=== PATIENT | male | born 1950 ===

== ENCOUNTER 2017-09-25 13:38 | Inpatient (IN) | payer BC, MEDICARE ==
[2017-09-25 14:12] VITALS: BMI 23.6
[2017-09-25] MEDS ORDERED: Lactated Ringer's 1,000 ML IV ONE (14:39)
--- NOTE | 2017-09-25 14:39 | C.PDOC ---
History Of Present Illness <Danay Lyon - Last Filed: 09/25/17 18:57> <JavanEric Sanders - Last Filed: 09/25/17 22:28> 66 year old male with PMH of HTN and Colon cancer presents to ED with complaints of rectal pain for one year. He reports for the past week he has been having pain with bowel movements, and is having watery diarrhea. Today he had 12 episodes of loose non-bloody diarrhea. Denies any fever, abdominal pain, SOB, or other associated complaints. Last chemotherapy was Friday09/17/17 and also was given Lomotil for diarrhea. PCP: Dr Ralph Servin Onc: Dr Brian Mckeno (CamronEvertDanay L) History Per: Patient History/Exam Limitations: no limitations Onset/Duration Of Symptoms: Other (1 year) Current Symptoms Are (Timing): Still Present Radiation Of Pain To:: None Quality Of Discomfort: "Pain" Associated Symptoms: Diarrhea. denies: Fever Last Bowel Movement: Today Additional History Per: Patient <Danay Lyon - Last Filed: 09/25/17 18:57> <Eric Edouard Tommy - Last Filed: 09/25/17 22:28> Time Seen by Provider: 09/25/17 14:23 Chief Complaint (Nursing): Abdominal Pain Past Medical History Reviewed: Historical Data, Nursing Documentation, Vital Signs - Medical History PMH: HTN Surgical History: No Surg Hx Family History: States: Unknown Family Hx - Social History Hx Alcohol Use: No Hx Substance Use: No - Immunization History Hx Tetanus Toxoid Vaccination: No Hx Influenza Vaccination: Yes (2015) <Danay Lyon - Last Filed: 09/25/17 18:57> Vital Signs: Last Vital Signs Temp 98.1 F 09/25/17 17:43 Pulse 80 09/25/17 17:43 Resp 18 09/25/17 17:43 BP 132/75 09/25/17 17:43 Pulse Ox 98 09/25/17 18:57 Review Of Systems Constitutional: Negative for: Fever Respiratory: Negative for: Shortness of Breath Gastrointestinal: Positive for: Diarrhea, Rectal Pain. Negative for: Abdominal Pain <LyonDanay David - Last Filed: 09/25/17 18:57> Physical Exam - Physical Exam Appears: Non-toxic, No Acute Distress Skin: Normal Color, Warm, Dry Oral Mucosa: Moist Chest: Symmetrical, No Deformity, No Tenderness Cardiovascular: Rhythm Regular, No Murmur Respiratory: Normal Breath Sounds, No Rales, No Rhonchi, No Wheezing Gastrointestinal/Abdominal: Soft, No Tenderness, No Guarding, No Rebound Rectal: No Blood Streaked Stool, Other (rectal area is erythematous with maceration, tender, firm and loose yellow-brown stool) Extremity: Capillary Refill (less than 2 seconds ) Neurological/Psych: Oriented x3, Normal Speech, Normal Cognition <Danay Lyon - Last Filed: 09/25/17 18:57> ED Course And Treatment - Laboratory Results Result Diagrams: 09/25/17 14:54 09/25/17 14:54 O2 Sat by Pulse Oximetry: 98 (on RA) Pulse Ox Interpretation: Normal <Danay Lyon Last Filed: 09/25/17 18:57> - Laboratory Results Result Diagrams: 09/25/17 14:54 09/25/17 14:54 <Eric Edouard - Last Filed: 09/25/17 22:28> Medical Decision Making <Danay Lyon - Last Filed: 09/25/17 18:57> <Eric Edouard - Last Filed: 09/25/17 22:28> Medical Decision Making: Impression: 66 year old male with rectal pain, pain with bowel movements, loose non-bloody diarrhea Plan: * Bloodwork * Urinalysis * Stool culture * Toradol IVP * Lactated Ringers Progress: Labs reviewed H/H is 11.2/33 , hypocalcemia 8.1, slight hyponatremia 129. Patient receiving LR 1800 patient resting in bed in no distress. Still awaiting CT scan [address] scan, will await results [address] Case signed out to Dr Edouard pending CT results, re-eval and dispo (Danay Lyon) Disposition - Disposition Disposition Time: 18:57 - POA Present On Arrival: None <Danay Lyon - Last Filed: 09/25/17 18:57> Discussed With : Dada Sol Doctor Will See Patient In The: Hospital Counseled Patient/Family Regarding: Diagnosis - Disposition Disposition Time: 22:27 <Eric Edouard - Last Filed: 09/25/17 22:28> - Disposition Disposition: HOSPITALIZED Condition: STABLE Forms: [facility] (Honduran) - Clinical Impression Clinical Impression: History of colon cancer, Rectal or anal pain - PA / APPLICATION INTERNSHIP / Resident Statement MD/DO has reviewed & agrees with the documentation as recorded. - Scribe Statement The provider has reviewed the documentation as recorded by the Scribe (Margot Medina) <Danay Lyon - Last Filed: 09/25/17 18:57> <Eric Edouard - Last Filed: 09/25/17 22:28> - Scribe Statement All medical record entries made by the Scribe were at my direction and personally dictated by me. I have reviewed the chart and agree that the record accurately reflects my personal performance of the history, physical exam, medical decision making, and the department course for this patient. I have also personally directed, reviewed, and agree with the discharge instructions and disposition. (Danay Lyon) Physician Patient Turnover Patient Signed Over To: Eric Edouard Handoff Comments: Pending Ct report, re-evaluation and disposition <Danay Lyon - Last Filed: 09/25/17 18:57>
[2017-09-25] MEDS ORDERED: Iohexol 240 (50 ml) PO STA (14:44)
[2017-09-25] MEDS ORDERED: Lactated Ringer's 1,000 ML ONE (14:45)
[2017-09-25 15:00] LABS: BASO % 0.6 % (0.0-2.0); EOS # 0.1 K/uL (0.0-0.7); EOS % 1.4 % (0.0-4.0); HEMATOCRIT 33.5 % (35.0-51.0); LYMPH # 1.4 K/uL (1.0-4.3); LYMPH % 26.8 % (20.0-40.0); MEAN CELL VOLUME 85.1 fL (80.0-94.0); MEAN CORPUSCULAR HEMOGLOBIN 28.4 pg (27.0-31.0); MEAN CORPUSCULAR HGB CONC 33.4 g/dL (33.0-37.0); MEAN PLATELET VOLUME 6.6 fL (7.2-11.7); MONO # 0.6 K/uL (0.0-0.8); MONO % 12.2 % (0.0-10.0); NRBC % 0.1 % (0.0-2.0); RED CELL DISTRIBUTION WIDTH 17.2 % (11.5-14.5); WHITE BLOOD COUNT 5.1 K/uL (4.8-10.8)
[2017-09-25] MEDS ORDERED: Iohexol 240 (50 ml) ONE (15:02)
[2017-09-25 15:07] LABS: INR 1.2
[2017-09-25 15:42] LABS: ALKALINE PHOSPHATASE 82 U/L (38-126); ALT/SGPT 32 U/L (21-72); AST/SGOT 18 U/L (17-59); BILIRUBIN,TOTAL 0.9 mg/dL (0.2-1.3); BLOOD UREA NITROGEN 16 mg/dL (9-20); CALCIUM 8.1 mg/dl (8.6-10.4); CARBON DIOXIDE 25 mmol/L (22-30); CHLORIDE 99 mmol/L (98-107); GFR AFRICAN-AMERICAN > 60; GLUCOSE,RANDOM 115 mg/dL (75-110); POTASSIUM 3.8 mmol/L (3.6-5.2); TOTAL PROTEIN 7.5 g/dL (6.3-8.3)
[2017-09-25 15:42] LABS: RBC URINE < 1 /hpf (0-3); URINE BILIRUBIN NEGATIVE (NEGATIVE); URINE BLOOD NEGATIVE (NEGATIVE); URINE COLOR Yellow (YELLOW); URINE GLUCOSE (UA) NORMAL (Normal); URINE KETONE NEGATIVE (NEGATIVE); URINE LEUKOCYTE ESTERASE NEG Leu/uL (Negative); URINE PROTEIN NEGATIVE (NEGATIVE); WBC URINE 1 /hpf (0-5)
[2017-09-25] MEDS ORDERED: Iodixanol 320 MG/ML 100 ML BOTTLE IV ONE (18:06)
--- NOTE | 2017-09-25 20:07 | CT ---
EXAM: CT Abdomen and Pelvis With Intravenous Contrast EXAM DATE/TIME: 09/25/2017 2:56 PM CLINICAL HISTORY: 66 years old, male; Signs and symptoms and condition or disease; Cancer; Other: Colon; Abdominal tenderness; Additional info: Rectal pain, h/o colon ca TECHNIQUE: Axial computed tomography images of the abdomen and pelvis with intravenous contrast. All CT scans at this facility use one or more dose reduction techniques, viz.: automated exposure control; ma/kV adjustment per patient size (including targeted exams where dose is matched to indication; i.e. head); or iterative reconstruction technique. Coronal and sagittal reformatted images were created and reviewed. CONTRAST: 100 mL of VISI administered intravenously. COMPARISON: There are no prior studies for comparison. FINDINGS: Lower thorax: Heart size is normal. There is a small hiatal hernia. There are fibrotic changes at the lung bases right greater than left. There is bronchiectasis at the right base. There is a calcified granuloma in the left base. There is a poorly defined 13 x 11 mm nodular opacity, right lower lobe. There is an 8mm right lower lobe nodule. There is nodular pleural thickening and scarring. ABDOMEN: Liver: There are multiple low attenuation hepatic lesions not cysts by CT criteria. There are small hepatic cysts. There are additional low attenuation lesions are too small to characterize. Gallbladder and bile ducts: Gallbladder is incompletely distended. There is mild pericholecystic fluid/edema. There may be a small gallstone. There is prominence of the common duct. Pancreas: Pancreas is mildly atrophic. Spleen: unremarkable Adrenals: There is mild adrenal thickening bilaterally. Kidneys and ureters: There is a left renal cyst. There are no focal renal masses. There is mild left pelvocaliectasis. There is no ureterectasis. Stomach and bowel: Stomach is incompletely distended which accentuates the gastric wall. Bowel rotation is normal. The small bowel is incompletely opacified with oral contrast. There is contrast in distal small bowel. There is no small bowel obstruction. There is mild distal ileal wall and fold thickening. Terminal ileum and appendix are unremarkable. There is a moderately large amount of stool in the colon. There is diffuse distal sigmoid wall thickening. There is marked asymmetric rectal wall thickening. There is infiltration of adjacent perirectal soft tissue planes. There is obliteration of soft tissue planes between the rectum, seminal vesicles and prostate. There is infiltration of the presacral space. Appendix: See stomach and bowel PELVIS: Bladder: Bladder is partially distended. Reproductive: Prostate is mildly enlarged. Seminal vesicles cannot be delineated. ABDOMEN and PELVIS: Intraperitoneal space: There is no free air. Bones/joints: There are degenerative changes in the osseus structures. Soft tissues: unremarkable Vasculature: There are vascular calcifications. Lymph nodes: There is a 3.3 x 3.5 x 4.3 cm pre-sacral mass in the upper pelvis encasing the inferior mesenteric artery. There is enlarged left iliac node. There is a 3.6 x 2 x 3.9 cm right inguinal node. There are mildly enlarged left inguinal nodes. IMPRESSION: Circumferential rectal mass with infiltration of adjacent soft tissues including seminal vesicles and prostate, findings are consistent with malignancy, rectal mass may be causing partial obstruction with constipation; adenopathy; hepatic and pulmonary nodules/masses suspicious for metastatic disease; gallstones Additional findings as described above.
[2017-09-25 23:19] VITALS: RESP 20
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
[2017-09-26] MEDS: metroNIDAZOLE IV 500 mg/100 ml 500 MG/100 ML BAG IVPB SCH ×4 (00:07→22:09)
[2017-09-26 07:41] LABS: BASO % 0.3 % (0.0-2.0); EOS # 0.1 K/uL (0.0-0.7); EOS % 1.5 % (0.0-4.0); HEMATOCRIT 29.5 % (35.0-51.0); LYMPH # 0.9 K/uL (1.0-4.3); LYMPH % 23.2 % (20.0-40.0); MEAN CELL VOLUME 84.3 fL (80.0-94.0); MEAN CORPUSCULAR HEMOGLOBIN 28.7 pg (27.0-31.0); MEAN PLATELET VOLUME 7.1 fL (7.2-11.7); MONO # 0.4 K/uL (0.0-0.8); MONO % 11.3 % (0.0-10.0); NRBC % 0.1 % (0.0-2.0); RED CELL DISTRIBUTION WIDTH 16.9 % (11.5-14.5); WHITE BLOOD COUNT 3.9 K/uL (4.8-10.8)
[2017-09-26 07:50] LABS: ALB/GLOB RATIO 1.1 (1.0-2.1); ALKALINE PHOSPHATASE 73 U/L (38-126); ALT/SGPT 32 U/L (21-72); AST/SGOT 17 U/L (17-59); BILIRUBIN,TOTAL 1.1 mg/dL (0.2-1.3); BLOOD UREA NITROGEN 11 mg/dL (9-20); CALCIUM 7.9 mg/dl (8.6-10.4); CARBON DIOXIDE 26 mmol/L (22-30); CHLORIDE 103 mmol/L (98-107); GFR AFRICAN-AMERICAN > 60; GLUCOSE,RANDOM 86 mg/dL (75-110); MAGNESIUM 1.9 mg/dL (1.6-2.3); PHOSPHOROUS 3.4 mg/dL (2.5-4.5); POTASSIUM 3.9 mmol/L (3.6-5.2); SODIUM 137 mmol/L (132-148); TOTAL PROTEIN 6.1 g/dL (6.3-8.3)
--- NOTE | 2017-09-26 09:11 | CP.PCM.PN ---
<Luis ERea SAudra - Last Filed: 09/26/17 14:44> Subjective - Date & Time of Evaluation Date of Evaluation: 09/26/17 Time of Evaluation: 07:00 - Subjective Subjective: Patient was seen and examined at bedside in the AM. Patient states he is having a small loose bowel movement every 10 minutes. He states sometimes there is a little bit of blood in his stool but not much. He also states he does have some rectal pain. Patient states he has been receiving IV chemotherapy 2x per month and the last time was 13 days ago. He denies nausea, vomiting, fever, or abdominal pain. Objective - Vital Signs/Intake and Output Vital Signs (last 24 hours): Temp Pulse Resp BP Pulse Ox 98.0 F 74 20 124/71 100 09/26/17 07:37 09/26/17 07:37 09/26/17 07:37 09/26/17 07:37 09/26/17 07:37 Intake and Output: 09/26/17 09/26/17 06:59 18:59 Intake Total 100 Balance 100 - Medications Medications: Current Medications Docusate Sodium (Colace) 100 mg PO TID [facility] Heparin Sodium (Porcine) (Heparin) 5,000 units SC Q8 [facility] Last Admin: 09/26/17 05:35 Dose: 5,000 units Ceftriaxone Sodium 1 gm/ (Sodium Chloride) 100 mls @ 100 mls/hr IVPB DAILY [facility] Metronidazole (Flagyl) 500 mg in 100 mls @ 100 mls/hr IVPB Q8 [facility] Last Admin: 09/26/17 05:34 Dose: 100 mls/hr Mineral Oil (Mineral Oil 30ml) 10 ml PO TID [facility] Morphine Sulfate (Morphine) 1 mg IVP Q4 PRN PRN Reason: Pain, severe (8-10) - Labs Labs: 09/26/17 06:57 09/26/17 06:57 PT 13.7 SECONDS (9.7-12.2) H 09/25/17 14:54 INR 1.2 09/25/17 14:54 APTT 35 SECONDS (21-34) H 09/25/17 14:54 - Constitutional Appears: Chronically Ill - Head Exam Head Exam: ATRAUMATIC, NORMAL INSPECTION - Eye Exam Eye Exam: EOMI, Normal appearance - ENT Exam ENT Exam: Mucous Membranes Moist - Respiratory Exam Respiratory Exam: Clear to Ausculation Bilateral, NORMAL BREATHING PATTERN. absent: Rales, Rhonchi, Wheezes, Stridor - Cardiovascular Exam Cardiovascular Exam: REGULAR RHYTHM, RRR, +S1, +S2 - GI/Abdominal Exam GI & Abdominal Exam: Soft, Normal Bowel Sounds. absent: Tenderness - Rectal Exam Additional comments: Dr. Bowie at bedside performed rectal exam. Dr. Bowie only stool was seen on exam and unable to completely access rectum due to rectal stenosis. - Extremities Exam Extremities Exam: Normal Inspection - Neurological Exam Neurological Exam: Alert, Awake, Oriented x3 - Psychiatric Exam Psychiatric exam: Normal Affect, Normal Mood - Skin Skin Exam: Normal Color, Warm Assessment and Plan - Assessment and Plan (Free Text) Assessment: 1.) Diarrhea: Secondary to colon cancer vs. Rectal mass on CT GI Consult: Dr. Escamilla --> help appreciated Heme/Onc Consult: Dr. Mckeon --> help appreciated - Spoke with Dr. Dennis who is covering for Dr. Mckeon stated to continue with GI consult and hold off on consulting surgery until speaking with Dr. Mckeon at this time. CT of Abdomen/Pelvis: Circumferential rectal mass with infiltration of adjacent soft tissues including seminal vesicles and prostate, findings are consistent with malignancy, rectal mass may be causing partial obstruction with constipation; adenopathy; hepatic and pulmonary nodules/masses suspicious for metastatic disease; gallstones - Medications: * Colace 100mg po TID * Lactulose 20mg PO TID - Soft Diet - f/u stool culture - f/u stool occult 2.) Rectal pain Secondary to colon cancer vs. inflammation/infection GI Consult: Dr. Escamilla --> help appreciated Heme/Onc Consult: Dr. Mckeon --> help appreciated Medications * Ceftriaxone 1gm daily * Metronidazole 500mg q8h * Morphine 1mg ivp q4h prn - f/u stool culture - f/u stool occult 3.) Anemia Secondary to diarrhea vs. Colon Cancer - H/H: 11.2/33.5 on admission - H/H (09/26): 10/29.5 - Monitor 4.) Colon Cancer CT of Abdomen/Pelvic: circumferential rectal mass with infiltration of adjacent soft tissues including seminal vesicles and prostate, findings are consistent with malignancy, rectal mass may be causing partial obstruction with constipation; adenopathy; hepatic and pulmonary nodules/masses suspicious for metastatic disease; gallstones * Heme/Onc consulted--> Dr. Mckeon, help appreciated 5.) HTN Monitor May restart home medication Amlodipine if pressure is high 6.) Prophylaxis - Heparin 5000 SC q8h - Protonix 4mg IV q12h Case discussed with Dr. Azeb Kimbrough PGY-1 <Rob Bowie - Last Filed: 09/26/17 16:39> Objective - Vital Signs/Intake and Output Vital Signs (last 24 hours): Temp Pulse Resp BP Pulse Ox 98.0 F 74 20 124/71 100 09/26/17 07:37 09/26/17 07:37 09/26/17 07:37 09/26/17 07:37 09/26/17 07:37 Intake and Output: 09/26/17 09/26/17 06:59 18:59 Intake Total 100 700 Balance 100 700 - Medications Medications: Current Medications Docusate Sodium (Colace) 100 mg PO TID [facility] Last Admin: 09/26/17 14:18 Dose: 100 mg Ferrous Sulfate (Feosol) 325 mg PO DAILY [facility] Last Admin: 09/26/17 15:28 Dose: 325 mg Heparin Sodium (Porcine) (Heparin) 5,000 units SC Q8 [facility] Last Admin: 09/26/17 14:18 Dose: 5,000 units Ceftriaxone Sodium 1 gm/ (Sodium Chloride) 100 mls @ 100 mls/hr IVPB DAILY [facility] Last Admin: 09/26/17 09:44 Dose: 100 mls/hr Metronidazole (Flagyl) 500 mg in 100 mls @ 100 mls/hr IVPB Q8 [facility] Last Admin: 09/26/17 14:18 Dose: 100 mls/hr Lactulose (Enulose) 20 gm PO TID [facility] Last Admin: 09/26/17 14:18 Dose: 20 gm Morphine Sulfate (Morphine) 1 mg IVP Q4 PRN PRN Reason: Pain, severe (8-10) Last Admin: 09/26/17 15:32 Dose: 1 mg Pantoprazole Sodium (Protonix Inj) 40 mg IVP Q12 [facility] Last Admin: 09/26/17 15:28 Dose: 40 mg - Labs Labs: 09/26/17 06:57 09/26/17 06:57 PT 13.7 SECONDS (9.7-12.2) H 09/25/17 14:54 INR 1.2 09/25/17 14:54 APTT 35 SECONDS (21-34) H 09/25/17 14:54 Attending/Attestation - Attestation I have personally seen and examined this patient.: Yes I have fully participated in the care of the patient.: Yes I have reviewed all pertinent clinical information, including history, physical exam and plan: Yes Notes (Text): Medical attending: Patient was seen and examined by me, reviewed note by medical assistant secretary. We saw the patient. He was not in any acute distress at rest however that he very commonly has to go to the restroom due to short bouts minimal diarrhea. He describes his stools as watery and brown. He reports he is unable to have a normal bowel movement. Furthermore he also explains that he often gets leakage of stool he's not able to control this. As mentioned previously this is a patient who has colon cancer, and has been receiving chemotherapy the last chemotherapy was about 2 weeks ago he tells us. He had a CT scan done on admission that shows a rectal mass with the soft tissue swelling almost completely around the rectum. It appears he has stool retained in his GI tract On exam he has a lot of tenderness on the rectal exam. I was unable to advance my finger very far at all. This is due to a lot of firm areas around the rectum there is no blood the stool was light brown in color. The earlier night medical team that admitted the patient placed the patient on ceftriaxone and Rocephin in hopes that perhaps this would help give some sort of decrease of inflammation in case this was an infection however this may not be an infection. His WBC is ok and he is non fever. Thank you very much, Rob Bowie
--- NOTE | 2017-09-26 16:45 | CP.PCM.CON ---
History of Present Illness - History of Present Illness History of Present Illness: This is a 66 year old man with rectal cancer, admitted for rectal pain and diarrhea. Patient was originally evaluated in October,, when colonoscopy showed a fungating partially obstructing mass in the distal rectum and diverticulosis. Pathology showed invasive adenocarcinoma, positive for a Kras mutation in codon 13 and negative for mutations involving mismatch repair genes. Metastatic work up showed metastases in lung, liver and lymph nodes. He has been treated by Dr. Mckeno who, starting in November, administered the following chemotherapy: avastin/xeloda/oxaliplatin for two months; avastin/xeloda/irinotecan for three months; and xeloda/irinotecan for four months. He has been referred for palliative surgery. Patient was admitted 09/15/2017 for frequent small bowel movements and pain in the rectum. The bowel movements are now occurring every hour, with small amounts of blood. He has tried taking imodium without much relief. The pain in the rectum is constant and prevents him from sitting. He has nausea, poor appetite, and weight loss (40 pounds in the past year). He denies having vomiting, heartburn, difficulty swallowing. CT scan showed circumferential rectal mass with infiltration of adjacent soft tissues, including seminal vesicles and prostate; presacral mass in the upper pelvis encasing the inferior mesenteric artery; constipation; adenopathy (left iliac, right inguinal); masses in liver and lungs Review of Systems - Review of Systems All systems: reviewed and no additional remarkable complaints except - Constitutional Constitutional: Fatigue, Weight Loss, Weakness - Cardiovascular Cardiovascular: absent: Chest Pain, Dyspnea, Palpitations - Respiratory Respiratory: absent: Cough, Dyspnea, Wheezing - Gastrointestinal Gastrointestinal: Diarrhea, Hematochezia, Nausea. absent: Abdominal Pain, Dysphagia, Heartburn, Vomiting - Genitourinary Genitourinary: absent: Difficulty Urinating Past Patient History - Past Medical History & Family History Past Medical History?: Yes - Past Social History Smoking Status: Never Smoked - CARDIAC Hx Cardiac Disorders: Yes Hx Hypertension: Yes - PULMONARY Hx Respiratory Disorders: No - NEUROLOGICAL Hx Neurological Disorder: No - HEENT Hx HEENT Problems: No - RENAL Hx Chronic Kidney Disease: No - ENDOCRINE/METABOLIC Hx Endocrine Disorders: No - HEMATOLOGICAL/ONCOLOGICAL Hx Blood Disorders: No - INTEGUMENTARY Hx Dermatological Problems: No - MUSCULOSKELETAL/RHEUMATOLOGICAL Hx Musculoskeletal Disorders: No Hx Falls: No - GASTROINTESTINAL Hx Gastrointestinal Disorders: Yes (SEE COMMENT) Other/Comment: COLON CANCER WITH CHEMOTHERAPY STARTED 2016 - GENITOURINARY/GYNECOLOGICAL Hx Genitourinary Disorders: No - PSYCHIATRIC Hx Psychophysiologic Disorder: No Hx Substance Use: No - SURGICAL HISTORY Hx Surgeries: Yes Hx Orthopedic Surgery: Yes (BACK SURGERY) - ANESTHESIA Hx Anesthesia: Yes Hx Anesthesia Reactions: No Hx Malignant Hyperthermia: No Has any member of the family had a problem w/ anesthesia?: No Meds Allergies/Adverse Reactions: Allergies Allergy/AdvReac Type Severity Reaction Status Date / Time No Known Allergies Allergy Verified 09/25/17 14:11 - Medications Medications: Current Medications Docusate Sodium (Colace) 100 mg PO TID [facility] Last Admin: 09/26/17 14:18 Dose: 100 mg Ferrous Sulfate (Feosol) 325 mg PO DAILY [facility] Last Admin: 09/26/17 15:28 Dose: 325 mg Heparin Sodium (Porcine) (Heparin) 5,000 units SC Q8 [facility] Last Admin: 09/26/17 14:18 Dose: 5,000 units Ceftriaxone Sodium 1 gm/ (Sodium Chloride) 100 mls @ 100 mls/hr IVPB DAILY [facility] Last Admin: 09/26/17 09:44 Dose: 100 mls/hr Metronidazole (Flagyl) 500 mg in 100 mls @ 100 mls/hr IVPB Q8 [facility] Last Admin: 09/26/17 14:18 Dose: 100 mls/hr Lactulose (Enulose) 20 gm PO TID [facility] Last Admin: 09/26/17 14:18 Dose: 20 gm Morphine Sulfate (Morphine) 1 mg IVP Q4 PRN PRN Reason: Pain, severe (8-10) Last Admin: 09/26/17 15:32 Dose: 1 mg Pantoprazole Sodium (Protonix Inj) 40 mg IVP Q12 [facility] Last Admin: 09/26/17 15:28 Dose: 40 mg Physical Exam - Constitutional Appears: No Acute Distress - Head Exam Head Exam: ATRAUMATIC, NORMOCEPHALIC - Neck Exam Neck exam: Negative for: Lymphadenopathy, Thyromegaly - Respiratory Exam Respiratory Exam: NORMAL BREATHING PATTERN. absent: Rales, Rhonchi, Wheezes - Cardiovascular Exam Cardiovascular Exam: REGULAR RHYTHM, +S1, +S2. absent: Gallop, Rubs, Systolic Murmur - GI/Abdominal Exam GI & Abdominal Exam: Normal Bowel Sounds, Soft. absent: Mass, Organomegaly, Tenderness - Rectal Exam Rectal Exam: Deferred - Extremities Exam Extremities exam: Negative for: calf tenderness, pedal edema Results - Vital Signs Recent Vital Signs: Last Vital Signs Temp 98.0 F 09/26/17 07:37 Pulse 74 09/26/17 07:37 Resp 20 09/26/17 07:37 BP 124/71 09/26/17 07:37 Pulse Ox 100 09/26/17 07:37 - Labs Result Diagrams: 09/26/17 06:57 09/26/17 06:57 Labs: Laboratory Results - last 24 hr 09/26/17 09/26/17 06:57 06:57 WBC 3.9 L RBC 3.49 L Hgb 10.0 L Hct 29.5 L MCV 84.3 MCH 28.7 MCHC 34.0 RDW 16.9 H Plt Count 297 MPV 7.1 L Neut % (Auto) 63.7 Lymph % (Auto) 23.2 [place] % (Auto) 11.3 H Eos % (Auto) 1.5 Baso % (Auto) 0.3 Neut # 2.5 Lymph # 0.9 L [place] # 0.4 Eos # 0.1 Baso # 0.0 Sodium 137 Potassium 3.9 Chloride 103 Carbon Dioxide 26 Anion Gap 12 BUN 11 Creatinine 0.6 L Est GFR ( Amer) > 60 Est GFR (Non-Af Amer) > 60 Random Glucose 86 Calcium 7.9 L Phosphorus 3.4 Magnesium 1.9 Total Bilirubin 1.1 AST 17 ALT 32 Alkaline Phosphatase 73 Total Protein 6.1 L Albumin 3.1 L Globulin 2.9 Albumin/Globulin Ratio 1.1 Assessment & Plan (1) Carcinoma of rectum Assessment and Plan: Patient has carcinoma of rectum with is locally aggressive and widely metastatic. Consider pain control with narcotics and palliative surgery as suggested by Dr. Mckeon. I do not see a role for colonoscopy at this point. Status: Acute
[2017-09-27] MEDS: metroNIDAZOLE IV 500 mg/100 ml 500 MG/100 ML BAG IVPB SCH ×2 (05:18→14:21)
[2017-09-27 06:46] LABS: BASO % 0.4 % (0.0-2.0); EOS % 0.4 % (0.0-4.0); HEMATOCRIT 30.1 % (35.0-51.0); LYMPH # 0.8 K/uL (1.0-4.3); LYMPH % 21.3 % (20.0-40.0); MEAN CELL VOLUME 84.4 fL (80.0-94.0); MEAN CORPUSCULAR HEMOGLOBIN 28.8 pg (27.0-31.0); MEAN CORPUSCULAR HGB CONC 34.1 g/dL (33.0-37.0); MEAN PLATELET VOLUME 6.7 fL (7.2-11.7); MONO # 0.4 K/uL (0.0-0.8); MONO % 11.2 % (0.0-10.0); RED CELL DISTRIBUTION WIDTH 17.3 % (11.5-14.5); WHITE BLOOD COUNT 3.7 K/uL (4.8-10.8)
[2017-09-27 06:49] LABS: ALKALINE PHOSPHATASE 78 U/L (38-126); ALT/SGPT 35 U/L (21-72); AST/SGOT 16 U/L (17-59); BILIRUBIN,TOTAL 0.8 mg/dL (0.2-1.3); BLOOD UREA NITROGEN 12 mg/dL (9-20); CARBON DIOXIDE 26 mmol/L (22-30); CHLORIDE 105 mmol/L (98-107); GFR AFRICAN-AMERICAN > 60; GLUCOSE,RANDOM 104 mg/dL (75-110); PHOSPHOROUS 3.7 mg/dL (2.5-4.5); POTASSIUM 3.4 mmol/L (3.6-5.2); SODIUM 140 mmol/L (132-148); TOTAL PROTEIN 6.5 g/dL (6.3-8.3)
[2017-09-27 06:53] LABS: ALB/GLOB RATIO 1.1 (1.0-2.1)
[2017-09-27] MEDS ORDERED: Potassium Chloride 20 mEq ER Tab PO ONE (09:33)
[2017-09-27 10:10] VITALS: BP 106/69; PULSE 89; TEMP 97.6; O2SAT 96
--- NOTE | 2017-09-27 11:20 | CP.PCM.PN ---
Subjective - Date & Time of Evaluation Date of Evaluation: 09/27/17 Time of Evaluation: 11:17 - Subjective Subjective: Sue Escamilla F/U rectal CA Seen with Dr Sadler Reports no: diarrhea, constipation, CP, SOB, fever, [place] , cough, RB, melena. + Wt loss 35 lbs Objective - Vital Signs/Intake and Output Vital Signs (last 24 hours): Temp Pulse Resp BP Pulse Ox 97.6 F 89 20 106/69 96 09/27/17 10:09 09/27/17 10:09 09/27/17 10:09 09/27/17 10:09 09/27/17 10:09 Intake and Output: 09/27/17 09/27/17 06:59 18:59 Intake Total 960 Balance 960 - Medications Medications: Current Medications Docusate Sodium (Colace) 100 mg PO TID [facility] Last Admin: 09/26/17 17:22 Dose: 100 mg Ferrous Sulfate (Feosol) 325 mg PO DAILY [facility] Last Admin: 09/26/17 15:28 Dose: 325 mg Heparin Sodium (Porcine) (Heparin) 5,000 units SC Q8 [facility] Last Admin: 09/27/17 05:19 Dose: 5,000 units Ceftriaxone Sodium 1 gm/ (Sodium Chloride) 100 mls @ 100 mls/hr IVPB DAILY [facility] Last Admin: 09/26/17 09:44 Dose: 100 mls/hr Metronidazole (Flagyl) 500 mg in 100 mls @ 100 mls/hr IVPB Q8 [facility] Last Admin: 09/27/17 05:18 Dose: 100 mls/hr Lactulose (Enulose) 20 gm PO TID [facility] Last Admin: 09/26/17 17:22 Dose: 20 gm Morphine Sulfate (Morphine) 1 mg IVP Q4 PRN PRN Reason: Pain, severe (8-10) Last Admin: 09/26/17 15:32 Dose: 1 mg Pantoprazole Sodium (Protonix Inj) 40 mg IVP Q12 [facility] Last Admin: 09/26/17 22:09 Dose: 40 mg - Labs Labs: 09/27/17 06:30 09/27/17 06:30 PT 13.7 SECONDS (9.7-12.2) H 09/25/17 14:54 INR 1.2 09/25/17 14:54 APTT 35 SECONDS (21-34) H 09/25/17 14:54 - Constitutional Appears: Well - Respiratory Exam Respiratory Exam: Clear to Ausculation Bilateral - Cardiovascular Exam Cardiovascular Exam: RRR - GI/Abdominal Exam GI & Abdominal Exam: Soft, Normal Bowel Sounds. absent: Guarding, Tenderness - Extremities Exam Extremities Exam: absent: Calf Tenderness - Neurological Exam Neurological Exam: Alert, Oriented x3 Assessment and Plan (1) Diarrhea Assessment & Plan: Rectal CA Status: Acute (2) Anemia Assessment & Plan: Rectal CA Status: Acute (3) Carcinoma of rectum Status: Acute (4) Rectal or anal pain Assessment & Plan: Rectal CA- s/p Rx.. Mets noted. F/U as per Oncology. Status: Acute
--- NOTE | 2017-09-27 11:43 | CP.PCM.PN ---
Subjective - Date & Time of Evaluation Date of Evaluation: 09/27/17 Time of Evaluation: 11:30 - Subjective Subjective: Patient was seen and examined by me. I brought in a computer translation service as well. As mentioned before this is a 66 yo male with colon CA that has spread to several areas including his rectum and it is causing patient to not be able to control his BMs and he has to go to the bathroom numerous times. He reports that since last night he has had to go to the bathroom 25 times - each time having small bowel moments that are described as watery and diarrhea like. Non bloody He has been having this for 3 months now. When he came here he was taking a lot of immodium to see if this would help, but instead it seems like it retained a lot of stool and so he is now on stool softeners to see if he can have larger BMs With the translation service I told the patient we would speak with his ekg/ecg technician/oncologist because he may need surgery to resect the colon as well as the rectum and then creation of a colostomy. I will ask if it is possible if radation could shrink the area enough for patient to have npormal BMs Objective - Vital Signs/Intake and Output Vital Signs (last 24 hours): Temp Pulse Resp BP Pulse Ox 97.6 F 89 20 106/69 96 09/27/17 10:09 09/27/17 10:09 09/27/17 10:09 09/27/17 10:09 09/27/17 10:09 Intake and Output: 09/27/17 09/27/17 06:59 18:59 Intake Total 960 Balance 960 - Medications Medications: Current Medications Docusate Sodium (Colace) 100 mg PO TID [facility] Last Admin: 09/27/17 11:33 Dose: 100 mg Ferrous Sulfate (Feosol) 325 mg PO DAILY [facility] Last Admin: 09/27/17 11:32 Dose: 325 mg Heparin Sodium (Porcine) (Heparin) 5,000 units SC Q8 [facility] Last Admin: 09/27/17 05:19 Dose: 5,000 units Ceftriaxone Sodium 1 gm/ (Sodium Chloride) 100 mls @ 100 mls/hr IVPB DAILY [facility] Last Admin: 09/27/17 11:33 Dose: 100 mls/hr Metronidazole (Flagyl) 500 mg in 100 mls @ 100 mls/hr IVPB Q8 [facility] Last Admin: 12/02/17 05:18 Dose: 100 mls/hr Lactulose (Enulose) 20 gm PO TID [facility] Last Admin: 09/27/17 11:33 Dose: 20 gm Morphine Sulfate (Morphine) 1 mg IVP Q4 PRN PRN Reason: Pain, severe (8-10) Last Admin: 09/26/17 15:32 Dose: 1 mg Pantoprazole Sodium (Protonix Inj) 40 mg IVP Q12 [facility] Last Admin: 09/27/17 11:32 Dose: 40 mg - Labs Labs: 09/27/17 06:30 09/27/17 06:30 PT 13.7 SECONDS (9.7-12.2) H 09/25/17 14:54 INR 1.2 09/25/17 14:54 APTT 35 SECONDS (21-34) H 09/25/17 14:54 - Constitutional Appears: Well, No Acute Distress, Chronically Ill - Head Exam Head Exam: NORMAL INSPECTION, NORMOCEPHALIC - Eye Exam Eye Exam: EOMI, Normal appearance - ENT Exam ENT Exam: Mucous Membranes Moist - Respiratory Exam Respiratory Exam: Clear to Ausculation Bilateral, NORMAL BREATHING PATTERN - Rectal Exam Rectal Exam: absent: Deferred, Black Stool, Bloody Stool, Hemorrhoids, Fecal Impaction, NORMAL INSPECTION Additional comments: On rectal exam I am unable to advance my finger more than 2 cm - tender and also firm. Light stool color. Non bloody No fissures. - Neurological Exam Neurological Exam: Alert, Awake, Normal Gait, Oriented x3 Neuro motor strength exam: Left Upper Extremity: 5, Right Upper Extremity: 5, Left Lower Extremity: 5, Right Lower Extremity: 5 - Psychiatric Exam Psychiatric exam: Normal Affect, Normal Mood - Skin Skin Exam: Normal Color, Warm Assessment and Plan - Assessment and Plan (Free Text) Assessment: 1.) Diarrhea: Secondary to colon cancer vs. Rectal mass on CT 09/27: I came with translation service and patient is still going to the bathroom numerous times > 25 times a day each time with small watery diarrhea bowel mpovments. I will try to speak with Heme/Onc maybe the patient needs surgery to remove the colon and rectum and receieve a colostomy/ostomy - or possible if radiation could help decreasing the swelling so that patient can have a normal BM or less diarrhea. Encouraged liquid intake GI Consult: Dr. Escamilla --> help appreciated Heme/Onc Consult: Dr. Mckeon --> help appreciated - Spoke with Dr. Dennis who is covering for Dr. Mckeon stated to continue with GI consult and hold off on consulting surgery until speaking with Dr. Mckeon at this time. CT of Abdomen/Pelvis: Circumferential rectal mass with infiltration of adjacent soft tissues including seminal vesicles and prostate, findings are consistent with malignancy, rectal mass may be causing partial obstruction with constipation; adenopathy; hepatic and pulmonary nodules/masses suspicious for metastatic disease; gallstones - Medications: * Colace 100mg po TID * Lactulose 20mg PO TID - Soft Diet 2.) Rectal pain Secondary to colon cancer vs. inflammation/infection 09/27: Minimal pain at this time. On stool soffeners at this time GI Consult: Dr. Escamilla --> help appreciated Heme/Onc Consult: Dr. Mckeon --> help appreciated Medications * Ceftriaxone 1gm daily * Metronidazole 500mg q8h * Morphine 1mg ivp q4h prn - f/u stool culture - f/u stool occult 3.) Anemia Secondary to diarrhea vs. Colon Cancer - H/H: 11.2/33.5 on admission - H/H (09/26): /29.5 - Monitor 4.) Colon Cancer CT of Abdomen/Pelvic: circumferential rectal mass with infiltration of adjacent soft tissues including seminal vesicles and prostate, findings are consistent with malignancy, rectal mass may be causing partial obstruction with constipation; adenopathy; hepatic and pulmonary nodules/masses suspicious for metastatic disease; gallstones * Heme/Onc consulted--> Dr. Mckeon, help appreciated 5.) HTN Monitor May restart home medication Amlodipine if pressure is high 6.) Prophylaxis - Heparin 5000 SC q8h - Protonix 4mg IV q12h
--- NOTE | 2017-09-27 12:11 | CP.PCM.DIS ---
Provider - Provider Date of Admission: 09/25/17 22:28 Attending physician: Rob Bowie DO Primary care physician: Dr Mckeon ~ Mammalogy Teacher/Oncologist Consults: Dr Mckeon ~ Mammalogy Teacher/Oncologist Dr Escamilla ~ GI Time Spent in preparation of Discharge (in minutes): 29 Diagnosis - Discharge Diagnosis (1) Carcinoma of rectum Status: Acute (2) History of colon cancer Status: Acute Hospital Course - Lab Results Lab Results: Micro Results 09/25/17 15:30 Stool Stool Culture - Final NO SALMONELLA, SHIGELLA OR CAMPYLOBACTER ISOLATED. Most Recent Lab Values WBC 3.7 K/uL (4.8-10.8) L 09/27/17 06:30 RBC 3.57 Mil/uL (4.40-5.90) L 09/27/17 06:30 Hgb 10.3 g/dL (12.0-18.0) L 09/27/17 06:30 Hct 30.1 % (35.0-51.0) L 09/27/17 06:30 MCV 84.4 fL (80.0-94.0) 09/27/17 06:30 MCH 28.8 pg (27.0-31.0) 09/27/17 06:30 MCHC 34.1 g/dL (33.0-37.0) 09/27/17 06:30 RDW 17.3 % (11.5-14.5) H 09/27/17 06:30 Plt Count 346 K/uL (130-400) 09/27/17 06:30 MPV 6.7 fL (7.2-11.7) L 09/27/17 06:30 Neut % (Auto) 66.7 % (50.0-75.0) 09/27/17 06:30 Lymph % (Auto) 21.3 % (20.0-40.0) 09/27/17 06:30 Hinds % (Auto) 11.2 % (0.0-10.0) H 09/27/17 06:30 Eos % (Auto) 0.4 % (0.0-4.0) 09/27/17 06:30 Baso % (Auto) 0.4 % (0.0-2.0) 09/27/17 06:30 Neut # 2.5 K/uL (1.8-7.0) 09/27/17 06:30 Lymph # 0.8 K/uL (1.0-4.3) L 09/27/17 06:30 Hinds # 0.4 K/uL (0.0-0.8) 09/27/17 06:30 Eos # 0.0 K/uL (0.0-0.7) 09/27/17 06:30 Baso # 0.0 K/uL (0.0-0.2) 09/27/17 06:30 PT 13.7 SECONDS (9.7-12.2) H 09/25/17 14:54 INR 1.2 09/25/17 14:54 APTT 35 SECONDS (21-34) H 09/25/17 14:54 Sodium 140 mmol/L (132-148) 09/27/17 06:30 Potassium 3.4 mmol/L (3.6-5.2) L 09/27/17 06:30 Chloride 105 mmol/L (98-107) 09/27/17 06:30 Carbon Dioxide 26 mmol/L (22-30) 09/27/17 06:30 Anion Gap 12 (10-20) 09/27/17 06:30 BUN 12 mg/dL (9-20) 09/27/17 06:30 Creatinine 0.6 mg/dL (0.8-1.5) L 09/27/17 06:30 Est GFR ( Amer) > 60 09/27/17 06:30 Est GFR (Non-Af Amer) > 60 09/27/17 06:30 Random Glucose 104 mg/dL (75-110) 09/27/17 06:30 Calcium 8.0 mg/dl (8.6-10.4) L 09/27/17 06:30 Phosphorus 3.7 mg/dL (2.5-4.5) 09/27/17 06:30 Magnesium 2.0 mg/dL (1.6-2.3) 09/27/17 06:30 Total Bilirubin 0.8 mg/dL (0.2-1.3) 09/27/17 06:30 AST 16 U/L (17-59) L 09/27/17 06:30 ALT 35 U/L (21-72) 09/27/17 06:30 Alkaline Phosphatase 78 U/L (38-126) 09/27/17 06:30 Total Protein 6.5 g/dL (6.3-8.3) 09/27/17 06:30 Albumin 3.4 g/dL (3.5-5.0) L 09/27/17 06:30 Globulin 3.1 gm/dL (2.2-3.9) 09/27/17 06:30 Albumin/Globulin Ratio 1.1 (1.0-2.1) 09/27/17 06:30 Lipase 28 U/L (23-300) 09/25/17 14:54 Urine Color Yellow (YELLOW) 09/25/17 15:20 Urine Clarity Clear (Clear) 09/25/17 15:20 Urine pH 5.0 (5.0-8.0) 09/25/17 15:20 Ur Specific [place] 1.020 (1.003-1.030) 09/25/17 15:20 Urine Protein Negative mg/dL (NEGATIVE) 09/25/17 15:20 Urine Glucose (UA) Normal mg/dL (Normal) 09/25/17 15:20 Urine Ketones Negative mg/dL (NEGATIVE) 09/25/17 15:20 Urine Blood Negative (NEGATIVE) 09/25/17 15:20 Urine Nitrate Negative (NEGATIVE) 09/25/17 15:20 Urine Bilirubin Negative (NEGATIVE) 09/25/17 15:20 Urine Urobilinogen 4.0 mg/dL (0.2-1.0) 09/25/17 15:20 Ur Leukocyte Esterase Neg Preethi/uL (Negative) 09/25/17 15:20 Urine WBC (Auto) 1 /hpf (0-5) 09/25/17 15:20 Urine RBC (Auto) < 1 /hpf (0-3) 09/25/17 15:20 - Hospital Course Hospital Course: This is a very nice man who is 66 yo and has colon cancer with metastatic spread several areas of his body including the rectum. He has been having chemotherapy both PO and IV. For the past three months now he has been having numerous episodes of non bloody watery diarrhea. The volume of each episode is very minimal. He has been trying to take immodium to stop the diarrhea however it has not helped at all. He says he cannot help himself and has been having to go to the bathroom numerous times since he cannot prevent himself Our exams reveal a lot tenderness on exam and also inability to advance finger far. The rectal wall/muscles seem firm. There are no adjacent fissures and no hermmoriods externally. A CT scan was done here and shows there is spread of the colon CA to the rectal area as well as the adjacent areas as well. His single needle operator oncologist has been aware of the patient's inability to control his BM and has in the past suggested to the patient to be evaluated at [facility] for resection of the colon as well as the rectum with creation of a colostomy - the patient refused. We also suggested this to the patient as well - we used a radiographer - he told us that he knows about this but he again says he does not want this. Per my discussion with the patient's single needle operator oncologist - he asked that the patient be discharged and follow up with him - he will be arranging for radiation treatment to see of the rectal mass can be shrunk and help relieve the patient. When he came here he was taking a lot of immodium to see if this would help, but instead it seems like it retained a lot of stool and so he is now on stool softeners to see if he can have larger BMs - however this has not made a difference He was also placed on IV abx in case the rectal area had infection - however he never had a WBC and never had fever I brought translation and explained to the patient he needs to follow up with his Mammalogy Teacher/Oncologist on Friday for arrangements for radiation thank you Rob Bowie Discharge Exam - Head Exam Head Exam: NORMAL INSPECTION, NORMOCEPHALIC - Eye Exam Eye Exam: EOMI, Normal appearance - ENT Exam ENT Exam: Mucous Membranes Moist - Respiratory Exam Respiratory Exam: Clear to PA & Lateral, NORMAL BREATHING PATTERN, UNREMARKABLE - Cardiovascular Exam Cardiovascular Exam: REGULAR RHYTHM - GI/Abdominal Exam GI & Abdominal Exam: Normal Bowel Sounds. absent: Diminished Bowel Sounds, Distended, Firm, Guarding, Hernia - Rectal Exam Rectal Exam: absent: Black Stool, Bloody Stool, Hemorrhoids, Fecal Impaction Additional comments: Unable to advance finger more than 1 cm on exam due to tenderness/pain and swelling Soft brown stool, watery and non bloody - Neurological Exam Neurological exam: Alert, Normal Gait, Oriented x3 - Psychiatric Exam Psychiatric exam: Normal Affect, Normal Mood - Skin Skin Exam: Normal Color, Warm Discharge Plan - Follow Up Plan Condition: STABLE Disposition: HOME/ ROUTINE
--- NOTE | 2017-09-28 15:53 | CON ---
ONCOLOGY CONSULTATION HISTORY OF PRESENT ILLNESS: This is a 66-year-old man who has colon cancer on presentation metastatic to his liver and to his lung and to his lymph nodes. He has been treated with chemotherapy for the last year including Xeloda, oxaliplatin, irinotecan and Avastin. Most recently, he has been getting the Xeloda plus irinotecan and Avastin. He is now admitted for increasing pain in his rectum. PHYSICAL EXAMINATION: SKIN: No petechiae. No bruises. HEENT: Temporal wasting noted. NODES: Nonpalpable in the axillary, cervical, supraclavicular or inguinal regions. LUNGS: Clear at present. No vertebral tenderness. HEART: S1 and S2. ABDOMEN: Shows no rebound. Some mild tenderness in his abdomen. Increased bowel sounds. No liver, no spleen, no masses. EXTREMITIES: No edema. CENTRAL NERVOUS SYSTEM: No focal finding. LABORATORY DATA: The CAT scan shows on one hand markedly increased stools in his abdomen and when we given him the cathartic, he seems to feel better with that. The second issue of course is his rectal mass. 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 The right inguinal lymph node is a 3.9 cm lymph node. This is smaller on his chemotherapy than his presentation, so he had a mild benefit. ASSESSMENT: We had asked him to see surgeon about a month or two ago, to see if we could do a resection and he said no. He would be willing to give him a colostomy, but the patient refused a colostomy. I think at this time, I am going to as an outpatient arrange him to see the radiation oncologist to see if we can radiate him for his symptom control. For now, the patient does feel somewhat better that he has moved his bowels. He will stop taking the Imodium. antibiotics, he is on the antibiotics intravenously now, but I think if cultures come back negative, we can send him home either on Cipro 500 b.i.d. or just observe. Either way, I will see him in the office on this coming Friday and arrange for him to get radiation therapy. Brian MD Linda
[2017-09-29 10:21] LABS: SODIUM 139 mmol/L (132-148)
== END 2017-09-27 16:37 | disposition home or self-care (01) | DRG 375 ==
LOC: C.ER 13:38 → C.9E 22:28 → C.3T 09-26 00:22
PROVIDERS: ADMIT Hospitalist; ATTEND Hospitalist
DX: C20 Malignant neoplasm of rectum (principal); C18.9 Malignant neoplasm of colon, unspecified; C77.2 Secondary and unspecified malignant neoplasm of intra-abdominal lymph nodes; C78.00 Secondary malignant neoplasm of unspecified lung; C78.7 Secondary malignant neoplasm of liver and intrahepatic bile duct; E86.0 Dehydration; R19.7 Diarrhea, unspecified; I10 Essential (primary) hypertension; K59.00 Constipation, unspecified; Z92.21 Personal history of antineoplastic chemotherapy

== ENCOUNTER 2018-02-11 08:32 | Inpatient (IN) | payer BC, MEDICARE ==
[2018-02-09 10:21] VITALS: BMI 24.0
[2018-02-11] MEDS ORDERED: metroNIDAZOLE IV 500 mg/100 ml 500 MG/100 ML BAG ONE (12:13)
[2018-02-11] MEDS ORDERED: ceFAZolin 1 gm in NS 1 GM/100 ML BAG IVPB ONE (12:13)
[2018-02-11] MEDS ORDERED: Lidocaine 2% Jelly (Uro-Jet) ONE (12:14)
[2018-02-11] MEDS ORDERED: Lactated Ringer's 1,000 ML IV ONE ×2 (12:45→13:50)
[2018-02-11] MEDS ORDERED: Propofol 10 mg/ml Inj (20 ML) ONE (12:56)
[2018-02-11] MEDS ORDERED: Etomidate 20 mg/10ml Inj IV ONE (12:59)
[2018-02-11] MEDS ORDERED: Phenylephrine 10 mg/ml Inj ONE (13:02)
[2018-02-11] MEDS ORDERED: Rocuronium 10 mg/ml (10 ml) ONE (13:02)
[2018-02-11] MEDS ORDERED: ePHEDrine 50 mg/ml Inj ONE (13:05)
[2018-02-11] MEDS ORDERED: Neostigmine Methylsulfate 3mg/3ml Syringe IV ONE (13:52)
[2018-02-11] MEDS ORDERED: Morphine 4 MG/ML VIAL IVP PRN (14:19)
--- NOTE | 2018-02-11 14:31 | PCM.SURG1 ---
Surgeon's Initial Post Op Note - Surgeon's Notes Surgeon: Dr. Anguiano Lead Shop Operator: Dr. Franklin PGY3; Brian Nash OMS III Pre-Operative Diagnosis: Stage IV Colon Ca Operative Findings: same Post-Operative Diagnosis: same Operation Performed: Transverse Loop Colostomy Specimen/Specimens Removed: none Estimated Blood Loss: EBL {In ML}: 10 Blood Products Given: N/A Drains Used: Ostomy Device Post-Op Condition: Good Date of Surgery/Procedure: 02/11/18 Time of Surgery/Procedure: 14:34
[2018-02-11] MEDS: Oxycodone/Acetaminophen 5/325 mg Tab PO PRN (22:34)
[2018-02-11 23:54] VITALS: RESP 20
--- NOTE | 2018-02-12 00:55 | OP ---
PROCEDURE DATE: 02/11/2018 PREOPERATIVE DIAGNOSIS: Metastatic rectal cancer with continuing diarrhea. POSTOPERATIVE DIAGNOSIS: Metastatic rectal cancer with continuing diarrhea. PROCEDURE: Transverse colostomy. SURGEON: Jez Anguiano Jr., MD BOLT HEADER: Dr. Franklin. ANESTHESIOLOGIST: Mr. Dean. DESCRIPTION OF PROCEDURE: The patient is a 67-year-old man with rectal cancer, reconstituent to therapy, who presents with increasing diarrhea, inability to sit down because of continued leakage from his rectum. OPERATIVE FINDINGS: The transverse colostomy was carried out. The distal end was stapled shut and matured with a small opening for gas, the more proximal side coming towards the cecum was matured and brought down on the abdominal wall, thus there was a layer of vern between the afferent and the efferent opening. After this had been done, the colostomy was secured. Bag was applied to the abdominal wall and the procedure was terminated. Blood loss of the procedure was less than 50 mL. Operation carried out was transverse colostomy. Jez Anguiano Jr., MD cc: MD Brian Ayala MD
[2018-02-12 07:08] LABS: BASO % 0.2 % (0.0-2.0); EOS % 0.1 % (0.0-4.0); HEMOGLOBIN 7.9 g/dL (12.0-18.0); LYMPH # 0.4 K/uL (1.0-4.3); LYMPH % 4.4 % (20.0-40.0); MEAN CELL VOLUME 84.3 fL (80.0-94.0); MEAN CORPUSCULAR HEMOGLOBIN 28.5 pg (27.0-31.0); MEAN CORPUSCULAR HGB CONC 33.8 g/dL (33.0-37.0); MEAN PLATELET VOLUME 6.1 fL (7.2-11.7); MONO # 0.5 K/uL (0.0-0.8); MONO % 5.7 % (0.0-10.0); NEUT # 8.5 K/uL (1.8-7.0); NEUT % 89.6 % (50.0-75.0); PLATELET COUNT 333 K/uL (130-400); RBC 2.79 Mil/uL (4.40-5.90); RED CELL DISTRIBUTION WIDTH 20.6 % (11.5-14.5); WHITE BLOOD COUNT 9.5 K/uL (4.8-10.8)
[2018-02-12 07:51] LABS: ALB/GLOB RATIO 0.7 (1.0-2.1); ALBUMIN 2.4 g/dL (3.5-5.0); ALT/SGPT 21 U/L (21-72); AST/SGOT 15 U/L (17-59); BLOOD UREA NITROGEN 16 mg/dL (9-20); CALCIUM 7.9 mg/dl (8.6-10.4); GFR AFRICAN-AMERICAN > 60; GFR NON-AFRICAN AMERICAN > 60
[2018-02-12 08:38] LABS: ANISOCYTOSIS SLIGHT; LYMPHOCYTE 4 % (20-40); MONOCYTE 7 % (0-10); NEUTROPHIL 89 % (50-75); PLATELET ESTIMATE NORMAL (NORMAL); POIKILOCYTOSIS SLIGHT; TOTAL CELLS COUNTED 100
[2018-02-12 08:39] LABS: HYPOCHROMIC SLIGHT; OVALOCYTES SLIGHT
[2018-02-12 08:40] LABS: POLYCHROMIC SLIGHT
--- NOTE | 2018-02-12 08:47 | CP.PCM.PN ---
Subjective - Date & Time of Evaluation Date of Evaluation: 02/12/18 Time of Evaluation: 08:45 - Subjective Subjective: General Surgery - Dr. Anguiano Pt S&E. SENAIT. Pt has mild abdominal pain post op but well controleld with meds. he is eating regular diet and OOB. Objective - Vital Signs/Intake and Output Vital Signs (last 24 hours): Temp Pulse Resp BP Pulse Ox 98.7 F 57 L 20 128/80 99 02/12/18 07:31 02/12/18 07:31 02/12/18 07:31 02/12/18 07:31 02/12/18 07:31 Intake and Output: 02/12/18 02/12/18 06:59 18:59 Intake Total 650 Output Total 600 Balance 50 - Medications Medications: Current Medications Enoxaparin Sodium (Lovenox) 40 mg SC DAILY [facility] Ondansetron HCl (Zofran Inj) 4 mg IVP Q6 PRN PRN Reason: Nausea/Vomiting Oxycodone/Acetaminophen (Percocet 5/325 Mg Tab) 1 tab PO Q4 PRN PRN Reason: Pain, moderate (4-7) Stop: 02/14/18 14:35 Last Admin: 02/11/18 22:34 Dose: 1 tab Pneumococcal Polyvalent Vaccine (Pneumovax 23 Vaccine) 0.5 ml IM .ONCE ONE Stop: 02/13/18 10:01 - Labs Labs: 02/12/18 06:56 02/12/18 06:56 - Constitutional Appears: No Acute Distress - Head Exam Head Exam: ATRAUMATIC, NORMAL INSPECTION, NORMOCEPHALIC - Eye Exam Eye Exam: Normal appearance - Respiratory Exam Respiratory Exam: NORMAL BREATHING PATTERN. absent: Respiratory Distress - Cardiovascular Exam Cardiovascular Exam: REGULAR RHYTHM - GI/Abdominal Exam GI & Abdominal Exam: Soft. absent: Distended, Firm, Guarding, Tenderness, Rebound - Neurological Exam Neurological Exam: Alert, Oriented x3 - Psychiatric Exam Psychiatric exam: Normal Affect, Normal Mood - Skin Skin Exam: Dry, Intact Assessment and Plan - Assessment and Plan (Free Text) Assessment: 67 yo M w/ stage IV colon CA, s/p Colostomy, POD #1 -Doing well post-op -Needs Colostomy teaching today with family present -Possible VNS for first few days of ostomy care at home if needed -DC planning later today if pt/family comfortable with ostomy care DW Dr Anguiano
[2018-02-12] MEDS: Enoxaparin 40 mg Syringe SC SCH (10:04)
[2018-02-12] MEDS: Oxycodone/Acetaminophen 5/325 mg Tab PO PRN ×2 (13:05→22:29)
[2018-02-13] MEDS: Oxycodone/Acetaminophen 5/325 mg Tab PO PRN ×2 (07:10→20:53)
--- NOTE | 2018-02-13 08:07 | CP.PCM.PN ---
Subjective - Date & Time of Evaluation Date of Evaluation: 02/13/18 Time of Evaluation: 06:50 - Subjective Subjective: Patient seen and examined at bedside this AM. No adverse events overnight. Patient denies any nausea, vomiting, is tolerating his diet, has gas and small amount of sero-sanguinous liquid from the ostomy. Objective - Vital Signs/Intake and Output Vital Signs (last 24 hours): Temp Pulse Resp BP Pulse Ox 98.5 F 56 L 20 138/76 97 02/13/18 05:30 02/13/18 00:00 02/13/18 00:00 02/13/18 00:00 02/13/18 00:00 Intake and Output: 02/13/18 02/13/18 06:59 18:59 Intake Total 600 Output Total 0 Balance 600 - Medications Medications: Current Medications Enoxaparin Sodium (Lovenox) 40 mg SC DAILY [facility] Last Admin: 02/12/18 10:04 Dose: 40 mg Ondansetron HCl (Zofran Inj) 4 mg IVP Q6 PRN PRN Reason: Nausea/Vomiting Oxycodone/Acetaminophen (Percocet 5/325 Mg Tab) 1 tab PO Q4 PRN PRN Reason: Pain, moderate (4-7) Stop: 02/14/18 14:35 Last Admin: 02/13/18 07:10 Dose: 1 tab Pneumococcal Polyvalent Vaccine (Pneumovax 23 Vaccine) 0.5 ml IM .ONCE ONE Stop: 02/13/18 10:01 - Labs Labs: 02/12/18 06:56 02/12/18 06:56 - Constitutional Appears: Well, Non-toxic, No Acute Distress - Head Exam Head Exam: ATRAUMATIC, NORMOCEPHALIC - Eye Exam Eye Exam: Normal appearance. absent: Conjunctival injection, Scleral icterus - ENT Exam ENT Exam: Mucous Membranes Moist, Normal Oropharynx - Respiratory Exam Respiratory Exam: NORMAL BREATHING PATTERN. absent: Accessory Muscle Use, Respiratory Distress - Cardiovascular Exam Cardiovascular Exam: RRR - GI/Abdominal Exam GI & Abdominal Exam: Soft. absent: Distended, Tenderness Additional comments: ostomy is pink, patent, and productive of gas and sero-sanguinous liquid - Extremities Exam Extremities Exam: absent: Calf Tenderness, Pedal Edema, Tenderness - Neurological Exam Neurological Exam: Alert, Awake, Oriented x3 - Psychiatric Exam Psychiatric exam: Normal Affect, Normal Mood - Skin Skin Exam: Dry, Intact, Normal Color, Warm Assessment and Plan - Assessment and Plan (Free Text) Assessment: 67M POD# 2 s/p transverse loop colostomy Plan: -Continue regular diet -Continue to monitor for bowel function -Hgb 7.9 yesterday but asymptomatic--will repeat CBC this AM -PRN pain medication -Encourage ambulation and incentive spirometer -Continue hospitalization for recouperation and ostomy training Discussed with Dr. Silvio Lott, PGY2
[2018-02-13 08:53] LABS: BASO % 0.2 % (0.0-2.0); EOS # 0.1 K/uL (0.0-0.7); EOS % 0.7 % (0.0-4.0); HEMOGLOBIN 8.8 g/dL (12.0-18.0); LYMPH # 0.4 K/uL (1.0-4.3); LYMPH % 3.3 % (20.0-40.0); MEAN CELL VOLUME 84.8 fL (80.0-94.0); MEAN CORPUSCULAR HEMOGLOBIN 28.1 pg (27.0-31.0); MEAN CORPUSCULAR HGB CONC 33.2 g/dL (33.0-37.0); MEAN PLATELET VOLUME 6.1 fL (7.2-11.7); MONO # 0.6 K/uL (0.0-0.8); MONO % 5.5 % (0.0-10.0); NEUT # 10.1 K/uL (1.8-7.0); NEUT % 90.3 % (50.0-75.0); PLATELET COUNT 357 K/uL (130-400); RBC 3.13 Mil/uL (4.40-5.90); RED CELL DISTRIBUTION WIDTH 20.6 % (11.5-14.5); WHITE BLOOD COUNT 11.2 K/uL (4.8-10.8)
[2018-02-13 09:07] LABS: BLOOD UREA NITROGEN 14 mg/dL (9-20); CALCIUM 7.9 mg/dl (8.6-10.4); GFR AFRICAN-AMERICAN > 60; GFR NON-AFRICAN AMERICAN > 60
[2018-02-13] MEDS: Enoxaparin 40 mg Syringe SC SCH (09:38)
[2018-02-13 09:43] LABS: LYMPHOCYTE 4 % (20-40); MONOCYTE 2 % (0-10); NEUTROPHIL 94 % (50-75); TOTAL CELLS COUNTED 100
[2018-02-13 09:44] LABS: ANISOCYTOSIS SLIGHT; HYPOCHROMIC SLIGHT; MICROCYTOSIS SLIGHT; PLATELET ESTIMATE NORMAL (NORMAL); POIKILOCYTOSIS SLIGHT
[2018-02-13 09:45] LABS: LARGE PLATELETS PRESENT; TARGET CELLS SLIGHT
[2018-02-13] MEDS ORDERED: Pneumococcal 23-Valent Vaccine IM ONE (10:00)
[2018-02-13] MEDS ORDERED: Potassium Chloride 20 mEq ER Tab PO ONE ×2 (10:08→13:15)
[2018-02-14] MEDS: Oxycodone/Acetaminophen 5/325 mg Tab PO PRN ×3 (06:45→21:43)
[2018-02-14 09:15] LABS: BASO % 0.3 % (0.0-2.0); EOS # 0.2 K/uL (0.0-0.7); EOS % 1.7 % (0.0-4.0); HEMOGLOBIN 8.9 g/dL (12.0-18.0); LYMPH # 0.5 K/uL (1.0-4.3); MEAN CELL VOLUME 84.3 fL (80.0-94.0); MEAN CORPUSCULAR HEMOGLOBIN 28.3 pg (27.0-31.0); MEAN CORPUSCULAR HGB CONC 33.6 g/dL (33.0-37.0); MEAN PLATELET VOLUME 6.2 fL (7.2-11.7); MONO # 0.5 K/uL (0.0-0.8); MONO % 5.4 % (0.0-10.0); NEUT # 8.5 K/uL (1.8-7.0); NEUT % 87.6 % (50.0-75.0); PLATELET COUNT 364 K/uL (130-400); RBC 3.13 Mil/uL (4.40-5.90); RED CELL DISTRIBUTION WIDTH 20.2 % (11.5-14.5); WHITE BLOOD COUNT 9.7 K/uL (4.8-10.8)
[2018-02-14] MEDS: Enoxaparin 40 mg Syringe SC SCH (09:30)
[2018-02-14 09:31] LABS: BLOOD UREA NITROGEN 16 mg/dL (9-20); CALCIUM 8.2 mg/dl (8.6-10.4); GFR AFRICAN-AMERICAN > 60; GFR NON-AFRICAN AMERICAN > 60
--- NOTE | 2018-02-14 11:07 | CP.PCM.PN ---
Subjective - Date & Time of Evaluation Date of Evaluation: 02/14/18 Time of Evaluation: 07:10 - Subjective Subjective: Patient seen and examined at bedside this AM. Patient had urinary retention and scrotal swelling overnight. A straight cath was inserted with 700cc's of urine output. Patient states abdominal pain is improving, he has gas and small amount of serous liquid output through the colostomy. Patient complains of dizziness when he attempt to walk and doesn't feel comfortable going home. Wound care had an extensive session with the patient yesterday regarding ostomy maintenance Objective - Vital Signs/Intake and Output Vital Signs (last 24 hours): Temp Pulse Resp BP Pulse Ox 98.0 F 66 20 154/82 H 99 02/14/18 08:45 02/14/18 08:45 02/14/18 08:45 02/14/18 08:45 02/14/18 08:45 Intake and Output: 02/14/18 02/14/18 06:59 18:59 Intake Total 300 Output Total 1100 Balance -800 - Medications Medications: Current Medications Enoxaparin Sodium (Lovenox) 40 mg SC DAILY [facility] Last Admin: 02/14/18 09:30 Dose: 40 mg Ondansetron HCl (Zofran Inj) 4 mg IVP Q6 PRN PRN Reason: Nausea/Vomiting Oxycodone/Acetaminophen (Percocet 5/325 Mg Tab) 1 tab PO Q4 PRN PRN Reason: Pain, moderate (4-7) Stop: 02/14/18 14:35 Last Admin: 02/14/18 06:45 Dose: 1 tab Tamsulosin HCl (Flomax) 0.4 mg PO DAILY [facility] Last Admin: 02/14/18 09:30 Dose: 0.4 mg - Labs Labs: 02/14/18 08:57 02/14/18 08:57 - Constitutional Appears: Well, Non-toxic, No Acute Distress - Head Exam Head Exam: ATRAUMATIC, NORMOCEPHALIC - Eye Exam Eye Exam: Normal appearance. absent: Conjunctival injection, Scleral icterus - ENT Exam ENT Exam: Mucous Membranes Moist, Normal Oropharynx - Respiratory Exam Respiratory Exam: NORMAL BREATHING PATTERN. absent: Accessory Muscle Use, Respiratory Distress - Cardiovascular Exam Cardiovascular Exam: RRR - GI/Abdominal Exam GI & Abdominal Exam: Soft, Tenderness (anuj-incisional). absent: Distended Additional comments: colostomy in the RLQ pink, patent, and productive of serous fluid and gas - Exam Exam: Scrotal Swelling (mild erythema, no transillumination, no tenderess to palpation) - Extremities Exam Extremities Exam: absent: Calf Tenderness, Pedal Edema, Tenderness - Neurological Exam Neurological Exam: Alert, Awake, Oriented x3 - Psychiatric Exam Psychiatric exam: Normal Affect, Normal Mood - Skin Skin Exam: Dry, Normal Color, Warm Assessment and Plan - Assessment and Plan (Free Text) Assessment: 67M POD#3 s/p colostomy creation for incontinence d/t colon cancer Plan: -Monitor for urinary retention--will give flomax, encourage ambulation and PO fluid intake. May consider urology consult if it persists. Scrotal edema likely d/t cancer -continue to monitor for ostomy output -Physical therapy for deconditioning -Patient does not feel comfortable leaving at this time--unable to ambulate with stability without assistance -Will continue to monitor as an inpatient at this time. Considering [facility] for further rehabilitation--follow up with social work Discussed and examined with Dr. Silvio Lott PGY2
[2018-02-14 11:46] LABS: BANDS 1 % (0-2); EOSINOPHIL 3 % (0-4); LYMPHOCYTE 3 % (20-40); MONOCYTE 5 % (0-10); NEUTROPHIL 88 % (50-75); PLATELET ESTIMATE NORMAL (NORMAL); TOTAL CELLS COUNTED 100
[2018-02-14 11:47] LABS: ANISOCYTOSIS MODERATE
[2018-02-14 11:48] LABS: HYPOCHROMIC SLIGHT; POIKILOCYTOSIS SLIGHT; SCHISTOCYTES SLIGHT
[2018-02-14 11:49] LABS: POLYCHROMIC SLIGHT; TEARDROP CELLS SLIGHT
[2018-02-14 11:50] LABS: OVALOCYTES SLIGHT
[2018-02-14 11:53] LABS: LARGE PLATELETS PRESENT
[2018-02-14] MEDS ORDERED: Potassium Chloride 20 mEq ER Tab PO ONE (13:11)
[2018-02-15] MEDS: Oxycodone/Acetaminophen 5/325 mg Tab PO PRN ×2 (06:05→16:25)
[2018-02-15 06:36] LABS: SQUAMOUS EPITHIAL < 1 /hpf (0-5); URINE BILIRUBIN NEGATIVE (NEGATIVE); URINE BLOOD NEGATIVE (NEGATIVE); URINE CLARITY Hazy (Clear); URINE COLOR Yellow (YELLOW); URINE GLUCOSE (UA) NORMAL (Normal); URINE LEUKOCYTE ESTERASE NEG Leu/uL (Negative); URINE PROTEIN NEGATIVE (NEGATIVE); URINE UROBILINOGEN NORMAL mg/dL (0.2-1.0)
[2018-02-15 07:56] LABS: BASO % 0.2 % (0.0-2.0); EOS # 0.1 K/uL (0.0-0.7); EOS % 1.5 % (0.0-4.0); HEMOGLOBIN 8.7 g/dL (12.0-18.0); LYMPH # 0.4 K/uL (1.0-4.3); LYMPH % 4.4 % (20.0-40.0); MEAN CELL VOLUME 84.9 fL (80.0-94.0); MEAN CORPUSCULAR HEMOGLOBIN 28.5 pg (27.0-31.0); MEAN CORPUSCULAR HGB CONC 33.6 g/dL (33.0-37.0); MEAN PLATELET VOLUME 6.2 fL (7.2-11.7); MONO # 0.5 K/uL (0.0-0.8); MONO % 6.1 % (0.0-10.0); NEUT # 7.9 K/uL (1.8-7.0); NEUT % 87.8 % (50.0-75.0); PLATELET COUNT 350 K/uL (130-400); RBC 3.04 Mil/uL (4.40-5.90); RED CELL DISTRIBUTION WIDTH 20.3 % (11.5-14.5)
[2018-02-15 08:08] LABS: BLOOD UREA NITROGEN 18 mg/dL (9-20); CALCIUM 8.1 mg/dl (8.6-10.4); GFR AFRICAN-AMERICAN > 60; GFR NON-AFRICAN AMERICAN > 60
--- NOTE | 2018-02-15 08:40 | CP.PCM.PN ---
Subjective - Date & Time of Evaluation Date of Evaluation: 02/15/18 Time of Evaluation: 08:37 - Subjective Subjective: General Surgery - Dr. Anguiano Pt S&E. Overnight pt had urinary retention, he was straight cathed 1x and flomax given this am. He has had small amounts of urine output since then. This morning to be OOB and ambulate with nurse. He is tolerating regular diet. Colostomy with liquid output. Objective - Vital Signs/Intake and Output Vital Signs (last 24 hours): Temp Pulse Resp BP Pulse Ox 98.5 F 65 20 145/76 100 02/15/18 07:55 02/15/18 07:55 02/15/18 07:55 02/15/18 07:55 02/15/18 07:55 Intake and Output: 02/15/18 02/15/18 06:59 18:59 Intake Total 700 Output Total 425 Balance 275 - Medications Medications: Current Medications Enoxaparin Sodium (Lovenox) 40 mg SC DAILY [facility] Last Admin: 02/14/18 09:30 Dose: 40 mg Ondansetron HCl (Zofran Inj) 4 mg IVP Q6 PRN PRN Reason: Nausea/Vomiting Oxycodone/Acetaminophen (Percocet 5/325 Mg Tab) 1 tab PO Q6H PRN PRN Reason: Pain, moderate (4-7) Stop: 02/17/18 20:44 Last Admin: 02/15/18 06:05 Dose: 1 tab Tamsulosin HCl (Flomax) 0.4 mg PO DAILY [facility] Last Admin: 02/14/18 09:30 Dose: 0.4 mg - Labs Labs: 02/15/18 07:42 02/15/18 07:42 - Constitutional Appears: No Acute Distress - Head Exam Head Exam: ATRAUMATIC, NORMAL INSPECTION, NORMOCEPHALIC - Eye Exam Eye Exam: Normal appearance - Respiratory Exam Respiratory Exam: NORMAL BREATHING PATTERN. absent: Respiratory Distress - GI/Abdominal Exam GI & Abdominal Exam: Distended, Soft. absent: Firm, Guarding, Tenderness, Rebound Additional comments: colostomy pink and viable, serous output - Neurological Exam Neurological Exam: Alert, Oriented x3 - Psychiatric Exam Psychiatric exam: Normal Affect, Normal Mood - Skin Skin Exam: Dry, Intact Assessment and Plan - Assessment and Plan (Free Text) Assessment: 67M POD#4 s/p transverse loop colostomy for stage IV obstructing colon ca Plan: -Monitor urine output -Abd distension worrisome for ileus - Please Encourage OOB and Ambulation -Physical therapy -Considering [facility] for rehab, will follow up social work Dw Dr Anguiano
[2018-02-15] MEDS: Enoxaparin 40 mg Syringe SC SCH (09:27)
[2018-02-15 11:49] LABS: ANISOCYTOSIS MODERATE; BANDS 3 % (0-2); EOSINOPHIL 1 % (0-4); LYMPHOCYTE 3 % (20-40); MONOCYTE 7 % (0-10); NEUTROPHIL 86 % (50-75); PLATELET ESTIMATE NORMAL (NORMAL); TOTAL CELLS COUNTED 100
[2018-02-15 11:50] LABS: HYPOCHROMIC SLIGHT; OVALOCYTES SLIGHT; POIKILOCYTOSIS SLIGHT; POLYCHROMIC SLIGHT; SCHISTOCYTES SLIGHT
[2018-02-15 11:51] LABS: LARGE PLATELETS PRESENT
[2018-02-15] MEDS: Potassium Chloride 20 mEq ER Tab PO SCH (14:18)
[2018-02-16] MEDS: Oxycodone/Acetaminophen 5/325 mg Tab PO PRN ×3 (00:15→17:42)
--- NOTE | 2018-02-16 08:37 | CP.PCM.PN ---
Subjective - Date & Time of Evaluation Date of Evaluation: 02/16/18 Time of Evaluation: 08:26 - Subjective Subjective: PGY-1 surgery progress note for Dr Anguiano. No acute events noted overnight. Urinary retention improved. Patient has been OOB and ambulates with nurse. He is tolerating regular diet. Colostomy with normal liquid output. Objective - Vital Signs/Intake and Output Vital Signs (last 24 hours): Temp Pulse Resp BP Pulse Ox 98.2 F 67 20 148/83 98 02/16/18 00:00 02/16/18 00:00 02/16/18 00:00 02/16/18 00:00 02/16/18 00:00 Intake and Output: 02/16/18 02/16/18 06:59 18:59 Intake Total 540 Output Total 810 Balance -270 - Medications Medications: Current Medications Enoxaparin Sodium (Lovenox) 40 mg SC DAILY [facility] Last Admin: 02/15/18 09:27 Dose: 40 mg Ondansetron HCl (Zofran Inj) 4 mg IVP Q6 PRN PRN Reason: Nausea/Vomiting Oxycodone/Acetaminophen (Percocet 5/325 Mg Tab) 1 tab PO Q6H PRN PRN Reason: Pain, moderate (4-7) Stop: 02/17/18 20:44 Last Admin: 02/16/18 00:15 Dose: 1 tab Potassium Chloride (K-Dur 20 Meq Er Tab) 20 meq PO DAILY [facility] Last Admin: 02/15/18 14:18 Dose: 20 meq Tamsulosin HCl (Flomax) 0.4 mg PO DAILY [facility] Last Admin: 02/15/18 09:21 Dose: Not Given - Labs Labs: 02/15/18 07:42 02/15/18 07:42 - Additional Findings Additional findings: - Constitutional Appears: No Acute Distress - Head Exam Head Exam: ATRAUMATIC, NORMAL INSPECTION, NORMOCEPHALIC - Eye Exam Eye Exam: Normal appearance - Respiratory Exam Respiratory Exam: NORMAL BREATHING PATTERN. absent: Respiratory Distress - GI/Abdominal Exam GI & Abdominal Exam: Distended, Soft. absent: Firm, Guarding, Tenderness, Rebound Additional comments: colostomy pink and viable, serous output - Neurological Exam Neurological Exam: Alert, Oriented x3 - Psychiatric Exam Psychiatric exam: Normal Affect, Normal Mood - Skin Skin Exam: Dry, Intact Assessment and Plan - Assessment and Plan (Free Text) Assessment: 67M POD#4 s/p transverse loop colostomy for stage IV obstructing colon cancer Plan: -Monitor urine output -Encourage OOB and Ambulation -Physical therapy - recommends [facility] for rehab, will follow up social work today at 11AM -[facility] care nurse, Aleks, to re-evaluate prior to discharge EDUIN Anguiano
[2018-02-16] MEDS: Potassium Chloride 20 mEq ER Tab PO SCH (09:47)
[2018-02-16] MEDS: Enoxaparin 40 mg Syringe SC SCH (09:48)
[2018-02-17 01:34] VITALS: O2SAT 99
[2018-02-17] MEDS: Oxycodone/Acetaminophen 5/325 mg Tab PO PRN ×2 (07:27→14:29)
[2018-02-17] MEDS: Potassium Chloride 20 mEq ER Tab PO SCH (10:19)
[2018-02-17] MEDS: Enoxaparin 40 mg Syringe SC SCH (10:19)
--- NOTE | 2018-02-17 11:16 | CP.PCM.DIS ---
Provider - Provider Date of Admission: 02/11/18 08:32 Attending physician: Jez Anguiano Jr, MD Time Spent in preparation of Discharge (in minutes): 35 Diagnosis - Discharge Diagnosis (1) Carcinoma of rectum Status: Chronic (2) Colostomy care Status: Acute (3) Diarrhea Status: Chronic (4) Postoperative urinary retention Status: Acute (5) Rectal or anal pain Status: Acute (6) Anemia Status: Acute Hospital Course - Lab Results Lab Results: Micro Results 02/14/18 20:31 Urine Urine Culture - Final No Growth (<1,000 CFU/ML) Most Recent Lab Values WBC 9.0 K/uL (4.8-10.8) 02/15/18 07:42 RBC 3.04 Mil/uL (4.40-5.90) L 02/15/18 07:42 Hgb 8.7 g/dL (12.0-18.0) L 02/15/18 07:42 Hct 25.8 % (35.0-51.0) L 02/15/18 07:42 MCV 84.9 fL (80.0-94.0) 04 07:42 MCH 28.5 pg (27.0-31.0) 02/15/18 07:42 MCHC 33.6 g/dL (33.0-37.0) 02/15/18 07:42 RDW 20.3 % (11.5-14.5) H 02/15/18 07:42 Plt Count 350 K/uL (130-400) 02/15/18 07:42 MPV 6.2 fL (7.2-11.7) L 02/15/18 07:42 Neut % (Auto) 87.8 % (50.0-75.0) H 02/15/18 07:42 Lymph % (Auto) 4.4 % (20.0-40.0) L 02/15/18 07:42 Wilcox % (Auto) 6.1 % (0.0-10.0) 02/15/18 07:42 Eos % (Auto) 1.5 % (0.0-4.0) 02/15/18 07:42 Baso % (Auto) 0.2 % (0.0-2.0) 02/15/18 07:42 Neut # (Auto) 7.9 K/uL (1.8-7.0) H 02/15/18 07:42 Lymph # (Auto) 0.4 K/uL (1.0-4.3) L 02/15/18 07:42 Wilcox # (Auto) 0.5 K/uL (0.0-0.8) 02/15/18 07:42 Eos # (Auto) 0.1 K/uL (0.0-0.7) 02/15/18 07:42 Baso # (Auto) 0.0 K/uL (0.0-0.2) 02/15/18 07:42 Neutrophils % (Manual) 86 % (50-75) H 02/15/18 07:42 Band Neutrophils % 3 % (0-2) H 02/15/18 07:42 Lymphocytes % (Manual) 3 % (20-40) L 02/15/18 07:42 Monocytes % (Manual) 7 % (0-10) 02/15/18 07:42 Eosinophils % (Manual) 1 % (0-4) 02/15/18 07:42 Platelet Estimate Normal (NORMAL) 02/15/18 07:42 Large Platelets Present 02/15/18 07:42 Polychromasia Slight 02/15/18 07:42 Hypochromasia (manual) Slight 02/15/18 07:42 Poikilocytosis (manual Slight 02/15/18 07:42 Anisocytosis (manual) Moderate 02/15/18 07:42 Microcytosis (manual) Slight 02/13/18 08:45 Target Cells Slight 02/13/18 08:45 Tear Drop Cells Slight 02/14/18 08:57 Ovalocytes Slight 02/15/18 07:42 Schistocytes Slight 02/15/18 07:42 Sodium 137 mmol/L (132-148) 02/15/18 07:42 Potassium 3.5 mmol/L (3.6-5.2) L 02/15/18 07:42 Chloride 101 mmol/L (98-107) 02/15/18 07:42 Carbon Dioxide 27 mmol/L (22-30) 02/15/18 07:42 Anion Gap 13 (10-20) 02/15/18 07:42 BUN 18 mg/dL (9-20) 02/15/18 07:42 Creatinine 0.6 mg/dL (0.8-1.5) L 02/15/18 07:42 Est GFR ( Amer) > 60 02/15/18 07:42 Est GFR (Non-Af Amer) > 60 02/15/18 07:42 Random Glucose 89 mg/dL (75-110) 02/15/18 07:42 Calcium 8.1 mg/dl (8.6-10.4) L 02/15/18 07:42 Phosphorus 3.2 mg/dL (2.5-4.5) 02/15/18 07:42 Magnesium 2.1 mg/dL (1.6-2.3) 02/15/18 07:42 Total Bilirubin 0.8 mg/dL (0.2-1.3) 02/12/18 06:56 AST 15 U/L (17-59) L 02/12/18 06:56 ALT 21 U/L (21-72) D 02/12/18 06:56 Alkaline Phosphatase 69 U/L (38-126) 02/12/18 06:56 Total Protein 6.0 g/dL (6.3-8.3) L 02/12/18 06:56 Albumin 2.4 g/dL (3.5-5.0) L D 02/12/18 06:56 Globulin 3.6 gm/dL (2.2-3.9) 02/12/18 06:56 Albumin/Globulin Ratio 0.7 (1.0-2.1) L 02/12/18 06:56 Urine Color Yellow (YELLOW) 02/14/18 20:31 Urine Clarity Hazy (Clear) 02/14/18 20:31 Urine pH 7.0 (5.0-8.0) 02/14/18 20:31 Ur Specific Vidal 1.021 (1.003-1.030) 02/14/18 20:31 Urine Protein Negative mg/dL (NEGATIVE) 02/14/18 20:31 Urine Glucose (UA) Normal mg/dL (Normal) 02/14/18 20:31 Urine Ketones Trace mg/dL (NEGATIVE) 02/14/18 20:31 Urine Blood Negative (NEGATIVE) 02/14/18 20:31 Urine Nitrate Negative (NEGATIVE) 02/14/18 20:31 Urine Bilirubin Negative (NEGATIVE) 02/14/18 20:31 Urine Urobilinogen Normal mg/dL (0.2-1.0) 02/14/18 20:31 Ur Leukocyte Esterase Neg Preethi/uL (Negative) 02/14/18 20:31 Urine WBC (Auto) 3 /hpf (0-5) 02/14/18 20:31 Urine RBC (Auto) < 1 /hpf (0-3) 02/14/18 20:31 Ur Squamous Epith Cells < 1 /hpf (0-5) 02/14/18 20:31 Blood Type O POSITIVE 02/11/18 09:31 Antibody Screen Negative 02/11/18 09:31 - Hospital Course Hospital Course: Patient is a 67M with metastatic colon cancer who presented as an outpatient for paliative diverting loop colostomy. Patient tolerated the procedure well and was admitted to the hospital for monitoring and colostomy care education. Patient had urinary retention on POD#1 which resolved after a straight catheterization and flomax. Patient continued to have overall weakness requiring further physical therapy evaluation and treatment. Otherwise patient recovered well, eating regular diet and having ostomy output. Patient was discharged to sub-acute rehab for further physical therapy and ostomy instruction For full course please refer to chart Discharge Exam - Head Exam Head Exam: ATRAUMATIC, NORMAL INSPECTION, NORMOCEPHALIC - Eye Exam Eye Exam: Normal appearance. absent: Conjunctival injection, Scleral icterus - ENT Exam ENT Exam: Mucous Membranes Moist, Normal Oropharynx - Respiratory Exam Respiratory Exam: NORMAL BREATHING PATTERN. absent: Accessory Muscle Use, Respiratory Distress - Cardiovascular Exam Cardiovascular Exam: RRR - GI/Abdominal Exam GI & Abdominal Exam: Soft. absent: Distended Additional comments: colostomy in the RLQ pink, patent, and productive of liquid stool. Some edema of the ostomy improving from yesterday - Rectal Exam Rectal Exam: Hemorrhoids (without swellign or erythema) Additional comments: mucous liquid production - Extremities Exam Extremities exam: normal inspection, pedal pulses present - Neurological Exam Neurological exam: Alert, Oriented x3 - Psychiatric Exam Psychiatric exam: Normal Affect, Normal Mood - Skin Skin Exam: Dry, Intact, Normal Color, Warm Discharge Plan - Follow Up Plan Condition: GOOD Disposition: REHAB FACILITY/REHAB UNIT Instructions: How to Care for Your Ostomy, Adult, Colostomy Care, Rotavirus Infection (DC), Rotavirus Infection (GEN), Nutrition Tips for Relief of Diarrhea (DC), Nutrition Tips for Relief of Diarrhea (GEN) Additional Instructions: Follow up with Dr. Anguiano in his office in 1-2 weeks. Walk multiple times everyday for at least 5 minutes at a time You will continue to have mucus output from your rectum--this is due to normal secretions from your large intestine and because of your cancer Change your ostomy as needed Follow up with your primary doctor within 1 week Referrals: Jez Anguiano Jr., MD [Staff Provider] -
[2018-02-17 16:39] VITALS: BP 145/78; PULSE 74; TEMP 98.6
== END 2018-02-17 17:40 | DRG 331 ==
LOC: C.9S 08:32 → C.3T 18:02
PROVIDERS: ADMIT Surgery Vascular Surgery; ATTEND Surgery Vascular Surgery
PROC: 0D1L0Z4 Bypass Transverse Colon to Cutaneous, Open Approach (ICD-10-PCS; principal; 2018-02-11 11:00)
DX: C20 Malignant neoplasm of rectum (principal); D64.9 Anemia, unspecified; G89.18 Other acute postprocedural pain; R19.7 Diarrhea, unspecified; R33.8 Other retention of urine

== ENCOUNTER 2018-02-21 11:39 | Inpatient (IN) | payer BC, MEDICARE ==
[2018-02-21 11:39] VITALS: BMI 24.0
[2018-02-21] MEDS ORDERED: Sodium Chloride 0.9% 500 ML IV STA (12:05)
[2018-02-21] MEDS ORDERED: Iohexol 240 (50 ml) PO STA (12:17)
[2018-02-21] MEDS ORDERED: Iohexol 240 (50 ml) ONE (12:27)
[2018-02-21] MEDS ORDERED: Sodium Chloride 0.9% 500 ML IV ONE (12:27)
[2018-02-21 12:35] LABS: HEMOGLOBIN 9.9 g/dL (12.0-18.0); LYMPH # 0.2 K/uL (1.0-4.3); MEAN CELL VOLUME 85.1 fL (80.0-94.0); MEAN CORPUSCULAR HGB CONC 34.1 g/dL (33.0-37.0); MEAN PLATELET VOLUME 6.3 fL (7.2-11.7); MONO # 0.5 K/uL (0.0-0.8); MONO % 6.2 % (0.0-10.0); NEUT % 91.8 % (50.0-75.0); NRBC % 0.1 % (0.0-2.0); RBC 3.42 Mil/uL (4.40-5.90); RED CELL DISTRIBUTION WIDTH 20.4 % (11.5-14.5); WHITE BLOOD COUNT 7.6 K/uL (4.8-10.8)
[2018-02-21 12:36] LABS: PLATELET COUNT 571 K/uL (130-400)
[2018-02-21 12:55] LABS: ALB/GLOB RATIO 0.8 (1.0-2.1); ALBUMIN 3.7 g/dL (3.5-5.0); ALT/SGPT 14 U/L (21-72); AMYLASE 33 U/L (30-110); AST/SGOT 19 U/L (17-59); BLOOD UREA NITROGEN 48 mg/dL (9-20); CALCIUM 9.7 mg/dl (8.6-10.4); GFR AFRICAN-AMERICAN > 60; GFR NON-AFRICAN AMERICAN > 60; LIPASE 14 U/L (23-300)
[2018-02-21 13:09] LABS: ANISOCYTOSIS MODERATE; BANDS 3 % (0-2); LYMPHOCYTE 6 % (20-40); MONOCYTE 2 % (0-10); NEUTROPHIL 89 % (50-75); PLATELET ESTIMATE INCREASED (NORMAL); TOTAL CELLS COUNTED 100
[2018-02-21 13:10] LABS: MICROCYTOSIS SLIGHT; OVALOCYTES SLIGHT; POIKILOCYTOSIS SLIGHT; SCHISTOCYTES SLIGHT
[2018-02-21 13:45] LABS: SQUAMOUS EPITHIAL < 1 /hpf (0-5); URINE BILIRUBIN NEGATIVE (NEGATIVE); URINE BLOOD NEGATIVE (NEGATIVE); URINE CLARITY Hazy (Clear); URINE COLOR Yellow (YELLOW); URINE GLUCOSE (UA) NORMAL (Normal); URINE LEUKOCYTE ESTERASE NEG Leu/uL (Negative); URINE PROTEIN 1+ mg/dL (NEGATIVE)
[2018-02-21] MEDS ORDERED: Iodixanol 320 MG/ML 100 ML BOTTLE IV ONE (13:56)
[2018-02-21] MEDS ORDERED: Morphine 4 MG/ML VIAL ONE (15:50)
--- NOTE | 2018-02-21 16:06 | CT ---
PROCEDURE: CT abdomen pelvis 02/13/2018 HISTORY: Abdominal pain, s/p sx 10 days ago COMPARISON: Comparison made with CT scan abdomen pelvis 12/19/2017. TECHNIQUE: Contiguous axial images of the abdomen and the pelvis performed following intravenous injection of approximately 100 cc Visipaque 320 contrast material. Additional 2 dimensional sagittal and coronal reformats generated. Radiation dose: Total exam DLP = 220.18 mGy-cm. This CT exam was performed using one or more of the following dose reduction techniques: Automated exposure control, adjustment of the mA and/or kV according to patient size, and/or use of iterative reconstruction technique. FINDINGS: LOWER THORAX: There are multiple nodular masses seen within the right lung base consistent with metastatic deposits. . The largest lesion in the right lung base measures approximately 2.0 x 2.3 cm. Several small nodules left lung base also noted, 1 of which represents a the small calcified granuloma at and the other is felt to represent metastatic deposits as well. . The the LIVER: Liver exhibits normal size measuring nearly 14 cm in CC dimension. The There are multiple low-attenuation lesions scattered throughout the hepatic parenchyma some of which probably represent cysts though others likely representing metastatic deposits as well. Portal and splenic veins are opacified. GALLBLADDER AND BILE DUCTS: Slightly nodular appearance of the gallbladder lumen nonspecific. Rule out polyps. The possibility of other intrinsic/invasive wall lesion not excluded. PANCREAS: Pancreas is not well delineated on this exam due to massively distended stomach and distended loops of small bowel however the pancreas appears slightly atrophic and fatty replaced the SPLEEN: Unremarkable. No splenomegaly. ADRENALS: No definitive adrenal lesions. KIDNEYS AND URETERS: Kidneys demonstrate symmetric nephrograms. No evidence of nephrolithiasis or hydronephrosis. Probable small left renal cyst BLADDER: Urinary bladder is physiologically distended. No evidence of intraluminal urinary bladder calculi. REPRODUCTIVE: Prostate gland appears enlarged and heterogeneous. APPENDIX: Not seen with any certainty BOWEL: Evaluation of the bowel is limited due to incomplete opacification. The stomach is massively distended with food debris liquid contrast material and air. . Multiple of markedly distended loops of small bowel are present consistent with small bowel obstruction. There is apparent ostomy right lower anterolateral abdominal wall. Apparent rectal wall mass unchanged PERITONEUM: Small amount of free intraperitoneal air is present ; rule out free air related to the colostomy versus perforated bowel. Suspect pelvic ascites. Re- demonstrated soft tissue masslike densities within both inguinal canals however the soft tissue is not felt to represent loops of bowel and appear to be separate from near by bowel loops in the at anterior inferior margins of the pelvis bilaterally LYMPH NODES: Evaluation for adenopathy is limited due to the aforementioned findings. VASCULATURE: Unremarkable. No aortic aneurysm. BONES: Mild multilevel degenerative spondylosis of the lower thoracic and lumbar spine. OTHER FINDINGS: None. IMPRESSION: There is an colostomy right anterolateral lower abdominal wall. Massively distended stomach and multiple distended fluid-filled loops of small bowel consistent with small bowel obstruction. . There are pulmonary and hepatic metastases again seen. Bilateral inguinal hernias which of the upper not felt to represent loops of small bowel. There is small amount of free intraperitoneal air which could be related to the colostomy however perforated bowel not excluded. Clinical correlation recommended. Findings discussed with emergency room LEESA Hawley at approximately 4 p.m. with written down and read back verification.
--- NOTE | 2018-02-21 16:16 | C.PDOC ---
History Of Present Illness 67 y/o male, w/PMhx of metastatic colorectal cancer, presents to ER from [facility] complaining of worsening abdominal pain over the past few days. Patient states that he had a pallative surgery - colostomy on 02/09/18 performed by and he was discharged on 02/17/18 to [facility]. Patient denies having vomiting and diarrhea. Chief Complaint (Nursing): Abdominal Pain History Per: Patient History/Exam Limitations: no limitations Onset/Duration Of Symptoms: Days Current Symptoms Are (Timing): Still Present Severity: Moderate Associated Symptoms: denies: Fever, Chills, Nausea, Vomiting Past Medical History Reviewed: Historical Data, Nursing Documentation, Vital Signs Vital Signs: Last Vital Signs Temp 97.5 F L 02/21/18 17:59 Pulse 96 H 02/21/18 17:59 Resp 18 02/21/18 17:59 BP 129/92 H 02/21/18 17:59 Pulse Ox 96 02/21/18 20:31 - Medical History PMH: Denies: Chronic Kidney Disease Other Surgeries: Hx of surgeries - [facility] Procedures BYPASS TRANSVERSE COLON TO CUTANEOUS, OPEN APPROACH (02/11/18) Family History: States: No Known Family Hx - Social History Hx Alcohol Use: No Hx Substance Use: No - Immunization History Hx Tetanus Toxoid Vaccination: No Hx Influenza Vaccination: Yes (2016) Review Of Systems Except As Marked, All Systems Reviewed And Found Negative. Constitutional: Negative for: Fever, Chills Gastrointestinal: Positive for: Abdominal Pain. Negative for: Vomiting, Diarrhea Physical Exam - Physical Exam Appears: Other (uncomfortable) Skin: Normal Color, Warm Head: Atraumatic, Normacephalic Eye(s): bilateral: Normal Inspection Nose: Normal Oral Mucosa: Moist Neck: Supple Chest: Symmetrical Cardiovascular: Rhythm Regular Respiratory: Normal Breath Sounds, No Rales, No Rhonchi, No Wheezing Gastrointestinal/Abdominal: Soft, Tenderness (diffuse tenderness ), Distention ( mild distention), Other (colostomy appears to be intact) Extremity: Normal ROM Neurological/Psych: Oriented x3, Normal Speech ED Course And Treatment - Laboratory Results Result Diagrams: 02/21/18 12:30 02/21/18 12:30 O2 Sat by Pulse Oximetry: 96 (RA) Pulse Ox Interpretation: Normal - CT Scan/US CT abdomen/pelvis Other Rad Studies (CT/US): Read By Radiologist, Radiology Report Reviewed CT/US Interpretation: Accession No. : [id number]. Patient Name / ID : WAGNER GUAJARDO / [id number]. Exam Date : 02/21/2018 14:08:02 ( Approved ). Study Comment : Sex / Age : M / 67Y. Creator : Calin Jimenes MD. Dictator : Supervisor Paper Machine : Professional Volleyball Player : Calin Jimenes MD. Approver2 : Report Date : 02/21/2018 16:04:46. My Comment : . PROCEDURE: CT abdomen pelvis 02/13/2018. HISTORY: Abdominal pain, s/p sx 10 days ago. COMPARISON: Comparison made with CT scan abdomen pelvis 12/19/2017. TECHNIQUE: Contiguous axial images of the abdomen and the pelvis performed following intravenous injection of approximately 100 cc Visipaque 320 contrast material. Additional 2 dimensional sagittal and coronal reformats generated. Radiation dose: Total exam DLP = 220.18 mGy-cm. This CT exam was performed using one or more of the following dose reduction techniques: Automated exposure control, adjustment of the mA and/or kV according to patient size, and/or use of iterative reconstruction technique. FINDINGS: LOWER THORAX: There are multiple nodular masses seen within the right lung base consistent with metastatic deposits. . The largest lesion in the right lung base measures approximately 2.0 x 2.3 cm. Several small nodules left lung base also noted, 1 of which represents a the small calcified granuloma at and the other is felt to represent metastatic deposits as well. . The the. LIVER: Liver exhibits normal size measuring nearly 14 cm in CC dimension. The. There are multiple low-attenuation lesions scattered throughout the hepatic parenchyma some of which probably represent cysts though others likely representing metastatic deposits as well. Portal and splenic veins are opacified. GALLBLADDER AND BILE DUCTS: Slightly nodular appearance of the gallbladder lumen nonspecific. Rule out polyps. The possibility of other intrinsic/invasive wall lesion not excluded. PANCREAS: Pancreas is not well delineated on this exam due to massively distended stomach and distended loops of small bowel however the pancreas appears slightly atrophic and fatty replaced the. SPLEEN: Unremarkable. No splenomegaly. ADRENALS: No definitive adrenal lesions. KIDNEYS AND URETERS: Kidneys demonstrate symmetric nephrograms. No evidence of nephrolithiasis or hydronephrosis. Probable small left renal cyst. BLADDER: Urinary bladder is physiologically distended. No evidence of intraluminal urinary bladder calculi. REPRODUCTIVE: Prostate gland appears enlarged and heterogeneous. APPENDIX: Not seen with any certainty. BOWEL: Evaluation of the bowel is limited due to incomplete opacification. The stomach is massively distended with food debris liquid contrast material and air. . Multiple of markedly distended loops of small bowel are present consistent with small bowel obstruction. There is apparent ostomy right lower anterolateral abdominal wall. Apparent rectal wall mass unchanged. PERITONEUM: Small amount of free intraperitoneal air is present ; rule out free air related to the colostomy versus perforated bowel. Suspect pelvic ascites. Re- demonstrated soft tissue masslike densities within both inguinal canals however the soft tissue is not felt to represent loops of bowel and appear to be separate from near by bowel loops in the at anterior inferior margins of the pelvis bilaterally. LYMPH NODES: Evaluation for adenopathy is limited due to the aforementioned findings. VASCULATURE: Unremarkable. No aortic aneurysm. BONES: Mild multilevel degenerative spondylosis of the lower thoracic and lumbar spine. OTHER FINDINGS: None. IMPRESSION: There is an colostomy right anterolateral lower abdominal wall. Massively distended stomach and multiple distended fluid- filled loops of small bowel consistent with small bowel obstruction. . There are pulmonary and hepatic metastases again seen. Bilateral inguinal hernias which of the upper not felt to represent loops of small bowel. There is small amount of free intraperitoneal air which could be related to the colostomy however perforated bowel not excluded. Clinical correlation recommended. Findings discussed with emergency room LEESA Hawley at approximately 4 p.m. with written down and read back verification. Progress Note: Case was discussed with who requested global consumer sector vice president to see patient in ED. NG tube was placed by surgery resident, 700 ml of fluid obtained. [facility] was d[facility]w [facility] service. Disposition - Disposition Disposition: HOSPITALIZED Disposition Time: 17:02 Condition: FAIR - Clinical Impression Clinical Impression: Small bowel obstruction, History of colon cancer - PA / [facility] [employer]OND / Resident Statement MD/DO has reviewed & agrees with the documentation as recorded. - Scribe Statement The provider has reviewed the documentation as recorded by the Ildaibe Patricia Rodriguez Provider Attestation All medical record entries made by the Benita were at my direction and personally dictated by me. I have reviewed the chart and agree that the record accurately reflects my personal performance of the history, physical exam, medical decision making, and the department course for this patient. I have also personally directed, reviewed, and agree with the discharge instructions and disposition. Decision To Admit - Pt Status Changed To: Hospital Disposition Of: Inpatient - Admit Certification Admit to Inpatient:: After my assessment, the patient will require hospitalization for at least two midnights. This is because of the severity of symptoms shown, intensity of services needed, and/or the medical risk in this patient being treated as an outpatient. - InPatient: Physician Admission Certification:: Patient with SBO will need more thabn 2 days of hospitalization - . Bed Request Type: Regular Admitting Physician: Donna Birnk Patient Diagnosis: Small bowel obstruction, History of colon cancer
[2018-02-21] MEDS ORDERED: Lidocaine 2% Jelly (Uro-Jet) TOP ONE ×2 (16:35→17:45)
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
[2018-02-21] MEDS ORDERED: Sodium Chloride 0.9% 1,000 ML IV SCH (18:00)
--- NOTE | 2018-02-21 18:17 | RAD ---
HISTORY: NGT placement. COMPARISON: Comparison made with prior study 02/09/2018 . Correlation also made with CT scan of the abdomen pelvis earlier same day which also image both lung bases. FINDINGS: Interval placement NGT, tip of which has not been included on this film however does lie well below EG junction. LUNGS: Previously noted bilateral lower lobe nodular densities right more numerous left consistent with metastatic deposits less well seen on this exam compared to high-resolution CT scan. There appears to be patchy atelectasis in the right lung base with vague opacities in the right mid lung field as well. PLEURA: No significant pleural effusion identified, no pneumothorax apparent. CARDIOVASCULAR: Heart size normal. OSSEOUS STRUCTURES: No significant abnormalities. VISUALIZED UPPER ABDOMEN: Normal. OTHER FINDINGS: None. IMPRESSION: Interval placement NGT as described. Previously noted bilateral lower lobe nodular densities right more numerous left consistent with metastatic deposits less well seen on this exam compared to high-resolution CT scan. There appears to be patchy atelectasis in the right lung base with vague opacities in the right mid lung field as well.
[2018-02-21] MEDS: Dextrose 5%/0.45% NS 1,000 ML IV SCH (18:30)
[2018-02-21] MEDS ORDERED: Enoxaparin 30 mg Syringe SC SCH (22:00)
[2018-02-22] MEDS: Dextrose 5%/0.45% NS 1,000 ML IV SCH ×5 (03:15→23:15)
--- NOTE | 2018-02-22 06:24 | CP.PCM.PN ---
Subjective - Date & Time of Evaluation Date of Evaluation: 02/22/18 Time of Evaluation: 08:10 - Subjective Subjective: General surgery progress note for Dr. Anup Lutz, PGY-1 Pt S & E at bedside. Pt reports abdominal pain decreased since insertion of NGT. NGT with 1 L of gastric contents out. Pain well controlled. No flatus, minimal output to ostomy. Objective - Vital Signs/Intake and Output Vital Signs (last 24 hours): Temp Pulse Resp BP Pulse Ox 98.4 F 80 20 124/85 97 02/22/18 00:00 02/22/18 00:00 02/22/18 00:00 02/22/18 00:00 02/22/18 00:00 Intake and Output: 02/21/18 02/22/18 18:59 06:59 Intake Total 400 Output Total 1000 200 Balance -1000 200 - Medications Medications: Current Medications Amlodipine Besylate (Norvasc) 5 mg PO DAILY [facility] Famotidine (Pepcid) 20 mg IVP DAILY [facility] Heparin Sodium (Porcine) (Heparin) 5,000 units SC Q8 [facility] Last Admin: 02/22/18 06:00 Dose: 5,000 units Dextrose/Sodium Chloride (Dextrose 5%/0.45% Ns 1000 Ml) 1,000 mls @ 100 mls/hr IV .Q10H [facility] Last Admin: 02/22/18 06:00 Dose: 100 mls/hr Ketorolac Tromethamine (Toradol) 30 mg IVP Q6H PRN PRN Reason: Pain, moderate (4-7) Last Admin: 02/22/18 02:15 Dose: 30 mg Morphine Sulfate (Morphine) 4 mg IVP Q4 PRN PRN Reason: Pain, severe (8-10) - Labs Labs: 02/21/18 12:30 02/21/18 12:30 APTT 35 SECONDS (21-34) H 02/21/18 21:20 - Constitutional Appears: Non-toxic, No Acute Distress, Cachectic - Head Exam Head Exam: ATRAUMATIC, NORMAL INSPECTION, NORMOCEPHALIC - Eye Exam Eye Exam: EOMI, Normal appearance - ENT Exam ENT Exam: Mucous Membranes Moist, Normal Exam (NGT in place) - Neck Exam Neck Exam: Full ROM, Normal Inspection - Respiratory Exam Respiratory Exam: NORMAL BREATHING PATTERN - Cardiovascular Exam Cardiovascular Exam: REGULAR RHYTHM, +S1, +S2 - GI/Abdominal Exam GI & Abdominal Exam: Soft, Tenderness (mild, diffuse). absent: Distended, Firm , Guarding, Rigid Additional comments: ostomy with scant brown liquid output, stoma pink - Extremities Exam Extremities Exam: Normal Inspection - Neurological Exam Neurological Exam: Alert, Awake, CN II-XII Intact, Oriented x3 - Psychiatric Exam Psychiatric exam: Normal Affect, Normal Mood - Skin Skin Exam: Dry, Intact, Normal Color, Warm Assessment and Plan - Assessment and Plan (Free Text) Assessment: 67M w/PMH sig for colon CA s/p transverse loop colostomy now with SBO Plan: Cont NPO Cont NGT to low cont suction Serial ab exams Pain control Monitor for bowel function DW attending Nelda, PGY-1
[2018-02-22 08:31] LABS: BASO % 0.1 % (0.0-2.0); EOS % 0.1 % (0.0-4.0); HEMOGLOBIN 10.3 g/dL (12.0-18.0); LYMPH # 0.2 K/uL (1.0-4.3); LYMPH % 3.6 % (20.0-40.0); MEAN CORPUSCULAR HGB CONC 34.6 g/dL (33.0-37.0); MEAN PLATELET VOLUME 6.7 fL (7.2-11.7); MONO # 0.4 K/uL (0.0-0.8); MONO % 7.3 % (0.0-10.0); NEUT # 5.1 K/uL (1.8-7.0); NEUT % 88.9 % (50.0-75.0); PLATELET COUNT 575 K/uL (130-400); RBC 3.56 Mil/uL (4.40-5.90); RED CELL DISTRIBUTION WIDTH 20.4 % (11.5-14.5); WHITE BLOOD COUNT 5.8 K/uL (4.8-10.8)
[2018-02-22 08:35] LABS: ALB/GLOB RATIO 0.9 (1.0-2.1); ALBUMIN 3.5 g/dL (3.5-5.0); ALT/SGPT 12 U/L (21-72); AST/SGOT 19 U/L (17-59); BLOOD UREA NITROGEN 55 mg/dL (9-20); CALCIUM 9.6 mg/dl (8.6-10.4); GFR AFRICAN-AMERICAN > 60; GFR NON-AFRICAN AMERICAN > 60
[2018-02-22 10:45] LABS: BANDS 36 % (0-2); LYMPHOCYTE 7 % (20-40); METAMYELOCYTE 1 % (0-0); MONOCYTE 1 % (0-10); NEUTROPHIL 55 % (50-75); TOTAL CELLS COUNTED 100
[2018-02-22 10:46] LABS: ANISOCYTOSIS MODERATE; MICROCYTOSIS SLIGHT; OVALOCYTES SLIGHT; PLATELET ESTIMATE INCREASED (NORMAL); POIKILOCYTOSIS SLIGHT
[2018-02-22 10:47] LABS: SCHISTOCYTES SLIGHT; TEARDROP CELLS SLIGHT
[2018-02-22] MEDS ORDERED: Vancomycin 1 gm/NS 200 ml 1 GM/200 ML BAG IVPB SCH (11:30)
[2018-02-22] MEDS: Piperacill/Tazo 3.375gm in Dex 3.375 GM/50 ML BAG IVPB SCH ×2 (12:23→18:00)
--- NOTE | 2018-02-22 12:48 | RAD ---
HISTORY: Rales on exam COMPARISON: Comparison made with prior chest radiograph and CT scan of the abdomen pelvis both dated 02/21/2018. FINDINGS: In situ NGT, the tip of which lies left lateral upper abdomen. LUNGS: There are several on metastatic lesions both lung bases less well seen on this study compared to high-resolution CT scan abdomen. Mild bibasilar atelectasis PLEURA: No significant pleural effusion identified, no pneumothorax apparent. CARDIOVASCULAR: Normal. OSSEOUS STRUCTURES: No significant abnormalities. VISUALIZED UPPER ABDOMEN: Small amount of residual free air again seen under the diaphragm. OTHER FINDINGS: None. IMPRESSION: In situ NGT. . There are several on metastatic lesions both lung bases less well seen on this study compared to high-resolution CT scan abdomen. . Mild bibasilar atelectasis Small amount free intraperitoneal air again seen
--- NOTE | 2018-02-22 17:16 | CP.PCM.PN ---
<ChristopherAdiarad E - Last Filed: 02/22/18 17:38> Subjective - Date & Time of Evaluation Date of Evaluation: 02/22/18 Time of Evaluation: 07:55 - Subjective Subjective: Medicine progress note ( Dr. Brink's service) Patient was seen and examined at bedside. Patient reports symptomatic relief with NG-tube. Patient denies any new complaints. Patient admits to intermittent abdominal pain. Patient denies fever, chills, nausea, vomiting, passing flatus. Patient is with minimal ostomy output. Objective - Vital Signs/Intake and Output Vital Signs (last 24 hours): Temp Pulse Resp BP Pulse Ox 97.9 F 88 20 134/89 98 02/22/18 09:10 02/22/18 09:10 02/22/18 09:10 02/22/18 09:10 02/22/18 09:10 Intake and Output: 02/22/18 02/22/18 06:59 18:59 Intake Total 400 1050 Output Total 200 80 Balance 200 970 - Medications Medications: Current Medications Amlodipine Besylate (Norvasc) 5 mg PO DAILY [facility] Last Admin: 02/22/18 10:36 Dose: 5 mg Heparin Sodium (Porcine) (Heparin) 5,000 units SC Q8 [facility] Last Admin: 02/22/18 13:22 Dose: 5,000 units Dextrose/Sodium Chloride (Dextrose 5%/0.45% Ns 1000 Ml) 1,000 mls @ 100 mls/hr IV .Q10H [facility] Last Admin: 02/22/18 13:15 Dose: Not Given Piperacillin Sod/Tazobactam Sod (Zosyn 3.375 Gm Iv Premix) 3.375 gm in 50 mls @ 100 mls/hr IVPB Q6H [facility] PRN Reason: Protocol Last Admin: 02/22/18 12:23 Dose: 100 mls/hr Vancomycin/Sodium Chloride (Vancomycin 1 Gm/Ns 200 Ml) 1 gm in 200 mls @ 133.333 mls/hr IVPB Q12H [facility] PRN Reason: Protocol Stop: 02/27/18 11:31 Last Admin: 02/22/18 12:23 Dose: 133.333 mls/hr Ketorolac Tromethamine (Toradol) 30 mg IVP Q6H PRN PRN Reason: Pain, moderate (4-7) Last Admin: 02/22/18 13:16 Dose: 30 mg Morphine Sulfate (Morphine) 4 mg IVP Q4 PRN PRN Reason: Pain, severe (8-10) Pantoprazole Sodium (Protonix Inj) 40 mg IVP DAILY [facility] Last Admin: 02/22/18 14:52 Dose: 40 mg - Labs Labs: 02/22/18 08:08 02/22/18 08:08 APTT 35 SECONDS (21-34) H 02/21/18 21:20 - Constitutional Appears: No Acute Distress - Head Exam Head Exam: ATRAUMATIC - Eye Exam Eye Exam: EOMI - ENT Exam ENT Exam: Mucous Membranes Dry - Respiratory Exam Respiratory Exam: Rales, NORMAL BREATHING PATTERN - Cardiovascular Exam Cardiovascular Exam: REGULAR RHYTHM, +S1, +S2. absent: Murmur - GI/Abdominal Exam GI & Abdominal Exam: Soft, Tenderness, Normal Bowel Sounds Additional comments: S/p transverse loop colostomy (02/11/18) for stage [address] in place with minimal output NGT in place on low suction - Extremities Exam Extremities Exam: Normal Inspection. 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 Anguiano---> Help appreciated * Management as per recommendation Imaging: CT Abdomen/Pelvis (02/21/18): There is an colostomy right anterolateral lower abdominal wall. Massively distended stomach and multiple distended fluid- filled loops of small bowel consistent with small bowel obstruction. There are pulmonary and hepatic metastases again seen. Bilateral inguinal hernias which of the upper not felt to represent loops of small bowel. There is small amount of free intraperitoneal air which could be related to the colostomy however perforated bowel not excluded. Medication/Management: * NPO * NG-Tube on low sucto * D5 1/2NS @ 100mls/hr * Toradol 30mg IV Q6H * Morphine 4mg IV Q4H PRN Status: Acute (2) Colon cancer metastasized to multiple sites Assessment & Plan: CT of Abdomen/Pelvis (12/22/17): Circumferential rectal mass with infiltration of adjacent soft tissues including seminal vesicles and prostate, findings are consistent with malignancy, rectal mass may be causing partial obstruction with constipation; adenopathy; hepatic and pulmonary nodules/masses suspicious for metastatic disease; gallstones. 4.1 x 4.2 cm presacral bulky soft tissue within the mid to left abdomen posteriorly (series 3, image 103), stable to slightly slightly increased in size measuring approximately 3.9 x 4.2 cm when remeasured in a similar location. Bilateral bulky inguinal adenopathy, measuring approximately 1.8 cm on the right and left in short axis. Status: Acute (3) Bandemia Assessment & Plan: Band: 36 No leukocytosis Lactate: 1.4 Procalcitonin: 0.27 UA: Negative Chest X-ray: In situ NGT. . There are several on metastatic lesions both lung bases less well seen on this study compared to high-resolution CT scan abdomen. . Mild bibasilar atelectasis Small amount free intraperitoneal air again seen F/U UC, BC Medications: Zosyn 3.375gm IV Q6H Vanco 1gm Q12H ( Vanc trough for 02/25/18) Will monitor bands with labs Status: Acute (5) Anemia Assessment & Plan: Possible secondary to chronic disease H/H: 9.9/29.1 No active bleeding Will continue to monitor Status: Acute (6) Hypertension Assessment & Plan: Norvasc 2.5mg PO daily Monitor with vital sign Status: Acute (7) Prophylactic measure Assessment & Plan: GI: Pepcid 20mg IV daily DVT: SCDs, heparin 5,000 units SC Q8H NPO All plans and management discussed with Dr. Brink Status: Acute <Donna Brink - Last Filed: 03/02/18 13:34> Objective - Vital Signs/Intake and Output Vital Signs (last 24 hours): Temp Pulse Resp BP Pulse Ox 98.1 F 67 18 100/63 100 03/02/18 07:35 03/02/18 07:44 03/02/18 07:35 03/02/18 07:35 03/02/18 07:35 Intake and Output: 03/02/18 03/02/18 06:59 18:59 Intake Total 1700 Output Total 950 Balance 750 - Medications Medications: Current Medications Fentanyl (Duragesic) 1 patch TD Q72H [facility] Last Admin: 02/28/18 08:24 Dose: 1 patch Morphine Sulfate (Morphine) 4 mg IVP Q2 [facility] Last Admin: 03/02/18 12:31 Dose: 4 mg Ondansetron HCl (Zofran Inj) 4 mg IVP Q6H PRN PRN Reason: Nausea/Vomiting Last Admin: 02/27/18 20:07 Dose: 4 mg - Labs Labs: 02/28/18 06:28 02/28/18 06:25 APTT 35 SECONDS (21-34) H 02/21/18 21:20 Attending/Attestation - Attestation I have personally seen and examined this patient.: Yes I have fully participated in the care of the patient.: Yes I have reviewed all pertinent clinical information, including history, physical exam and plan: Yes Notes (Text): seen and examined Patient has intermittent pain. Discusses with the resident I agree with the documentation of the assessment and the plan.
[2018-02-23] MEDS: Piperacill/Tazo 3.375gm in Dex 3.375 GM/50 ML BAG IVPB SCH ×3 (00:27→12:49)
[2018-02-23] MEDS: Vancomycin 1 gm/NS 200 ml 1 GM/200 ML BAG IVPB SCH ×2 (01:41→13:35)
[2018-02-23] MEDS: Dextrose 5%/0.45% NS 1,000 ML IV SCH ×3 (06:20→20:14)
[2018-02-23 07:27] LABS: BASO % 0.1 % (0.0-2.0); EOS % 0.2 % (0.0-4.0); HEMOGLOBIN 10.1 g/dL (12.0-18.0); LYMPH # 0.2 K/uL (1.0-4.3); LYMPH % 3.9 % (20.0-40.0); MEAN CELL VOLUME 84.6 fL (80.0-94.0); MEAN CORPUSCULAR HEMOGLOBIN 29.1 pg (27.0-31.0); MEAN CORPUSCULAR HGB CONC 34.4 g/dL (33.0-37.0); MEAN PLATELET VOLUME 6.4 fL (7.2-11.7); MONO # 0.4 K/uL (0.0-0.8); NEUT # 4.2 K/uL (1.8-7.0); NEUT % 87.8 % (50.0-75.0); PLATELET COUNT 564 K/uL (130-400); RBC 3.47 Mil/uL (4.40-5.90); RED CELL DISTRIBUTION WIDTH 19.7 % (11.5-14.5); WHITE BLOOD COUNT 4.7 K/uL (4.8-10.8)
--- NOTE | 2018-02-23 07:45 | CP.PCM.PN ---
Subjective - Date & Time of Evaluation Date of Evaluation: 02/23/18 Time of Evaluation: 07:43 - Subjective Subjective: General Surgery - Dr. Anguiano Pt S&E. SENAIT. PT stil with abdominal pain and distension, also complaining about back pain which is chronic. He states the pain meds haven't been working. NGT is in place wit 300cc out overnight, brown thick drainage. Colostomy with no gas or output in the bag. Objective - Vital Signs/Intake and Output Vital Signs (last 24 hours): Temp Pulse Resp BP Pulse Ox 97.8 F 96 H 20 114/80 99 02/23/18 00:00 02/23/18 00:00 02/23/18 00:00 02/23/18 00:00 02/23/18 00:00 Intake and Output: 02/23/18 02/23/18 06:59 18:59 Intake Total 750 800 Output Total 750 20 Balance 0 780 - Medications Medications: Current Medications Amlodipine Besylate (Norvasc) 5 mg PO DAILY [facility] Last Admin: 02/22/18 10:36 Dose: 5 mg Heparin Sodium (Porcine) (Heparin) 5,000 units SC Q8 [facility] Last Admin: 02/23/18 05:45 Dose: 5,000 units Dextrose/Sodium Chloride (Dextrose 5%/0.45% Ns 1000 Ml) 1,000 mls @ 100 mls/hr IV .Q10H [facility] Last Admin: 02/23/18 06:20 Dose: 100 mls/hr Piperacillin Sod/Tazobactam Sod (Zosyn 3.375 Gm Iv Premix) 3.375 gm in 50 mls @ 100 mls/hr IVPB Q6H [facility] PRN Reason: Protocol Last Admin: 02/23/18 05:43 Dose: 100 mls/hr Vancomycin/Sodium Chloride (Vancomycin 1 Gm/Ns 200 Ml) 1 gm in 200 mls @ 133 mls/hr IVPB Q12H [facility] PRN Reason: Protocol Stop: 02/28/18 01:01 Last Admin: 02/23/18 01:41 Dose: 133 mls/hr Ketorolac Tromethamine (Toradol) 30 mg IVP Q6H PRN PRN Reason: Pain, moderate (4-7) Last Admin: 02/23/18 05:44 Dose: 30 mg Morphine Sulfate (Morphine) 4 mg IVP Q4 PRN PRN Reason: Pain, severe (8-10) Pantoprazole Sodium (Protonix Inj) 40 mg IVP DAILY [facility] Last Admin: 02/22/18 14:52 Dose: 40 mg - Labs Labs: 02/23/18 07:13 02/22/18 08:08 APTT 35 SECONDS (21-34) H 02/21/18 21:20 - Constitutional Appears: No Acute Distress - Head Exam Head Exam: ATRAUMATIC, NORMAL INSPECTION, NORMOCEPHALIC - Eye Exam Eye Exam: Normal appearance - Respiratory Exam Respiratory Exam: NORMAL BREATHING PATTERN. absent: Respiratory Distress - GI/Abdominal Exam GI & Abdominal Exam: Distended, Soft, Tenderness. absent: Firm, Guarding, Rigid , Rebound Additional comments: colostomy pink and viable - Neurological Exam Neurological Exam: Alert, Oriented x3 - Psychiatric Exam Psychiatric exam: Normal Affect, Normal Mood - Skin Skin Exam: Dry, Intact Assessment and Plan - Assessment and Plan (Free Text) Assessment: 67M w/ stage IV colon CA s/p transverse loop colostomy now with small bowel ileus Plan: Cont NGT to low cont suction Monitor for bowel function Encourage OOB/Ambulation/Physical therapy Consider pain management consult EDUIN Anguiano
[2018-02-23 07:48] LABS: ALB/GLOB RATIO 0.8 (1.0-2.1); ALT/SGPT 14 U/L (21-72); AST/SGOT 14 U/L (17-59); BLOOD UREA NITROGEN 52 mg/dL (9-20); CALCIUM 9.1 mg/dl (8.6-10.4); GFR AFRICAN-AMERICAN > 60; GFR NON-AFRICAN AMERICAN > 60
[2018-02-23 08:51] LABS: BANDS 41 % (0-2); LYMPHOCYTE 10 % (20-40); MONOCYTE 8 % (0-10); NEUTROPHIL 41 % (50-75); TOTAL CELLS COUNTED 100
[2018-02-23 08:52] LABS: ANISOCYTOSIS SLIGHT; HYPOCHROMIC SLIGHT; PLATELET ESTIMATE INCREASED (NORMAL); POLYCHROMIC SLIGHT
[2018-02-23] MEDS ORDERED: metroNIDAZOLE IV 500 mg/100 ml 250 MG in Premixed IV 1 EA IVPB SCH (14:00)
--- NOTE | 2018-02-23 15:03 | CP.PCM.CON ---
History of Present Illness - History of Present Illness History of Present Illness: Palliative consult requested by Doctor Ansari for pain management Patient is a 67 yo male admitted from [facility] with worsened abdominal pain. Patient was recently diagnosed with metastatic colo-rectal cancer and had colon resection with colostomy creation by Doctor Anguiano on 02/09/2018. Stoma was initially functioning well and mild surgical pain controlled by Percocet 5/ 325mg mostly 1 tb Q 6 hr PRN pain. On 02/21/18 pain got worse and patient was transferred to [facility] for evaluation. CT abd/pelvis was significant for Small Bowel Obstruction and NGT was inserted for decompensation. Free air was seen as well concerning for bowel perforation. PMH: Metastatic colorectal cancer with mets to liver and lungs Soc. Hx: retired, , lives at home Fam. Hx: denies Ca in family Review of Systems - Constitutional Constitutional: Fatigue, Weakness - EENT Eyes: absent: As Per HPI, Blind Spots, Blurred Vision, Change in Vision, Decreased Night Vision, Diplopia, Discharge, Dry Eye, Exophthalmos, Floaters, Irritation, Itchy Eyes, Loss of Peripheral Vision, Pain, Photophobia, Requires Corrective Lenses, Sees Flashes, Spots in Vision, Tunnel Vision, Other Visual Disturbances, Loss of Vision, Other Ears: absent: As Per HPI, Decreased Hearing, Ear Discharge, Ear Pain, Tinnitus, Abnormal Hearing, Disequilibrium, Dizziness, Other Nose/Mouth/Throat: Sore Throat - Cardiovascular Cardiovascular: Dyspnea, Dyspnea on Exertion - Respiratory Respiratory: Dyspnea on Exertion - Gastrointestinal Gastrointestinal: Abdominal Pain, Bloating, Nausea - Genitourinary Genitourinary: absent: As Per HPI, Change in Urinary Stream, Difficulty Urinating, Dysuria, Flank Pain, Hematuria, Pyuria, Nocturia, Urinary Incontinence, Urinary Frequency, Urinary Hesitance, Urinary Urgency, Voiding Freq/Small Amts, Freq UTI, Hx Renal/Bladder Calculi, Hx /Renal Surgery, Bladder Distension, Other - Musculoskeletal Musculoskeletal: Muscle Weakness - Integumentary Integumentary: absent: As Per HPI, Acne, Alopecia, Bleeding Lesions, Change in Hair, Change in Nails, Change in Pigmentation, Changing Lesions, Dry Skin, Erythema, Furuncle, Hirsutism, Lesions, New Lesions, Non-Healing Lesions, Photosensitivity, Pruritus, Rash, Skin Pain, Skin Ulcer, Sores, Striae, Swelling , Unusual Bruising, Wounds, Jaundice, Other - Neurological Neurological: Weakness - Psychiatric Psychiatric: Abnormal Sleep Pattern - Endocrine Endocrine: absent: As Per HPI, Change in Body Appearance, Change in Libido, Cold Intolorance, Deepening of Voice, Excessive Sweating, Fatigue, Flushing, Heat Intolorance, Increase in Ring/Shoe/Hat Size, Palpitations, Polydipsia, Polyphagia, Polyuria, Other - Hematologic/Lymphatic Hematologic: absent: As Per HPI, Easy Bleeding, Easy Bruising, Lymphadenopathy, Other Past Patient History - Past Medical History & Family History Past Medical History?: Yes - Past Social History Smoking Status: Never Smoked - PULMONARY Hx Respiratory Disorders: No - NEUROLOGICAL Hx Neurological Disorder: No - HEENT Hx HEENT Problems: No - RENAL Hx Chronic Kidney Disease: No - ENDOCRINE/METABOLIC Hx Endocrine Disorders: No - HEMATOLOGICAL/ONCOLOGICAL Hx Blood Disorders: Yes Hx Cancer: Yes (COLON CA WITH METS) - INTEGUMENTARY Hx Dermatological Problems: No - MUSCULOSKELETAL/RHEUMATOLOGICAL Hx Musculoskeletal Disorders: Yes Hx Back Pain: Yes Hx Falls: No - GASTROINTESTINAL Hx Gastrointestinal Disorders: Yes (RECTAL CANCER WITH POLAPSE CONSTIPATION) - GENITOURINARY/GYNECOLOGICAL Hx Genitourinary Disorders: Yes Hx Prostate Cancer: Yes - PSYCHIATRIC Hx Substance Use: No - SURGICAL HISTORY Hx Surgeries: Yes Hx Orthopedic Surgery: Yes (BACK SURGERY) Other/Comment: s/p transverse loop colostomy 02/11/18 - ANESTHESIA Hx Anesthesia: Yes Hx Anesthesia Reactions: No Hx Malignant Hyperthermia: No Has any member of the family had a problem w/ anesthesia?: No Meds Allergies/Adverse Reactions: Allergies Allergy/AdvReac Type Severity Reaction Status Date / Time No Known Allergies Allergy Verified 09/25/17 14:11 - Medications Medications: Current Medications Amlodipine Besylate (Norvasc) 5 mg PO DAILY [facility] Last Admin: 02/23/18 09:26 Dose: Not Given Heparin Sodium (Porcine) (Heparin) 5,000 units SC Q8 [facility] Last Admin: 02/23/18 05:45 Dose: 5,000 units Dextrose/Sodium Chloride (Dextrose 5%/0.45% Ns 1000 Ml) 1,000 mls @ 100 mls/hr IV .Q10H [facility] Last Admin: 02/23/18 09:28 Dose: Not Given Ciprofloxacin (Cipro 200mg/100ml D5w) 100 mls @ 67 mls/hr IVPB Q12H [facility] PRN Reason: Protocol Metronidazole 250 mg/ (Miscellaneous) 50 mls @ 100 mls/hr IVPB Q8 [facility] PRN Reason: Protocol Ketorolac Tromethamine (Toradol) 30 mg IVP Q6H PRN PRN Reason: Pain, moderate (4-7) Last Admin: 02/23/18 12:58 Dose: 30 mg Morphine Sulfate (Morphine) 4 mg IVP Q4 PRN PRN Reason: Pain, severe (8-10) Pantoprazole Sodium (Protonix Inj) 40 mg IVP DAILY [facility] Last Admin: 02/23/18 09:27 Dose: 40 mg Physical Exam - Constitutional Appears: In Acute Distress, Chronically Ill - Head Exam Head Exam: ATRAUMATIC, NORMAL INSPECTION, NORMOCEPHALIC - Eye Exam Eye Exam: EOMI, Normal appearance, PERRL Pupil Exam: NORMAL ACCOMODATION, PERRL - ENT Exam Additional comments: NGT, drainage green - Neck Exam Neck exam: Positive for: Normal Inspection - Respiratory Exam Respiratory Exam: Decreased Breath Sounds, NORMAL BREATHING PATTERN - Cardiovascular Exam Cardiovascular Exam: Tachycardia, REGULAR RHYTHM - GI/Abdominal Exam GI & Abdominal Exam: Diminished Bowel Sounds, Distended, Firm Additional comments: colostomy in citu - Rectal Exam Additional comments: complains of rectal pain - Exam Exam: NORMAL INSPECTION - Extremities Exam Extremities exam: Positive for: normal inspection - Back Exam Back exam: NORMAL INSPECTION - Neurological Exam Neurological exam: Alert, Oriented x3 - Psychiatric Exam Psychiatric exam: Depressed - Skin Skin Exam: Normal Color, Warm Results - Vital Signs Recent Vital Signs: Last Vital Signs Temp 98.1 F 02/23/18 08:19 Pulse 90 02/23/18 11:21 Resp 20 02/23/18 08:19 BP 119/80 02/23/18 08:19 Pulse Ox 98 02/23/18 11:21 - Labs Result Diagrams: 02/23/18 07:13 02/23/18 07:13 Labs: Laboratory Results - last 24 hr 02/22/18 02/23/18 02/23/18 11:46 07:13 07:13 WBC 4.7 L RBC 3.47 L Hgb 10.1 L Hct 29.4 L MCV 84.6 MCH 29.1 MCHC 34.4 RDW 19.7 H Plt Count 564 H MPV 6.4 L Neut % (Auto) 87.8 H Lymph % (Auto) 3.9 L [place] % (Auto) 8.0 Eos % (Auto) 0.2 Baso % (Auto) 0.1 Neut # (Auto) 4.2 Lymph # (Auto) 0.2 L [place] # (Auto) 0.4 Eos # (Auto) 0.0 Baso # (Auto) 0.0 Neutrophils % (Manual) 41 L Band Neutrophils % 41 H* Lymphocytes % (Manual) 10 L Monocytes % (Manual) 8 Platelet Estimate Increased H Polychromasia Slight Hypochromasia (manual) Slight Anisocytosis (manual) Slight Sodium 138 Potassium 3.4 L Chloride 103 Carbon Dioxide 21 L Anion Gap 17 BUN 52 H Creatinine 0.9 Est GFR ( Amer) > 60 Est GFR (Non-Af Amer) > 60 Random Glucose 133 H Calcium 9.1 Phosphorus 3.8 Magnesium 2.2 Total Bilirubin 0.8 AST 14 L D ALT 14 L Alkaline Phosphatase 84 Total Protein 7.0 Albumin 3.0 L Globulin 4.0 H Albumin/Globulin Ratio 0.8 L Procalcitonin 0.27 Assessment & Plan - Assessment and Plan (Free Text) Assessment: Palliative consult Code status Full Code, there is no Advance Directive on chart I reviewed medical records, all diagnostic studies, examined and interviewed patient in the bed. Patient is alert, oriented X 3 [place] speaking, but prefers and is more fluent in [place]. Patient looks ill. Skin pale. Diminished breath sounds. Patient reports feeling shortness of breath while talking. Patient able to speak in full sentences. O2Sat 98 % RA. NGT to suction, drainage green, 300 cc out last night. Abdomen firm, flat, there is no stool in colostomy bag. Patient admits to nausea. Bowel sounds diminished. I discussed with patient need for ambulation . Patient stated to be too weak as he had no food X few days. Patient reports mild to moderate pain to lower back and rectum. Pain is rated 6- 7/10 and is deep, throbbing,constant pain to lower back. Rectal pain is felt as burning pain. Pain responds well to Morphine IV but only for about 2 hr, than comes back. Patient complains that pain interrupts his sleep and lack of sleep makes him even more tired. Impression * This is a chronically ill man with metastatic cancer * Acute , abdominal ,surgical pain rated as moderate pain * Chronic rectal pain cancer related * Generalized weakness due to combination of disease process , lack of sleep and NPO status * Body image disturbance * At risk for malnutrition Suggestion * In the face of patient's diagnosis , comfort is the ultimate goal * For control of acute on chronic pain I would : - DC Toradol due to its side effects of nausea, vomiting and constipation - Continue Morphine 4 mg IV Q 4 PRN Breakthrough pain of 4-6 on scale of 1-10 - Would start Fentanyl patch 12 mcg to skin Q 72 hr for continuous coverage of chronic pain ( it takes up to 17 hr ( for Fenanyl patch effect to be felt) - Fentanyl patch could be increased in 3 -4 days, once we see how patient tolerates it. It is expected for Morphine IV PRN to be used much less. This is also good pain management option for managing half-way chronic pain, after discharge * Small doses of Steroids could also help with pain management and inflammation * Patient needs to get OOB at least Q shift * O2 via NC for SOB * GI consult * Oncology consult I would like to fallow this patient and discuss goals of care. Unfortunately as his disease progresses, his over all condition will worsen and Comfort care will be only option.
[2018-02-23] MEDS ORDERED: Ciprofloxacin 200mg/100ml D5W 100 ML IVPB SCH (16:00)
--- NOTE | 2018-02-23 18:47 | CP.PCM.PN ---
Subjective - Date & Time of Evaluation Date of Evaluation: 02/23/18 Time of Evaluation: 09:45 - Subjective Subjective: Medicine progress note ( Dr. Kilpatrick's service) Patient was seen and examined at bedside. Patient reports symptomatic relief with NG-tube. Patient denies any new complaints. Patient admits to intermittent abdominal pain. Patient denies fever, chills, nausea, vomiting, passing flatus. Patient is with minimal ostomy output. Objective - Vital Signs/Intake and Output Vital Signs (last 24 hours): Temp Pulse Resp BP Pulse Ox 97.6 F 91 H 20 117/81 98 02/23/18 15:48 02/23/18 15:48 02/23/18 15:48 02/23/18 15:48 02/23/18 15:48 Intake and Output: 02/23/18 02/23/18 06:59 18:59 Intake Total 750 1550 Output Total 750 595 Balance 0 955 - Medications Medications: Current Medications Amlodipine Besylate (Norvasc) 5 mg PO DAILY [facility] Last Admin: 02/23/18 09:26 Dose: Not Given Heparin Sodium (Porcine) (Heparin) 5,000 units SC Q8 [facility] Last Admin: 02/23/18 14:56 Dose: 5,000 units Dextrose/Sodium Chloride (Dextrose 5%/0.45% Ns 1000 Ml) 1,000 mls @ 100 mls/hr IV .Q10H [facility] Last Admin: 02/23/18 09:28 Dose: Not Given Ciprofloxacin (Cipro 200mg/100ml D5w) 100 mls @ 67 mls/hr IVPB Q12H [facility] PRN Reason: Protocol Last Admin: 02/23/18 17:44 Dose: 67 mls/hr Metronidazole 250 mg/ (Miscellaneous) 50 mls @ 100 mls/hr IVPB Q8 [facility] PRN Reason: Protocol Last Admin: 02/23/18 14:56 Dose: 100 mls/hr Ketorolac Tromethamine (Toradol) 30 mg IVP Q6H PRN PRN Reason: Pain, moderate (4-7) Last Admin: 02/23/18 12:58 Dose: 30 mg Morphine Sulfate (Morphine) 4 mg IVP Q4 PRN PRN Reason: Pain, severe (8-10) Pantoprazole Sodium (Protonix Inj) 40 mg IVP DAILY [facility] Last Admin: 02/23/18 09:27 Dose: 40 mg - Labs Labs: 02/23/18 07:13 02/23/18 07:13 APTT 35 SECONDS (21-34) H 02/21/18 21:20 - Constitutional Appears: Well, No Acute Distress - Head Exam Head Exam: ATRAUMATIC, NORMAL INSPECTION - Eye Exam Eye Exam: EOMI - ENT Exam ENT Exam: Mucous Membranes Dry - Respiratory Exam Respiratory Exam: NORMAL BREATHING PATTERN. absent: Rhonchi, Wheezes, Respiratory Distress - Cardiovascular Exam Cardiovascular Exam: REGULAR RHYTHM, +S1, +S2, Murmur - GI/Abdominal Exam GI & Abdominal Exam: Soft, Normal Bowel Sounds Additional comments: S/p transverse loop colostomy (02/11/18) for stage [address] colon [address] in place with minimal output NGT in place on low suction - Extremities Exam Extremities Exam: Normal Inspection - Neurological Exam Neurological Exam: Alert, Awake, Oriented x3 - Psychiatric Exam Psychiatric exam: Normal Affect - Skin Skin Exam: Normal Color Assessment and Plan (1) Small bowel obstruction Assessment & Plan: S/P 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 Anguiano---> Help appreciated * Management as per recommendation Imaging: CT Abdomen/Pelvis (02/21/18): There is an colostomy right anterolateral lower abdominal wall. Massively distended stomach and multiple distended fluid- filled loops of small bowel consistent with small bowel obstruction. There are pulmonary and hepatic metastases again seen. Bilateral inguinal hernias which of the upper not felt to represent loops of small bowel. There is small amount of free intraperitoneal air which could be related to the colostomy however perforated bowel not excluded. Medication/Management: * NPO * NG-Tube on low sucto * D5 1/2NS @ 100mls/hr * Toradol 30mg IV Q6H * Morphine 4mg IV Q4H PRN Status: Acute (2) Colon cancer metastasized to multiple sites Assessment & Plan: CT of Abdomen/Pelvis (12/22/17): Circumferential rectal mass with infiltration of adjacent soft tissues including seminal vesicles and prostate, findings are consistent with malignancy, rectal mass may be causing partial obstruction with constipation; adenopathy; hepatic and pulmonary nodules/masses suspicious for metastatic disease; gallstones. 4.1 x 4.2 cm presacral bulky soft tissue within the mid to left abdomen posteriorly (series 3, image 103), stable to slightly slightly increased in size measuring approximately 3.9 x 4.2 cm when remeasured in a similar location. Bilateral bulky inguinal adenopathy, measuring approximately 1.8 cm on the right and left in short axis. Status: Acute (3) Bandemia Assessment & Plan: Band: 36---> 41, up trending No leukocytosis Lactate: 1.4 Procalcitonin: 0.27 UA: Negative UC: Gram negative dot BC: No growth Chest X-ray: In situ NGT. . There are several on metastatic lesions both lung bases less well seen on this study compared to high-resolution CT scan abdomen. . Mild bibasilar atelectasis Small amount free intraperitoneal air again seen Medications: Zosyn 3.375gm IV Q6H Vanco 1gm Q12H ( Vanc trough for 02/25/18)--> discontinued ( received one dose) Cipro 400mg iv Q12H (02/23/18) Flagyl 500mg IV q8h (02/23/18) Will monitor bands with labs Status: Acute (4) Anemia Assessment & Plan: Possible secondary to chronic disease No active bleeding Will continue to monitor Status: Acute (5) Hypertension Assessment & Plan: Norvasc 2.5mg PO daily-- not taking as patient is NPO, NGT in place for SBO BP is stable without medications Will consider IV if BP becomes unstable Monitor with vital sign Status: Acute (6) Prophylactic measure Assessment & Plan: GI: Pepcid 20mg IV daily DVT: SCDs, heparin 5,000 units SC Q8H NPO All plans and management discussed with Dr. Kilpatrick Status: Acute
[2018-02-23] MEDS: Ciprofloxacin 400mg/200ml D5W 400 MG/200 ML BAG IVPB SCH (20:13)
[2018-02-23] MEDS: metroNIDAZOLE IV 500 mg/100 ml 500 MG/100 ML BAG IVPB SCH (21:26)
[2018-02-24] MEDS: metroNIDAZOLE IV 500 mg/100 ml 500 MG/100 ML BAG IVPB SCH ×3 (05:10→21:46)
[2018-02-24] MEDS: Dextrose 5%/0.45% NS 1,000 ML IV SCH ×2 (05:13→14:22)
--- NOTE | 2018-02-24 06:43 | CON ---
DATE: ONCOLOGY CONSULTATION HISTORY OF PRESENT ILLNESS: This is a 67-year-old man who I know very well. He presented about 2 years ago with a rectal cancer, widely metastatic already on presentation to the lungs and to the liver. He was treated with chemotherapy, which was oxaliplatin, Xeloda and Avastin, and did very well. The tumor has got smaller and he was relatively stable. At that point, I asked him to see the surgeon, but he had a lot of rectal pain so we gave him rectal radiation therapy. He received radiation therapy with Dr. Deras in [place]. After that, he still was having a lot of rectal point at one point with severe diarrhea. He could not control his rectum at all because of the rectal tumor and so I asked him to go for a palliative colostomy. He refused initially, but ultimately decided to do that, and Dr. Anguiano operated on him about 2 or 3 weeks ago. He was sent to the rehabilitation place, and so he has been off chemotherapy/radiation therapy, which is probably around September, and his last chemotherapy was even before that. He has been on no chemotherapy for the last few months. He is now readmitted for an ileus. PHYSICAL EXAMINATION: SKIN: No petechiae. No bruise. HEENT: Shows severe temporal wasting noted. NODES: Nonpalpable in the axillary, cervical, supraclavicular, inguinal regions. LUNGS: Clear at present. No vertebral tenderness. The patient is able to lie down flat. HEART: S1 and S2. ABDOMEN: Shows the colostomy functioning. There is some , no blood. EXTREMITIES: No edema. SEMICONDUCTOR ASSEMBLER: No focal finding. NEUROLOGIC: The patient is alert and able to speak. Overall, the pain is somewhat much better, and the colostomy would take care of the diarrhea. He has an NG tube with him now, which is draining some bile and we will see how he does. I told him, there is no chemotherapy plan, no radiation therapy plan. At this point, it is mainly symptom control. If and when he is able to come to the office stable from his operation, we can then reconsider again chemotherapy. I have talked about hospice in the past with the family, with the daughter, the of the patient, but they have never been inclined towards that and continued to want various treatments. So at this point, he is still technically postop. He really has not left the hospital and we will have to see how he does. Brian MD Linda
[2018-02-24 07:10] LABS: BASO % 0.1 % (0.0-2.0); EOS % 0.3 % (0.0-4.0); HEMOGLOBIN 10.1 g/dL (12.0-18.0); LYMPH # 0.3 K/uL (1.0-4.3); LYMPH % 4.8 % (20.0-40.0); MEAN CELL VOLUME 83.7 fL (80.0-94.0); MEAN CORPUSCULAR HEMOGLOBIN 28.8 pg (27.0-31.0); MEAN CORPUSCULAR HGB CONC 34.4 g/dL (33.0-37.0); MEAN PLATELET VOLUME 6.5 fL (7.2-11.7); MONO # 0.7 K/uL (0.0-0.8); NEUT % 82.8 % (50.0-75.0); PLATELET COUNT 601 K/uL (130-400); RBC 3.51 Mil/uL (4.40-5.90); RED CELL DISTRIBUTION WIDTH 19.4 % (11.5-14.5)
--- NOTE | 2018-02-24 07:59 | CP.PCM.PN ---
Subjective - Date & Time of Evaluation Date of Evaluation: 02/24/18 Time of Evaluation: 07:56 - Subjective Subjective: PGY-1 surgery progress note for Dr Anguiano. No acut events noted overnight. NGT removed yesterday. Patient stated he didn't ambulate yesterday as he felt too weak. He said his pain has improved. He denied abdominal pain. He denied any leaking from the ostomy bag. He denied fevers, chills, nausea, vomiting. Objective - Vital Signs/Intake and Output Vital Signs (last 24 hours): Temp Pulse Resp BP Pulse Ox 98.2 F 88 20 116/80 98 02/24/18 07:00 02/24/18 07:00 02/24/18 07:00 02/24/18 07:00 02/24/18 07:00 Intake and Output: 02/24/18 02/24/18 06:59 18:59 Intake Total 2000 Output Total 400 Balance 1600 - Medications Medications: Current Medications Amlodipine Besylate (Norvasc) 5 mg PO DAILY [facility] Last Admin: 02/23/18 09:26 Dose: Not Given Heparin Sodium (Porcine) (Heparin) 5,000 units SC Q8 [facility] Last Admin: 02/24/18 05:10 Dose: 5,000 units Dextrose/Sodium Chloride (Dextrose 5%/0.45% Ns 1000 Ml) 1,000 mls @ 100 mls/hr IV .Q10H [facility] Last Admin: 02/24/18 05:13 Dose: 100 mls/hr Ciprofloxacin (Cipro 400mg/200ml Dsw) 400 mg in 200 mls @ 133 mls/hr IVPB Q12H [facility] PRN Reason: Protocol Last Admin: 02/23/18 20:13 Dose: 133 mls/hr Metronidazole (Flagyl) 500 mg in 100 mls @ 100 mls/hr IVPB Q8H [facility] PRN Reason: Protocol Last Admin: 02/24/18 05:10 Dose: 100 mls/hr Ketorolac Tromethamine (Toradol) 30 mg IVP Q6H PRN PRN Reason: Pain, moderate (4-7) Last Admin: 02/24/18 05:12 Dose: 30 mg Morphine Sulfate (Morphine) 4 mg IVP Q4 PRN PRN Reason: Pain, severe (8-10) Pantoprazole Sodium (Protonix Inj) 40 mg IVP DAILY [facility] Last Admin: 02/23/18 09:27 Dose: 40 mg - Labs Labs: 02/24/18 06:47 02/23/18 07:13 APTT 35 SECONDS (21-34) H 02/21/18 21:20 - Additional Findings Additional findings: - Constitutional Appears: No Acute Distress - Head Exam Head Exam: ATRAUMATIC, NORMAL INSPECTION, NORMOCEPHALIC - Eye Exam Eye Exam: Normal appearance - Respiratory Exam Respiratory Exam: NORMAL BREATHING PATTERN. absent: Respiratory Distress - GI/Abdominal Exam GI & Abdominal Exam: Distended, Soft, Tenderness. absent: Firm, Guarding, Rigid , Rebound Additional comments: colostomy pink and viable - Neurological Exam Neurological Exam: Alert, Oriented x3 - Psychiatric Exam Psychiatric exam: Normal Affect, Normal Mood - Skin Skin Exam: Dry, Intact Assessment and Plan - Assessment and Plan (Free Text) Assessment: 67M w/ stage IV colon CA s/p transverse loop colostomy now with small bowel ileus Plan: Cont NGT to low cont suction Monitor for bowel function Encourage OOB/Ambulation/Physical therapy Pain management consult placed F/U CT abd/pelvis with PO contrast
[2018-02-24 08:18] LABS: ALB/GLOB RATIO 0.8 (1.0-2.1); ALT/SGPT 14 U/L (21-72); AST/SGOT 22 U/L (17-59); BLOOD UREA NITROGEN 44 mg/dL (9-20); GFR AFRICAN-AMERICAN > 60; GFR NON-AFRICAN AMERICAN > 60
[2018-02-24] MEDS: Ciprofloxacin 400mg/200ml D5W 400 MG/200 ML BAG IVPB SCH ×2 (08:27→20:06)
[2018-02-24 09:19] LABS: BANDS 27 % (0-2); LYMPHOCYTE 6 % (20-40); MONOCYTE 15 % (0-10); NEUTROPHIL 52 % (50-75); PLATELET ESTIMATE INCREASED (NORMAL); TOTAL CELLS COUNTED 100
[2018-02-24 09:20] LABS: ANISOCYTOSIS SLIGHT; HYPOCHROMIC SLIGHT; OVALOCYTES SLIGHT
[2018-02-24] MEDS ORDERED: Iohexol 240 (50 ml) PO ONE (09:30)
[2018-02-24] MEDS ORDERED: Pneumococcal 23-Valent Vaccine IM ONE (10:00)
--- NOTE | 2018-02-24 16:11 | CT ---
PROCEDURE: CT Abdomen and Pelvis with contrast HISTORY: ab pain eval COMPARISON: Contrast abdomen pelvis CT examination 02/13/2018. TECHNIQUE: Contrast dose: None Radiation dose: Total exam DLP = 450.07 mGy-cm. This CT exam was performed using one or more of the following dose reduction techniques: Automated exposure control, adjustment of the mA and/or kV according to patient size, and/or use of iterative reconstruction technique. FINDINGS: LOWER THORAX: Nodular masses are unchanged at the right lower lobe with hiatal hernia and distal esophagus dilated with fluid and a bit of air now identified in the interval. LIVER: Unremarkable. No gross lesion or ductal dilatation. GALLBLADDER AND BILE DUCTS: Unremarkable. PANCREAS: Unremarkable. No gross lesion or ductal dilatation. SPLEEN: Unremarkable. ADRENALS: Unremarkable. No mass. KIDNEYS AND URETERS: Unremarkable. No hydronephrosis. No solid mass. VASCULATURE: Unremarkable. No aortic aneurysm. BOWEL: Private greater distention of the large bowel is appreciate with a large air-fluid level appreciated the left upper quadrant attic cotton abdomen occupying slightly greater than 50 percent of the upper quadrant abdomen. The stomach measures 25.4 x 15.4 cm and is of the proximate cause for distention of the distal esophagus by fluid. Limited free intrarenal gas again seen in the right upper quadrant abdomen with markedly distended small bowel loops again seen scattered throughout the abdomen and pelvis with collapse large-bowel loops evident. Distal small bowel collapse not excluded. Right-sided colostomy reiterated with mural thickening again seen in the rectum grossly. Fluid is extending into the bilateral inguinal regions superiorly. Anasarca pattern is seen in the fat both within an extruded to the abdomen in this cachectic patient. APPENDIX: Not identified. PERITONEUM: See bowel section above. LYMPH NODES: Lack venous contrast limits evaluation of potential lymphadenopathy, particularly in the retroperitoneum. BLADDER: Unremarkable. REPRODUCTIVE: Enlarged prostate gland reiterated. BONES: No acute fracture. OTHER FINDINGS: None. IMPRESSION: High-grade distal small-bowel obstruction reiterated if not worsened in the interval with gross distention of the stomach also noted including reflux into the esophagus. Mild free intrarenal gas persists and does not appear dramatically changed in the interval, still suggesting likely bowel perforation. Clinically correlate further. Right lower lobe pulmonary metastases reiterated. Other lesser findings as discussed above.
--- NOTE | 2018-02-24 17:08 | CP.PCM.PN ---
Subjective - Date & Time of Evaluation Date of Evaluation: 02/24/18 Time of Evaluation: 07:00 - Subjective Subjective: Medicine progress note ( Dr. Kilpatrick's service) Patient was seen and examined at bedside. Patient reports symptomatic relief and he is currently without the NG-Tube. Patient denies any new complaints. Patient denies fever, chills, nausea, vomiting, passing flatus. Patient is with minimal ostomy output. Objective - Vital Signs/Intake and Output Vital Signs (last 24 hours): Temp Pulse Resp BP Pulse Ox 98.2 F 88 20 116/80 98 02/24/18 07:00 02/24/18 15:45 02/24/18 07:00 02/24/18 15:45 02/24/18 15:45 Intake and Output: 02/24/18 02/24/18 06:59 18:59 Intake Total 2000 2100 Output Total 400 Balance 1600 2100 - Medications Medications: Current Medications Amlodipine Besylate (Norvasc) 5 mg PO DAILY [facility] Last Admin: 02/24/18 09:35 Dose: 5 mg Heparin Sodium (Porcine) (Heparin) 5,000 units SC Q8 [facility] Last Admin: 02/24/18 14:09 Dose: 5,000 units Ciprofloxacin (Cipro 400mg/200ml Dsw) 400 mg in 200 mls @ 133 mls/hr IVPB Q12H [facility] PRN Reason: Protocol Last Admin: 02/24/18 08:27 Dose: 133 mls/hr Metronidazole (Flagyl) 500 mg in 100 mls @ 100 mls/hr IVPB Q8H [facility] PRN Reason: Protocol Last Admin: 02/24/18 14:07 Dose: 100 mls/hr Potassium Chloride/Dextrose/Sod Cl (Potassium Chl 40 Meq In D5-1/2ns) 1,000 mls @ 100 mls/hr IV .Q10H [facility] Ketorolac Tromethamine (Toradol) 30 mg IVP Q6H PRN PRN Reason: Pain, moderate (4-7) Last Admin: 02/24/18 05:12 Dose: 30 mg Metoclopramide HCl (Reglan) 10 mg IVP Q6H [facility] Stop: 02/25/18 09:46 Morphine Sulfate (Morphine) 4 mg IVP Q4 PRN PRN Reason: Pain, severe (8-10) Pantoprazole Sodium (Protonix Inj) 40 mg IVP DAILY [facility] Last Admin: 02/24/18 09:44 Dose: 40 mg - Labs Labs: 02/24/18 06:47 02/24/18 06:47 APTT 35 SECONDS (21-34) H 02/21/18 21:20 - Constitutional Appears: Well, No Acute Distress - Head Exam Head Exam: ATRAUMATIC, NORMAL INSPECTION - Eye Exam Eye Exam: EOMI, Normal appearance - ENT Exam ENT Exam: Mucous Membranes Moist - Respiratory Exam Respiratory Exam: Clear to Ausculation Bilateral, NORMAL BREATHING PATTERN. absent: Prolonged Expiratory Phase, Rhonchi, Wheezes, Respiratory Distress - Cardiovascular Exam Cardiovascular Exam: REGULAR RHYTHM, +S1, +S2, Murmur - GI/Abdominal Exam GI & Abdominal Exam: Soft, Normal Bowel Sounds. absent: Distended, Firm, Guarding, Rigid, Tenderness Additional comments: Transverse loop colostomy, still with minimal output - Extremities Exam Extremities Exam: Normal Inspection. 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 Anguiano---> Help appreciated * Management as per recommendation Imaging: CT Abdomen/Pelvis (02/21/18): There is an colostomy right anterolateral lower abdominal wall. Massively distended stomach and multiple distended fluid- filled loops of small bowel consistent with small bowel obstruction. There are pulmonary and hepatic metastases again seen. Bilateral inguinal hernias which of the upper not felt to represent loops of small bowel. There is small amount of free intraperitoneal air which could be related to the colostomy however perforated bowel not excluded. F/U Repeat CT abdomen/pelvis (02/24/18): Medication/Management: * NPO * NG-Tube on low suction ( NG-Tube is out) * D5 1/2NS @ 100mls/hr * Toradol 30mg IV Q6H * Morphine 4mg IV Q4H PRN Status: Acute Status: Acute (2) Colon cancer metastasized to multiple sites Assessment & Plan: CT of Abdomen/Pelvis (12/22/17): Circumferential rectal mass with infiltration of adjacent soft tissues including seminal vesicles and prostate, findings are consistent with malignancy, rectal mass may be causing partial obstruction with constipation; adenopathy; hepatic and pulmonary nodules/masses suspicious for metastatic disease; gallstones. 4.1 x 4.2 cm presacral bulky soft tissue within the mid to left abdomen posteriorly (series 3, image 103), stable to slightly slightly increased in size measuring approximately 3.9 x 4.2 cm when remeasured in a similar location. Bilateral bulky inguinal adenopathy, measuring approximately 1.8 cm on the right and left in short axis. Status: Acute (3) Bandemia Assessment & Plan: Band: 36---> 41----> 27, trending down No leukocytosis Lactate: 1.4 Procalcitonin: 0.27 UA: Negative UC: Gram negative dot, Klebs. Pneumonia BC: No growth Chest X-ray: In situ NGT. There are several on metastatic lesions both lung bases less well seen on this study compared to high-resolution CT scan abdomen. Mild bibasilar atelectasis Small amount free intraperitoneal air again seen Medications: Zosyn 3.375gm IV Q6H Vanco 1gm Q12H ( Vanc trough for 02/25/18)--> discontinued ( received one dose) Cipro 400mg iv Q12H (02/23/18) Flagyl 500mg IV q8h (02/23/18) Will monitor bands with labs Status: Acute (4) Anemia Assessment & Plan: H/H is stable Possible secondary to chronic disease No active bleeding Will continue to monitor Status: Acute (5) Hypertension Assessment & Plan: Norvasc 2.5mg PO daily-- not taking as patient is NPO, NGT in place for SBO BP is stable without medications Will consider IV if BP becomes unstable Monitor with vital sign Status: Acute (6) Prophylactic measure Assessment & Plan: GI: Pepcid 20mg IV daily DVT: SCDs, heparin 5,000 units SC Q8H NPO Disposition: All management as regarding SBO as per general surgery All plans and management discussed with Dr. Kilpatrick Status: Acute
[2018-02-24] MEDS: Potassium Chl 40 mEq in D5-1/2 1,000 ML IV SCH (17:30)
--- NOTE | 2018-02-24 17:45 | RAD ---
HISTORY: NGT placement COMPARISON: 02/22/2018 FINDINGS: LUNGS: Pulmonary nodules again identified right lung. PLEURA: No significant pleural effusion identified, no pneumothorax apparent. CARDIOVASCULAR: No radiographic findings to suggest acute or significant cardiovascular disease. OSSEOUS STRUCTURES: No significant abnormalities. VISUALIZED UPPER ABDOMEN: Nasogastric tube coiled in the stomach which is decompressed. Persistent dilatation of proximal small bowel loops. OTHER FINDINGS: None. IMPRESSION: Satisfactory position of recently placed nasogastric tube. Otherwise no interval change.
[2018-02-24 18:47] LABS: ABG ALLEN TEST POS; ARTERIAL BLOOD GAS HCO3 22.6 mmol/L (21-28); ARTERIAL BLOOD GAS O2 SAT 90.4 % (95-98); ARTERIAL BLOOD GAS PCO2 23 mm/Hg (35-45); ARTERIAL BLOOD GAS PH 7.51 (7.35-7.45); ARTERIAL BLOOD GAS PO2 55 mm/Hg (80-100); ARTERIAL BLOOD GAS TCO2 19.1 mmol/L (22-28)
[2018-02-24 18:55] LABS: BASO % 0.2 % (0.0-2.0); EOS % 0.2 % (0.0-4.0); HEMOGLOBIN 11.1 g/dL (12.0-18.0); LYMPH # 0.2 K/uL (1.0-4.3); LYMPH % 6.9 % (20.0-40.0); MEAN CELL VOLUME 85.4 fL (80.0-94.0); MEAN CORPUSCULAR HEMOGLOBIN 28.3 pg (27.0-31.0); MEAN CORPUSCULAR HGB CONC 33.2 g/dL (33.0-37.0); MEAN PLATELET VOLUME 6.3 fL (7.2-11.7); MONO # 0.1 K/uL (0.0-0.8); MONO % 3.5 % (0.0-10.0); NEUT # 2.7 K/uL (1.8-7.0); NEUT % 89.2 % (50.0-75.0); PLATELET COUNT 663 K/uL (130-400); RBC 3.93 Mil/uL (4.40-5.90); RED CELL DISTRIBUTION WIDTH 20.1 % (11.5-14.5)
[2018-02-24] MEDS ORDERED: Lactated Ringer's 1,000 ML IV SCH ×3 (19:00→20:00)
[2018-02-24 19:29] LABS: BANDS 34 % (0-2); LYMPHOCYTE 12 % (20-40); MONOCYTE 8 % (0-10); NEUTROPHIL 46 % (50-75); PLATELET ESTIMATE MARKEDLY DECREASED (NORMAL); TOTAL CELLS COUNTED 100
[2018-02-24 19:30] LABS: HYPOCHROMIC SLIGHT; LARGE PLATELETS PRESENT; MICROCYTOSIS SLIGHT; OVALOCYTES SLIGHT
--- NOTE | 2018-02-24 19:30 | PCM.RRT ---
<Antonino Bolden - Last Filed: 02/24/18 19:27> [facility] Nurses Assessment - Situation Date: 02/24/18 Time [facility] was called: 19:27 [facility] Responder Arrival Time:: 19:27 [facility] Location:: Med/Oncology [facility] Reason for Call: Chest Pain, Tachycardia, Hypotension [facility] Called By: RN, Physician (Katelyn Lutz DO) - IV IV Inserted during [facility]?: No - Respiratory [facility] Delivery Method: Room Air I.Reason for [facility] - A) Acute Change in Patient: (Select all that apply): Staff member or family is worried about patient, Acute change in SBP below - Neurological Status (Select all that apply): Alert, Responsive, Oriented, Verbal, Follows Commands - Respiratory Oxygen Delivery Method: Room Air - Constitutional Appears: Chronically Ill - Head Head Exam: ATRAUMATIC - Eyes Eye Exam: EOMI, PERRL, Scleral icterus - Respiratory Exam Respiratory Exam: Clear to Ausculation Bilateral, NORMAL BREATHING PATTERN. absent: Wheezes (tachypenic ) - Cardiovascular Exam Cardiovascular Exam: Tachycardia, +S1, +S2 - GI/Abdominal Exam GI & Abdominal Exam: Soft, Normal Bowel Sounds (stoma in place clean dry and intact draining stool) - Neurological Exam Neurological Exam: Alert, Awake, Oriented x3 - Extremities Exam Extremities Exam: Normal Inspection Plan - Assessment of Findings&Treatment Plan [facility] was called for hypotension and tachycardia ABG lactate was ordered Ph was 7.51, CO2 was 21, O2 was 55 on RA, lactate was 1.9 Patient received 500ml/LR bolus BP did not respond to the 500ml Bolus EKG showed tachycardia with nonspecific twave changes and frequent PVCs TATY was ordered; pending patient will get CTA angio PE protocol for likely PE WELLS score was 10; high likelyhood 2/2 to cancer diagnosis immobility and recent surgery Discussed and seen with attending Dr. Jamil Medina and Medicine and Surgical team repeat H/H was stable; however WBC dropped to 3.0 will transfer to tele will consider heparin infusion after CTA Antonino Bolden PGY2 <Jamil Medina - Last Filed: 02/24/18 20:40> [facility] Nurses Assessment - Vital Signs Vital Signs: Rapid Response Vital Sign Blood Pressure 116/78 Pulse Rate 146 Respiratory Rate 24 Temperature 98.6 F Oxygen Saturation 95 - Vital Signs at end of [facility] Vital Signs at end of [facility]: Rapid Response End Vital Sign Blood Pressure 106/66 Pulse Rate 114 Respiratory Rate 20 Temperature 99.6 F O2 Sat by Pulse Oximetry 100 Attending/Attestation - Attestation I have personally seen and examined this patient.: Yes I have fully participated in the care of the patient.: Yes I have reviewed all pertinent clinical information, including history, physical exam and plan: Yes Notes (Text): 02/24/18 20:39 Patient was seen with resident. Treatment plan/orders were discussed. Jamil Foss D.O.
[2018-02-24] MEDS ORDERED: Iodixanol 320 MG/ML 100 ML BOTTLE IV ONE (19:34)
[2018-02-24 19:35] LABS: ALB/GLOB RATIO 0.8 (1.0-2.1); ALT/SGPT 17 U/L (21-72); AST/SGOT 13 U/L (17-59); BLOOD UREA NITROGEN 42 mg/dL (9-20); CALCIUM 9.1 mg/dl (8.6-10.4); GFR AFRICAN-AMERICAN > 60; GFR NON-AFRICAN AMERICAN > 60
[2018-02-24] MEDS ORDERED: Lactated Ringer's 500 ML IV ONE (19:41)
[2018-02-24 19:58] LABS: CK-MB 0.91 ng/mL (0.0-3.38)
[2018-02-25] MEDS: Potassium Chl 40 mEq in D5-1/2 1,000 ML IV SCH ×4 (02:30→21:39)
[2018-02-25] MEDS: metroNIDAZOLE IV 500 mg/100 ml 500 MG/100 ML BAG IVPB SCH ×3 (07:00→21:33)
[2018-02-25 07:47] LABS: BASO % 0.1 % (0.0-2.0); LYMPH # 0.3 K/uL (1.0-4.3); LYMPH % 2.4 % (20.0-40.0); MEAN CELL VOLUME 84.3 fL (80.0-94.0); MEAN CORPUSCULAR HEMOGLOBIN 28.4 pg (27.0-31.0); MEAN CORPUSCULAR HGB CONC 33.7 g/dL (33.0-37.0); MEAN PLATELET VOLUME 6.3 fL (7.2-11.7); MONO # 0.4 K/uL (0.0-0.8); MONO % 3.1 % (0.0-10.0); NEUT # 11.7 K/uL (1.8-7.0); NEUT % 94.4 % (50.0-75.0); RBC 3.19 Mil/uL (4.40-5.90); RED CELL DISTRIBUTION WIDTH 19.7 % (11.5-14.5)
[2018-02-25 07:57] LABS: WHITE BLOOD COUNT 12.4 K/uL (4.8-10.8)
[2018-02-25 07:58] LABS: HEMOGLOBIN 9.1 g/dL (12.0-18.0); PLATELET COUNT 500 K/uL (130-400)
[2018-02-25 08:11] LABS: ALB/GLOB RATIO 0.8 (1.0-2.1); ALBUMIN 2.7 g/dL (3.5-5.0); ALT/SGPT 15 U/L (21-72); AST/SGOT 17 U/L (17-59); BLOOD UREA NITROGEN 32 mg/dL (9-20); CALCIUM 8.9 mg/dl (8.6-10.4); GFR AFRICAN-AMERICAN > 60; GFR NON-AFRICAN AMERICAN > 60
--- NOTE | 2018-02-25 08:30 | CT ---
PROCEDURE: CT Chest with contrast (Pulmonary Angiogram) HISTORY: Sinus Tachycardia COMPARISON: CT scan of the chest, abdomen and pelvis dated 12/19/2017. TECHNIQUE: Axial computed tomography images were obtained of the chest in the pulmonary arterial phase of enhancement. Coronal and sagittal reformatted images were created and reviewed. Intravenous contrast dose: 100 mL Visipaque 320 Radiation dose: Total exam DLP = 390.7 mGy-cm. This CT exam was performed using one or more of the following dose reduction techniques: Automated exposure control, adjustment of the mA and/or kV according to patient size, and/or use of iterative reconstruction technique. FINDINGS: PULMONARY ARTERIES: Unremarkable. No pulmonary embolism. AORTA: No acute findings. No thoracic aortic aneurysm. LUNGS: Grossly stable multiple soft tissue nodules throughout both lungs. No obvious new nodules. Bilateral lower lobe multifocal airspace disease. PLEURAL SPACES: Unremarkable. No effusion or pneumothorax. HEART: Unremarkable. No cardiomegaly. No significant pericardial effusion. LYMPH NODES: Calcified subcarinal lymph node. BONES, CHEST WALL: Degenerative changes. No fracture or destructive lesion OTHER FINDINGS: Enteric tube with tip in the stomach. Markedly dilated partially imaged bowel. Pneumoperitoneum. IMPRESSION: Unremarkable CT pulmonary angiogram. No pulmonary embolus. Grossly stable multiple soft tissue nodules throughout both lungs consistent with metastases. No obvious new nodules. New bilateral lower lobe multifocal airspace disease, likely representing pneumonia versus aspiration. Re- demonstration of partially imaged markedly dilated stomach and bowel. Pneumoperitoneum. Additional findings as above.
[2018-02-25] MEDS: Ciprofloxacin 400mg/200ml D5W 400 MG/200 ML BAG IVPB SCH ×2 (08:31→21:00)
[2018-02-25 08:38] LABS: BANDS 35 % (0-2); LYMPHOCYTE 2 % (20-40); MONOCYTE 1 % (0-10); NEUTROPHIL 62 % (50-75); PLATELET ESTIMATE INCREASED (NORMAL); TOTAL CELLS COUNTED 100
[2018-02-25 08:39] LABS: ANISOCYTOSIS SLIGHT; HYPOCHROMIC SLIGHT; POIKILOCYTOSIS SLIGHT
[2018-02-25 10:41] LABS: ABG ALLEN TEST POS; ARTERIAL BLOOD GAS HCO3 24.8 mmol/L (21-28); ARTERIAL BLOOD GAS PCO2 29 mm/Hg (35-45); ARTERIAL BLOOD GAS PH 7.49 (7.35-7.45); ARTERIAL BLOOD GAS PO2 139 mm/Hg (80-100)
--- NOTE | 2018-02-25 11:53 | CP.PCM.PN ---
<Loida White E - Last Filed: 02/25/18 14:37> Subjective - Date & Time of Evaluation Date of Evaluation: 02/25/18 Time of Evaluation: 07:50 - Subjective Subjective: Medicine progress note ( Dr. Bowie' service) Patient was seen and examined at bedside. Patient looked quite ill this morning. Patient denied any pain but admits to chills. Patient had a RN INTERNSHIP for hypotension and tachycardia yesterday and diaphoretic. Patient had a chest CT to rule out PE, which was ruled out and he was transferred to telemetry and was also given LR 2L. Patient and patinet's spoke to Mrs. Connor this morning , who explained patient's current health condition and prognosis. Therefore, patient and patient's decided DNR/DNI and inpatient hospice. Objective - Vital Signs/Intake and Output Vital Signs (last 24 hours): Temp Pulse Resp BP Pulse Ox 98.7 F 92 H 20 99/67 L 98 02/25/18 08:52 02/25/18 11:25 02/25/18 08:52 02/25/18 08:52 02/25/18 08:52 Intake and Output: 02/25/18 02/25/18 06:59 18:59 Intake Total 800 Output Total 0 Balance 800 - Medications Medications: Current Medications Heparin Sodium (Porcine) (Heparin) 5,000 units SC Q8 [facility] Last Admin: 02/25/18 07:00 Dose: 5,000 units Ciprofloxacin (Cipro 400mg/200ml Dsw) 400 mg in 200 mls @ 133 mls/hr IVPB Q12H [facility] PRN Reason: Protocol Last Admin: 02/25/18 08:31 Dose: 133 mls/hr Metronidazole (Flagyl) 500 mg in 100 mls @ 100 mls/hr IVPB Q8H [facility] PRN Reason: Protocol Last Admin: 02/25/18 07:00 Dose: 100 mls/hr Potassium Chloride/Dextrose/Sod Cl (Potassium Chl 40 Meq In D5-1/2ns) 1,000 mls @ 100 mls/hr IV .Q10H [facility] Last Admin: 02/25/18 10:34 Dose: 100 mls/hr Morphine Sulfate (Morphine) 4 mg IVP Q4 PRN PRN Reason: Pain, severe (8-10) Last Admin: 02/25/18 05:11 Dose: 4 mg Pantoprazole Sodium (Protonix Inj) 40 mg IVP DAILY [facility] Last Admin: 02/25/18 09:32 Dose: 40 mg - Labs Labs: 02/25/18 07:38 02/25/18 07:38 APTT 35 SECONDS (21-34) H 02/21/18 21:20 - Constitutional Appears: Well, No Acute Distress - Head Exam Head Exam: ATRAUMATIC - Eye Exam Eye Exam: EOMI - ENT Exam ENT Exam: Mucous Membranes Moist - Respiratory Exam Respiratory Exam: Clear to Ausculation Bilateral, NORMAL BREATHING PATTERN. absent: Rhonchi, Wheezes, Respiratory Distress - Cardiovascular Exam Cardiovascular Exam: REGULAR RHYTHM, +S1, +S2 - GI/Abdominal Exam GI & Abdominal Exam: Soft, Normal Bowel Sounds. absent: Distended, Firm, Guarding, Rigid, Tenderness Additional comments: Transverse loop colostomy, still with minimal output - Extremities Exam Extremities Exam: Normal Inspection. 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 Anguiano---> Help appreciated * Management as per recommendation Imaging: CT Abdomen/Pelvis (02/21/18): There is an colostomy right anterolateral lower abdominal wall. Massively distended stomach and multiple distended fluid- filled loops of small bowel consistent with small bowel obstruction. There are pulmonary and hepatic metastases again seen. Bilateral inguinal hernias which of the upper not felt to represent loops of small bowel. There is small amount of free intraperitoneal air which could be related to the colostomy however perforated bowel not excluded. Repeat CT abdomen/pelvis (02/24/18): High-grade distal small-bowel obstruction reiterated if not worsened in the interval with gross distention of the stomach also noted including reflux into the esophagus. Mild free intrarenal gas persists and does not appear dramatically changed in the interval, still suggesting likely bowel perforation. Clinically correlate further. Right lower lobe pulmonary metastases reiterated. Medication/Management: * NPO * NG-Tube on low suction ( NG-Tube is out) * D5 1/2NS @ 100mls/hr * Toradol 30mg IV Q6H * Morphine 4mg IV Q4H PRN Status: Acute (2) Colon cancer metastasized to multiple sites Assessment & Plan: CT of Abdomen/Pelvis (12/22/17): Circumferential rectal mass with infiltration of adjacent soft tissues including seminal vesicles and prostate, findings are consistent with malignancy, rectal mass may be causing partial obstruction with constipation; adenopathy; hepatic and pulmonary nodules/masses suspicious for metastatic disease; gallstones. 4.1 x 4.2 cm presacral bulky soft tissue within the mid to left abdomen posteriorly (series 3, image 103), stable to slightly slightly increased in size measuring approximately 3.9 x 4.2 cm when remeasured in a similar location. Bilateral bulky inguinal adenopathy, measuring approximately 1.8 cm on the right and left in short axis. Status: Acute (3) Bandemia Assessment & Plan: Band: 36---> 41----> 27--->34 Currently with leukocytosis, Tachycardia, Tmax: 100.5 Lactate: 1.4--> 1.9--->1.1 Procalcitonin: 0.27 UA: Negative UC: Gram negative dot, Klebs. Pneumonia BC: No growth, F/U Repeat blood culture Chest X-ray: In situ NGT. There are several on metastatic lesions both lung bases less well seen on this study compared to high-resolution CT scan abdomen. Mild bibasilar atelectasis Small amount free intraperitoneal air again seen Repeat Chest X-ray: Satisfactory position of recently placed nasogastric tube. Otherwise no interval change. Medications: Zosyn 3.375gm IV Q6H Vanco 1gm Q12H ( Vanc trough for 02/25/18)--> discontinued ( received one dose) Cipro 400mg iv Q12H (02/23/18) Flagyl 500mg IV q8h (02/23/18) Will monitor bands with labs Status: Acute (4) Anemia Assessment & Plan: H/H is stable Possible secondary to chronic disease No active bleeding Will continue to monitor Status: Acute (5) Sepsis Assessment & Plan: Band: 36---> 41----> 27--->34 Currently with leukocytosis, Tachycardia, Tmax: 100.5 Lactate: 1.4--> 1.9--->1.1 Procalcitonin: 0.27 UA: Negative UC: Gram negative dot, Klebs. Pneumonia BC: No growth, F/U Repeat blood culture Chest X-ray: In situ NGT. There are several on metastatic lesions both lung bases less well seen on this study compared to high-resolution CT scan abdomen. Mild bibasilar atelectasis Small amount free intraperitoneal air again seen Repeat Chest X-ray: Satisfactory position of recently placed nasogastric tube. Otherwise no interval change. CT Abdomen/Pelvis (02/21/18): There is an colostomy right anterolateral lower abdominal wall. Massively distended stomach and multiple distended fluid- filled loops of small bowel consistent with small bowel obstruction. There are pulmonary and hepatic metastases again seen. Bilateral inguinal hernias which of the upper not felt to represent loops of small bowel. There is small amount of free intraperitoneal air which could be related to the colostomy however perforated bowel not excluded. Repeat CT abdomen/pelvis (02/24/18): High-grade distal small-bowel obstruction reiterated if not worsened in the interval with gross distention of the stomach also noted including reflux into the esophagus. Mild free intrarenal gas persists and does not appear dramatically changed in the interval, still suggesting likely bowel perforation. Clinically correlate further. Right lower lobe pulmonary metastases reiterated. Medications: Zosyn 3.375gm IV Q6H Vanco 1gm Q12H ( Vanc trough for 02/25/18)--> discontinued ( received one dose) Cipro 400mg iv Q12H (02/23/18) Flagyl 500mg IV q8h (02/23/18) D51/2NS with KCL 40meq @ 100mls/hr Will monitor bands with labs Status: Acute (6) Hypertension Assessment & Plan: Currently intermittently hypotensive, therefore, antihypertensive medication held Norvasc 2.5mg PO daily-- not taking as patient is NPO, NGT in place for SBO Will consider IV if BP becomes unstable Monitor with vital sign Status: Acute (7) Prophylactic measure Assessment & Plan: GI: Pepcid 20mg IV daily DVT: SCDs, heparin 5,000 units SC Q8H NPO Disposition: All management as regarding SBO as per general surgery All plans and management discussed with Dr. Bowie Status: Acute <Rob Bowie - Last Filed: 02/25/18 14:54> Objective - Vital Signs/Intake and Output Vital Signs (last 24 hours): Temp Pulse Resp BP Pulse Ox 98.7 F 92 H 20 99/67 L 98 02/25/18 08:52 02/25/18 11:25 02/25/18 08:52 02/25/18 08:52 02/25/18 08:52 Intake and Output: 02/25/18 02/25/18 06:59 18:59 Intake Total 1900 Output Total 300 Balance 1600 - Medications Medications: Current Medications Heparin Sodium (Porcine) (Heparin) 5,000 units SC Q8 [facility] Last Admin: 02/25/18 13:25 Dose: 5,000 units Ciprofloxacin (Cipro 400mg/200ml Dsw) 400 mg in 200 mls @ 133 mls/hr IVPB Q12H [facility] PRN Reason: Protocol Last Admin: 02/25/18 08:31 Dose: 133 mls/hr Metronidazole (Flagyl) 500 mg in 100 mls @ 100 mls/hr IVPB Q8H [facility] PRN Reason: Protocol Last Admin: 02/25/18 13:25 Dose: 100 mls/hr Potassium Chloride/Dextrose/Sod Cl (Potassium Chl 40 Meq In D5-1/2ns) 1,000 mls @ 100 mls/hr IV .Q10H [facility] Last Admin: 02/25/18 12:20 Dose: Not Given Morphine Sulfate (Morphine) 4 mg IVP Q4 PRN PRN Reason: Pain, severe (8-10) Last Admin: 02/25/18 05:11 Dose: 4 mg Pantoprazole Sodium (Protonix Inj) 40 mg IVP DAILY [facility] Last Admin: 02/25/18 09:32 Dose: 40 mg - Labs Labs: 02/25/18 07:38 02/25/18 07:38 APTT 35 SECONDS (21-34) H 02/21/18 21:20 Attending/Attestation - Attestation I have personally seen and examined this patient.: Yes I have fully participated in the care of the patient.: Yes I have reviewed all pertinent clinical information, including history, physical exam and plan: Yes Notes (Text): 02/25/18 14:48 Medical attending: Patient was seen and examined by me. Reviewed the above note by the resident and agree with the above This is my first time meeting the patient - and unfortunately the prognosis is very poor. There is a history of metastatic cancer. The CT scan shows there is spread to the lungs, liver, and recently he has had a colostomy as well. There has been recent concern for abdominal pain due to small bowel obstruction and recent imaging has revealed very concerning findings for perforation with development of free air. The lab work shows an increase in the % bandemia. When we saw the patient he had an NGT. He denied having pain. He knew the prognosis was poor. He asked his be notified and later in the day I was made aware that they changed him to DNR and DNI after discussion with palliative care. At this time we are trying to see what hospice options would be available to him thank you Rob Bowie
--- NOTE | 2018-02-25 12:31 | CP.PCM.PN ---
Subjective - Date & Time of Evaluation Date of Evaluation: 02/25/18 Time of Evaluation: 12:07 - Subjective Subjective: Complains of weakness Objective - Vital Signs/Intake and Output Vital Signs (last 24 hours): Temp Pulse Resp BP Pulse Ox 98.7 F 92 H 20 99/67 L 98 02/25/18 08:52 02/25/18 11:25 02/25/18 08:52 02/25/18 08:52 02/25/18 08:52 Intake and Output: 02/25/18 02/25/18 06:59 18:59 Intake Total 800 Output Total 0 Balance 800 - Medications Medications: Current Medications Heparin Sodium (Porcine) (Heparin) 5,000 units SC Q8 [facility] Last Admin: 02/25/18 07:00 Dose: 5,000 units Ciprofloxacin (Cipro 400mg/200ml Dsw) 400 mg in 200 mls @ 133 mls/hr IVPB Q12H [facility] PRN Reason: Protocol Last Admin: 02/25/18 08:31 Dose: 133 mls/hr Metronidazole (Flagyl) 500 mg in 100 mls @ 100 mls/hr IVPB Q8H [facility] PRN Reason: Protocol Last Admin: 02/25/18 07:00 Dose: 100 mls/hr Potassium Chloride/Dextrose/Sod Cl (Potassium Chl 40 Meq In D5-1/2ns) 1,000 mls @ 100 mls/hr IV .Q10H [facility] Last Admin: 02/25/18 10:34 Dose: 100 mls/hr Morphine Sulfate (Morphine) 4 mg IVP Q4 PRN PRN Reason: Pain, severe (8-10) Last Admin: 02/25/18 05:11 Dose: 4 mg Pantoprazole Sodium (Protonix Inj) 40 mg IVP DAILY [facility] Last Admin: 02/25/18 09:32 Dose: 40 mg - Labs Labs: 02/25/18 07:38 02/25/18 07:38 APTT 35 SECONDS (21-34) H 02/21/18 21:20 - Constitutional Appears: In Acute Distress, Chronically Ill - Head Exam Head Exam: ATRAUMATIC, NORMAL INSPECTION, NORMOCEPHALIC - Eye Exam Eye Exam: EOMI, Normal appearance, PERRL Pupil Exam: NORMAL ACCOMODATION, PERRL - ENT Exam ENT Exam: Mucous Membranes Dry Additional comments: NGT - Neck Exam Neck Exam: Normal Inspection - Respiratory Exam Respiratory Exam: Decreased Breath Sounds - Cardiovascular Exam Cardiovascular Exam: Tachycardia - GI/Abdominal Exam Additional comments: colostomy - Rectal Exam Rectal Exam: Deferred - Exam Additional comments: urine dark - Extremities Exam Extremities Exam: Normal Inspection - Back Exam Back Exam: NORMAL INSPECTION - Neurological Exam Neurological Exam: Alert, Oriented x3 Neuro motor strength exam: Left Upper Extremity: 2/, Right Upper Extremity: 2/ , Left Lower Extremity: 2/1, Right Lower Extremity: 2/ - Psychiatric Exam Psychiatric exam: Flat Affect - Skin Skin Exam: Normal Color Assessment and Plan - Assessment and Plan (Free Text) Assessment: Patient seen and examined in bed, alert, oriented X 3, looking very sick. Patient's condition has declined significantly since I saw him two days ago. I was asked by Doctor White to discuss hospice care and Code status with patent as his condition has worsened. Per Doctor Mckeon's note. no further treatment was advised in terms of chemo and radiation Tx. Physical exam reveals very sick man, with NGT to suction draining bile content. Diminished breath sounds. Colostomy in place still not functioning well. Abdomen flat, hard, and tender to touch. Absent bowel sounds. All extremities mobile, but patient remains in bed all the time due to weakness. Patient reports rectal pain and pain to lower back. Patient is controlled by current pain meds. Patient is hypotensive today with his WBC rising. There is no fever. Goals of care discussed with patient in presence of his Yael. [employer] translation used. At first I elicited patient's knowledge about his diagnosis. Patient confirmed he had a colon cancer. With patient's permission, I offered more information about his metastatic cancer and shared Doctor Mckeon's suggestions for comfort care. Patient and his had multiple very reasonable questions regarding comfort care what I answered to their full understanding. We discussed Hospice options at home vs NH. Patient was worried that he would not get enough help at home as his works from 5 pm to 1 am, plus there is his brother in law who is with Parkinson's disease and often complicated behavior. Despite the fact that he preferred being home, patient chose NH as place where he will be provided needed care. Patient;s agreed. Code status discussed. I explained that at this stage of his disease we were talking about End of Life care, where cure is not expected and any further agressive interventions will only bring about more suffering for him. Patient and his agreed. POL introduced. Patient choose DNR/DNI and asked his to co sign him, what she did. I spoke to patient's daughter Adeola on the phone about goals of care and she agreed. This was shared with Nursing staff, Doctor Azeb and Doctor Christopher. I made Case management aware as well. Impression * Terminally ill man approaching end of his life * Pain cancer related * Weakness * Lack of support at home * Patient prefers natural Suggestions * Control pain * Refer to Hosp[place] care [place] as per patient's wishes * DNR/DNI Advance Care planing 60 min
--- NOTE | 2018-02-25 13:01 | CARD ---
APPROVED REPORT EKG Measurement Heart [id number] ME [id number] <Conclusion> Sinus tachycardia with occasional premature ventricular complexes Low voltage QRS Nonspecific T wave abnormality Abnormal ECG
--- NOTE | 2018-02-25 16:29 | CP.PCM.PN ---
Subjective - Date & Time of Evaluation Date of Evaluation: 02/25/18 Time of Evaluation: 16:29 - Subjective Subjective: discussed with all comfort care DNR/DNI Objective - Vital Signs/Intake and Output Vital Signs (last 24 hours): Temp Pulse Resp BP Pulse Ox 97.9 F 85 20 113/76 99 02/25/18 15:41 02/25/18 15:41 02/25/18 15:41 02/25/18 15:41 02/25/18 15:41 Intake and Output: 02/25/18 02/25/18 06:59 18:59 Intake Total 1900 Output Total 550 Balance 1350 - Medications Medications: Current Medications Heparin Sodium (Porcine) (Heparin) 5,000 units SC Q8 [facility] Last Admin: 02/25/18 13:25 Dose: 5,000 units Ciprofloxacin (Cipro 400mg/200ml Dsw) 400 mg in 200 mls @ 133 mls/hr IVPB Q12H [facility] PRN Reason: Protocol Last Admin: 02/25/18 08:31 Dose: 133 mls/hr Metronidazole (Flagyl) 500 mg in 100 mls @ 100 mls/hr IVPB Q8H [facility] PRN Reason: Protocol Last Admin: 02/25/18 13:25 Dose: 100 mls/hr Potassium Chloride/Dextrose/Sod Cl (Potassium Chl 40 Meq In D5-1/2ns) 1,000 mls @ 100 mls/hr IV .Q10H [facility] Last Admin: 02/25/18 12:20 Dose: Not Given Morphine Sulfate (Morphine) 4 mg IVP Q4 PRN PRN Reason: Pain, severe (8-10) Last Admin: 02/25/18 05:11 Dose: 4 mg Pantoprazole Sodium (Protonix Inj) 40 mg IVP DAILY [facility] Last Admin: 02/25/18 09:32 Dose: 40 mg - Labs Labs: 02/25/18 07:38 02/25/18 07:38 APTT 35 SECONDS (21-34) H 02/21/18 21:20
[2018-02-26] MEDS: metroNIDAZOLE IV 500 mg/100 ml 500 MG/100 ML BAG IVPB SCH ×3 (05:30→21:45)
--- NOTE | 2018-02-26 07:49 | CP.PCM.PN ---
Subjective - Date & Time of Evaluation Date of Evaluation: 02/26/18 Time of Evaluation: 07:46 - Subjective Subjective: PGY-1 surgery progress note for Dr Anguiano. No acute events noted overnight. NGT suctioning bilious fluid. Patient stated he didn't ambulate yesterday as he felt too weak. He said his pain has improved. He denied abdominal pain. He denied any leaking from the ostomy bag. He denied fevers, chills, nausea, vomiting. Objective - Vital Signs/Intake and Output Vital Signs (last 24 hours): Temp Pulse Resp BP Pulse Ox 97.7 F 82 20 107/69 97 02/26/18 04:20 02/26/18 04:20 02/26/18 04:20 02/26/18 04:20 02/26/18 04:20 Intake and Output: 02/26/18 02/26/18 06:59 18:59 Intake Total 1800 Output Total 1850 Balance -50 - Medications Medications: Current Medications Heparin Sodium (Porcine) (Heparin) 5,000 units SC Q8 [facility] Last Admin: 02/26/18 05:32 Dose: 5,000 units Metronidazole (Flagyl) 500 mg in 100 mls @ 100 mls/hr IVPB Q8H [facility] PRN Reason: Protocol Last Admin: 02/26/18 05:30 Dose: 100 mls/hr Potassium Chloride/Dextrose/Sod Cl (Potassium Chl 40 Meq In D5-1/2ns) 1,000 mls @ 100 mls/hr IV .Q10H [facility] Last Admin: 02/25/18 21:39 Dose: 100 mls/hr Morphine Sulfate (Morphine) 4 mg IVP Q4 PRN PRN Reason: Pain, severe (8-10) Last Admin: 02/25/18 21:32 Dose: 4 mg Pantoprazole Sodium (Protonix Inj) 40 mg IVP DAILY [facility] Last Admin: 02/25/18 09:32 Dose: 40 mg - Labs Labs: 02/25/18 07:38 02/25/18 07:38 APTT 35 SECONDS (21-34) H 02/21/18 21:20 - Additional Findings Additional findings: - Constitutional Appears: No Acute Distress - Head Exam Head Exam: ATRAUMATIC, NORMAL INSPECTION, NORMOCEPHALIC - Eye Exam Eye Exam: Normal appearance - Respiratory Exam Respiratory Exam: NORMAL BREATHING PATTERN. absent: Respiratory Distress - GI/Abdominal Exam GI & Abdominal Exam: Distended, Soft, Tenderness. absent: Firm, Guarding, Rigid , Rebound Additional comments: colostomy pink and viable - Neurological Exam Neurological Exam: Alert, Oriented x3 - Psychiatric Exam Psychiatric exam: Normal Affect, Normal Mood - Skin Skin Exam: Dry, Intact Assessment and Plan - Assessment and Plan (Free Text) Assessment: 67M w/ stage IV colon CA s/p transverse loop colostomy now with small bowel ileus Plan: Cont NGT to low cont suction Monitor for bowel function Encourage OOB/Ambulation/Physical therapy Patient recently had a chest CT to rule out PE, which was ruled out Patient and patient's have decided DNR/DNI and inpatient hospice
[2018-02-26 08:29] LABS: BASO % 0.1 % (0.0-2.0); EOS # 0.1 K/uL (0.0-0.7); EOS % 0.9 % (0.0-4.0); HEMOGLOBIN 9.1 g/dL (12.0-18.0); LYMPH # 0.4 K/uL (1.0-4.3); MEAN CELL VOLUME 85.2 fL (80.0-94.0); MEAN CORPUSCULAR HEMOGLOBIN 28.1 pg (27.0-31.0); MEAN PLATELET VOLUME 6.2 fL (7.2-11.7); MONO # 0.5 K/uL (0.0-0.8); MONO % 4.3 % (0.0-10.0); NEUT # 11.2 K/uL (1.8-7.0); NEUT % 91.7 % (50.0-75.0); NRBC % 0.1 % (0.0-2.0); PLATELET COUNT 475 K/uL (130-400); RBC 3.24 Mil/uL (4.40-5.90); RED CELL DISTRIBUTION WIDTH 19.9 % (11.5-14.5); WHITE BLOOD COUNT 12.3 K/uL (4.8-10.8)
[2018-02-26 08:44] LABS: ALB/GLOB RATIO 0.8 (1.0-2.1); ALBUMIN 2.7 g/dL (3.5-5.0); ALT/SGPT 15 U/L (21-72); AST/SGOT 15 U/L (17-59); BLOOD UREA NITROGEN 25 mg/dL (9-20); CALCIUM 8.7 mg/dl (8.6-10.4); GFR AFRICAN-AMERICAN > 60; GFR NON-AFRICAN AMERICAN > 60
[2018-02-26 08:48] LABS: BANDS 2 % (0-2); LYMPHOCYTE 2 % (20-40); MONOCYTE 4 % (0-10); NEUTROPHIL 92 % (50-75); PLATELET ESTIMATE SLIGHTLY INCREASED (NORMAL); TOTAL CELLS COUNTED 100
[2018-02-26 08:49] LABS: ANISOCYTOSIS SLIGHT; HYPOCHROMIC SLIGHT; POIKILOCYTOSIS SLIGHT
[2018-02-26 08:50] LABS: TOXIC GRANULATION PRESENT
[2018-02-26] MEDS: Ciprofloxacin 400mg/200ml D5W 400 MG/200 ML BAG IVPB SCH ×2 (09:18→20:11)
[2018-02-26] MEDS: Potassium Chl 40 mEq in D5-1/2 1,000 ML IV SCH ×2 (10:17→19:00)
--- NOTE | 2018-02-26 11:20 | CP.PCM.PN ---
<ZieglervilleAdia gonzalezrad Rosales - Last Filed: 02/26/18 18:26> Subjective - Date & Time of Evaluation Date of Evaluation: 02/26/18 Time of Evaluation: 09:15 - Subjective Subjective: Medicine progress service ( Dr. Bowie's service) Patient was seen and examined at bedside. Patient reports improving symptoms. Patient denies fever, chills, nausea, vomiting, chest pain, SOB, palpitations but still admits to mild abdominal tenderness. Objective - Vital Signs/Intake and Output Vital Signs (last 24 hours): Temp Pulse Resp BP Pulse Ox 97.8 F 73 20 108/68 99 02/26/18 08:49 02/26/18 08:49 02/26/18 08:49 02/26/18 08:49 02/26/18 08:49 Intake and Output: 02/26/18 02/26/18 06:59 18:59 Intake Total 1800 Output Total 1850 Balance -50 - Medications Medications: Current Medications Heparin Sodium (Porcine) (Heparin) 5,000 units SC Q8 [facility] Last Admin: 02/26/18 05:32 Dose: 5,000 units Metronidazole (Flagyl) 500 mg in 100 mls @ 100 mls/hr IVPB Q8H [facility] PRN Reason: Protocol Last Admin: 02/26/18 05:30 Dose: 100 mls/hr Potassium Chloride/Dextrose/Sod Cl (Potassium Chl 40 Meq In D5-1/2ns) 1,000 mls @ 100 mls/hr IV .Q10H [facility] Last Admin: 02/26/18 10:17 Dose: 100 mls/hr Ciprofloxacin (Cipro 400mg/200ml Dsw) 400 mg in 200 mls @ 133 mls/hr IVPB Q12H [facility] PRN Reason: Protocol Last Admin: 02/26/18 09:18 Dose: 133 mls/hr Morphine Sulfate (Morphine) 4 mg IVP Q4 PRN PRN Reason: Pain, severe (8-10) Last Admin: 02/25/18 21:32 Dose: 4 mg Pantoprazole Sodium (Protonix Inj) 40 mg IVP DAILY [facility] Last Admin: 02/26/18 10:18 Dose: 40 mg - Labs Labs: 02/26/18 08:17 02/26/18 08:17 APTT 35 SECONDS (21-34) H 02/21/18 21:20 - Constitutional Appears: No Acute Distress - Head Exam Head Exam: ATRAUMATIC - Eye Exam Eye Exam: EOMI - ENT Exam ENT Exam: Mucous Membranes Dry - Respiratory Exam Respiratory Exam: NORMAL BREATHING PATTERN. absent: Prolonged Expiratory Phase , Rhonchi, Wheezes, Respiratory Distress - Cardiovascular Exam Cardiovascular Exam: REGULAR RHYTHM, +S1, +S2. absent: Murmur - GI/Abdominal Exam GI & Abdominal Exam: Distended, Soft, Normal Bowel Sounds. absent: Rigid Additional comments: Transverse loop colostomy, with minimal output Mild distention - Extremities Exam Extremities Exam: Normal Inspection. 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 Anguiano---> Help appreciated * Management as per recommendation Imaging: CT Abdomen/Pelvis (02/21/18): There is an colostomy right anterolateral lower abdominal wall. Massively distended stomach and multiple distended fluid- filled loops of small bowel consistent with small bowel obstruction. There are pulmonary and hepatic metastases again seen. Bilateral inguinal hernias which of the upper not felt to represent loops of small bowel. There is small amount of free intraperitoneal air which could be related to the colostomy however perforated bowel not excluded. Repeat CT abdomen/pelvis (02/24/18): High-grade distal small-bowel obstruction reiterated if not worsened in the interval with gross distention of the stomach also noted including reflux into the esophagus. Mild free intrarenal gas persists and does not appear dramatically changed in the interval, still suggesting likely bowel perforation. Clinically correlate further. Right lower lobe pulmonary metastases reiterated. Medication/Management: * NPO * NG-Tube replaced 02/24/18, with significant output * D5 1/2NS @ 100mls/hr * Morphine 4mg IV Q4H PRN Status: Acute (2) Colon cancer metastasized to multiple sites Assessment & Plan: CT of Abdomen/Pelvis (12/22/17): Circumferential rectal mass with infiltration of adjacent soft tissues including seminal vesicles and prostate, findings are consistent with malignancy, rectal mass may be causing partial obstruction with constipation; adenopathy; hepatic and pulmonary nodules/masses suspicious for metastatic disease; gallstones. 4.1 x 4.2 cm presacral bulky soft tissue within the mid to left abdomen posteriorly (series 3, image 103), stable to slightly slightly increased in size measuring approximately 3.9 x 4.2 cm when remeasured in a similar location. Bilateral bulky inguinal adenopathy, measuring approximately 1.8 cm on the right and left in short axis. c Status: Acute (3) Bandemia Assessment & Plan: Resolved Band: 36---> 41----> 27--->34---> 2, down trending Currently with leukocytosis, Tachycardia, Tmax: 100.5 Lactate: 1.4--> 1.9--->1.1 Procalcitonin: 0.27 UA: Negative UC: Gram negative dot, Klebs. Pneumonia BC: No growth, F/U Repeat blood culture Chest X-ray: In situ NGT. There are several on metastatic lesions both lung bases less well seen on this study compared to high-resolution CT scan abdomen. Mild bibasilar atelectasis Small amount free intraperitoneal air again seen Repeat Chest X-ray: Satisfactory position of recently placed nasogastric tube. Otherwise no interval change. Chest CT (02/24/18) Medications: Zosyn 3.375gm IV Q6H ( Vanco 1gm Q12H ( Vanc trough for 02/25/18)--> discontinued ( received one dose) Cipro 400mg iv Q12H (02/23/18) Flagyl 500mg IV q8h (02/23/18) Will monitor bands with labs Status: Acute (4) Sepsis Assessment & Plan: Band: 36---> 41----> 27--->34-->2, down trending Currently with leukocytosis, Tachycardia, Tmax: 100.5 Lactate: 1.4--> 1.9--->1.1 Procalcitonin: 0.27 UA: Negative UC: Gram negative dot, Klebs. Pneumonia BC: No growth, F/U Repeat blood culture Chest X-ray: In situ NGT. There are several on metastatic lesions both lung bases less well seen on this study compared to high-resolution CT scan abdomen. Mild bibasilar atelectasis Small amount free intraperitoneal air again seen Repeat Chest X-ray: Satisfactory position of recently placed nasogastric tube. Otherwise no interval change. CT Abdomen/Pelvis (02/21/18): There is an colostomy right anterolateral lower abdominal wall. Massively distended stomach and multiple distended fluid- filled loops of small bowel consistent with small bowel obstruction. There are pulmonary and hepatic metastases again seen. Bilateral inguinal hernias which of the upper not felt to represent loops of small bowel. There is small amount of free intraperitoneal air which could be related to the colostomy however perforated bowel not excluded. Repeat CT abdomen/pelvis (02/24/18): High-grade distal small-bowel obstruction reiterated if not worsened in the interval with gross distention of the stomach also noted including reflux into the esophagus. Mild free intrarenal gas persists and does not appear dramatically changed in the interval, still suggesting likely bowel perforation. Clinically correlate further. Right lower lobe pulmonary metastases reiterated. New bilateral lower lobe multifocal airspace disease, lilel representing pneumonia versus aspiration. Medications: Zosyn 3.375gm IV Q6H Vanco 1gm Q12H ( Vanc trough for 02/25/18)--> discontinued ( received one dose) Cipro 400mg iv Q12H (02/23/18) Flagyl 500mg IV q8h (02/23/18) D51/2NS with KCL 40meq @ 100mls/hr Will monitor bands with labs Status: Acute (5) Anemia Assessment & Plan: H/H is stable Possible secondary to chronic disease No active bleeding Will continue to monitor Status: Acute (6) Hypertension Assessment & Plan: Currently intermittently hypotensive, therefore, antihypertensive medication held Norvasc 2.5mg PO daily-- not taking as patient is NPO, NGT in place for SBO Will consider IV if BP becomes unstable Monitor with vital sign Status: Acute (7) Prophylactic measure Assessment & Plan: GI: Pepcid 20mg IV daily DVT: SCDs, heparin 5,000 units SC Q8H NPO Disposition: All management as regarding SBO as per general surgery All plans and management discussed with Dr. Bowie Status: Acute <Rob Bowie - Last Filed: 02/27/18 07:23> Objective - Vital Signs/Intake and Output Vital Signs (last 24 hours): Temp Pulse Resp BP Pulse Ox 98.0 F 70 20 114/77 98 02/27/18 04:42 02/27/18 04:42 02/27/18 04:42 02/27/18 04:42 02/27/18 04:42 Intake and Output: 02/27/18 02/27/18 06:59 18:59 Intake Total 2050 Output Total 350 Balance 1700 - Medications Medications: Current Medications Heparin Sodium (Porcine) (Heparin) 5,000 units SC Q8 [facility] Last Admin: 02/27/18 06:11 Dose: 5,000 units Metronidazole (Flagyl) 500 mg in 100 mls @ 100 mls/hr IVPB Q8H [facility] PRN Reason: Protocol Last Admin: 02/27/18 06:12 Dose: 100 mls/hr Potassium Chloride/Dextrose/Sod Cl (Potassium Chl 40 Meq In D5-1/2ns) 1,000 mls @ 100 mls/hr IV .Q10H [facility] Last Admin: 02/27/18 04:35 Dose: 100 mls/hr Ciprofloxacin (Cipro 400mg/200ml Dsw) 400 mg in 200 mls @ 133 mls/hr IVPB Q12H [facility] PRN Reason: Protocol Last Admin: 02/26/18 20:11 Dose: 133 mls/hr Piperacillin Sod/Tazobactam Sod (Zosyn 3.375 Gm Iv Premix) 3.375 gm in 50 mls @ 100 mls/hr IVPB Q6H [facility] PRN Reason: Protocol Stop: 03/05/18 12:01 Last Admin: 02/27/18 06:00 Dose: 100 mls/hr Morphine Sulfate (Morphine) 4 mg IVP Q4 PRN PRN Reason: Pain, severe (8-10) Last Admin: 02/27/18 06:06 Dose: 4 mg Pantoprazole Sodium (Protonix Inj) 40 mg IVP DAILY [facility] Last Admin: 02/26/18 10:18 Dose: 40 mg - Labs Labs: 02/27/18 07:04 02/26/18 08:17 APTT 35 SECONDS (21-34) H 02/21/18 21:20 Attending/Attestation - Attestation I have personally seen and examined this patient.: Yes I have fully participated in the care of the patient.: Yes I have reviewed all pertinent clinical information, including history, physical exam and plan: Yes Notes (Text): Medical attending: Patient was seen and examined by me. The NGT was still pulling out a lot of dark/bile color fluid. There was no output in the ostomy. Currently not in any pain at this time Patient is DNR and DNI They are trying to explore hospice options at this time Rob Bowie
[2018-02-26] MEDS ORDERED: Piperacill/Tazo 3.375gm in Dex 3.375 GM/50 ML BAG IVPB SCH (11:30)
[2018-02-26] MEDS: Piperacill/Tazo 3.375gm in Dex 3.375 GM/50 ML BAG IVPB SCH ×2 (13:00→18:40)
--- NOTE | 2018-02-26 14:01 | CARD ---
APPROVED REPORT EXAM: Two-dimensional and M-mode echocardiogram with Doppler and color Doppler. Other Information Quality : [employer] : INDICATION Dyspnea HX OF COLON CA RISK FACTORS Hypertension 2D DIMENSIONS IVSd1.1 (0.7-1.1cm)LVDd3.9 (3.9-5.9cm) PWd1.0 (0.7-1.1cm)LVDs2.5 (2.5-4.0cm) FS (%) 35.7 %LVEF (%)65.9 (>50%) M-Mode DIMENSIONS Left Atrium (MM)3.63 (2.5-4.0cm)Aortic Root3.53 (2.2-3.7cm) Aortic Cusp Exc.2.28 (1.5-2.0cm) Mitral Valve MV E Godfcnsj59.0cm/sMV A Ggjpgwyb37.7cm/sE/A ratio0.5 TDI E/Lateral E'0.0E/Medial E'0.0 LEFT VENTRICLE The left ventricle is normal size. There is normal left ventricular wall thickness. The left ventricular function is normal. The left ventricular ejection fraction is within the normal range. No regional wall motion abnormalities noted. Transmitral Doppler flow pattern is Grade I-abnormal relaxation pattern. No left ventricle thrombus noted on this study. There is no ventricular septal defect visualized. There is no left ventricular aneurysm. There is no mass noted in the left ventricle. RIGHT VENTRICLE The right ventricle is normal size. There is normal right ventricular wall thickness. The right ventricular systolic function is normal. ATRIA The left atrium is mildly dilated. The right atrium size is normal. The interatrial septum is intact with no evidence for an atrial septal defect. AORTIC VALVE The aortic valve is normal in structure and function. No aortic regurgitation is present. There is no aortic valvular stenosis. There is no aortic valvular vegetation. MITRAL VALVE The mitral valve is normal in structure and function. There is no evidence of mitral valve prolapse. There is no mitral valve stenosis. There is no mitral valve regurgitation noted. TRICUSPID VALVE The tricuspid valve is normal in structure and function. There is no tricuspid valve regurgitation noted. There is no tricuspid valve prolapse or vegetation. There is no tricuspid valve stenosis. PULMONIC VALVE The pulmonary valve is normal in structure and function. There is no pulmonic valvular regurgitation. There is no pulmonic valvular stenosis. GREAT VESSELS The aortic root is normal in size. The ascending aorta is normal in size. The pulmonary artery is normal. The IVC is normal in size and collapses >50% with inspiration. PERICARDIAL EFFUSION The pericardium appears normal. There is no pleural effusion. <Conclusion> The left ventricular function is normal. The left ventricular ejection fraction is within the normal range. No regional wall motion abnormalities noted. The left atrium is mildly dilated.
[2018-02-27] MEDS: Piperacill/Tazo 3.375gm in Dex 3.375 GM/50 ML BAG IVPB SCH ×4 (00:30→17:32)
[2018-02-27] MEDS: Potassium Chl 40 mEq in D5-1/2 1,000 ML IV SCH ×3 (04:35→23:39)
[2018-02-27] MEDS: metroNIDAZOLE IV 500 mg/100 ml 500 MG/100 ML BAG IVPB SCH ×3 (06:12→21:31)
[2018-02-27 07:18] LABS: BASO % 0.1 % (0.0-2.0); EOS % 0.4 % (0.0-4.0); HEMOGLOBIN 9.5 g/dL (12.0-18.0); LYMPH # 0.2 K/uL (1.0-4.3); LYMPH % 2.2 % (20.0-40.0); MEAN CELL VOLUME 84.8 fL (80.0-94.0); MEAN CORPUSCULAR HEMOGLOBIN 28.7 pg (27.0-31.0); MEAN CORPUSCULAR HGB CONC 33.8 g/dL (33.0-37.0); MEAN PLATELET VOLUME 6.4 fL (7.2-11.7); MONO # 0.5 K/uL (0.0-0.8); NEUT # 9.7 K/uL (1.8-7.0); NEUT % 92.3 % (50.0-75.0); PLATELET COUNT 456 K/uL (130-400); WHITE BLOOD COUNT 10.5 K/uL (4.8-10.8)
--- NOTE | 2018-02-27 07:29 | CP.PCM.PN ---
<ChristopherAdiarad Rosales - Last Filed: 02/27/18 14:29> Subjective - Date & Time of Evaluation Date of Evaluation: 02/27/18 Time of Evaluation: 07:00 - Subjective Subjective: Medicine progress note ( Dr. Bowie's service) Patient was seen and examined at bedside. Patient is clinically the same with no acute issues at the moment. Patient still admits to mild abdominal discomfort but not pain. Patient denies fever, chills, nausea, chest pain, palpitations. Patient is still with NGT that is maintained at low continuous suction. Objective - Vital Signs/Intake and Output Vital Signs (last 24 hours): Temp Pulse Resp BP Pulse Ox 98.0 F 70 20 114/77 98 02/27/18 04:42 02/27/18 04:42 02/27/18 04:42 02/27/18 04:42 02/27/18 04:42 Intake and Output: 02/27/18 02/27/18 06:59 18:59 Intake Total 2050 Output Total 350 Balance 1700 - Medications Medications: Current Medications Heparin Sodium (Porcine) (Heparin) 5,000 units SC Q8 [facility] Last Admin: 02/27/18 06:11 Dose: 5,000 units Metronidazole (Flagyl) 500 mg in 100 mls @ 100 mls/hr IVPB Q8H [facility] PRN Reason: Protocol Last Admin: 02/27/18 06:12 Dose: 100 mls/hr Potassium Chloride/Dextrose/Sod Cl (Potassium Chl 40 Meq In D5-1/2ns) 1,000 mls @ 100 mls/hr IV .Q10H [facility] Last Admin: 02/27/18 04:35 Dose: 100 mls/hr Ciprofloxacin (Cipro 400mg/200ml Dsw) 400 mg in 200 mls @ 133 mls/hr IVPB Q12H [facility] PRN Reason: Protocol Last Admin: 02/26/18 20:11 Dose: 133 mls/hr Piperacillin Sod/Tazobactam Sod (Zosyn 3.375 Gm Iv Premix) 3.375 gm in 50 mls @ 100 mls/hr IVPB Q6H [facility] PRN Reason: Protocol Stop: 03/05/18 12:01 Last Admin: 02/27/18 06:00 Dose: 100 mls/hr Morphine Sulfate (Morphine) 4 mg IVP Q4 PRN PRN Reason: Pain, severe (8-10) Last Admin: 02/27/18 06:06 Dose: 4 mg Pantoprazole Sodium (Protonix Inj) 40 mg IVP DAILY [facility] Last Admin: 02/26/18 10:18 Dose: 40 mg - Labs Labs: 02/27/18 07:04 02/26/18 08:17 APTT 35 SECONDS (21-34) H 02/21/18 21:20 - Constitutional Appears: No Acute Distress - Head Exam Head Exam: ATRAUMATIC - Eye Exam Eye Exam: EOMI - ENT Exam ENT Exam: Mucous Membranes Dry - Respiratory Exam Respiratory Exam: Clear to Ausculation Bilateral, NORMAL BREATHING PATTERN. absent: Rhonchi, Wheezes - Cardiovascular Exam Cardiovascular Exam: REGULAR RHYTHM, +S1, +S2. absent: Murmur - GI/Abdominal Exam GI & Abdominal Exam: Distended, Diminished Bowel Sounds, Hypoactive Bowel Sounds. absent: Firm, Guarding, Soft, Pulsatile Mass, Rebound Additional comments: NGT in place on low continuous suction Ostomy with minimal output - Extremities Exam Extremities Exam: Normal Inspection. 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 Anguiano---> Help appreciated * Management as per recommendation Imaging: CT Abdomen/Pelvis (02/21/18): There is an colostomy right anterolateral lower abdominal wall. Massively distended stomach and multiple distended fluid- filled loops of small bowel consistent with small bowel obstruction. There are pulmonary and hepatic metastases again seen. Bilateral inguinal hernias which of the upper not felt to represent loops of small bowel. There is small amount of free intraperitoneal air which could be related to the colostomy however perforated bowel not excluded. Repeat CT abdomen/pelvis (02/24/18): High-grade distal small-bowel obstruction reiterated if not worsened in the interval with gross distention of the stomach also noted including reflux into the esophagus. Mild free intrarenal gas persists and does not appear dramatically changed in the interval, still suggesting likely bowel perforation. Clinically correlate further. Right lower lobe pulmonary metastases reiterated. Medication/Management: * NPO * NG-Tube in place on low continuous suction * 40 Meq D5 1/2NS @ 100mls/hr * Morphine 4mg IV Q4H PRN Status: Acute (2) Colon cancer metastasized to multiple sites Assessment & Plan: Hematology and oncology: * Dr. Mckeon; No plans for any chemo or radiation at this time CT of Abdomen/Pelvis (12/22/17): Circumferential rectal mass with infiltration of adjacent soft tissues including seminal vesicles and prostate, findings are consistent with malignancy, rectal mass may be causing partial obstruction with constipation; adenopathy; hepatic and pulmonary nodules/masses suspicious for metastatic disease; gallstones. 4.1 x 4.2 cm presacral bulky soft tissue within the mid to left abdomen posteriorly (series 3, image 103), stable to slightly slightly increased in size measuring approximately 3.9 x 4.2 cm when remeasured in a similar location. Bilateral bulky inguinal adenopathy, measuring approximately 1.8 cm on the right and left in short axis. Status: Acute (3) Bandemia Assessment & Plan: Resolved Band: 36---> 41----> 27--->34---> 2, down trending Currently with leukocytosis, Tachycardia, Tmax: 100.5 (Resolved) Lactate: 1.4--> 1.9--->1.1 Procalcitonin: 0.27 UA: Negative UC: Gram negative dot, Klebs. Pneumonia BC: No growth X 4 days (02/22/18) and No growth > 24 hours (02/25/18) Chest X-ray: In situ NGT. There are several on metastatic lesions both lung bases less well seen on this study compared to high-resolution CT scan abdomen. Mild bibasilar atelectasis Small amount free intraperitoneal air again seen Repeat Chest X-ray: Satisfactory position of recently placed nasogastric tube. Otherwise no interval change. Chest CT (02/24/18) Medications: Zosyn 3.375gm IV Q6H (02/22/18)---> Discontinued 02/28/18 ( 7 days total) Vanco 1gm Q12H ( Vanc trough for 02/25/18)--> discontinued ( received one dose) Cipro 400mg iv Q12H (02/23/18) ---( For 14 days) Flagyl 500mg IV q8h (02/23/18)--- ( For 14 days) Will monitor bands with labs Status: Acute (4) Sepsis Assessment & Plan: Resolved Band: 36---> 41----> 27--->34-->2, down trending Currently with leukocytosis, Tachycardia, Tmax: 100.5 ( Resolved) Lactate: 1.4--> 1.9--->1.1 Procalcitonin: 0.27 UA: Negative UC: Gram negative dot, Klebs. Pneumonia BC: No growth X 4 days (02/22/18) and No growth > 24 hours (02/25/18) Chest X-ray: In situ NGT. There are several on metastatic lesions both lung bases less well seen on this study compared to high-resolution CT scan abdomen. Mild bibasilar atelectasis Small amount free intraperitoneal air again seen Repeat Chest X-ray: Satisfactory position of recently placed nasogastric tube. Otherwise no interval change. CT Abdomen/Pelvis (02/21/18): There is an colostomy right anterolateral lower abdominal wall. Massively distended stomach and multiple distended fluid- filled loops of small bowel consistent with small bowel obstruction. There are pulmonary and hepatic metastases again seen. Bilateral inguinal hernias which of the upper not felt to represent loops of small bowel. There is small amount of free intraperitoneal air which could be related to the colostomy however perforated bowel not excluded. Repeat CT abdomen/pelvis (02/24/18): High-grade distal small-bowel obstruction reiterated if not worsened in the interval with gross distention of the stomach also noted including reflux into the esophagus. Mild free intrarenal gas persists and does not appear dramatically changed in the interval, still suggesting likely bowel perforation. Clinically correlate further. Right lower lobe pulmonary metastases reiterated. New bilateral lower lobe multifocal airspace disease, lilel representing pneumonia versus aspiration. Medications: Zosyn 3.375gm IV Q6H (02/22/18)---> Discontinued 02/28/18 ( 7 days total) Vanco 1gm Q12H ( Vanc trough for 02/25/18)--> discontinued ( received one dose) Cipro 400mg iv Q12H (02/23/18) ---( For 14 days) Flagyl 500mg IV q8h (02/23/18)--- ( For 14 days) D51/2NS with KCL 40meq @ 100mls/hr Will monitor bands with labs Status: Acute (5) Anemia Assessment & Plan: H/H is stable Possible secondary to chronic disease No active bleeding Will continue to monitor Status: Acute (6) Hypertension Assessment & Plan: Currently intermittently hypotensive, therefore, antihypertensive medication held Norvasc 2.5mg PO daily-- not taking as patient is NPO, NGT in place for SBO Will consider IV if BP becomes unstable Monitor with vital sign Status: Acute (7) Prophylactic measure Assessment & Plan: GI: Pepcid 20mg IV daily DVT: SCDs, heparin 5,000 units SC Q8H NPO Disposition: All management as regarding SBO as per general surgery All plans and management discussed with Dr. Bowie Status: Acute <Rob Bowie H - Last Filed: 02/27/18 14:50> Objective - Vital Signs/Intake and Output Vital Signs (last 24 hours): Temp Pulse Resp BP Pulse Ox 98.1 F 71 18 120/83 97 02/27/18 07:30 02/27/18 12:07 02/27/18 07:30 02/27/18 07:30 02/27/18 07:30 Intake and Output: 02/27/18 02/27/18 06:59 18:59 Intake Total 2050 Output Total 350 200 Balance 1700 -200 - Medications Medications: Current Medications Heparin Sodium (Porcine) (Heparin) 5,000 units SC Q8 [facility] Last Admin: 02/27/18 13:34 Dose: 5,000 units Metronidazole (Flagyl) 500 mg in 100 mls @ 100 mls/hr IVPB Q8H [facility] PRN Reason: Protocol Stop: 03/09/18 22:01 Last Admin: 02/27/18 13:34 Dose: 100 mls/hr Potassium Chloride/Dextrose/Sod Cl (Potassium Chl 40 Meq In D5-1/2ns) 1,000 mls @ 100 mls/hr IV .Q10H [facility] Last Admin: 02/27/18 14:24 Dose: Not Given Ciprofloxacin (Cipro 400mg/200ml Dsw) 400 mg in 200 mls @ 133 mls/hr IVPB Q12H [facility] PRN Reason: Protocol Stop: 03/12/18 08:01 Last Admin: 02/27/18 07:31 Dose: 133 mls/hr Piperacillin Sod/Tazobactam Sod (Zosyn 3.375 Gm Iv Premix) 3.375 gm in 50 mls @ 100 mls/hr IVPB Q6H [facility] PRN Reason: Protocol Stop: 02/28/18 12:01 Last Admin: 02/27/18 12:30 Dose: 100 mls/hr Morphine Sulfate (Morphine) 4 mg IVP Q4 PRN PRN Reason: Pain, severe (8-10) Last Admin: 02/27/18 13:31 Dose: 4 mg Pantoprazole Sodium (Protonix Inj) 40 mg IVP DAILY [facility] Last Admin: 02/27/18 09:54 Dose: 40 mg - Labs Labs: 02/27/18 07:04 02/27/18 07:04 APTT 35 SECONDS (21-34) H 02/21/18 21:20 Attending/Attestation - Attestation I have personally seen and examined this patient.: Yes I have fully participated in the care of the patient.: Yes I have reviewed all pertinent clinical information, including history, physical exam and plan: Yes Notes (Text): 02/27/18 14:50 Medical attending: Patient was seen and examined by me, agrees the above note by medical practice manager. We saw the patient together The patient explained that he was having some pain at rest. The pain was over the area of his abdomen. He still has NG tube in is still draining dark purulent like material. There is ready pain medication however its when necessary, we explained to him that it's necessary to ask for it to be given. I also spoke with the nursing as well that he now we should be rather liberal with the pain medication that we arere giving considering the patient's situation. Tomorrow we can consider starting a fentanyl transdermal patch if he requires it. thank you Rob Bowie
[2018-02-27] MEDS: Ciprofloxacin 400mg/200ml D5W 400 MG/200 ML BAG IVPB SCH ×2 (07:31→20:07)
[2018-02-27 07:37] LABS: ALB/GLOB RATIO 0.7 (1.0-2.1); ALBUMIN 2.6 g/dL (3.5-5.0); ALT/SGPT 18 U/L (21-72); AST/SGOT 14 U/L (17-59); BLOOD UREA NITROGEN 22 mg/dL (9-20); CALCIUM 8.6 mg/dl (8.6-10.4); GFR AFRICAN-AMERICAN > 60; GFR NON-AFRICAN AMERICAN > 60
--- NOTE | 2018-02-27 08:23 | CP.PCM.PN ---
Subjective - Date & Time of Evaluation Date of Evaluation: 02/27/18 Time of Evaluation: 08:20 - Subjective Subjective: PGY-1 surgery progress note for Dr Anguiano. No acute events noted overnight. Patient attempted OOB to chair yesterday but complained of too much pain and wanted to be placed back in bed. Stated he will try again today. NGT in place - low continuous suction maintained. He denied any leaking from the ostomy bag. He denied fevers, chills, nausea, vomiting. Objective - Vital Signs/Intake and Output Vital Signs (last 24 hours): Temp Pulse Resp BP Pulse Ox 98.1 F 76 18 120/83 97 02/27/18 07:30 02/27/18 07:58 02/27/18 07:30 02/27/18 07:30 02/27/18 07:30 Intake and Output: 02/27/18 02/27/18 06:59 18:59 Intake Total 2050 Output Total 350 Balance 1700 - Medications Medications: Current Medications Heparin Sodium (Porcine) (Heparin) 5,000 units SC Q8 [facility] Last Admin: 02/27/18 06:11 Dose: 5,000 units Metronidazole (Flagyl) 500 mg in 100 mls @ 100 mls/hr IVPB Q8H [facility] PRN Reason: Protocol Last Admin: 02/27/18 06:12 Dose: 100 mls/hr Potassium Chloride/Dextrose/Sod Cl (Potassium Chl 40 Meq In D5-1/2ns) 1,000 mls @ 100 mls/hr IV .Q10H [facility] Last Admin: 02/27/18 04:35 Dose: 100 mls/hr Ciprofloxacin (Cipro 400mg/200ml Dsw) 400 mg in 200 mls @ 133 mls/hr IVPB Q12H [facility] PRN Reason: Protocol Last Admin: 02/27/18 07:31 Dose: 133 mls/hr Piperacillin Sod/Tazobactam Sod (Zosyn 3.375 Gm Iv Premix) 3.375 gm in 50 mls @ 100 mls/hr IVPB Q6H [facility] PRN Reason: Protocol Stop: 03/05/18 12:01 Last Admin: 02/27/18 06:00 Dose: 100 mls/hr Morphine Sulfate (Morphine) 4 mg IVP Q4 PRN PRN Reason: Pain, severe (8-10) Last Admin: 02/27/18 06:06 Dose: 4 mg Pantoprazole Sodium (Protonix Inj) 40 mg IVP DAILY [facility] Last Admin: 02/26/18 10:18 Dose: 40 mg - Labs Labs: 02/27/18 07:04 02/27/18 07:04 APTT 35 SECONDS (21-34) H 02/21/18 21:20 - Additional Findings Additional findings: - Constitutional Appears: No Acute Distress - Head Exam Head Exam: ATRAUMATIC, NORMAL INSPECTION, NORMOCEPHALIC - Eye Exam Eye Exam: Normal appearance - Respiratory Exam Respiratory Exam: NORMAL BREATHING PATTERN. absent: Respiratory Distress - GI/Abdominal Exam GI & Abdominal Exam: Distended, Soft, Tenderness. absent: Firm, Guarding, Rigid , Rebound Additional comments: colostomy pink and viable - Neurological Exam Neurological Exam: Alert, Oriented x3 - Psychiatric Exam Psychiatric exam: Normal Affect, Normal Mood - Skin Skin Exam: Dry, Intact Assessment and Plan - Assessment and Plan (Free Text) Assessment: 67M w/ stage IV colon CA s/p transverse loop colostomy now with small bowel ileus Plan: Cont NGT to low cont suction Monitor for bowel function Encourage OOB/Ambulation/Physical therapy CLD for pleasure feedind Patient and patient's have decided DNR/DNI and inpatient hospice - comfort care measures
[2018-02-27 08:43] LABS: ANISOCYTOSIS SLIGHT; BANDS 2 % (0-2); EOSINOPHIL 1 % (0-4); HYPOCHROMIC SLIGHT; LYMPHOCYTE 3 % (20-40); MONOCYTE 5 % (0-10); NEUTROPHIL 89 % (50-75); PLATELET ESTIMATE SLIGHTLY INCREASED (NORMAL); POIKILOCYTOSIS SLIGHT; TOTAL CELLS COUNTED 100
[2018-02-27 08:44] LABS: GIANT PLATELETS PRESENT; LARGE PLATELETS PRESENT; TARGET CELLS SLIGHT
[2018-02-28] MEDS: Piperacill/Tazo 3.375gm in Dex 3.375 GM/50 ML BAG IVPB SCH ×2 (01:00→05:30)
[2018-02-28] MEDS: metroNIDAZOLE IV 500 mg/100 ml 500 MG/100 ML BAG IVPB SCH (05:59)
[2018-02-28 06:35] LABS: BASO % 0.3 % (0.0-2.0); EOS % 0.5 % (0.0-4.0); HEMOGLOBIN 9.4 g/dL (12.0-18.0); LYMPH # 0.3 K/uL (1.0-4.3); LYMPH % 3.6 % (20.0-40.0); MEAN CELL VOLUME 86.8 fL (80.0-94.0); MEAN CORPUSCULAR HEMOGLOBIN 29.1 pg (27.0-31.0); MEAN CORPUSCULAR HGB CONC 33.6 g/dL (33.0-37.0); MEAN PLATELET VOLUME 6.7 fL (7.2-11.7); MONO # 0.5 K/uL (0.0-0.8); MONO % 5.6 % (0.0-10.0); NEUT # 8.3 K/uL (1.8-7.0); PLATELET COUNT 383 K/uL (130-400); RBC 3.24 Mil/uL (4.40-5.90); RED CELL DISTRIBUTION WIDTH 19.3 % (11.5-14.5); WHITE BLOOD COUNT 9.2 K/uL (4.8-10.8)
[2018-02-28 06:49] LABS: ALB/GLOB RATIO 0.7 (1.0-2.1); ALBUMIN 2.3 g/dL (3.5-5.0); ALT/SGPT 13 U/L (21-72); AST/SGOT 12 U/L (17-59); BLOOD UREA NITROGEN 16 mg/dL (9-20); CALCIUM 8.3 mg/dl (8.6-10.4); GFR AFRICAN-AMERICAN > 60; GFR NON-AFRICAN AMERICAN > 60
--- NOTE | 2018-02-28 08:34 | CP.PCM.PN ---
Subjective - Date & Time of Evaluation Date of Evaluation: 02/28/18 Time of Evaluation: 08:10 - Subjective Subjective: Patient was seen and examined by me He was still reporting pain overnight. He has been getting the PRN morphine Today will add on fentanyl 25 mcg TD and hopefully this will help him more No labs for tomorrow. He is still having a lot of dark purlent color liquid and material from the NGT overnight. Objective - Vital Signs/Intake and Output Vital Signs (last 24 hours): Temp Pulse Resp BP Pulse Ox 98.4 F 77 20 180/91 H 97 02/27/18 23:55 02/27/18 23:55 02/27/18 23:55 02/27/18 23:55 02/27/18 23:55 Intake and Output: 02/28/18 02/28/18 06:59 18:59 Intake Total 800 Output Total 300 Balance 500 - Medications Medications: Current Medications Fentanyl (Duragesic) 1 patch TD Q72H [facility] Last Admin: 02/28/18 08:24 Dose: 1 patch Potassium Chloride/Dextrose/Sod Cl (Potassium Chl 40 Meq In D5-1/2ns) 1,000 mls @ 100 mls/hr IV .Q10H [facility] Last Admin: 02/27/18 23:39 Dose: 100 mls/hr Morphine Sulfate (Morphine) 4 mg IVP Q2 [facility] Ondansetron HCl (Zofran Inj) 4 mg IVP Q6H PRN PRN Reason: Nausea/Vomiting Last Admin: 02/27/18 20:07 Dose: 4 mg - Labs Labs: 02/28/18 06:28 02/28/18 06:25 APTT 35 SECONDS (21-34) H 02/21/18 21:20 - Constitutional Appears: Toxic, Unkempt, Chronically Ill - Head Exam Additional comments: Emaciated - Respiratory Exam Respiratory Exam: Decreased Breath Sounds, Rhonchi - Cardiovascular Exam Cardiovascular Exam: REGULAR RHYTHM - GI/Abdominal Exam GI & Abdominal Exam: Soft, Tenderness Additional comments: colostomy bag - Neurological Exam Neurological Exam: Alert, Awake, Oriented x3 - Psychiatric Exam Psychiatric exam: Depressed, Flat Affect - Skin Skin Exam: Pallor, Pallor Assessment and Plan - Assessment and Plan (Free Text) Assessment: Assessment and Plan (1) Small bowel obstruction Assessment & Plan: 02/28/2018: Currently we are waiting to see what hospice options are available to them. The patient is still having pain. Will add on fentanyl today 25 mcg TD. Changed morphine to be Q2HRs PRN. The NGT is still having a lot of purlent material. There was some out put in the bag. S/P Transverse Loop Colostomy secondary to stage IV colon CA, POD # 16; post-op Ileus Consultation: General surgery, Dr. Anguiano---> Help appreciated * Management as per recommendation Imaging: CT Abdomen/Pelvis (02/21/18): There is an colostomy right anterolateral lower abdominal wall. Massively distended stomach and multiple distended fluid- filled loops of small bowel consistent with small bowel obstruction. There are pulmonary and hepatic metastases again seen. Bilateral inguinal hernias which of the upper not felt to represent loops of small bowel. There is small amount of free intraperitoneal air which could be related to the colostomy however perforated bowel not excluded. Repeat CT abdomen/pelvis (02/24/18): High-grade distal small-bowel obstruction reiterated if not worsened in the interval with gross distention of the stomach also noted including reflux into the esophagus. Mild free intrarenal gas persists and does not appear dramatically changed in the interval, still suggesting likely bowel perforation. Clinically correlate further. Right lower lobe pulmonary metastases reiterated. (2) Colon cancer metastasized to multiple sites Assessment & Plan: 02/28/2018: Pending Hospice. I added on fentanyl patch today and lets see if this helps. Continue with morphine Hematology and oncology: * Dr. Mckeon; No plans for any chemo or radiation at this time CT of Abdomen/Pelvis (12/22/17): Circumferential rectal mass with infiltration of adjacent soft tissues including seminal vesicles and prostate, findings are consistent with malignancy, rectal mass may be causing partial obstruction with constipation; adenopathy; hepatic and pulmonary nodules/masses suspicious for metastatic disease; gallstones. 4.1 x 4.2 cm presacral bulky soft tissue within the mid to left abdomen posteriorly (series 3, image 103), stable to slightly slightly increased in size measuring approximately 3.9 x 4.2 cm when remeasured in a similar location. Bilateral bulky inguinal adenopathy, measuring approximately 1.8 cm on the right and left in short axis. Status: Acute (3) Bandemia Assessment & Plan: Resolved Band: 36---> 41----> 27--->34---> 2, down trending Currently with leukocytosis, Tachycardia, Tmax: 100.5 (Resolved) Lactate: 1.4--> 1.9--->1.1 Procalcitonin: 0.27 UA: Negative UC: Gram negative dot, Klebs. Pneumonia BC: No growth X 4 days (02/22/18) and No growth > 24 hours (02/25/18) Chest X-ray: In situ NGT. There are several on metastatic lesions both lung bases less well seen on this study compared to high-resolution CT scan abdomen. Mild bibasilar atelectasis Small amount free intraperitoneal air again seen Repeat Chest X-ray: Satisfactory position of recently placed nasogastric tube. Otherwise no interval change. Chest CT (02/24/18) (4) Sepsis Assessment & Plan: Resolved Band: 36---> 41----> 27--->34-->2, down trending Currently with leukocytosis, Tachycardia, Tmax: 100.5 ( Resolved) Lactate: 1.4--> 1.9--->1.1 Procalcitonin: 0.27 UA: Negative UC: Gram negative dot, Klebs. Pneumonia BC: No growth X 4 days (02/22/18) and No growth > 24 hours (02/25/18) Chest X-ray: In situ NGT. There are several on metastatic lesions both lung bases less well seen on this study compared to high-resolution CT scan abdomen. Mild bibasilar atelectasis Small amount free intraperitoneal air again seen Repeat Chest X-ray: Satisfactory position of recently placed nasogastric tube. Otherwise no interval change. CT Abdomen/Pelvis (02/21/18): There is an colostomy right anterolateral lower abdominal wall. Massively distended stomach and multiple distended fluid- filled loops of small bowel consistent with small bowel obstruction. There are pulmonary and hepatic metastases again seen. Bilateral inguinal hernias which of the upper not felt to represent loops of small bowel. There is small amount of free intraperitoneal air which could be related to the colostomy however perforated bowel not excluded. Repeat CT abdomen/pelvis (02/24/18): High-grade distal small-bowel obstruction reiterated if not worsened in the interval with gross distention of the stomach also noted including reflux into the esophagus. Mild free intrarenal gas persists and does not appear dramatically changed in the interval, still suggesting likely bowel perforation. Clinically correlate further. Right lower lobe pulmonary metastases reiterated. New bilateral lower lobe multifocal airspace disease, lilel representing pneumonia versus aspiration. Medications: D51/2NS with KCL 40meq @ 100mls/hr Will monitor bands with labs (5) Anemia Assessment & Plan: H/H is stable Possible secondary to chronic disease No active bleeding Will continue to monitor (6) Hypertension Assessment & Plan: 02/28/2018: Systolic BPs have been higher - probably pain related. Currently intermittently hypotensive, therefore, antihypertensive medication held Norvasc 2.5mg PO daily-- not taking as patient is NPO, NGT in place for SBO Will consider IV if BP becomes unstable Monitor with vital sign (7) Prophylactic measure Assessment & Plan: GI: Pepcid 20mg IV daily DVT: SCDs, heparin 5,000 units SC Q8H NPO
[2018-02-28 08:37] LABS: BANDS 4 % (0-2); EOSINOPHIL 2 % (0-4); LYMPHOCYTE 1 % (20-40); MONOCYTE 4 % (0-10); NEUTROPHIL 89 % (50-75); PLATELET ESTIMATE NORMAL (NORMAL); TOTAL CELLS COUNTED 100
[2018-02-28 08:38] LABS: ANISOCYTOSIS MODERATE
[2018-02-28 08:39] LABS: HYPOCHROMIC SLIGHT; LARGE PLATELETS PRESENT; OVALOCYTES SLIGHT; POIKILOCYTOSIS SLIGHT; POLYCHROMIC SLIGHT; SCHISTOCYTES SLIGHT; TOXIC GRANULATION PRESENT
[2018-02-28 08:40] LABS: GIANT PLATELETS PRESENT
[2018-02-28] MEDS: Morphine 4 MG/ML VIAL IVP SCH ×7 (10:07→21:50)
--- NOTE | 2018-02-28 10:21 | CP.PCM.PN ---
Subjective - Date & Time of Evaluation Date of Evaluation: 02/28/18 Time of Evaluation: 10:21 - Subjective Subjective: General surgery progress note for Dr. Anup Lutz, PGY-1 Pt S & E at bedside at 1035 No acute events overnight per nursing. NGT in place- low/cont wall suction w/ 450 cc gastric contents out. Continues to c/o of abdominal pain. Denies N & V , F & C, SOB, CP. Objective - Vital Signs/Intake and Output Vital Signs (last 24 hours): Temp Pulse Resp BP Pulse Ox 98.1 F 72 18 118/78 100 02/28/18 08:00 02/28/18 08:00 02/28/18 08:00 02/28/18 08:00 02/28/18 08:00 Intake and Output: 02/28/18 02/28/18 06:59 18:59 Intake Total 800 Output Total 300 Balance 500 - Medications Medications: Current Medications Fentanyl (Duragesic) 1 patch TD Q72H [facility] Last Admin: 02/28/18 08:24 Dose: 1 patch Potassium Chloride/Dextrose/Sod Cl (Potassium Chl 40 Meq In D5-1/2ns) 1,000 mls @ 100 mls/hr IV .Q10H [facility] Last Admin: 02/27/18 23:39 Dose: 100 mls/hr Morphine Sulfate (Morphine) 4 mg IVP Q2 [facility] Last Admin: 02/28/18 10:07 Dose: 4 mg Ondansetron HCl (Zofran Inj) 4 mg IVP Q6H PRN PRN Reason: Nausea/Vomiting Last Admin: 02/27/18 20:07 Dose: 4 mg - Labs Labs: 02/28/18 06:28 02/28/18 06:25 APTT 35 SECONDS (21-34) H 02/21/18 21:20 - Constitutional Appears: Non-toxic, No Acute Distress, Cachectic - Head Exam Head Exam: ATRAUMATIC, NORMAL INSPECTION, NORMOCEPHALIC - Eye Exam Eye Exam: EOMI, Normal appearance - ENT Exam ENT Exam: Mucous Membranes Moist, Normal Exam Additional comments: NGT in place in nares - Respiratory Exam Respiratory Exam: NORMAL BREATHING PATTERN - Cardiovascular Exam Cardiovascular Exam: REGULAR RHYTHM, +S1, +S2 - GI/Abdominal Exam GI & Abdominal Exam: Distended, Soft, Tenderness (diffuse). absent: Firm, Guarding, Rigid Additional comments: Ostomy with small amount of liquid output, scant stool around stoma, stoma pink - Extremities Exam Extremities Exam: absent: Normal Inspection (cachexia) - Neurological Exam Neurological Exam: Alert, Awake, CN II-XII Intact, Oriented x3 - Psychiatric Exam Psychiatric exam: Normal Affect, Normal Mood - Skin Skin Exam: Dry, Intact, Normal Color, Warm Assessment and Plan - Assessment and Plan (Free Text) Assessment: 67M w/ stage IV colon CA s/p transverse loop colostomy now with small bowel ileus Plan: Cont NGT to low cont wall suction Monitor for bowel function Pain control PRN Encourage OOB Ambulation PT CLD for pleasure feeding Patient and patient's have decided DNR/DNI and inpatient hospice - comfort care measures Will EDUIN attending Nelda, PGY-1
[2018-02-28] MEDS: Potassium Chl 40 mEq in D5-1/2 1,000 ML IV SCH ×3 (12:10→23:11)
[2018-03-01] MEDS: Morphine 4 MG/ML VIAL IVP SCH ×12 (00:03→22:18)
[2018-03-01] MEDS: Potassium Chl 40 mEq in D5-1/2 1,000 ML IV SCH ×4 (06:30→20:14)
--- NOTE | 2018-03-01 07:13 | CP.PCM.PN ---
Subjective - Date & Time of Evaluation Date of Evaluation: 03/01/18 Time of Evaluation: 07:11 - Subjective Subjective: General surgery progress note for Dr. Silvio Lutz, PGY-1 Pt S & E at bedside at 0645 No acute events overnight as per nursing. Pt reports continued abdominal pain. NGT with clear output, approximately 200cc. Tolerating liquid diet. Objective - Vital Signs/Intake and Output Vital Signs (last 24 hours): Temp Pulse Resp BP Pulse Ox 97.6 F 77 20 105/69 97 02/28/18 23:50 03/01/18 05:42 02/28/18 23:50 03/01/18 05:42 02/28/18 23:50 Intake and Output: 03/01/18 03/01/18 06:59 18:59 Intake Total 1700 Output Total 1150 Balance 550 - Medications Medications: Current Medications Fentanyl (Duragesic) 1 patch TD Q72H [facility] Last Admin: 02/28/18 08:24 Dose: 1 patch Potassium Chloride/Dextrose/Sod Cl (Potassium Chl 40 Meq In D5-1/2ns) 1,000 mls @ 100 mls/hr IV .Q10H [facility] Last Admin: 03/01/18 06:30 Dose: Not Given Morphine Sulfate (Morphine) 4 mg IVP Q2 [facility] Last Admin: 03/01/18 05:37 Dose: 4 mg Ondansetron HCl (Zofran Inj) 4 mg IVP Q6H PRN PRN Reason: Nausea/Vomiting Last Admin: 02/27/18 20:07 Dose: 4 mg - Labs Labs: 02/28/18 06:28 02/28/18 06:25 APTT 35 SECONDS (21-34) H 02/21/18 21:20 - Constitutional Appears: Non-toxic, No Acute Distress, Cachectic, Chronically Ill - Head Exam Head Exam: ATRAUMATIC, NORMAL INSPECTION, NORMOCEPHALIC - Eye Exam Eye Exam: EOMI, Normal appearance - ENT Exam ENT Exam: Mucous Membranes Moist, Normal Exam Additional comments: NGT in place - Neck Exam Neck Exam: Full ROM, Normal Inspection - Respiratory Exam Respiratory Exam: NORMAL BREATHING PATTERN - Cardiovascular Exam Cardiovascular Exam: REGULAR RHYTHM, +S1, +S2 - GI/Abdominal Exam GI & Abdominal Exam: Soft, Tenderness (diffuse, mild). absent: Distended, Firm , Guarding Additional comments: Ostomy with small amount of liquid output with pieces of stool - Extremities Exam Extremities Exam: Normal Inspection - Neurological Exam Neurological Exam: Alert, Awake, CN II-XII Intact, Oriented x3 - Psychiatric Exam Psychiatric exam: Normal Affect, Normal Mood - Skin Skin Exam: Dry, Intact, Normal Color, Warm Assessment and Plan - Assessment and Plan (Free Text) Assessment: 67M w/ stage IV colon CA s/p transverse loop colostomy now with small bowel ileus Plan: NGT clamp trial If nausea or abdominal distention, will re-attached NGT to suction Otherwise will remove Pain mgmt PRN PT OOBTC CLD for pleasure DNR/DNI Comfort care measures Further mgmt as per primary Will EDUIN attending Nelda, PGY-1
--- NOTE | 2018-03-01 08:35 | CP.PCM.PN ---
<YelitzaRob pace - Last Filed: 03/01/18 11:31> Subjective - Date & Time of Evaluation Date of Evaluation: 03/01/18 Time of Evaluation: 08:05 - Subjective Subjective: Medicine progress note ( Dr. Bowie's service) Patient was seen and examined at bedside. Patient reports he continues to feel diffuse abdominal pain, however he is satisfied with his current pain management. A fentanyl patch was added to his Morphin regimen yesterday and this has made him comfortable. The R colostomy bag is in place and he reports good output. NGT is clamped today as a trial. He is tolerating pleasure feeds ( liquid diet). Objective - Vital Signs/Intake and Output Vital Signs (last 24 hours): Temp Pulse Resp BP Pulse Ox 97.6 F 77 20 105/69 97 02/28/18 23:50 03/01/18 05:42 02/28/18 23:50 03/01/18 05:42 02/28/18 23:50 Intake and Output: 03/01/18 03/01/18 06:59 18:59 Intake Total 1700 Output Total 1150 Balance 550 - Medications Medications: Current Medications Fentanyl (Duragesic) 1 patch TD Q72H COUNTS INCLUDE 234 BEDS AT THE [facility] Last Admin: 02/28/18 08:24 Dose: 1 patch Potassium Chloride/Dextrose/Sod Cl (Potassium Chl 40 Meq In D5-1/2ns) 1,000 mls @ 100 mls/hr IV .Q10H COUNTS INCLUDE 234 BEDS AT THE [facility] Last Admin: 03/01/18 06:30 Dose: Not Given Morphine Sulfate (Morphine) 4 mg IVP Q2 [facility] Last Admin: 03/01/18 07:49 Dose: Not Given Ondansetron HCl (Zofran Inj) 4 mg IVP Q6H PRN PRN Reason: Nausea/Vomiting Last Admin: 02/27/18 20:07 Dose: 4 mg - Labs Labs: 02/28/18 06:28 02/28/18 06:25 APTT 35 SECONDS (21-34) H 02/21/18 21:20 - Additional Findings Additional findings: - Constitutional Appears: Toxic, Unkempt, Chronically Ill - Head Exam Additional comments: Emaciated - Respiratory Exam Respiratory Exam: Decreased Breath Sounds, Rhonchi - Cardiovascular Exam Cardiovascular Exam: REGULAR RHYTHM, S1, S2 - GI/Abdominal Exam GI & Abdominal Exam: Soft, Tenderness (diffuse) Additional comments: colostomy bag NGT 200cc clear output (clamped this morning) - Extremities Exam Extremities Exam: Normal Inspection. absent: Calf Tenderness, Pedal Edema - Neurological Exam Neurological Exam: Alert, Awake, Oriented x3 - Psychiatric Exam Psychiatric exam: Depressed, Flat Affect - Skin Skin Exam: Pallor, Assessment and Plan - Assessment and Plan (Free Text) Assessment: (1) Small bowel obstruction Assessment & Plan: 03/01/18: Patient still has some pain, but does not want more pain meds. Continue Fentanyl 25 mcg TD and morphine Q2HRs PRN. NGT clamped today by surgery team. Will resume if pt develops n/v. Colostomy bag with good output. Bloodwork held today 02/28/2018: Currently we are waiting to see what hospice options are available to them. The patient is still having pain. Will add on fentanyl today 25 mcg TD. Changed morphine to be Q2HRs PRN. The NGT is still having a lot of purlent material. There was some out put in the bag. S/P Transverse Loop Colostomy secondary to stage IV colon CA, POD # 16; post-op Ileus Consultation: General surgery, Dr. Anguiano---> Help appreciated * Management as per recommendation Imaging: CT Abdomen/Pelvis (02/21/18): There is an colostomy right anterolateral lower abdominal wall. Massively distended stomach and multiple distended fluid- filled loops of small bowel consistent with small bowel obstruction. There are pulmonary and hepatic metastases again seen. Bilateral inguinal hernias which of the upper not felt to represent loops of small bowel. There is small amount of free intraperitoneal air which could be related to the colostomy however perforated bowel not excluded. Repeat CT abdomen/pelvis (02/24/18): High-grade distal small-bowel obstruction reiterated if not worsened in the interval with gross distention of the stomach also noted including reflux into the esophagus. Mild free intrarenal gas persists and does not appear dramatically changed in the interval, still suggesting likely bowel perforation. Clinically correlate further. Right lower lobe pulmonary metastases reiterated. (2) Colon cancer metastasized to multiple sites Assessment & Plan: 02/28/2018: Pending Hospice. I added on fentanyl patch today and lets see if this helps. Continue with morphine Hematology and oncology: * Dr. Mckeon; No plans for any chemo or radiation at this time CT of Abdomen/Pelvis (12/22/17): Circumferential rectal mass with infiltration of adjacent soft tissues including seminal vesicles and prostate, findings are consistent with malignancy, rectal mass may be causing partial obstruction with constipation; adenopathy; hepatic and pulmonary nodules/masses suspicious for metastatic disease; gallstones. 4.1 x 4.2 cm presacral bulky soft tissue within the mid to left abdomen posteriorly (series 3, image 103), stable to slightly slightly increased in size measuring approximately 3.9 x 4.2 cm when remeasured in a similar location. Bilateral bulky inguinal adenopathy, measuring approximately 1.8 cm on the right and left in short axis. Status: Acute (3) Bandemia Assessment & Plan: Resolved Band: 36---> 41----> 27--->34---> 2, down trending Currently with leukocytosis, Tachycardia, Tmax: 100.5 (Resolved) Lactate: 1.4--> 1.9--->1.1 Procalcitonin: 0.27 UA: Negative UC: Gram negative dot, Klebs. Pneumonia BC: No growth X 4 days (02/22/18) and No growth > 24 hours (02/25/18) Chest X-ray: In situ NGT. There are several on metastatic lesions both lung bases less well seen on this study compared to high-resolution CT scan abdomen. Mild bibasilar atelectasis Small amount free intraperitoneal air again seen Repeat Chest X-ray: Satisfactory position of recently placed nasogastric tube. Otherwise no interval change. Chest CT (02/24/18) (4) Sepsis Assessment & Plan: Resolved Band: 36---> 41----> 27--->34-->2, down trending Currently with leukocytosis, Tachycardia, Tmax: 100.5 ( Resolved) Lactate: 1.4--> 1.9--->1.1 Procalcitonin: 0.27 UA: Negative UC: Gram negative dot, Klebs. Pneumonia BC: No growth X 4 days (02/22/18) and No growth > 24 hours (02/25/18) Chest X-ray: In situ NGT. There are several on metastatic lesions both lung bases less well seen on this study compared to high-resolution CT scan abdomen. Mild bibasilar atelectasis Small amount free intraperitoneal air again seen Repeat Chest X-ray: Satisfactory position of recently placed nasogastric tube. Otherwise no interval change. CT Abdomen/Pelvis (02/21/18): There is an colostomy right anterolateral lower abdominal wall. Massively distended stomach and multiple distended fluid- filled loops of small bowel consistent with small bowel obstruction. There are pulmonary and hepatic metastases again seen. Bilateral inguinal hernias which of the upper not felt to represent loops of small bowel. There is small amount of free intraperitoneal air which could be related to the colostomy however perforated bowel not excluded. Repeat CT abdomen/pelvis (02/24/18): High-grade distal small-bowel obstruction reiterated if not worsened in the interval with gross distention of the stomach also noted including reflux into the esophagus. Mild free intrarenal gas persists and does not appear dramatically changed in the interval, still suggesting likely bowel perforation. Clinically correlate further. Right lower lobe pulmonary metastases reiterated. New bilateral lower lobe multifocal airspace disease, lilel representing pneumonia versus aspiration. Medications: D51/2NS with KCL 40meq @ 100mls/hr Will monitor bands with labs (5) Anemia Assessment & Plan: H/H is stable Possible secondary to chronic disease No active bleeding Will continue to monitor (6) Hypertension Assessment & Plan: 03/01/18- SBP normalized to 105/69; HR 81. 02/28/2018: Systolic BPs have been higher - probably pain related. Currently intermittently hypotensive, therefore, antihypertensive medication held Norvasc 2.5mg PO daily-- not taking as patient is NPO, NGT in place for SBO Will consider IV if BP becomes unstable Monitor with vital sign (7) Prophylactic measure Assessment & Plan: GI: Pepcid 20mg IV daily DVT: SCDs, heparin 5,000 units SC Q8H Liquid diet <Rob Bowie H - Last Filed: 03/01/18 14:07> Objective - Vital Signs/Intake and Output Vital Signs (last 24 hours): Temp Pulse Resp BP Pulse Ox 98 F 74 18 111/72 100 03/01/18 08:16 03/01/18 08:16 03/01/18 08:16 03/01/18 08:16 03/01/18 08:16 Intake and Output: 03/01/18 03/01/18 06:59 18:59 Intake Total 1700 Output Total 1150 Balance 550 - Medications Medications: Current Medications Fentanyl (Duragesic) 1 patch TD Q72H COUNTS INCLUDE 234 BEDS AT THE [facility] Last Admin: 02/28/18 08:24 Dose: 1 patch Potassium Chloride/Dextrose/Sod Cl (Potassium Chl 40 Meq In D5-1/2ns) 1,000 mls @ 100 mls/hr IV .Q10H COUNTS INCLUDE 234 BEDS AT THE [facility] Last Admin: 03/01/18 09:32 Dose: 100 mls/hr Morphine Sulfate (Morphine) 4 mg IVP Q2 IZZY Last Admin: 03/01/18 14:00 Dose: 4 mg Ondansetron HCl (Zofran Inj) 4 mg IVP Q6H PRN PRN Reason: Nausea/Vomiting Last Admin: 02/27/18 20:07 Dose: 4 mg - Labs Labs: 02/28/18 06:28 02/28/18 06:25 APTT 35 SECONDS (21-34) H 02/21/18 21:20 Attending/Attestation - Attestation I have personally seen and examined this patient.: Yes I have fully participated in the care of the patient.: Yes I have reviewed all pertinent clinical information, including history, physical exam and plan: Yes Notes (Text): 03/01/18 14:05 Medical attending: Patient was seen and examined by me. Agree with the above note by the resident When I walked in this morning the NGT was closed The patient reported his pain level was a 6 tp 7 out of 10. I asked him if he wanted more medication for pain control however he said it was ok and he did not want more If at any time he feels that his current pain regimen is not working that we can make changes to the regimen. thank you Rob Bowie
[2018-03-02] MEDS: Morphine 4 MG/ML VIAL IVP SCH ×12 (00:15→22:18)
[2018-03-02] MEDS: Potassium Chl 40 mEq in D5-1/2 1,000 ML IV SCH (02:50)
--- NOTE | 2018-03-02 07:26 | CP.PCM.PN ---
Subjective - Date & Time of Evaluation Date of Evaluation: 03/02/18 Time of Evaluation: 06:40 - Subjective Subjective: Surgery- Dr. Anguiano Pt S&E at bedside this AM. No acute events overnight. stool and air in colostomy. proximal and distal site pink and patent. ABD distention currently resolved. NGT removed yesterday. Denies Fevers, chills, chest pain shortness of breath. Objective - Vital Signs/Intake and Output Vital Signs (last 24 hours): Temp Pulse Resp BP Pulse Ox 98 F 69 20 97/64 L 97 03/01/18 23:50 03/01/18 23:50 03/01/18 23:50 03/01/18 23:50 03/01/18 23:50 Intake and Output: 03/02/18 03/02/18 06:59 18:59 Intake Total 1700 Output Total 950 Balance 750 - Medications Medications: Current Medications Fentanyl (Duragesic) 1 patch TD Q72H [facility] Last Admin: 02/28/18 08:24 Dose: 1 patch Potassium Chloride/Dextrose/Sod Cl (Potassium Chl 40 Meq In D5-1/2ns) 1,000 mls @ 100 mls/hr IV .Q10H [facility] Last Admin: 03/02/18 02:50 Dose: Not Given Morphine Sulfate (Morphine) 4 mg IVP Q2 [facility] Last Admin: 03/02/18 06:34 Dose: 4 mg Ondansetron HCl (Zofran Inj) 4 mg IVP Q6H PRN PRN Reason: Nausea/Vomiting Last Admin: 02/27/18 20:07 Dose: 4 mg - Labs Labs: 02/28/18 06:28 02/28/18 06:25 APTT 35 SECONDS (21-34) H 02/21/18 21:20 - Constitutional Appears: Non-toxic, No Acute Distress, Older Than Stated Age, Cachectic, Chronically Ill - Head Exam Head Exam: ATRAUMATIC - Eye Exam Eye Exam: EOMI. absent: Scleral icterus - ENT Exam ENT Exam: Mucous Membranes Moist - Respiratory Exam Respiratory Exam: NORMAL BREATHING PATTERN. absent: Accessory Muscle Use, Respiratory Distress - Cardiovascular Exam Cardiovascular Exam: +S1, +S2. absent: Bradycardia, Tachycardia - GI/Abdominal Exam GI & Abdominal Exam: Distended (some distention. signficantly better than previously), Soft. absent: Firm, Guarding, Rigid, Tenderness - Extremities Exam Extremities Exam: Full ROM - Neurological Exam Neurological Exam: Alert, Awake, Oriented x3 - Psychiatric Exam Psychiatric exam: Normal Affect - Skin Skin Exam: Intact, Warm Assessment and Plan - Assessment and Plan (Free Text) Assessment: 67M w/ stage IV colon CA s/p transverse loop colostomy Plan: - Continue current diet - if abdominal distention re-occurs will place NGT - Monitor output - analgesia and anti-emetic PRN - encourage OOB and IC use - no further acute surgical intervention - recommend discharge at discretion of primary - discussed w/ Dr. Anguiano surgical attending PGY1
--- NOTE | 2018-03-02 08:05 | CP.PCM.PN ---
Addendum entered and electronically signed by Rea Kimbrough 03/02/18 14:11 : Disposition: Patient and family have agreed for patient to go back to [place]. Pending approval/bed availability. Original Note: <Rea Kimbrough - Last Filed: 03/02/18 10:44> Subjective - Date & Time of Evaluation Date of Evaluation: 03/02/18 Time of Evaluation: 07:00 - Subjective Subjective: Patient was seen and examined at bedside in the AM. Per nurse no events overnight. Patient states he is sleeping well with the sleep medication. Patient states his abdominal pain has improved and it is currently a 5/10. Patient states he tolerated his breakfast well. Patient denies nausea, vomiting or shortness of breath. Objective - Vital Signs/Intake and Output Vital Signs (last 24 hours): Temp Pulse Resp BP Pulse Ox 98.1 F 71 18 100/63 100 03/02/18 07:35 03/02/18 07:35 03/02/18 07:35 03/02/18 07:35 03/02/18 07:35 Intake and Output: 03/02/18 03/02/18 06:59 18:59 Intake Total 1700 Output Total 950 Balance 750 - Medications Medications: Current Medications Fentanyl (Duragesic) 1 patch TD Q72H [facility] Last Admin: 02/28/18 08:24 Dose: 1 patch Potassium Chloride/Dextrose/Sod Cl (Potassium Chl 40 Meq In D5-1/2ns) 1,000 mls @ 100 mls/hr IV .Q10H [facility] Last Admin: 03/02/18 02:50 Dose: Not Given Morphine Sulfate (Morphine) 4 mg IVP Q2 [facility] Last Admin: 03/02/18 06:34 Dose: 4 mg Ondansetron HCl (Zofran Inj) 4 mg IVP Q6H PRN PRN Reason: Nausea/Vomiting Last Admin: 02/27/18 20:07 Dose: 4 mg - Labs Labs: 02/28/18 06:28 02/28/18 06:25 APTT 35 SECONDS (21-34) H 02/21/18 21:20 - Constitutional Appears: No Acute Distress, Cachectic - Head Exam Head Exam: ATRAUMATIC, NORMAL INSPECTION - Eye Exam Eye Exam: EOMI, Normal appearance, PERRL Pupil Exam: NORMAL ACCOMODATION - ENT Exam ENT Exam: Mucous Membranes Moist - Respiratory Exam Respiratory Exam: Clear to Ausculation Bilateral, NORMAL BREATHING PATTERN - Cardiovascular Exam Cardiovascular Exam: REGULAR RHYTHM, +S1, +S2 - GI/Abdominal Exam GI & Abdominal Exam: Soft, Normal Bowel Sounds. absent: Tenderness Additional comments: Colostomy bag on the right side of abdomen. - Extremities Exam Extremities Exam: Normal Inspection. absent: Pedal Edema - Neurological Exam Neurological Exam: Alert, Awake, Oriented x3 - Psychiatric Exam Psychiatric exam: Normal Affect, Normal Mood - Skin Skin Exam: Normal Color Assessment and Plan - Assessment and Plan (Free Text) Assessment: 1.) Small bowel obstruction 03/02/18: Continue Fentanyl 25 mcg TD and morphine Q2HR PRN. NGT was removed by the surgical team today. Colostomy bag with good output. 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 Anguiano---> Help appreciated * Management as per recommendation Imaging: CT Abdomen/Pelvis (02/21/18): There is an colostomy right anterolateral lower abdominal wall. Massively distended stomach and multiple distended fluid- filled loops of small bowel consistent with small bowel obstruction. There are pulmonary and hepatic metastases again seen. Bilateral inguinal hernias which of the upper not felt to represent loops of small bowel. There is small amount of free intraperitoneal air which could be related to the colostomy however perforated bowel not excluded. Repeat CT abdomen/pelvis (02/24/18): High-grade distal small-bowel obstruction reiterated if not worsened in the interval with gross distention of the stomach also noted including reflux into the esophagus. Mild free intrarenal gas persists and does not appear dramatically changed in the interval, still suggesting likely bowel perforation. Clinically correlate further. Right lower lobe pulmonary metastases reiterated. 2.) Colon cancer metastasized to multiple sites Currently awaiting to see what hospice options are available for the patient. Hematology and oncology: * Dr. Mckeon; No plans for any chemo or radiation at this time 3.) Bandemia - resolved Band: 36---> 41----> 27--->34---> 2, down trending Lactate: 1.4--> 1.9--->1.1 Procalcitonin: 0.27 UA: Negative UC: Gram negative dot, Klebs. Pneumonia BC: No growth X 4 days (02/22/18) and No growth > 24 hours (02/25/18) Chest CT (02/24/18): Unremarkable CT pulmonary angiogram. No pulmonary embolus. Grossly stable multiple soft tissue nodules throughout both lungs consistent with metastases. No obvious new nodules. New bilateral lower lobe multifocal airspace disease, likely representing pneumonia versus aspiration. Re- demonstration of partially imaged markedly dilated stomach and bowel. Pneumoperitoneum. 4.) Sepsis - Resolved Band: 36---> 41----> 27--->34-->2, down trending Lactate: 1.4--> 1.9--->1.1 Procalcitonin: 0.27 UA: Negative UC: Gram negative dot, Klebs. Pneumonia BC: No growth X 4 days (02/22/18) and No growth > 24 hours (02/25/18) Chest X-ray: In situ NGT. There are several on metastatic lesions both lung bases less well seen on this study compared to high-resolution CT scan abdomen. Mild bibasilar atelectasis Small amount free intraperitoneal air again seen Repeat Chest X-ray: Satisfactory position of recently placed nasogastric tube. Otherwise no interval change. 5.) Anemia H/H is stable Possible secondary to chronic disease No active bleeding Will continue to monitor 6.) Hypertension Currently intermittently hypotensive, therefore, antihypertensive medication held Norvasc 2.5mg PO daily-- hold Monitor vital signs 7.) Prophylactic measure GI: Pepcid 20mg IV daily DVT: SCDs, heparin 5,000 units SC Q8H Liquid diet Disposition: Currently awaiting to see what hospice options are available for the patient. Case discussed with Dr. Keena Kimbrough PGY-1 <Donna Brink - Last Filed: 03/02/18 15:13> Objective - Vital Signs/Intake and Output Vital Signs (last 24 hours): Temp Pulse Resp BP Pulse Ox 98.1 F 67 18 100/63 100 03/02/18 07:35 03/02/18 07:44 03/02/18 07:35 03/02/18 07:35 03/02/18 07:35 Intake and Output: 05/07/18 05/07/18 06:59 18:59 Intake Total 1700 Output Total 950 250 Balance 750 -250 - Medications Medications: Current Medications Fentanyl (Duragesic) 1 patch TD Q72H [facility] Last Admin: 02/28/18 08:24 Dose: 1 patch Morphine Sulfate (Morphine) 4 mg IVP Q2 [facility] Last Admin: 03/02/18 14:36 Dose: 4 mg Ondansetron HCl (Zofran Inj) 4 mg IVP Q6H PRN PRN Reason: Nausea/Vomiting Last Admin: 02/27/18 20:07 Dose: 4 mg - Labs Labs: 02/28/18 06:28 02/28/18 06:25 APTT 35 SECONDS (21-34) H 02/21/18 21:20 Attending/Attestation - Attestation I have personally seen and examined this patient.: Yes I have fully participated in the care of the patient.: Yes I have reviewed all pertinent clinical information, including history, physical exam and plan: Yes Notes (Text): Seen and examined. Patient has mild to moderate pain This is a pleasant 67 years old male with metastatic colon cancer admitted for small bowel obstruction plan discussed with the resident and I agree with the recommendation of the resident's assessment and the plan
[2018-03-03] MEDS: Morphine 4 MG/ML VIAL IVP SCH ×8 (02:12→21:06)
--- NOTE | 2018-03-03 11:30 | CP.PCM.PN ---
<Rea iKmbrough - Last Filed: 03/03/18 13:43> Subjective - Date & Time of Evaluation Date of Evaluation: 03/03/18 Time of Evaluation: 07:00 - Subjective Subjective: Medicine Progress Note: Patient was seen and examined at bedside in the AM. Per nurse no events overnight. Patient states his abdominal pain has improved and is taking the pain medication. Patient states he is tolerating his food well. Patient denies nausea, vomiting or shortness of breath. Objective - Vital Signs/Intake and Output Vital Signs (last 24 hours): Temp Pulse Resp BP Pulse Ox 98.2 F 87 20 140/60 98 03/03/18 08:27 03/03/18 08:27 03/03/18 08:27 03/03/18 08:27 03/03/18 08:27 Intake and Output: 03/03/18 03/03/18 06:59 18:59 Intake Total 220 Output Total 500 Balance -280 - Medications Medications: Current Medications Fentanyl (Duragesic) 1 patch TD Q72H [facility] Last Admin: 03/03/18 08:50 Dose: 1 patch Morphine Sulfate (Morphine) 4 mg IVP Q4H [facility] Last Admin: 03/03/18 08:50 Dose: 4 mg Ondansetron HCl (Zofran Inj) 4 mg IVP Q6H PRN PRN Reason: Nausea/Vomiting Last Admin: 02/27/18 20:07 Dose: 4 mg - Labs Labs: 02/28/18 06:28 02/28/18 06:25 APTT 35 SECONDS (21-34) H 02/21/18 21:20 - Constitutional Appears: No Acute Distress, Cachectic - Head Exam Head Exam: ATRAUMATIC, NORMAL INSPECTION - Eye Exam Eye Exam: EOMI, Normal appearance - ENT Exam ENT Exam: Mucous Membranes Moist - Respiratory Exam Respiratory Exam: Clear to Ausculation Bilateral, NORMAL BREATHING PATTERN - Cardiovascular Exam Cardiovascular Exam: REGULAR RHYTHM, +S1, +S2 - GI/Abdominal Exam GI & Abdominal Exam: Soft, Normal Bowel Sounds. absent: Tenderness Additional comments: Colostomy bag on the right side of abdomen. - Extremities Exam Extremities Exam: Normal Inspection. absent: Pedal Edema - Neurological Exam Neurological Exam: Alert, Awake, Oriented x3 - Psychiatric Exam Psychiatric exam: Normal Mood - Skin Skin Exam: Normal Color Assessment and Plan - Assessment and Plan (Free Text) Assessment: 1.) Small bowel obstruction 03/03/18: Continue Fentanyl 25 mcg TD and morphine Q4HR. NGT was removed by the surgical team 03/02/18. Colostomy bag with good output. 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 Anguiano---> Help appreciated * Management as per recommendation Imaging: CT Abdomen/Pelvis (02/21/18): There is an colostomy right anterolateral lower abdominal wall. Massively distended stomach and multiple distended fluid- filled loops of small bowel consistent with small bowel obstruction. There are pulmonary and hepatic metastases again seen. Bilateral inguinal hernias which of the upper not felt to represent loops of small bowel. There is small amount of free intraperitoneal air which could be related to the colostomy however perforated bowel not excluded. Repeat CT abdomen/pelvis (02/24/18): High-grade distal small-bowel obstruction reiterated if not worsened in the interval with gross distention of the stomach also noted including reflux into the esophagus. Mild free intrarenal gas persists and does not appear dramatically changed in the interval, still suggesting likely bowel perforation. Clinically correlate further. Right lower lobe pulmonary metastases reiterated. 2.) Colon cancer metastasized to multiple sites Hematology and oncology: * Dr. Mckeon; No plans for any chemo or radiation at this time 3.) Bandemia - resolved Band: 36---> 41----> 27--->34---> 2, down trending Lactate: 1.4--> 1.9--->1.1 Procalcitonin: 0.27 UA: Negative UC: Gram negative dot, Klebs. Pneumonia BC: No growth X 4 days (02/22/18) and No growth > 24 hours (02/25/18) Chest CT (02/24/18): Unremarkable CT pulmonary angiogram. No pulmonary embolus. Grossly stable multiple soft tissue nodules throughout both lungs consistent with metastases. No obvious new nodules. New bilateral lower lobe multifocal airspace disease, likely representing pneumonia versus aspiration. Re- demonstration of partially imaged markedly dilated stomach and bowel. Pneumoperitoneum. 4.) Sepsis - Resolved Band: 36---> 41----> 27--->34-->2, down trending Lactate: 1.4--> 1.9--->1.1 Procalcitonin: 0.27 UA: Negative UC: Gram negative dot, Klebs. Pneumonia BC: No growth X 4 days (02/22/18) and No growth > 24 hours (02/25/18) Chest X-ray: In situ NGT. There are several on metastatic lesions both lung bases less well seen on this study compared to high-resolution CT scan abdomen. Mild bibasilar atelectasis Small amount free intraperitoneal air again seen Repeat Chest X-ray: Satisfactory position of recently placed nasogastric tube. Otherwise no interval change. 5.) Anemia H/H is stable Possible secondary to chronic disease No active bleeding Will continue to monitor 6.) Hypertension Currently intermittently hypotensive, therefore, antihypertensive medication held Norvasc 2.5mg PO daily-- hold Monitor vital signs 7.) Prophylactic measure GI: Pepcid 20mg IV daily DVT: SCDs, heparin 5,000 units SC Q8H Liquid diet Disposition: Patient and family have agreed for patient to go back to [place]. Pending approval/bed availability. Case discussed with Dr. Keena Kimbrough PGY-1 <Donna Brink - Last Filed: 03/03/18 16:15> Objective - Vital Signs/Intake and Output Vital Signs (last 24 hours): Temp Pulse Resp BP Pulse Ox 98.2 F 87 20 140/60 98 03/03/18 08:27 03/03/18 08:27 03/03/18 08:27 03/03/18 08:27 03/03/18 08:27 Intake and Output: 03/03/18 03/03/18 06:59 18:59 Intake Total 220 312 Output Total 500 1080 Balance -280 -252 - Medications Medications: Current Medications Fentanyl (Duragesic) 1 patch TD Q72H [facility] Last Admin: 03/03/18 08:50 Dose: 1 patch Morphine Sulfate (Morphine) 4 mg IVP Q4H [facility] Last Admin: 03/03/18 12:21 Dose: 4 mg Ondansetron HCl (Zofran Inj) 4 mg IVP Q6H PRN PRN Reason: Nausea/Vomiting Last Admin: 02/27/18 20:07 Dose: 4 mg - Labs Labs: 03/03/18 11:24 05/05/18 06:25 APTT 35 SECONDS (21-34) H 02/21/18 21:20 Attending/Attestation - Attestation I have personally seen and examined this patient.: Yes I have fully participated in the care of the patient.: Yes I have reviewed all pertinent clinical information, including history, physical exam and plan: Yes Notes (Text): Seen and examined. Patient has no complain,lying comfortable. D/W SW about discharge plan. Patient will be discharge to rehab once approved by insurance Discussed the resident I agree with the documentation of the resident's assessment and the plan of the resident
[2018-03-03 11:35] LABS: BASO % 0.2 % (0.0-2.0); EOS % 0.3 % (0.0-4.0); HEMOGLOBIN 10.4 g/dL (12.0-18.0); LYMPH # 0.5 K/uL (1.0-4.3); LYMPH % 3.8 % (20.0-40.0); MEAN CELL VOLUME 85.7 fL (80.0-94.0); MEAN CORPUSCULAR HEMOGLOBIN 28.3 pg (27.0-31.0); MEAN PLATELET VOLUME 6.9 fL (7.2-11.7); MONO # 0.3 K/uL (0.0-0.8); MONO % 2.5 % (0.0-10.0); NEUT # 12.6 K/uL (1.8-7.0); NEUT % 93.2 % (50.0-75.0); PLATELET COUNT 381 K/uL (130-400); RBC 3.67 Mil/uL (4.40-5.90); RED CELL DISTRIBUTION WIDTH 19.7 % (11.5-14.5); WHITE BLOOD COUNT 13.5 K/uL (4.8-10.8)
[2018-03-03 12:15] LABS: ANISOCYTOSIS SLIGHT; BANDS 1 % (0-2); HYPOCHROMIC SLIGHT; LYMPHOCYTE 3 % (20-40); MONOCYTE 2 % (0-10); NEUTROPHIL 94 % (50-75); PLATELET ESTIMATE NORMAL (NORMAL); POIKILOCYTOSIS SLIGHT; TOTAL CELLS COUNTED 100
[2018-03-04 02:35] VITALS: RESP 20
[2018-03-04] MEDS: Morphine 4 MG/ML VIAL IVP SCH ×6 (03:44→19:57)
--- NOTE | 2018-03-04 07:04 | CP.PCM.PN ---
<Rea Kimbrough - Last Filed: 03/04/18 10:38> Subjective - Date & Time of Evaluation Date of Evaluation: 03/04/18 Time of Evaluation: 07:00 - Subjective Subjective: Medicine Progress Note: Patient was seen and examined at bedside in the AM. Per nurse no events overnight. Patient states his abdominal pain has improved and is taking the pain medication. Patient states he is tolerating his food well. Patient denies nausea, vomiting or shortness of breath. Objective - Vital Signs/Intake and Output Vital Signs (last 24 hours): Temp Pulse Resp BP Pulse Ox 97.9 F 71 20 109/69 97 03/03/18 23:40 03/03/18 23:40 03/03/18 23:40 03/03/18 23:40 03/03/18 23:40 Intake and Output: 03/04/18 03/04/18 06:59 18:59 Output Total 750 Balance -750 - Medications Medications: Current Medications Fentanyl (Duragesic) 1 patch TD Q[facility]H [facility] Last Admin: 03/03/18 08:50 Dose: 1 patch Morphine Sulfate (Morphine) 4 mg IVP Q4H [facility] Last Admin: 03/04/18 03:45 Dose: 4 mg Ondansetron HCl (Zofran Inj) 4 mg IVP Q6H PRN PRN Reason: Nausea/Vomiting Last Admin: 02/27/18 20:07 Dose: 4 mg - Labs Labs: 03/03/18 11:24 02/28/18 06:25 APTT 35 SECONDS (21-34) H 02/21/18 21:20 - Constitutional Appears: No Acute Distress, Cachectic - Head Exam Head Exam: ATRAUMATIC, NORMAL INSPECTION - Eye Exam Eye Exam: EOMI, Normal appearance - ENT Exam ENT Exam: Mucous Membranes Moist - Respiratory Exam Respiratory Exam: Clear to Ausculation Bilateral, NORMAL BREATHING PATTERN - Cardiovascular Exam Cardiovascular Exam: REGULAR RHYTHM, +S1, +S2 - GI/Abdominal Exam GI & Abdominal Exam: Soft, Normal Bowel Sounds. absent: Tenderness Additional comments: Colostomy bag on the right side of abdomen. - Extremities Exam Extremities Exam: Normal Inspection - Neurological Exam Neurological Exam: Alert, Awake, Oriented x3 - Psychiatric Exam Psychiatric exam: Normal Affect, Normal Mood - Skin Skin Exam: Normal Color Assessment and Plan - Assessment and Plan (Free Text) Assessment: Disposition: Patient and family have agreed for patient to go back to [place]. Pending approval/bed availability. 1.) Small bowel obstruction 03/03/18: Continue Fentanyl 25 mcg TD and morphine Q4HR. NGT was removed by the surgical team 03/02/18. Colostomy bag with good output. 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 Anguiano---> Help appreciated * Management as per recommendation Imaging: CT Abdomen/Pelvis (02/21/18): There is an colostomy right anterolateral lower abdominal wall. Massively distended stomach and multiple distended fluid- filled loops of small bowel consistent with small bowel obstruction. There are pulmonary and hepatic metastases again seen. Bilateral inguinal hernias which of the upper not felt to represent loops of small bowel. There is small amount of free intraperitoneal air which could be related to the colostomy however perforated bowel not excluded. Repeat CT abdomen/pelvis (02/24/18): High-grade distal small-bowel obstruction reiterated if not worsened in the interval with gross distention of the stomach also noted including reflux into the esophagus. Mild free intrarenal gas persists and does not appear dramatically changed in the interval, still suggesting likely bowel perforation. Clinically correlate further. Right lower lobe pulmonary metastases reiterated. 2.) Colon cancer metastasized to multiple sites Hematology and oncology: * Dr. Mckeon; No plans for any chemo or radiation at this time 3.) Bandemia - resolved Band: 36---> 41----> 27--->34---> 2, down trending Lactate: 1.4--> 1.9--->1.1 Procalcitonin: 0.27 UA: Negative UC: Gram negative dot, Klebs. Pneumonia BC: No growth X 4 days (02/22/18) and No growth > 24 hours (02/25/18) Chest CT (02/24/18): Unremarkable CT pulmonary angiogram. No pulmonary embolus. Grossly stable multiple soft tissue nodules throughout both lungs consistent with metastases. No obvious new nodules. New bilateral lower lobe multifocal airspace disease, likely representing pneumonia versus aspiration. Re- demonstration of partially imaged markedly dilated stomach and bowel. Pneumoperitoneum. 4.) Sepsis - Resolved Band: 36---> 41----> 27--->34-->2, down trending Lactate: 1.4--> 1.9--->1.1 Procalcitonin: 0.27 UA: Negative UC: Gram negative dot, Klebs. Pneumonia BC: No growth X 4 days (02/22/18) and No growth > 24 hours (02/25/18) Chest X-ray: In situ NGT. There are several on metastatic lesions both lung bases less well seen on this study compared to high-resolution CT scan abdomen. Mild bibasilar atelectasis Small amount free intraperitoneal air again seen Repeat Chest X-ray: Satisfactory position of recently placed nasogastric tube. Otherwise no interval change. 5.) Anemia H/H is stable Possible secondary to chronic disease No active bleeding Will continue to monitor 6.) Hypertension Currently intermittently hypotensive, therefore, antihypertensive medication held Norvasc 2.5mg PO daily-- hold Monitor vital signs 7.) Prophylactic measure GI: Pepcid 20mg IV daily DVT: SCDs, heparin 5,000 units SC Q8H Liquid diet Case discussed with Dr. Keena Kimbrough PGY-1 <Donna Brink - Last Filed: 03/04/18 13:41> Objective - Vital Signs/Intake and Output Vital Signs (last 24 hours): Temp Pulse Resp BP Pulse Ox 97.9 F 69 20 110/64 99 03/04/18 08:38 03/04/18 08:38 03/04/18 08:38 03/04/18 08:38 03/04/18 08:38 Intake and Output: 03/04/18 03/04/18 06:59 18:59 Output Total 750 Balance -750 - Medications Medications: Current Medications Fentanyl (Duragesic) 1 patch TD Q72H [facility] Last Admin: 03/03/18 08:50 Dose: 1 patch Morphine Sulfate (Morphine) 4 mg IVP Q4H [facility] Last Admin: 03/04/18 12:12 Dose: 4 mg Ondansetron HCl (Zofran Inj) 4 mg IVP Q6H PRN PRN Reason: Nausea/Vomiting Last Admin: 02/27/18 20:07 Dose: 4 mg - Labs Labs: 03/03/18 11:24 02/28/18 06:25 APTT 35 SECONDS (21-34) H 02/21/18 21:20 Attending/Attestation - Attestation I have personally seen and examined this patient.: Yes I have fully participated in the care of the patient.: Yes I have reviewed all pertinent clinical information, including history, physical exam and plan: Yes Notes (Text): Seen and examined by me,lying comfortable on bed. pain meds are helping. No complain. Liquid stool in the colostomy bag. continue current pain meds I agree with the resident's documentation.of the assessment and the plan
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
[2018-03-04 16:57] VITALS: BP 112/62; PULSE 72
[2018-03-04 21:27] VITALS: TEMP 98.7; O2SAT 98
== END 2018-03-04 21:30 | DRG 871 ==
LOC: C.ER 11:39 → C.9E 17:00 → C.3T 17:37 → C.6T 02-24 21:06
PROVIDERS: ADMIT Internal Medicine; ATTEND Internal Medicine
DX: A41.9 Sepsis, unspecified organism (principal); J18.9 Pneumonia, unspecified organism; K56.609 Unspecified intestinal obstruction, unspecified as to partial versus complete obstruction; C78.7 Secondary malignant neoplasm of liver and intrahepatic bile duct; C20 Malignant neoplasm of rectum; C78.02 Secondary malignant neoplasm of left lung; C78.01 Secondary malignant neoplasm of right lung; J98.11 Atelectasis; K56.7 Ileus, unspecified; B96.1 Klebsiella pneumoniae [K. pneumoniae] as the cause of diseases classified elsewhere; D63.8 Anemia in other chronic diseases classified elsewhere; I10 Essential (primary) hypertension; K40.20 Bilateral inguinal hernia, without obstruction or gangrene, not specified as recurrent; G89.3 Neoplasm related pain (acute) (chronic); Z51.5 Encounter for palliative care; Z66 Do not resuscitate; K66.8 Other specified disorders of peritoneum; Z93.3 Colostomy status; Z85.46 Personal history of malignant neoplasm of prostate; Z92.21 Personal history of antineoplastic chemotherapy; Z92.3 Personal history of irradiation

== ENCOUNTER 2018-03-26 14:39 | Inpatient (IN) | payer BC, MEDICARE ==
[2018-03-26 14:40] VITALS: BMI 24.0
--- NOTE | 2018-03-26 16:15 | C.PDOC ---
History Of Present Illness <Ene Pope - Last Filed: 03/26/18 19:10> <Fran Amos - Last Filed: 03/26/18 20:26> Patient is a 67 y/o male who presents [facility] the ED from [facility] for a prolapse of stoma of colostomy. Patient denies any abdominal pain or vomiting. Patient also complains of rectal pain. No other physical complaints at this time. (Ene Pope) History Per: Patient History/Exam Limitations: no limitations Onset/Duration Of Symptoms: Hrs Current Symptoms Are (Timing): Still Present Associated Symptoms: Other (prolapse of stoma) <Ene Pope - Last Filed: 03/26/18 19:10> <Fran Amos - Last Filed: 03/26/18 20:26> Time Seen by Provider: 03/26/18 15:06 Chief Complaint (Nursing): Abdominal Pain Past Medical History Reviewed: Historical Data, Nursing Documentation, Vital Signs - Medical History PMH: No Chronic Diseases Denies: Chronic Kidney Disease Other Surgeries: BYPASS TRANSVERSE COLON TO CUTANEOUS, OPEN APPROACH (02/11/18) Family History: States: No Known Family Hx - Social History Hx Tobacco Use: No Hx Alcohol Use: No Hx Substance Use: No - Immunization History Hx Tetanus Toxoid Vaccination: No Hx Influenza Vaccination: Yes (2015) <Ene Pope - Last Filed: 03/26/18 19:10> <Fran Amos - Last Filed: 03/26/18 20:26> Vital Signs: Last Vital Signs Temp 98.5 F 03/26/18 19:30 Pulse 54 L 03/26/18 19:30 Resp 18 03/26/18 19:30 BP 152/75 H 03/26/18 19:30 Pulse Ox 100 03/26/18 19:30 - [facility] Procedures BYPASS TRANSVERSE COLON TO CUTANEOUS, OPEN APPROACH (02/11/18) Review Of Systems Gastrointestinal: Positive for: Rectal Pain, Other (prolapse of stoma). Negative for: Abdominal Pain <Ene Pope - Last Filed: 03/26/18 19:10> Physical Exam - Physical Exam Appears: Well, Non-toxic, No Acute Distress, Other (thin ) Skin: Normal Color, Warm, Dry Head: Atraumatic, Normacephalic Eye(s): bilateral: PERRL, EOMI Oral Mucosa: Moist Neck: Supple Chest: Symmetrical Cardiovascular: Rhythm Regular, No Murmur Respiratory: Normal Breath Sounds, No Rales, No Rhonchi, No Wheezing Gastrointestinal/Abdominal: Soft, No Tenderness, No Guarding, No Rebound, Other (colostomy in RLQ with markedly prolapsed colon through stoma) Rectal: Mass (right sided mass), Tenderness (tender mass, possibly hemmerhoid), Other (serous fluid dripping from rectum) Extremity: Other (+3 pitting edema to bilateral lower extremities) <Ene Pope - Last Filed: 03/26/18 19:10> ED Course And Treatment - Laboratory Results Result Diagrams: 03/26/18 16:31 03/26/18 16:31 O2 Sat by Pulse Oximetry: 99 Progress Note: Blood work and UA ordered. <Ene Pope - Last Filed: 03/26/18 19:10> - Laboratory Results Result Diagrams: 03/26/18 16:31 03/26/18 16:31 <Fran Amos - Last Filed: 03/26/18 20:26> Medical Decision Making <Ene Pope - Last Filed: 03/26/18 19:10> <Fran Amos - Last Filed: 03/26/18 20:26> Medical Decision Making: per records, Dr Anguiano did colostomy;l he is currently away and Dr Weir covering. She was paged and message left. 1909 surgical services coordinator at bedside. s/o to Dr Amos to f/u surgical consult ( Ene Pope) Disposition - Disposition Disposition Time: 19:10 <Ene Pope - Last Filed: 03/26/18 19:10> Discussed With : Lynette Medina Comment: accepted the pt on his service and took over the care at 8:25 PM Doctor Will See Patient In The: Hospital Counseled Patient/Family Regarding: Studies Performed, Diagnosis - POA Present On Arrival: None <Fran Amos - Last Filed: 03/26/18 20:26> - Disposition Disposition: HOSPITALIZED Condition: FAIR Forms: [facility] (Yi) - Clinical Impression Clinical Impression: Stomal prolapse, Anemia - Scribe Statement The provider has reviewed the documentation as recorded by the Scribe <Ene Pope - Last Filed: 03/26/18 19:10> <Fran Amos - Last Filed: 03/26/18 20:26> - Scribe Statement Gretel Higuera All medical record entries made by the Scribe were at my direction and personally dictated by me. I have reviewed the chart and agree that the record accurately reflects my personal performance of the history, physical exam, medical decision making, and the department course for this patient. I have also personally directed, reviewed, and agree with the discharge instructions and disposition. (Ene Pope) Physician Patient Turnover Patient Signed Over To: Fran Amos Handoff Comments: f/u surgical consult. dispo accordingly <Ene Pope - Last Filed: 03/26/18 19:10> Decision To Admit <Ene Pope - Last Filed: 03/26/18 19:10> - Pt Status Changed To: Hospital Disposition Of: Inpatient - Admit Certification Admit to Inpatient:: After my assessment, the patient will require hospitalization for at least two midnights. This is because of the severity of symptoms shown, intensity of services needed, and/or the medical risk in this patient being treated as an outpatient. - InPatient: Physician Admission Certification:: After my assessment, the patient will require hospitalization for at least two midnights. This is because of the severity of symptoms shown, intensity of services needed, and/or the medical risk in this patient being treated as an outpatient. - . Bed Request Type: Regular Admitting Physician: Lynette Medina <Fran Amos - Last Filed: 03/26/18 20:26> - . Patient Diagnosis: Stomal prolapse, Anemia
[2018-03-26 16:36] LABS: BASO % 0.4 % (0.0-2.0); EOS % 0.1 % (0.0-4.0); HEMOGLOBIN 8.5 g/dL (12.0-18.0); LYMPH # 0.5 K/uL (1.0-4.3); MEAN CELL VOLUME 86.2 fL (80.0-94.0); MEAN CORPUSCULAR HEMOGLOBIN 28.3 pg (27.0-31.0); MEAN CORPUSCULAR HGB CONC 32.8 g/dL (33.0-37.0); MEAN PLATELET VOLUME 6.5 fL (7.2-11.7); MONO # 0.5 K/uL (0.0-0.8); MONO % 5.6 % (0.0-10.0); NEUT # 7.8 K/uL (1.8-7.0); NEUT % 87.9 % (50.0-75.0); PLATELET COUNT 303 K/uL (130-400); RED CELL DISTRIBUTION WIDTH 17.9 % (11.5-14.5); WHITE BLOOD COUNT 8.9 K/uL (4.8-10.8)
[2018-03-26 17:25] LABS: ALB/GLOB RATIO 0.7 (1.0-2.1); ALBUMIN 2.1 g/dL (3.5-5.0); ALT/SGPT 16 U/L (21-72); AST/SGOT 15 U/L (17-59); BLOOD UREA NITROGEN 7 mg/dL (9-20); CALCIUM 7.7 mg/dl (8.6-10.4); GFR AFRICAN-AMERICAN > 60; GFR NON-AFRICAN AMERICAN > 60; LIPASE 39 U/L (23-300)
[2018-03-26 17:49] LABS: URINE BACTERIA RARE (<OCC); URINE BILIRUBIN NEGATIVE (NEGATIVE); URINE BLOOD NEGATIVE (NEGATIVE); URINE CLARITY Clear (Clear); URINE COLOR Yellow (YELLOW); URINE GLUCOSE (UA) NORMAL (Normal); URINE LEUKOCYTE ESTERASE NEG Leu/uL (Negative); URINE PROTEIN NEGATIVE (NEGATIVE); URINE UROBILINOGEN NORMAL mg/dL (0.2-1.0)
[2018-03-26 18:25] LABS: BANDS 3 % (0-2); HYPOCHROMIC SLIGHT; LYMPHOCYTE 9 % (20-40); MICROCYTOSIS SLIGHT; MONOCYTE 3 % (0-10); NEUTROPHIL 85 % (50-75); PLATELET ESTIMATE NORMAL (NORMAL); TOTAL CELLS COUNTED 100
--- NOTE | 2018-03-26 21:33 | CP.PCM.CON ---
History of Present Illness - History of Present Illness History of Present Illness: Surgery- Dr. Weir (Covering for Dr. Anguiano) Reason for consult: prolapse of colostomy 67M pmhx significant for metastatic colon CA s/p transverse loop colostomy that presents to the ED complaining for rectal pain and "growing colon". Patient having BM and passing air via loop colostomy. Stoma is pink, and patent both proximal and distal. Surgery was consulted for prolapse of colostomy Denies current: fevers, chills, chest pain, shortness of breath, nausea, vomiting, diarrhea PMH: metastatic Colon CA, HTN PSH: transverse loop colostomy 01/2018, back surgery ALL: NKDA socialhx: denies tobacco, etoh, recreational drug use FH: non-contributory Review of Systems - Review of Systems All systems: reviewed and no additional remarkable complaints except - Constitutional Constitutional: As Per HPI Past Patient History - Past Medical History & Family History Past Medical History?: Yes - Past Social History Smoking Status: Never Smoked - PULMONARY Hx Respiratory Disorders: No - NEUROLOGICAL Hx Neurological Disorder: No - HEENT Hx HEENT Problems: No - RENAL Hx Chronic Kidney Disease: No - ENDOCRINE/METABOLIC Hx Endocrine Disorders: No - HEMATOLOGICAL/ONCOLOGICAL Hx Blood Disorders: Yes Hx Cancer: Yes (COLON CA WITH METS) - INTEGUMENTARY Hx Dermatological Problems: No - MUSCULOSKELETAL/RHEUMATOLOGICAL Hx Musculoskeletal Disorders: Yes Hx Back Pain: Yes - GASTROINTESTINAL Hx Gastrointestinal Disorders: Yes (RECTAL CANCER WITH POLAPSE CONSTIPATION) - GENITOURINARY/GYNECOLOGICAL Hx Genitourinary Disorders: Yes Hx Prostate Cancer: Yes - PSYCHIATRIC Hx Substance Use: No - SURGICAL HISTORY Hx Surgeries: Yes Hx Orthopedic Surgery: Yes (BACK SURGERY) Other/Comment: s/p transverse loop colostomy 02/11/18 - ANESTHESIA Hx Anesthesia: Yes Hx Anesthesia Reactions: No Hx Malignant Hyperthermia: No Meds Allergies/Adverse Reactions: Allergies Allergy/AdvReac Type Severity Reaction Status Date / Time No Known Allergies Allergy Verified 03/26/18 15:00 Physical Exam - Constitutional Appears: Non-toxic, No Acute Distress, Chronically Ill - Head Exam Head Exam: ATRAUMATIC - Eye Exam Eye Exam: EOMI. absent: Scleral icterus - ENT Exam ENT Exam: Mucous Membranes Moist - Respiratory Exam Respiratory Exam: NORMAL BREATHING PATTERN. absent: Accessory Muscle Use, Respiratory Distress - Cardiovascular Exam Cardiovascular Exam: +S1, +S2. absent: Bradycardia, Tachycardia - GI/Abdominal Exam GI & Abdominal Exam: Soft. absent: Guarding, Rebound, Tenderness Additional comments: Transverse loop colostomy, pink, patent, all signs of good blood flow patent proximal and distal loops reduction of distal loop attempted at bedside - Rectal Exam Additional comments: anus raw. no palpable abscess some discharge from coccyx region skin excoriation around anus - Extremities Exam Extremities exam: Positive for: normal inspection. Negative for: calf tenderness - Neurological Exam Neurological exam: Alert, Oriented x3 - Psychiatric Exam Psychiatric exam: Normal Affect - Skin Skin Exam: Intact, Warm Results - Vital Signs Recent Vital Signs: Last Vital Signs Temp 98.5 F 03/26/18 19:30 Pulse 54 L 03/26/18 19:30 Resp 18 03/26/18 19:30 BP 152/75 H 03/26/18 19:30 Pulse Ox 100 03/26/18 19:30 - Labs Result Diagrams: 03/26/18 16:31 03/26/18 16:31 Labs: Laboratory Results - last 24 hr 03/26/18 03/26/18 03/26/18 16:31 16:31 17:32 WBC 8.9 RBC 3.00 L Hgb 8.5 L Hct 25.9 L MCV 86.2 MCH 28.3 MCHC 32.8 L RDW 17.9 H Plt Count 303 MPV 6.5 L Neut % (Auto) 87.9 H Lymph % (Auto) 6.0 L [place] % (Auto) 5.6 Eos % (Auto) 0.1 Baso % (Auto) 0.4 Neut # (Auto) 7.8 H Lymph # (Auto) 0.5 L [place] # (Auto) 0.5 Eos # (Auto) 0.0 Baso # (Auto) 0.0 Neutrophils % (Manual) 85 H Band Neutrophils % 3 H Lymphocytes % (Manual) 9 L Monocytes % (Manual) 3 Platelet Estimate Normal Hypochromasia (manual) Slight Microcytosis (manual) Slight Sodium 138 Potassium 3.8 Chloride 103 Carbon Dioxide 27 Anion Gap 12 BUN 7 L Creatinine 0.5 L Est GFR ( Amer) > 60 Est GFR (Non-Af Amer) > 60 Random Glucose 107 Calcium 7.7 L Total Bilirubin 0.5 AST 15 L D ALT 16 L D Alkaline Phosphatase 88 Total Protein 5.4 L Albumin 2.1 L Globulin 3.3 Albumin/Globulin Ratio 0.7 L Lipase 39 Urine Color Yellow Urine Clarity Clear Urine pH 6.0 Ur Specific [place] 1.010 Urine Protein Negative Urine Glucose (UA) Normal Urine Ketones Negative Urine Blood Negative Urine Nitrate Negative Urine Bilirubin Negative Urine Urobilinogen Normal Ur Leukocyte Esterase Neg Urine WBC (Auto) 1 Urine RBC (Auto) 1 Urine Bacteria Rare Assessment & Plan - Assessment and Plan (Free Text) Assessment: 67M w/ stage 4 colon CA w/ prolapse distal loop colostomy Plan: - failed attempt at reduction at bedside - will re-attempt reduction again w/ hypertonic solution - no signs of ischemia - recommend warm compresses on anus, and good hygiene - [facility]
[2018-03-26] MEDS ORDERED: Magnesium Hydroxide Susp 30 ml UD PO PRN (23:11)
[2018-03-26] MEDS ORDERED: Alum-Mag Hydrox-Simethicone Susp (30 mL) PO PRN (23:11)
--- NOTE | 2018-03-26 23:15 | CP.PCM.HP ---
Past Patient History - Past Medical History & Family History Past Medical History?: Yes - Past Social History Smoking Status: Never Smoked - PULMONARY Hx Respiratory Disorders: No - NEUROLOGICAL Hx Neurological Disorder: No - HEENT Hx HEENT Problems: No - RENAL Hx Chronic Kidney Disease: No - ENDOCRINE/METABOLIC Hx Endocrine Disorders: No - HEMATOLOGICAL/ONCOLOGICAL Hx Blood Disorders: Yes Hx Cancer: Yes (COLON CA WITH METS) - INTEGUMENTARY Hx Dermatological Problems: No - MUSCULOSKELETAL/RHEUMATOLOGICAL Hx Musculoskeletal Disorders: Yes Hx Back Pain: Yes - GASTROINTESTINAL Hx Gastrointestinal Disorders: Yes (RECTAL CANCER WITH POLAPSE CONSTIPATION) - GENITOURINARY/GYNECOLOGICAL Hx Genitourinary Disorders: Yes Hx Prostate Cancer: Yes - PSYCHIATRIC Hx Substance Use: No - SURGICAL HISTORY Hx Surgeries: Yes Hx Orthopedic Surgery: Yes (BACK SURGERY) Other/Comment: s/p transverse loop colostomy 02/11/18 - ANESTHESIA Hx Anesthesia: Yes Hx Anesthesia Reactions: No Hx Malignant Hyperthermia: No Meds Allergies/Adverse Reactions: Allergies Allergy/AdvReac Type Severity Reaction Status Date / Time No Known Allergies Allergy Verified 03/26/18 15:00 Results - Vital Signs Recent Vital Signs: Last Vital Signs Temp 98.1 F 03/26/18 22:40 Pulse 62 03/26/18 22:40 Resp 18 03/26/18 22:40 BP 136/74 03/26/18 22:40 Pulse Ox 98 03/26/18 22:40 - Labs Result Diagrams: 03/26/18 16:31 03/26/18 16:31 Labs: Laboratory Results - last 24 hr 03/26/18 03/26/18 03/26/18 16:31 16:31 17:32 WBC 8.9 RBC 3.00 L Hgb 8.5 L Hct 25.9 L MCV 86.2 MCH 28.3 MCHC 32.8 L RDW 17.9 H Plt Count 303 MPV 6.5 L Neut % (Auto) 87.9 H Lymph % (Auto) 6.0 L [place] % (Auto) 5.6 Eos % (Auto) 0.1 Baso % (Auto) 0.4 Neut # (Auto) 7.8 H Lymph # (Auto) 0.5 L [place] # (Auto) 0.5 Eos # (Auto) 0.0 Baso # (Auto) 0.0 Neutrophils % (Manual) 85 H Band Neutrophils % 3 H Lymphocytes % (Manual) 9 L Monocytes % (Manual) 3 Platelet Estimate Normal Hypochromasia (manual) Slight Microcytosis (manual) Slight Sodium 138 Potassium 3.8 Chloride 103 Carbon Dioxide 27 Anion Gap 12 BUN 7 L Creatinine 0.5 L Est GFR ( Amer) > 60 Est GFR (Non-Af Amer) > 60 Random Glucose 107 Calcium 7.7 L Total Bilirubin 0.5 AST 15 L D ALT 16 L D Alkaline Phosphatase 88 Total Protein 5.4 L Albumin 2.1 L Globulin 3.3 Albumin/Globulin Ratio 0.7 L Lipase 39 Urine Color Yellow Urine Clarity Clear Urine pH 6.0 Ur Specific [place] 1.010 Urine Protein Negative Urine Glucose (UA) Normal Urine Ketones Negative Urine Blood Negative Urine Nitrate Negative Urine Bilirubin Negative Urine Urobilinogen Normal Ur Leukocyte Esterase Neg Urine WBC (Auto) 1 Urine RBC (Auto) 1 Urine Bacteria Rare
[2018-03-26] MEDS: Cefepime 1 GM in Sodium Chloride 0.9% 50 ML IVPB SCH (23:45)
[2018-03-27] MEDS: Morphine 15 mg SR Tab PO SCH ×3 (05:45→21:51)
--- NOTE | 2018-03-27 09:26 | CP.PCM.PN ---
Subjective - Date & Time of Evaluation Date of Evaluation: 03/27/18 Time of Evaluation: 08:00 - Subjective Subjective: SURGERY PROGRESS NOTE FOR DR. BOLAND/DESTIN 67M seen and examined at bedside. Patient states pain is controlled, denies nausea/vomiting/fevers or chills. Stoma having output. Objective - Vital Signs/Intake and Output Vital Signs (last 24 hours): Temp Pulse Resp BP Pulse Ox 99.1 F 61 20 145/80 95 03/27/18 08:00 03/27/18 08:00 03/27/18 08:00 03/27/18 08:00 03/27/18 08:00 - Medications Medications: Current Medications Acetaminophen (Tylenol 325mg Tab) 650 mg PO Q4 PRN PRN Reason: Pain, Mild (1-3) Al Hydrox/Mg Hydrox/Simethicone (Maalox Plus 30 Ml) 30 ml PO Q4 PRN PRN Reason: Dyspepsia Fentanyl (Duragesic) 1 patch TD Q72H IZZY Cefepime HCl 1 gm/ Sodium (Chloride) 50 mls @ 100 mls/hr IVPB Q12H IZZY PRN Reason: Protocol Last Admin: 03/26/18 23:45 Dose: 100 mls/hr Magnesium Hydroxide (Milk Of Magnesia) 30 ml PO HS PRN PRN Reason: Constipation Morphine Sulfate (Morphine Extended Release Tab) 15 mg PO Q8 [facility] Last Admin: 03/27/18 05:45 Dose: 15 mg Ondansetron HCl (Zofran Odt) 4 mg PO Q6 PRN PRN Reason: Nausea/Vomiting - Labs Labs: 03/26/18 16:31 03/26/18 16:31 - Constitutional Appears: Non-toxic, No Acute Distress - Respiratory Exam Respiratory Exam: Clear to Ausculation Bilateral, NORMAL BREATHING PATTERN - Cardiovascular Exam Cardiovascular Exam: REGULAR RHYTHM, +S1, +S2 - GI/Abdominal Exam GI & Abdominal Exam: Soft. absent: Distended, Firm, Guarding, Rigid, Tenderness , Rebound Additional comments: stoma patent- loop of bowel through stoma slight (prolapse vs hernia) - Neurological Exam Neurological Exam: Alert, Awake - Skin Skin Exam: Dry, Intact, Normal Color, Warm Assessment and Plan - Assessment and Plan (Free Text) Assessment: 67M with history of transverse loop colostomy presents with prolapse vs parastomal hernia Plan: - attempt bedside reduction of bowel - patent stoma - continue diet as tolerated - pain control Discussed with Dr. Destin Doshi, PGY2
[2018-03-27] MEDS: Cefepime 1 GM in Sodium Chloride 0.9% 50 ML IVPB SCH ×2 (11:00→22:30)
--- NOTE | 2018-03-27 19:00 | CP.PCM.PN ---
Subjective - Date & Time of Evaluation Date of Evaluation: 03/27/18 Time of Evaluation: 08:20 - Subjective Subjective: clinically same Objective - Vital Signs/Intake and Output Vital Signs (last 24 hours): Temp Pulse Resp BP Pulse Ox 98.4 F 75 20 135/78 98 03/27/18 16:18 03/27/18 16:18 03/27/18 16:18 03/27/18 16:18 03/27/18 16:18 Intake and Output: 03/27/18 03/27/18 06:59 18:59 Intake Total 300 Balance 300 - Medications Medications: Current Medications Acetaminophen (Tylenol 325mg Tab) 650 mg PO Q4 PRN PRN Reason: Pain, Mild (1-3) Al Hydrox/Mg Hydrox/Simethicone (Maalox Plus 30 Ml) 30 ml PO Q4 PRN PRN Reason: Dyspepsia Fentanyl (Duragesic) 1 patch TD Q72H [facility] Last Admin: 03/27/18 10:08 Dose: 1 patch Cefepime HCl 1 gm/ Sodium (Chloride) 50 mls @ 100 mls/hr IVPB Q12H IZZY PRN Reason: Protocol Last Admin: 03/27/18 11:00 Dose: 100 mls/hr Magnesium Hydroxide (Milk Of Magnesia) 30 ml PO HS PRN PRN Reason: Constipation Morphine Sulfate (Morphine Extended Release Tab) 15 mg PO Q8 [facility] Last Admin: 03/27/18 13:33 Dose: 15 mg Ondansetron HCl (Zofran Odt) 4 mg PO Q6 PRN PRN Reason: Nausea/Vomiting - Labs Labs: 03/26/18 16:31 03/26/18 16:31 - Constitutional Appears: Well - Head Exam Head Exam: ATRAUMATIC, NORMAL INSPECTION, NORMOCEPHALIC - Eye Exam Eye Exam: EOMI, Normal appearance, PERRL Pupil Exam: NORMAL ACCOMODATION, PERRL - ENT Exam ENT Exam: Mucous Membranes Moist, Normal Exam - Neck Exam Neck Exam: Full ROM, Normal Inspection. absent: Lymphadenopathy - Respiratory Exam Respiratory Exam: Decreased Breath Sounds - Cardiovascular Exam Cardiovascular Exam: REGULAR RHYTHM, +S1, +S2 - GI/Abdominal Exam GI & Abdominal Exam: Soft, Diminished Bowel Sounds - Rectal Exam Rectal Exam: Deferred
[2018-03-28] MEDS: Morphine 15 mg SR Tab PO SCH ×3 (05:27→21:24)
--- NOTE | 2018-03-28 10:37 | CP.PCM.PN ---
Subjective - Date & Time of Evaluation Date of Evaluation: 03/28/18 Time of Evaluation: 08:00 - Subjective Subjective: Surgery: Dr. Weir Pt seen & examined. No acute overnight events. States he's feeling well this morning & denies abdominal pain. Pt is tolerating liquid diet & having soft liquid stool in ostomy. Denies N/V, F/C. No other complaints at this time. Objective - Vital Signs/Intake and Output Vital Signs (last 24 hours): Temp Pulse Resp BP Pulse Ox 97.8 F 60 20 123/73 97 03/28/18 08:09 03/28/18 08:09 03/28/18 08:09 03/28/18 08:09 03/28/18 08:09 Intake and Output: 03/28/18 03/28/18 06:59 18:59 Intake Total 750 Output Total 650 Balance 100 - Medications Medications: Current Medications Acetaminophen (Tylenol 325mg Tab) 650 mg PO Q4 PRN PRN Reason: Pain, Mild (1-3) Al Hydrox/Mg Hydrox/Simethicone (Maalox Plus 30 Ml) 30 ml PO Q4 PRN PRN Reason: Dyspepsia Fentanyl (Duragesic) 1 patch TD Q72H [facility] Last Admin: 03/27/18 10:08 Dose: 1 patch Cefepime HCl 1 gm/ Sodium (Chloride) 50 mls @ 100 mls/hr IVPB Q12H IZZY PRN Reason: Protocol Last Admin: 03/27/18 22:30 Dose: 100 mls/hr Magnesium Hydroxide (Milk Of Magnesia) 30 ml PO HS PRN PRN Reason: Constipation Morphine Sulfate (Morphine Extended Release Tab) 15 mg PO Q8 [facility] Last Admin: 03/28/18 05:27 Dose: 15 mg Ondansetron HCl (Zofran Odt) 4 mg PO Q6 PRN PRN Reason: Nausea/Vomiting - Labs Labs: 03/26/18 16:31 03/26/18 16:31 - Constitutional Appears: Well, No Acute Distress - Head Exam Head Exam: ATRAUMATIC, NORMOCEPHALIC - ENT Exam ENT Exam: Mucous Membranes Moist - Respiratory Exam Respiratory Exam: NORMAL BREATHING PATTERN - Cardiovascular Exam Cardiovascular Exam: RRR - GI/Abdominal Exam GI & Abdominal Exam: Soft. absent: Tenderness Additional comments: Prolapsed colon loop via ostomy; proximal stoma intact with liquid stool in bag - Neurological Exam Neurological Exam: Alert, Awake, Oriented x3 - Skin Skin Exam: Dry, Warm Assessment and Plan - Assessment and Plan (Free Text) Assessment: 67M with metastatic colon CA s/p loop colostomy; now with prolapsed distal loop Plan: - continue liquid diet; advance slowly as tolerated - will discuss possible operative intervention with Dr. Anguiano & family this coming week - plan d/w Dr. Weir who's covering for Dr. Silvio Lira, PGY-3
[2018-03-28] MEDS: Cefepime 1 GM in Sodium Chloride 0.9% 50 ML IVPB SCH ×2 (12:03→23:55)
[2018-03-28 13:56] LABS: BASO % 0.5 % (0.0-2.0); EOS # 0.1 K/uL (0.0-0.7); EOS % 0.6 % (0.0-4.0); HEMOGLOBIN 9.2 g/dL (12.0-18.0); LYMPH # 0.6 K/uL (1.0-4.3); LYMPH % 7.2 % (20.0-40.0); MEAN CELL VOLUME 85.8 fL (80.0-94.0); MEAN CORPUSCULAR HEMOGLOBIN 28.4 pg (27.0-31.0); MEAN CORPUSCULAR HGB CONC 33.1 g/dL (33.0-37.0); MEAN PLATELET VOLUME 6.9 fL (7.2-11.7); MONO # 0.5 K/uL (0.0-0.8); MONO % 6.2 % (0.0-10.0); NEUT # 7.5 K/uL (1.8-7.0); NEUT % 85.5 % (50.0-75.0); PLATELET COUNT 283 K/uL (130-400); RBC 3.24 Mil/uL (4.40-5.90); WHITE BLOOD COUNT 8.8 K/uL (4.8-10.8)
[2018-03-28 14:12] LABS: ALB/GLOB RATIO 0.6 (1.0-2.1); ALT/SGPT 19 U/L (21-72); AST/SGOT 13 U/L (17-59); BLOOD UREA NITROGEN 8 mg/dL (9-20); CALCIUM 7.7 mg/dl (8.6-10.4); GFR AFRICAN-AMERICAN > 60; GFR NON-AFRICAN AMERICAN > 60
[2018-03-28 14:53] LABS: EOSINOPHIL 1 % (0-4); LYMPHOCYTE 6 % (20-40); MONOCYTE 4 % (0-10); NEUTROPHIL 89 % (50-75); PLATELET ESTIMATE NORMAL (NORMAL); TOTAL CELLS COUNTED 100
[2018-03-28 14:54] LABS: ANISOCYTOSIS SLIGHT; HYPOCHROMIC SLIGHT; POLYCHROMIC SLIGHT
--- NOTE | 2018-03-28 15:02 | CP.PCM.PN ---
Subjective - Date & Time of Evaluation Date of Evaluation: 03/28/18 Time of Evaluation: 07:40 - Subjective Subjective: clinically same Objective - Vital Signs/Intake and Output Vital Signs (last 24 hours): Temp Pulse Resp BP Pulse Ox 97.8 F 60 20 128/82 97 03/28/18 08:09 03/28/18 08:09 03/28/18 08:09 03/28/18 14:21 03/28/18 08:09 Intake and Output: 03/28/18 03/28/18 06:59 18:59 Intake Total 750 400 Output Total 650 Balance 100 400 - Medications Medications: Current Medications Acetaminophen (Tylenol 325mg Tab) 650 mg PO Q4 PRN PRN Reason: Pain, Mild (1-3) Al Hydrox/Mg Hydrox/Simethicone (Maalox Plus 30 Ml) 30 ml PO Q4 PRN PRN Reason: Dyspepsia Fentanyl (Duragesic) 1 patch TD Q72H [facility] Last Admin: 03/27/18 10:08 Dose: 1 patch Cefepime HCl 1 gm/ Sodium (Chloride) 50 mls @ 100 mls/hr IVPB Q12H IZZY PRN Reason: Protocol Last Admin: 03/28/18 12:03 Dose: 100 mls/hr Magnesium Hydroxide (Milk Of Magnesia) 30 ml PO HS PRN PRN Reason: Constipation Morphine Sulfate (Morphine Extended Release Tab) 15 mg PO Q8 [facility] Last Admin: 03/28/18 14:21 Dose: 15 mg Ondansetron HCl (Zofran Odt) 4 mg PO Q6 PRN PRN Reason: Nausea/Vomiting - Labs Labs: 03/28/18 13:52 03/28/18 13:52 - Constitutional Appears: Well - Head Exam Head Exam: ATRAUMATIC, NORMAL INSPECTION, NORMOCEPHALIC - Eye Exam Eye Exam: EOMI, Normal appearance, PERRL Pupil Exam: NORMAL ACCOMODATION, PERRL - ENT Exam ENT Exam: Mucous Membranes Moist, Normal Exam - Neck Exam Neck Exam: Full ROM, Normal Inspection. absent: Lymphadenopathy - Respiratory Exam Respiratory Exam: Decreased Breath Sounds - Cardiovascular Exam Cardiovascular Exam: REGULAR RHYTHM, +S1, +S2 - GI/Abdominal Exam GI & Abdominal Exam: Soft, Diminished Bowel Sounds - Rectal Exam Rectal Exam: Deferred
[2018-03-29] MEDS: Morphine 15 mg SR Tab PO SCH ×3 (05:49→21:40)
[2018-03-29 08:06] VITALS: RESP 20
[2018-03-29] MEDS: Cefepime 1 GM in Sodium Chloride 0.9% 50 ML IVPB SCH ×2 (10:43→22:23)
--- NOTE | 2018-03-29 11:27 | CP.PCM.PN ---
Subjective - Date & Time of Evaluation Date of Evaluation: 03/29/18 Time of Evaluation: 11:24 - Subjective Subjective: Surgery Pt seen and examined. No acute events. Tolerating diet. Stoma has fecal output. Pain controlled. Objective - Vital Signs/Intake and Output Vital Signs (last 24 hours): Temp Pulse Resp BP Pulse Ox 98.5 F 71 20 108/67 98 03/29/18 08:02 03/29/18 08:02 03/29/18 08:02 03/29/18 08:02 03/29/18 08:02 Intake and Output: 03/29/18 03/29/18 06:59 18:59 Intake Total 900 Output Total 400 Balance 500 - Medications Medications: Current Medications Acetaminophen (Tylenol 325mg Tab) 650 mg PO Q4 PRN PRN Reason: Pain, Mild (1-3) Last Admin: 03/29/18 10:49 Dose: 650 mg Al Hydrox/Mg Hydrox/Simethicone (Maalox Plus 30 Ml) 30 ml PO Q4 PRN PRN Reason: Dyspepsia Fentanyl (Duragesic) 1 patch TD Q72H [facility] Last Admin: 03/27/18 10:08 Dose: 1 patch Cefepime HCl 1 gm/ Sodium (Chloride) 50 mls @ 100 mls/hr IVPB Q12H IZZY PRN Reason: Protocol Last Admin: 03/29/18 10:43 Dose: 100 mls/hr Magnesium Hydroxide (Milk Of Magnesia) 30 ml PO HS PRN PRN Reason: Constipation Morphine Sulfate (Morphine Extended Release Tab) 15 mg PO Q8 [facility] Last Admin: 03/29/18 05:49 Dose: 15 mg Ondansetron HCl (Zofran Odt) 4 mg PO Q6 PRN PRN Reason: Nausea/Vomiting - Labs Labs: 03/28/18 13:52 03/28/18 13:52 - Constitutional Appears: No Acute Distress - Head Exam Head Exam: ATRAUMATIC, NORMAL INSPECTION, NORMOCEPHALIC - Eye Exam Eye Exam: EOMI, Normal appearance, PERRL Pupil Exam: NORMAL ACCOMODATION, PERRL - ENT Exam ENT Exam: Mucous Membranes Moist, Normal Exam - Neck Exam Neck Exam: Full ROM, Normal Inspection. absent: Lymphadenopathy - Respiratory Exam Respiratory Exam: Clear to Ausculation Bilateral, NORMAL BREATHING PATTERN - Cardiovascular Exam Cardiovascular Exam: REGULAR RHYTHM, +S1, +S2. absent: Murmur - GI/Abdominal Exam GI & Abdominal Exam: Soft, Normal Bowel Sounds. absent: Distended, Firm, Guarding, Tenderness, Mass, Rebound Additional comments: Stoma has fecal output. Prolapsed 20cm. No signs of infection. pink, patent. - Extremities Exam Extremities Exam: Full ROM, Normal Capillary Refill, Normal Inspection. absent : Joint Swelling, Pedal Edema - Back Exam Back Exam: NORMAL INSPECTION - Neurological Exam Neurological Exam: Alert, Awake, CN II-XII Intact, Normal Gait, Oriented x3 - Psychiatric Exam Psychiatric exam: Normal Affect, Normal Mood - Skin Skin Exam: Dry, Intact, Normal Color, Warm Assessment and Plan - Assessment and Plan (Free Text) Assessment: 67M with metastatic colon CA s/p loop colostomy; now with prolapsed distal loop Plan: - Regular diet - will discuss possible operative intervention with Dr. Anguiano & family this coming week - Will DW Dr. Weir who's covering for Dr. Anguiano
[2018-03-29] MEDS ORDERED: Peppermint Spirits 30 ml Liq ONE (15:00)
--- NOTE | 2018-03-29 15:51 | CP.PCM.PN ---
Subjective - Date & Time of Evaluation Date of Evaluation: 03/29/18 Time of Evaluation: 07:40 - Subjective Subjective: clinically same Objective - Vital Signs/Intake and Output Vital Signs (last 24 hours): Temp Pulse Resp BP Pulse Ox 98.5 F 71 20 108/67 98 03/29/18 08:02 03/29/18 08:02 03/29/18 08:02 03/29/18 08:02 03/29/18 08:02 Intake and Output: 03/29/18 03/29/18 06:59 18:59 Intake Total 900 100 Output Total 400 Balance 500 100 - Medications Medications: Current Medications Acetaminophen (Tylenol 325mg Tab) 650 mg PO Q4 PRN PRN Reason: Pain, Mild (1-3) Last Admin: 03/29/18 10:49 Dose: 650 mg Al Hydrox/Mg Hydrox/Simethicone (Maalox Plus 30 Ml) 30 ml PO Q4 PRN PRN Reason: Dyspepsia Fentanyl (Duragesic) 1 patch TD Q72H [facility] Last Admin: 03/27/18 10:08 Dose: 1 patch Cefepime HCl 1 gm/ Sodium (Chloride) 50 mls @ 100 mls/hr IVPB Q12H IZZY PRN Reason: Protocol Last Admin: 03/29/18 10:43 Dose: 100 mls/hr Magnesium Hydroxide (Milk Of Magnesia) 30 ml PO HS PRN PRN Reason: Constipation Morphine Sulfate (Morphine Extended Release Tab) 15 mg PO Q8 [facility] Last Admin: 03/29/18 13:41 Dose: 15 mg Ondansetron HCl (Zofran Odt) 4 mg PO Q6 PRN PRN Reason: Nausea/Vomiting - Labs Labs: 03/28/18 13:52 03/28/18 13:52 - Constitutional Appears: Well - Head Exam Head Exam: ATRAUMATIC, NORMAL INSPECTION, NORMOCEPHALIC - Eye Exam Eye Exam: EOMI, Normal appearance, PERRL Pupil Exam: NORMAL ACCOMODATION, PERRL - ENT Exam ENT Exam: Mucous Membranes Moist, Normal Exam - Neck Exam Neck Exam: Full ROM, Normal Inspection. absent: Lymphadenopathy - Respiratory Exam Respiratory Exam: Decreased Breath Sounds - Cardiovascular Exam Cardiovascular Exam: REGULAR RHYTHM, +S1, +S2 - GI/Abdominal Exam GI & Abdominal Exam: Soft, Diminished Bowel Sounds - Rectal Exam Rectal Exam: Deferred
[2018-03-30] MEDS: Morphine 15 mg SR Tab PO SCH ×3 (06:03→21:31)
[2018-03-30 07:21] LABS: BASO % 0.3 % (0.0-2.0); EOS # 0.1 K/uL (0.0-0.7); EOS % 0.8 % (0.0-4.0); HEMOGLOBIN 9.3 g/dL (12.0-18.0); LYMPH # 0.5 K/uL (1.0-4.3); LYMPH % 5.7 % (20.0-40.0); MEAN CELL VOLUME 86.2 fL (80.0-94.0); MEAN CORPUSCULAR HEMOGLOBIN 28.8 pg (27.0-31.0); MEAN CORPUSCULAR HGB CONC 33.4 g/dL (33.0-37.0); MEAN PLATELET VOLUME 6.9 fL (7.2-11.7); MONO # 0.5 K/uL (0.0-0.8); MONO % 6.2 % (0.0-10.0); NEUT # 7.5 K/uL (1.8-7.0); PLATELET COUNT 274 K/uL (130-400); RBC 3.22 Mil/uL (4.40-5.90); RED CELL DISTRIBUTION WIDTH 17.9 % (11.5-14.5); WHITE BLOOD COUNT 8.6 K/uL (4.8-10.8)
[2018-03-30 07:43] LABS: ALB/GLOB RATIO 0.6 (1.0-2.1); ALT/SGPT 8 U/L (21-72); AST/SGOT 13 U/L (17-59); BLOOD UREA NITROGEN 7 mg/dL (9-20); CALCIUM 7.7 mg/dl (8.6-10.4); GFR AFRICAN-AMERICAN > 60; GFR NON-AFRICAN AMERICAN > 60
[2018-03-30 08:31] LABS: ANISOCYTOSIS SLIGHT; LYMPHOCYTE 3 % (20-40); MONOCYTE 1 % (0-10); NEUTROPHIL 96 % (50-75); PLATELET ESTIMATE NORMAL (NORMAL); TOTAL CELLS COUNTED 100
[2018-03-30 08:32] LABS: HYPOCHROMIC SLIGHT
[2018-03-30 08:33] LABS: POLYCHROMIC SLIGHT
[2018-03-30 08:34] LABS: OVALOCYTES SLIGHT
--- NOTE | 2018-03-30 11:27 | CP.PCM.PN ---
Subjective - Date & Time of Evaluation Date of Evaluation: 03/30/18 Time of Evaluation: 11:26 - Subjective Subjective: General Surgery Progress note for Dr. Anguiano This 67M was seen and examined this AM at bedside no acute events overnight. He denies any pain from his stoma however describes vague global abdominal pain. Patient is tolerating liquid diet, denies any SOB or chest pain. Objective - Vital Signs/Intake and Output Vital Signs (last 24 hours): Temp Pulse Resp BP Pulse Ox 98.7 F 96 H 20 116/77 70 L 03/30/18 08:00 03/30/18 08:00 03/30/18 08:00 03/30/18 08:00 03/30/18 08:00 Intake and Output: 03/30/18 03/30/18 06:59 18:59 Intake Total 350 250 Output Total 400 450 Balance -50 -200 - Medications Medications: Current Medications Acetaminophen (Tylenol 325mg Tab) 650 mg PO Q4 PRN PRN Reason: Pain, Mild (1-3) Last Admin: 03/29/18 10:49 Dose: 650 mg Al Hydrox/Mg Hydrox/Simethicone (Maalox Plus 30 Ml) 30 ml PO Q4 PRN PRN Reason: Dyspepsia Fentanyl (Duragesic) 1 patch TD Q72H [facility] Last Admin: 03/30/18 09:03 Dose: 1 patch Magnesium Hydroxide (Milk Of Magnesia) 30 ml PO HS PRN PRN Reason: Constipation Morphine Sulfate (Morphine Extended Release Tab) 15 mg PO Q8 [facility] Last Admin: 03/30/18 06:03 Dose: 15 mg Ondansetron HCl (Zofran Odt) 4 mg PO Q6 PRN PRN Reason: Nausea/Vomiting - Labs Labs: 03/30/18 07:12 03/30/18 07:12 - Constitutional Appears: Non-toxic, No Acute Distress, Cachectic - Head Exam Head Exam: ATRAUMATIC, NORMOCEPHALIC - Eye Exam Eye Exam: EOMI - ENT Exam ENT Exam: Mucous Membranes Moist - Respiratory Exam Respiratory Exam: NORMAL BREATHING PATTERN - Cardiovascular Exam Cardiovascular Exam: +S1, +S2 - GI/Abdominal Exam GI & Abdominal Exam: Soft. absent: Distended, Firm, Guarding Additional comments: mildly tender, patent prolapsed stoma, non tender non strangulated. Assessment and Plan - Assessment and Plan (Free Text) Assessment: 67M with history of transverse loop colostomy presents with prolapse vs parastomal hernia Plan: - multiple attempts were made to bedside reduction of bowel - patent stoma - continue diet as tolerated - pain control - No Surgical managment at this time, if patient becomes symptomatic please reconsult or call surgical first assistant D/W Dr. Silvio Newsome PGY2
[2018-03-30] MEDS ORDERED: Potassium Chloride 20 mEq/15 ml LIQ UD PO ONE (14:00)
--- NOTE | 2018-03-30 15:03 | CARD ---
APPROVED REPORT EKG Measurement Heart [id number] <Conclusion> Sinus bradycardia with sinus arrhythmia Low voltage QRS Borderline ECG
--- NOTE | 2018-03-30 16:19 | CP.PCM.PN ---
Subjective - Date & Time of Evaluation Date of Evaluation: 03/30/18 Time of Evaluation: 07:40 - Subjective Subjective: clinically same Objective - Vital Signs/Intake and Output Vital Signs (last 24 hours): Temp Pulse Resp BP Pulse Ox 98.6 F 61 20 130/73 98 03/30/18 15:52 03/30/18 15:52 03/30/18 15:52 03/30/18 15:52 03/30/18 15:52 Intake and Output: 03/30/18 03/30/18 06:59 18:59 Intake Total 350 250 Output Total 400 450 Balance -50 -200 - Medications Medications: Current Medications Acetaminophen (Tylenol 325mg Tab) 650 mg PO Q4 PRN PRN Reason: Pain, Mild (1-3) Last Admin: 03/29/18 10:49 Dose: 650 mg Al Hydrox/Mg Hydrox/Simethicone (Maalox Plus 30 Ml) 30 ml PO Q4 PRN PRN Reason: Dyspepsia Fentanyl (Duragesic) 1 patch TD Q72H [facility] Last Admin: 03/30/18 09:03 Dose: 1 patch Magnesium Hydroxide (Milk Of Magnesia) 30 ml PO HS PRN PRN Reason: Constipation Morphine Sulfate (Morphine Extended Release Tab) 15 mg PO Q8 [facility] Last Admin: 03/30/18 13:08 Dose: 15 mg Ondansetron HCl (Zofran Odt) 4 mg PO Q6 PRN PRN Reason: Nausea/Vomiting - Labs Labs: 03/30/18 07:12 03/30/18 07:12 - Constitutional Appears: Well - Head Exam Head Exam: ATRAUMATIC, NORMAL INSPECTION, NORMOCEPHALIC - Eye Exam Eye Exam: EOMI, Normal appearance, PERRL Pupil Exam: NORMAL ACCOMODATION, PERRL - ENT Exam ENT Exam: Mucous Membranes Moist, Normal Exam - Neck Exam Neck Exam: Full ROM, Normal Inspection. absent: Lymphadenopathy - Respiratory Exam Respiratory Exam: Decreased Breath Sounds - Cardiovascular Exam Cardiovascular Exam: REGULAR RHYTHM, +S1, +S2 - GI/Abdominal Exam GI & Abdominal Exam: Soft, Diminished Bowel Sounds - Rectal Exam Rectal Exam: Deferred Assessment and Plan (1) Anemia Status: Acute (2) Stomal prolapse Status: Acute (3) Acute urinary retention Status: Acute (4) Bandemia Status: Acute (5) Colon cancer metastasized to multiple sites Status: Acute (6) Colostomy care Status: Acute (7) History of colon cancer Status: Acute (8) Hypertension Status: Acute (9) Postoperative urinary retention Status: Acute (10) Prophylactic measure Status: Acute (11) Rectal or anal pain Status: Acute (12) Sepsis Status: Acute (13) Small bowel obstruction Status: Acute (14) Carcinoma of rectum Status: Chronic (15) Diarrhea Status: Chronic - Assessment and Plan (Free Text) Plan: Potassium supplementation Follow-up with Dr. Alexandra Status post seen by surgery Status post failed multiple attempts at reduction of the bowel will No surgical management at this time Monitor the prolapse of the stoma As ordered Possible discharge back to the rehab tomorrow
[2018-03-31] MEDS: Morphine 15 mg SR Tab PO SCH ×3 (05:45→21:46)
[2018-03-31] MEDS ORDERED: Potassium Chloride 10 mEq ER Tab PO ONE (14:00)
--- NOTE | 2018-03-31 16:51 | CP.PCM.PN ---
Subjective - Date & Time of Evaluation Date of Evaluation: 03/31/18 Time of Evaluation: 16:48 - Subjective Subjective: PATIENT ADMITTED FOR PROLAPSED STOMA AAOX3 / DENIES CHEST PAIN/ SOB NO SIGN OF DISTRESS NOTED Objective - Vital Signs/Intake and Output Vital Signs (last 24 hours): Temp Pulse Resp BP Pulse Ox 98.3 F 66 20 126/70 97 03/31/18 16:21 03/31/18 16:21 03/31/18 16:21 03/31/18 16:21 03/31/18 16:21 Intake and Output: 03/31/18 03/31/18 06:59 18:59 Intake Total 240 300 Output Total 500 500 Balance -260 -200 - Medications Medications: Current Medications Acetaminophen (Tylenol 325mg Tab) 650 mg PO Q4 PRN PRN Reason: Pain, Mild (1-3) Last Admin: 03/29/18 10:49 Dose: 650 mg Al Hydrox/Mg Hydrox/Simethicone (Maalox Plus 30 Ml) 30 ml PO Q4 PRN PRN Reason: Dyspepsia Fentanyl (Duragesic) 1 patch TD Q72H [facility] Last Admin: 03/30/18 09:03 Dose: 1 patch Magnesium Hydroxide (Milk Of Magnesia) 30 ml PO HS PRN PRN Reason: Constipation Morphine Sulfate (Morphine Extended Release Tab) 15 mg PO Q8 [facility] Last Admin: 03/31/18 13:38 Dose: 15 mg Ondansetron HCl (Zofran Odt) 4 mg PO Q6 PRN PRN Reason: Nausea/Vomiting - Labs Labs: 03/30/18 07:12 03/30/18 07:12 Assessment and Plan - Assessment and Plan (Free Text) Assessment: PATIENT SEEN AND EXAMINED AT THE BEDSIDE LUNG SOUND CLEAR RAUL ABD SOUND POSITIVE ALL QUADRANT AFEBRILE / WBC WNL / VITAL SIGN STABLE PROLAPSE STOMA PATENT AND PAIN FREE DISCUSS WITH DR BOLAND NO SX INTERVENTION AT THIS TIME AND CLEAR PATIENT FOR DC DISCUSS WITH DR Vish JOY WHO AGREE AND CLEAR FOR DC PLACE UNDER THE SERVICE OF DR Vish JOY AT [facility] ---CALL FOR ADMITTING ORDER CONTINUE ALL YOUR HOME MEDICATION DIRECTED STOMA CARE PER FACILITY PROTOCOL ACTIVITY TOLERATED AND FACILITY PROTOCOL CALL DR Vish JOY FOR FURTHER ORDER PLEASE MAKE ARRANGEMENT TO F/U WITH DR BOLAND AT HIS OFFICE IN 2WEEK ---CALL FOR APPOINTMENT DISCUSS WITH PATIENT WHO AGREE AND VERBALIZED UNDERSTANDING
--- NOTE | 2018-03-31 23:49 | CP.PCM.PN ---
Subjective - Date & Time of Evaluation Date of Evaluation: 03/31/18 Objective - Vital Signs/Intake and Output Vital Signs (last 24 hours): Temp Pulse Resp BP Pulse Ox 98.2 F 64 20 128/77 98 03/31/18 23:17 03/31/18 23:17 03/31/18 23:17 03/31/18 23:17 03/31/18 23:17 Intake and Output: 03/31/18 04/01/18 18:59 06:59 Intake Total 300 300 Output Total 500 550 Balance -200 -250 - Medications Medications: Current Medications Acetaminophen (Tylenol 325mg Tab) 650 mg PO Q4 PRN PRN Reason: Pain, Mild (1-3) Last Admin: 03/29/18 10:49 Dose: 650 mg Al Hydrox/Mg Hydrox/Simethicone (Maalox Plus 30 Ml) 30 ml PO Q4 PRN PRN Reason: Dyspepsia Fentanyl (Duragesic) 1 patch TD Q72H [facility] Last Admin: 03/30/18 09:03 Dose: 1 patch Magnesium Hydroxide (Milk Of Magnesia) 30 ml PO HS PRN PRN Reason: Constipation Morphine Sulfate (Morphine Extended Release Tab) 15 mg PO Q8 [facility] Last Admin: 03/31/18 21:46 Dose: 15 mg Ondansetron HCl (Zofran Odt) 4 mg PO Q6 PRN PRN Reason: Nausea/Vomiting - Labs Labs: 03/30/18 07:12 03/30/18 07:12
[2018-04-01] MEDS: Morphine 15 mg SR Tab PO SCH ×3 (05:13→21:56)
--- NOTE | 2018-04-01 20:06 | CP.PCM.PN ---
Subjective - Date & Time of Evaluation Date of Evaluation: 04/01/18 Time of Evaluation: 07:40 - Subjective Subjective: clinically same Objective - Vital Signs/Intake and Output Vital Signs (last 24 hours): Temp Pulse Resp BP Pulse Ox 98.4 F 61 20 135/74 96 04/01/18 16:00 04/01/18 16:00 04/01/18 16:00 04/01/18 16:00 04/01/18 16:00 Intake and Output: 04/01/18 04/02/18 18:59 06:59 Intake Total 300 Output Total 560 Balance -260 - Medications Medications: Current Medications Acetaminophen (Tylenol 325mg Tab) 650 mg PO Q4 PRN PRN Reason: Pain, Mild (1-3) Last Admin: 03/29/18 10:49 Dose: 650 mg Al Hydrox/Mg Hydrox/Simethicone (Maalox Plus 30 Ml) 30 ml PO Q4 PRN PRN Reason: Dyspepsia Fentanyl (Duragesic) 1 patch TD Q72H [facility] Last Admin: 03/30/18 09:03 Dose: 1 patch Magnesium Hydroxide (Milk Of Magnesia) 30 ml PO HS PRN PRN Reason: Constipation Morphine Sulfate (Morphine Extended Release Tab) 15 mg PO Q8 [facility] Last Admin: 04/01/18 14:10 Dose: 15 mg Ondansetron HCl (Zofran Odt) 4 mg PO Q6 PRN PRN Reason: Nausea/Vomiting - Labs Labs: 03/30/18 07:12 03/30/18 07:12 - Constitutional Appears: Well - Head Exam Head Exam: ATRAUMATIC, NORMAL INSPECTION, NORMOCEPHALIC - Eye Exam Eye Exam: EOMI, Normal appearance, PERRL Pupil Exam: NORMAL ACCOMODATION, PERRL - ENT Exam ENT Exam: Mucous Membranes Moist, Normal Exam - Neck Exam Neck Exam: Full ROM, Normal Inspection. absent: Lymphadenopathy - Respiratory Exam Respiratory Exam: Decreased Breath Sounds - Cardiovascular Exam Cardiovascular Exam: REGULAR RHYTHM, +S1, +S2 - GI/Abdominal Exam GI & Abdominal Exam: Soft, Diminished Bowel Sounds - Rectal Exam Rectal Exam: Deferred
[2018-04-02] MEDS: Morphine 15 mg SR Tab PO SCH ×3 (06:14→22:05)
--- NOTE | 2018-04-02 19:15 | CP.PCM.PN ---
Subjective - Date & Time of Evaluation Date of Evaluation: 04/02/18 Time of Evaluation: 07:20 - Subjective Subjective: clinically same Objective - Vital Signs/Intake and Output Vital Signs (last 24 hours): Temp Pulse Resp BP Pulse Ox 98.2 F 62 20 131/68 98 04/02/18 15:56 04/02/18 15:56 04/02/18 15:56 04/02/18 15:56 04/02/18 15:56 Intake and Output: 04/02/18 04/03/18 18:59 06:59 Intake Total 710 Output Total 960 Balance -250 - Medications Medications: Current Medications Acetaminophen (Tylenol 325mg Tab) 650 mg PO Q4 PRN PRN Reason: Pain, Mild (1-3) Last Admin: 03/29/18 10:49 Dose: 650 mg Al Hydrox/Mg Hydrox/Simethicone (Maalox Plus 30 Ml) 30 ml PO Q4 PRN PRN Reason: Dyspepsia Fentanyl (Duragesic) 1 patch TD Q72H [facility] Last Admin: 04/02/18 09:42 Dose: 1 patch Magnesium Hydroxide (Milk Of Magnesia) 30 ml PO HS PRN PRN Reason: Constipation Morphine Sulfate (Morphine Extended Release Tab) 15 mg PO Q8 [facility] Last Admin: 04/02/18 13:44 Dose: 15 mg Ondansetron HCl (Zofran Odt) 4 mg PO Q6 PRN PRN Reason: Nausea/Vomiting - Labs Labs: 03/30/18 07:12 03/30/18 07:12 - Constitutional Appears: Well - Head Exam Head Exam: ATRAUMATIC, NORMAL INSPECTION, NORMOCEPHALIC - Eye Exam Eye Exam: EOMI, Normal appearance, PERRL Pupil Exam: NORMAL ACCOMODATION, PERRL - ENT Exam ENT Exam: Mucous Membranes Moist, Normal Exam - Neck Exam Neck Exam: Full ROM, Normal Inspection. absent: Lymphadenopathy - Respiratory Exam Respiratory Exam: Decreased Breath Sounds - Cardiovascular Exam Cardiovascular Exam: REGULAR RHYTHM, +S1, +S2 - GI/Abdominal Exam GI & Abdominal Exam: Soft, Diminished Bowel Sounds - Rectal Exam Rectal Exam: Deferred
[2018-04-03] MEDS: Morphine 15 mg SR Tab PO SCH ×2 (05:19→21:38)
[2018-04-03 11:34] LABS: BASO % 0.5 % (0.0-2.0); EOS # 0.1 K/uL (0.0-0.7); EOS % 0.6 % (0.0-4.0); HEMOGLOBIN 10.2 g/dL (12.0-18.0); LYMPH # 0.7 K/uL (1.0-4.3); LYMPH % 8.6 % (20.0-40.0); MEAN CELL VOLUME 85.9 fL (80.0-94.0); MEAN CORPUSCULAR HEMOGLOBIN 27.7 pg (27.0-31.0); MEAN CORPUSCULAR HGB CONC 32.3 g/dL (33.0-37.0); MEAN PLATELET VOLUME 6.6 fL (7.2-11.7); MONO # 0.5 K/uL (0.0-0.8); MONO % 6.6 % (0.0-10.0); NEUT # 6.5 K/uL (1.8-7.0); NEUT % 83.7 % (50.0-75.0); PLATELET COUNT 320 K/uL (130-400); RBC 3.67 Mil/uL (4.40-5.90); RED CELL DISTRIBUTION WIDTH 17.5 % (11.5-14.5); WHITE BLOOD COUNT 7.8 K/uL (4.8-10.8)
[2018-04-03 11:56] LABS: BLOOD UREA NITROGEN 4 mg/dL (9-20); CALCIUM 8.1 mg/dl (8.6-10.4); GFR AFRICAN-AMERICAN > 60; GFR NON-AFRICAN AMERICAN > 60
[2018-04-03 12:03] LABS: ANISOCYTOSIS SLIGHT; BANDS 1 % (0-2); EOSINOPHIL 1 % (0-4); LYMPHOCYTE 4 % (20-40); MONOCYTE 6 % (0-10); NEUTROPHIL 88 % (50-75); PLATELET ESTIMATE NORMAL (NORMAL); TOTAL CELLS COUNTED 100
[2018-04-03 12:04] LABS: HYPOCHROMIC SLIGHT; OVALOCYTES SLIGHT
--- NOTE | 2018-04-03 19:29 | CP.PCM.PN ---
Subjective - Date & Time of Evaluation Date of Evaluation: 04/03/18 Time of Evaluation: 07:20 - Subjective Subjective: clinically same Objective - Vital Signs/Intake and Output Vital Signs (last 24 hours): Temp Pulse Resp BP Pulse Ox 98.3 F 58 L 20 151/85 H 98 04/03/18 16:00 04/03/18 16:00 04/03/18 16:00 04/03/18 16:00 04/03/18 16:00 Intake and Output: 04/03/18 04/04/18 18:59 06:59 Intake Total 300 Output Total 350 Balance -50 - Medications Medications: Current Medications Acetaminophen (Tylenol 325mg Tab) 650 mg PO Q4 PRN PRN Reason: Pain, Mild (1-3) Last Admin: 03/29/18 10:49 Dose: 650 mg Al Hydrox/Mg Hydrox/Simethicone (Maalox Plus 30 Ml) 30 ml PO Q4 PRN PRN Reason: Dyspepsia Fentanyl (Duragesic) 1 patch TD Q72H [facility] Magnesium Hydroxide (Milk Of Magnesia) 30 ml PO HS PRN PRN Reason: Constipation Morphine Sulfate (Morphine Extended Release Tab) 15 mg PO Q8H [facility] Ondansetron HCl (Zofran Odt) 4 mg PO Q6 PRN PRN Reason: Nausea/Vomiting - Labs Labs: 04/03/18 11:21 04/03/18 11:21 - Constitutional Appears: Well - Head Exam Head Exam: ATRAUMATIC, NORMAL INSPECTION, NORMOCEPHALIC - ENT Exam ENT Exam: Mucous Membranes Moist, Normal Exam - Neck Exam Neck Exam: Full ROM, Normal Inspection. absent: Lymphadenopathy - Respiratory Exam Respiratory Exam: Decreased Breath Sounds - Cardiovascular Exam Cardiovascular Exam: REGULAR RHYTHM, +S1, +S2 - GI/Abdominal Exam GI & Abdominal Exam: Soft, Diminished Bowel Sounds - Rectal Exam Rectal Exam: Deferred
[2018-04-03] MEDS ORDERED: Morphine 15 mg SR Tab PO SCH ×2 (22:00)
[2018-04-04] MEDS: Morphine 15 mg SR Tab PO SCH ×3 (05:59→21:55)
--- NOTE | 2018-04-04 12:48 | CP.PCM.PN ---
Subjective - Date & Time of Evaluation Date of Evaluation: 04/04/18 Time of Evaluation: 07:20 - Subjective Subjective: clinically same Objective - Vital Signs/Intake and Output Vital Signs (last 24 hours): Temp Pulse Resp BP Pulse Ox 98.1 F 65 20 115/75 98 04/04/18 07:40 04/04/18 07:40 04/04/18 07:40 04/04/18 07:40 04/04/18 07:40 Intake and Output: 04/04/18 04/04/18 06:59 18:59 Intake Total 640 Output Total 900 Balance -260 - Medications Medications: Current Medications Acetaminophen (Tylenol 325mg Tab) 650 mg PO Q4 PRN PRN Reason: Pain, Mild (1-3) Last Admin: 03/29/18 10:49 Dose: 650 mg Al Hydrox/Mg Hydrox/Simethicone (Maalox Plus 30 Ml) 30 ml PO Q4 PRN PRN Reason: Dyspepsia Fentanyl (Duragesic) 1 patch TD Q72H [facility] Last Admin: 04/04/18 10:58 Dose: 1 patch Magnesium Hydroxide (Milk Of Magnesia) 30 ml PO HS PRN PRN Reason: Constipation Morphine Sulfate (Morphine Extended Release Tab) 15 mg PO Q8H [facility] Last Admin: 04/04/18 05:59 Dose: 15 mg Ondansetron HCl (Zofran Odt) 4 mg PO Q6 PRN PRN Reason: Nausea/Vomiting - Labs Labs: 04/03/18 11:21 04/03/18 11:21 - Constitutional Appears: Well - Head Exam Head Exam: ATRAUMATIC, NORMAL INSPECTION, NORMOCEPHALIC - Eye Exam Eye Exam: EOMI, Normal appearance, PERRL Pupil Exam: NORMAL ACCOMODATION, PERRL - ENT Exam ENT Exam: Mucous Membranes Moist, Normal Exam - Neck Exam Neck Exam: Full ROM, Normal Inspection. absent: Lymphadenopathy - Respiratory Exam Respiratory Exam: Decreased Breath Sounds - Cardiovascular Exam Cardiovascular Exam: REGULAR RHYTHM, +S1, +S2 - GI/Abdominal Exam GI & Abdominal Exam: Soft, Diminished Bowel Sounds - Rectal Exam Rectal Exam: Deferred Assessment and Plan (1) Anemia Status: Acute (2) Stomal prolapse Status: Acute (3) Acute urinary retention Status: Acute (4) Bandemia Status: Acute (5) Colon cancer metastasized to multiple sites Status: Acute (6) Colostomy care Status: Acute (7) History of colon cancer Status: Acute (8) Hypertension Status: Acute (9) Postoperative urinary retention Status: Acute (10) Prophylactic measure Status: Acute (11) Rectal or anal pain Status: Acute (12) Sepsis Status: Acute (13) Small bowel obstruction Status: Acute (14) Carcinoma of rectum Status: Chronic (15) Diarrhea Status: Chronic - Assessment and Plan (Free Text) Plan: insurance autho waiting lópez same needs valarie labs seen s/p kcl mx as ordered
[2018-04-05] MEDS: Morphine 15 mg SR Tab PO SCH ×3 (05:33→21:45)
[2018-04-05 08:13] LABS: BLOOD UREA NITROGEN 4 mg/dL (9-20); GFR AFRICAN-AMERICAN > 60; GFR NON-AFRICAN AMERICAN > 60
--- NOTE | 2018-04-05 16:01 | CP.PCM.PN ---
Subjective - Date & Time of Evaluation Date of Evaluation: 04/05/18 Time of Evaluation: 07:20 - Subjective Subjective: clinically same Objective - Vital Signs/Intake and Output Vital Signs (last 24 hours): Temp Pulse Resp BP Pulse Ox 97.9 F 56 L 20 142/74 97 04/05/18 15:00 04/05/18 15:00 04/05/18 15:00 04/05/18 15:00 04/05/18 15:00 Intake and Output: 04/05/18 04/05/18 06:59 18:59 Intake Total 590 260 Output Total 850 450 Balance -260 -190 - Medications Medications: Current Medications Acetaminophen (Tylenol 325mg Tab) 650 mg PO Q4 PRN PRN Reason: Pain, Mild (1-3) Last Admin: 03/29/18 10:49 Dose: 650 mg Al Hydrox/Mg Hydrox/Simethicone (Maalox Plus 30 Ml) 30 ml PO Q4 PRN PRN Reason: Dyspepsia Fentanyl (Duragesic) 1 patch TD Q72H [facility] Last Admin: 04/04/18 10:58 Dose: 1 patch Magnesium Hydroxide (Milk Of Magnesia) 30 ml PO HS PRN PRN Reason: Constipation Morphine Sulfate (Morphine Extended Release Tab) 15 mg PO Q8H [facility] Last Admin: 04/05/18 14:03 Dose: Not Given Ondansetron HCl (Zofran Odt) 4 mg PO Q6 PRN PRN Reason: Nausea/Vomiting - Labs Labs: 04/03/18 11:21 04/05/18 07:46 - Constitutional Appears: Well - Head Exam Head Exam: ATRAUMATIC, NORMAL INSPECTION, NORMOCEPHALIC - Eye Exam Eye Exam: EOMI, Normal appearance, PERRL Pupil Exam: NORMAL ACCOMODATION, PERRL - ENT Exam ENT Exam: Mucous Membranes Moist, Normal Exam - Neck Exam Neck Exam: Full ROM, Normal Inspection. absent: Lymphadenopathy - Respiratory Exam Respiratory Exam: Decreased Breath Sounds - Cardiovascular Exam Cardiovascular Exam: REGULAR RHYTHM, +S1, +S2 - GI/Abdominal Exam GI & Abdominal Exam: Soft, Diminished Bowel Sounds - Rectal Exam Rectal Exam: Deferred Assessment and Plan (1) Anemia Status: Acute (2) Stomal prolapse Status: Acute (3) Acute urinary retention Status: Acute (4) Bandemia Status: Acute (5) Colon cancer metastasized to multiple sites Status: Acute (6) Colostomy care Status: Acute (7) History of colon cancer Status: Acute (8) Hypertension Status: Acute (9) Postoperative urinary retention Status: Acute (10) Prophylactic measure Status: Acute (11) Rectal or anal pain Status: Acute (12) Sepsis Status: Acute (13) Small bowel obstruction Status: Acute (14) Carcinoma of rectum Status: Chronic (15) Diarrhea Status: Chronic - Assessment and Plan (Free Text) Plan: meds reviewed. labs reviewed. lópez meds and management as ordered. follow up with sap consultant recommendations. monitor labs. diet as tolerated per orders. awaiting insurance autho mx as ordered
[2018-04-06] MEDS: Morphine 15 mg SR Tab PO SCH ×3 (05:41→21:26)
--- NOTE | 2018-04-06 18:56 | CP.PCM.PN ---
Subjective - Date & Time of Evaluation Date of Evaluation: 04/06/18 Time of Evaluation: 07:20 - Subjective Subjective: clinically same Objective - Vital Signs/Intake and Output Vital Signs (last 24 hours): Temp Pulse Resp BP Pulse Ox 98 F 56 L 20 137/83 97 04/06/18 16:00 04/06/18 16:00 04/06/18 16:00 04/06/18 16:00 04/06/18 16:00 Intake and Output: 04/06/18 04/06/18 06:59 18:59 Intake Total 710 360 Output Total 950 500 Balance -240 -140 - Medications Medications: Current Medications Acetaminophen (Tylenol 325mg Tab) 650 mg PO Q4 PRN PRN Reason: Pain, Mild (1-3) Last Admin: 03/29/18 10:49 Dose: 650 mg Al Hydrox/Mg Hydrox/Simethicone (Maalox Plus 30 Ml) 30 ml PO Q4 PRN PRN Reason: Dyspepsia Fentanyl (Duragesic) 1 patch TD Q72H [facility] Last Admin: 04/04/18 10:58 Dose: 1 patch Magnesium Hydroxide (Milk Of Magnesia) 30 ml PO HS PRN PRN Reason: Constipation Morphine Sulfate (Morphine Extended Release Tab) 15 mg PO Q8H [facility] Last Admin: 04/06/18 13:23 Dose: 15 mg Ondansetron HCl (Zofran Odt) 4 mg PO Q6 PRN PRN Reason: Nausea/Vomiting - Labs Labs: 04/03/18 11:21 04/05/18 07:46 - Constitutional Appears: Well - Head Exam Head Exam: ATRAUMATIC, NORMAL INSPECTION, NORMOCEPHALIC - Eye Exam Eye Exam: EOMI, Normal appearance, PERRL Pupil Exam: NORMAL ACCOMODATION, PERRL - ENT Exam ENT Exam: Mucous Membranes Moist, Normal Exam - Neck Exam Neck Exam: Full ROM, Normal Inspection. absent: Lymphadenopathy - Respiratory Exam Respiratory Exam: Decreased Breath Sounds - Cardiovascular Exam Cardiovascular Exam: REGULAR RHYTHM, +S1, +S2 - GI/Abdominal Exam GI & Abdominal Exam: Soft, Diminished Bowel Sounds - Rectal Exam Rectal Exam: Deferred Assessment and Plan (1) Anemia Status: Acute (2) Stomal prolapse Status: Acute (3) Acute urinary retention Status: Acute (4) Bandemia Status: Acute (5) Colon cancer metastasized to multiple sites Status: Acute (6) Colostomy care Status: Acute (7) History of colon cancer Status: Acute (8) Hypertension Status: Acute (9) Postoperative urinary retention Status: Acute (10) Prophylactic measure Status: Acute (11) Rectal or anal pain Status: Acute (12) Sepsis Status: Acute (13) Small bowel obstruction Status: Acute (14) Carcinoma of rectum Status: Chronic (15) Diarrhea Status: Chronic - Assessment and Plan (Free Text) Plan: awaitiing curry rodriguez for discharge no surg internvention at this time.. lópez sme med reveiwdmeds reviewed. labs reviewed. lópez meds and management as ordered. follow up with client experience consultant recommendations. monitor labs. diet as tolerated per orders.
[2018-04-07] MEDS: Morphine 15 mg SR Tab PO SCH ×2 (05:44→13:24)
--- NOTE | 2018-04-07 07:10 | CP.PCM.PN ---
Subjective - Date & Time of Evaluation Date of Evaluation: 04/07/18 Objective - Vital Signs/Intake and Output Vital Signs (last 24 hours): Temp Pulse Resp BP Pulse Ox 98.8 F 67 20 139/81 97 04/07/18 00:20 04/07/18 00:20 04/07/18 00:20 04/07/18 00:20 04/07/18 00:20 Intake and Output: 04/07/18 04/07/18 06:59 18:59 Intake Total 350 Output Total 450 Balance -100 - Medications Medications: Current Medications Acetaminophen (Tylenol 325mg Tab) 650 mg PO Q4 PRN PRN Reason: Pain, Mild (1-3) Last Admin: 03/29/18 10:49 Dose: 650 mg Al Hydrox/Mg Hydrox/Simethicone (Maalox Plus 30 Ml) 30 ml PO Q4 PRN PRN Reason: Dyspepsia Fentanyl (Duragesic) 1 patch TD Q72H [facility] Last Admin: 04/04/18 10:58 Dose: 1 patch Magnesium Hydroxide (Milk Of Magnesia) 30 ml PO HS PRN PRN Reason: Constipation Morphine Sulfate (Morphine Extended Release Tab) 15 mg PO Q8H [facility] Last Admin: 04/07/18 05:44 Dose: 15 mg Ondansetron HCl (Zofran Odt) 4 mg PO Q6 PRN PRN Reason: Nausea/Vomiting - Labs Labs: 04/03/18 11:21 04/05/18 07:46 Assessment and Plan (1) Anemia Status: Acute (2) Stomal prolapse Status: Acute (3) Acute urinary retention Status: Acute (4) Bandemia Status: Acute (5) Colon cancer metastasized to multiple sites Status: Acute (6) Colostomy care Status: Acute (7) History of colon cancer Status: Acute (8) Hypertension Status: Acute (9) Postoperative urinary retention Status: Acute (10) Prophylactic measure Status: Acute (11) Rectal or anal pain Status: Acute (12) Sepsis Status: Acute (13) Small bowel obstruction Status: Acute (14) Carcinoma of rectum Status: Chronic (15) Diarrhea Status: Chronic - Assessment and Plan (Free Text) Plan: Continue fentanyl continue same awaiting insurance authorization patient can be discharge to the rehab No surgical intervention at this time
[2018-04-07 07:56] VITALS: BP 122/74; PULSE 71; TEMP 98.3; O2SAT 98
--- NOTE | 2018-04-07 11:21 | CP.PCM.PN ---
Subjective - Date & Time of Evaluation Date of Evaluation: 04/07/18 Time of Evaluation: 11:21 - Subjective Subjective: PGY2 Medicine Note for Dr. Vish Medina; all management as per Dr. Vish Medina This patient was seen and examined this AM at bedside no acute events overnight. He denies any pain from his stoma but does have vague global pain all over his body, mostly in his abdomen. denies all other symptoms. Objective - Vital Signs/Intake and Output Vital Signs (last 24 hours): Temp Pulse Resp BP Pulse Ox 98.3 F 71 20 122/74 98 04/07/18 07:55 04/07/18 07:55 04/07/18 07:55 04/07/18 07:55 04/07/18 07:55 Intake and Output: 04/07/18 04/07/18 06:59 18:59 Intake Total 350 120 Output Total 450 600 Balance -100 -480 - Medications Medications: Current Medications Acetaminophen (Tylenol 325mg Tab) 650 mg PO Q4 PRN PRN Reason: Pain, Mild (1-3) Last Admin: 03/29/18 10:49 Dose: 650 mg Al Hydrox/Mg Hydrox/Simethicone (Maalox Plus 30 Ml) 30 ml PO Q4 PRN PRN Reason: Dyspepsia Fentanyl (Duragesic) 1 patch TD Q72H [facility] Last Admin: 04/07/18 09:51 Dose: 1 patch Magnesium Hydroxide (Milk Of Magnesia) 30 ml PO HS PRN PRN Reason: Constipation Morphine Sulfate (Morphine Extended Release Tab) 15 mg PO Q8H [facility] Last Admin: 04/07/18 05:44 Dose: 15 mg Ondansetron HCl (Zofran Odt) 4 mg PO Q6 PRN PRN Reason: Nausea/Vomiting - Labs Labs: 04/03/18 11:21 04/05/18 07:46 - Constitutional Appears: Other - Head Exam Additional comments: Appears: Non-toxic, No Acute Distress, Cachectic - Head Exam Head Exam: ATRAUMATIC, NORMOCEPHALIC - Eye Exam Eye Exam: EOMI - ENT Exam ENT Exam: Mucous Membranes Moist - Respiratory Exam Respiratory Exam: NORMAL BREATHING PATTERN - Cardiovascular Exam Cardiovascular Exam: +S1, +S2 - GI/Abdominal Exam GI & Abdominal Exam: Soft. absent: Distended, Firm, Guarding Additional comments: Assessment and Plan - Assessment and Plan (Free Text) Assessment: This is a 67yo M admitted for Stomal Prolapse which has resolved Stomal prolapse; resolved -resolved -patient is pending insurance approval for d/c -patient has been stable for d/c since 03/31 -patient has hx of colon cancer with metastasis; patient is for comfort care at this point and is DNR/DNI All management as per Dr. Vish Medina
== END 2018-04-07 15:46 | DRG 393 ==
LOC: C.ER 14:39 → C.9E 20:23 → C.3T 22:06
PROVIDERS: ADMIT Internal Medicine Nephrology; ATTEND Internal Medicine Nephrology
DX: K94.03 Colostomy malfunction (principal); A41.9 Sepsis, unspecified organism; C20 Malignant neoplasm of rectum; Z68.1 Body mass index [BMI] 19.9 or less, adult; D64.9 Anemia, unspecified; I10 Essential (primary) hypertension; Z66 Do not resuscitate; Z85.46 Personal history of malignant neoplasm of prostate

== ENCOUNTER 2018-05-07 15:16 | Inpatient (IN) | payer BC, MEDICARE ==
[2018-05-07 15:16] VITALS: BMI 17.2
[2018-05-07] MEDS ORDERED: Sodium Chloride 0.9% 1,000 ML IV ONE (16:25)
[2018-05-07 16:32] LABS: BASO % 0.3 % (0.0-2.0); EOS # 0.1 K/uL (0.0-0.7); EOS % 0.5 % (0.0-4.0); HEMOGLOBIN 8.3 g/dL (12.0-18.0); LYMPH # 0.4 K/uL (1.0-4.3); MEAN CELL VOLUME 85.9 fL (80.0-94.0); MEAN CORPUSCULAR HEMOGLOBIN 28.7 pg (27.0-31.0); MEAN CORPUSCULAR HGB CONC 33.4 g/dL (33.0-37.0); MEAN PLATELET VOLUME 6.6 fL (7.2-11.7); MONO # 0.7 K/uL (0.0-0.8); MONO % 6.4 % (0.0-10.0); NEUT # 9.2 K/uL (1.8-7.0); NEUT % 88.8 % (50.0-75.0); NRBC % 0.1 % (0.0-2.0); PLATELET COUNT 301 K/uL (130-400); RBC 2.89 Mil/uL (4.40-5.90); WHITE BLOOD COUNT 10.4 K/uL (4.8-10.8)
[2018-05-07 16:41] LABS: INR 1.9; PROTHROMBIN TIME 20.6 SECONDS (9.7-12.2)
[2018-05-07] MEDS ORDERED: Sodium Chloride 0.9% 1,000 ML ONE (16:43)
[2018-05-07 16:45] LABS: ALB/GLOB RATIO 0.9 (1.0-2.1); ALBUMIN 2.9 g/dL (3.5-5.0); ALT/SGPT 27 U/L (21-72); AST/SGOT 12 U/L (17-59); BLOOD UREA NITROGEN 16 mg/dL (9-20); CALCIUM 8.6 mg/dl (8.6-10.4); GFR AFRICAN-AMERICAN > 60; GFR NON-AFRICAN AMERICAN > 60
--- NOTE | 2018-05-07 16:45 | RAD ---
Date of service: 05/07/2018 PROCEDURE: CHEST RADIOGRAPH, 1 VIEW HISTORY: chest pain COMPARISON: 02/24/2018 chest x-ray and base images from CT abdomen and pelvis 02/24/[address] chest PE protocol study from 02/24/2018 FINDINGS: LUNGS: The coalescent nodular opacities overlying the right mid lung zone compatible with known right pulmonary nodules are right pleural-based nodules. Cephalad to this there is a right lateral inferred mild pleural thickening There are also nodular opacities smaller in the left infrahilar location in also projecting of the left heart. These are also referenced on the prior angio CT chest PE protocol study PLEURA: No pneumothorax or pleural fluid seen. Additional pleural base nodules noted above. CARDIOVASCULAR: Probable top-normal heart size no gross pulmonary venous congestion OSSEOUS STRUCTURES: Lateral shoulder arthrosis. And mild thoracic spondylosis. VISUALIZED UPPER ABDOMEN: Normal. OTHER FINDINGS: Interval removal of the prior NG tube. Prior distended small bowel loops not appreciate on this exam. On this exam no subdiaphragmatic free air seen. IMPRESSION: Known bilateral pulmonary nodules and pleural based nodules. No interval unknown pathology suggested.
[2018-05-07 16:56] LABS: B-TYPE NATRIURETIC PEPTIDE 1840 pg/mL (0-900)
[2018-05-07 17:15] LABS: EOSINOPHIL 1 % (0-4); LYMPHOCYTE 3 % (20-40); MONOCYTE 3 % (0-10); NEUTROPHIL 93 % (50-75); PLATELET ESTIMATE NORMAL (NORMAL); TOTAL CELLS COUNTED 100
[2018-05-07 17:16] LABS: ANISOCYTOSIS SLIGHT; HYPOCHROMIC SLIGHT; MICROCYTOSIS SLIGHT; POIKILOCYTOSIS SLIGHT
--- NOTE | 2018-05-07 17:30 | C.PDOC ---
History Of Present Illness 67 yo male w/PMHx of metastatic colorectal ca, s/p transverse loop colostomy was transferred from [facility] due to anemia, intermittent rectal bleedings. As per VT , hemoglobin from 05/06/18- 05/16. Pt c/o " chronic rectal pain". Otherwise, denies any other new active complaints. Pt appears chronically ill, pale, cackexic but not in any apparent distress. Time Seen by Provider: 05/07/18 15:17 Chief Complaint (Nursing): Abnormal Labs History Per: Patient, Other ([facility] paper) Past Medical History Reviewed: Historical Data, Nursing Documentation, Vital Signs Vital Signs: Last Vital Signs Temp 98.3 F 05/07/18 15:17 Pulse 68 05/07/18 15:43 Resp 16 05/07/18 15:43 BP 148/80 05/07/18 15:43 Pulse Ox 100 05/07/18 17:58 - Medical History PMH: Arthritis (BACK), HTN Denies: Chronic Kidney Disease - [facility] Procedures BYPASS TRANSVERSE COLON TO CUTANEOUS, OPEN APPROACH (02/11/18) Family History: States: Unknown Family Hx - Social History Hx Tobacco Use: No Hx Alcohol Use: No Hx Substance Use: No - Immunization History Hx Tetanus Toxoid Vaccination: No Hx Influenza Vaccination: Yes (2016) Review Of Systems Except As Marked, All Systems Reviewed And Found Negative. Constitutional: Negative for: Fever, Chills Cardiovascular: Negative for: Chest Pain, Palpitations Respiratory: Negative for: Shortness of Breath Gastrointestinal: Positive for: Abdominal Pain Musculoskeletal: Positive for: Back Pain Physical Exam - Physical Exam Appears: Non-toxic, Chronically Ill, Other (cackexic) Skin: Warm, Pale Head: Normacephalic Eye(s): bilateral: PERRL Nose: No Flaring Oral Mucosa: Moist, No Drooling Neck: Trachea Midline, Supple Chest: Symmetrical Cardiovascular: Rhythm Regular, No Murmur, No JVD, Other ((-) carotid bruits B/L ) Respiratory: No Decreased Breath Sounds, No Accessory Muscle Use, No Stridor, No Wheezing Gastrointestinal/Abdominal: Soft, No Tenderness, No Distention, No Guarding, Other ((+)colostomy with prolapsed stoma, non-tender, no sign of ischemia or strangulation.) Rectal: Other (small tender mass rectal area with serosangious discharges, sacral decub stage 2.) Extremity: Normal ROM, Pedal Edema (LLE 2+/2+) Neurological/Psych: Oriented x3, Normal Speech ED Course And Treatment - Laboratory Results Result Diagrams: 05/07/18 16:28 05/07/18 16:28 Lab Interpretation: Abnormal ECG: Interpreted By Me, Viewed By Me ECG Rhythm: Sinus Rhythm Interpretation Of ECG: SR@63/min, NAD, no acute T wave or ST-T changes O2 Sat by Pulse Oximetry: 100 Pulse Ox Interpretation: Normal - Radiology CXR: Interpreted by Me, Read By Radiologist CXR Interpretation: Yes: No Acute Disease Progress Note: case discussed with pt's PMD and admission with Dx: Acute anemia, rectal bleeidng hx of colorectal ca arranged. Pt remained stable during the ED evaluation, unchanged. Disposition - Disposition Disposition: HOSPITALIZED Disposition Time: 17:50 Condition: STABLE - Clinical Impression Clinical Impression: Colon cancer metastasized to multiple sites, Anemia, Rectal bleeding
[2018-05-07] MEDS ORDERED: Alum-Mag Hydrox-Simethicone Susp (30 mL) PO PRN (22:33)
[2018-05-08] MEDS: Morphine 15 mg SR Tab PO PRN ×2 (00:12→06:31)
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
[2018-05-08 07:09] LABS: HEMOGLOBIN 6.9 g/dL (12.0-18.0); MEAN CELL VOLUME 84.9 fL (80.0-94.0); MEAN CORPUSCULAR HEMOGLOBIN 28.6 pg (27.0-31.0); MEAN CORPUSCULAR HGB CONC 33.7 g/dL (33.0-37.0); MEAN PLATELET VOLUME 6.7 fL (7.2-11.7); RBC 2.41 Mil/uL (4.40-5.90); RED CELL DISTRIBUTION WIDTH 18.7 % (11.5-14.5)
[2018-05-08 07:22] LABS: INR 1.6; PROTHROMBIN TIME 17.1 SECONDS (9.7-12.2)
[2018-05-08 07:27] LABS: ALB/GLOB RATIO 0.8 (1.0-2.1); ALBUMIN 2.2 g/dL (3.5-5.0); ALT/SGPT 19 U/L (21-72); AST/SGOT 10 U/L (17-59); BLOOD UREA NITROGEN 13 mg/dL (9-20); CALCIUM 7.6 mg/dl (8.6-10.4); GFR AFRICAN-AMERICAN > 60; GFR NON-AFRICAN AMERICAN > 60
[2018-05-08] MEDS ORDERED: Potassium Chloride 20 mEq ER Tab PO ONE (14:15)
--- NOTE | 2018-05-08 15:27 | CP.PCM.PN ---
Subjective - Date & Time of Evaluation Date of Evaluation: 05/08/18 Time of Evaluation: 15:12 - Subjective Subjective: General Surgery Consult for Dr. Anguiano This is a 67M who is well known to the service. He presented humphrey to anemia with need for transfusion. He has a history of metastatic colon cancer with a diverting transverse colostomy and mucous fistula in January 1018. He has had multiple admissions since that time in which a prolapse has been evident. He denies any pain and reports that he is passing stool through his stoma. He reports occasional blood streaked stools and occasional blood per rectum. He reports he is tolerating diet. He denies any lkfl2ht, chills chest pain. PMH: metastatic Colon CA, HTN PSH: transverse loop colostomy 01/2018, back surgery ALL: NKDA socialhx: denies tobacco, etoh, recreational drug use FH: non-contributory Objective - Vital Signs/Intake and Output Vital Signs (last 24 hours): Temp Pulse Resp BP Pulse Ox 97.9 F 55 L 20 139/77 96 05/08/18 10:05 05/08/18 10:05 05/08/18 10:05 05/08/18 10:05 05/08/18 08:22 Intake and Output: 05/08/18 05/08/18 06:59 18:59 Intake Total 300 Balance 300 - Medications Medications: Current Medications Acetaminophen (Tylenol 325mg Tab) 650 mg PO Q4 PRN PRN Reason: Pain, Mild (1-3) Al Hydrox/Mg Hydrox/Simethicone (Maalox Plus 30 Ml) 30 ml PO Q4 PRN PRN Reason: Dyspepsia Fentanyl (Duragesic) 1 patch TD Q72H [facility] Ferrous Sulfate (Feosol) 325 mg PO BID [facility] Last Admin: 05/08/18 10:33 Dose: 325 mg Morphine Sulfate (Morphine Extended Release Tab) 15 mg PO Q8 PRN PRN Reason: Pain, severe (8-10) Last Admin: 05/08/18 06:31 Dose: 15 mg Ondansetron HCl (Zofran Odt) 4 mg PO Q6 PRN PRN Reason: Nausea/Vomiting Pantoprazole Sodium (Protonix Inj) 40 mg IVP DAILY [facility] Last Admin: 05/08/18 10:52 Dose: Not Given - Labs Labs: 05/08/18 06:38 05/08/18 06:38 PT 17.1 SECONDS (9.7-12.2) H 05/08/18 06:38 INR 1.6 05/08/18 06:38 APTT 40 SECONDS (21-34) H 05/08/18 06:38 - Constitutional Appears: Non-toxic, No Acute Distress - Head Exam Head Exam: ATRAUMATIC, NORMOCEPHALIC - Eye Exam Eye Exam: EOMI, Normal appearance - ENT Exam ENT Exam: Mucous Membranes Moist, Normal Exam - Respiratory Exam Respiratory Exam: NORMAL BREATHING PATTERN - Cardiovascular Exam Cardiovascular Exam: +S1, +S2 - GI/Abdominal Exam GI & Abdominal Exam: Soft. absent: Distended, Firm, Guarding, Rigid, Tenderness - Neurological Exam Neurological Exam: Alert, Awake - Psychiatric Exam Psychiatric exam: Normal Affect, Normal Mood - Skin Skin Exam: Dry, Intact Assessment and Plan - Assessment and Plan (Free Text) Assessment: 67M w/ stage 4 colon CA w/ prolapse distal loop colostomy Plan: Patient was seen in office, Dr. Anguiano aware of stomal prolapse non acute non obstructing. The patient is schedules for OR revision . Otherwise when Anemia is addressed Pt can be discharged and return for surgery as planned. D/W Dr. Silvio Newsome PGY3
--- NOTE | 2018-05-08 20:38 | CP.PCM.HP ---
Past Patient History - Past Medical History & Family History Past Medical History?: Yes - Past Social History Smoking Status: Never Smoked - CARDIAC Hx Hypertension: Yes - PULMONARY Hx Respiratory Disorders: No - NEUROLOGICAL Hx Neurological Disorder: No - HEENT Hx HEENT Problems: No - RENAL Hx Chronic Kidney Disease: No - ENDOCRINE/METABOLIC Hx Endocrine Disorders: No - HEMATOLOGICAL/ONCOLOGICAL Hx Blood Disorders: Yes Hx Cancer: Yes (COLON CA WITH METS) - INTEGUMENTARY Hx Dermatological Problems: No - MUSCULOSKELETAL/RHEUMATOLOGICAL Hx Arthritis: Yes (BACK) Hx Falls: No - GASTROINTESTINAL Hx Gastrointestinal Disorders: Yes (RECTAL CANCER WITH POLAPSE CONSTIPATION) Hx Bowel Surgery: Yes Hx Colostomy: Yes Other/Comment: COLON CANCER WITH CHEMOTHERAPY STARTED 2015 // PROLAPSE COLOSTOMY - GENITOURINARY/GYNECOLOGICAL Hx Genitourinary Disorders: Yes Hx Prostate Cancer: Yes - PSYCHIATRIC Hx Substance Use: No - SURGICAL HISTORY Hx Surgeries: Yes Hx Orthopedic Surgery: Yes (BACK SURGERY) Other/Comment: s/p transverse loop colostomy 02/11/18 - ANESTHESIA Hx Anesthesia: Yes Hx Anesthesia Reactions: No Hx Malignant Hyperthermia: No Meds Allergies/Adverse Reactions: Allergies Allergy/AdvReac Type Severity Reaction Status Date / Time No Known Allergies Allergy Verified 03/26/18 15:00 Results - Vital Signs Recent Vital Signs: Last Vital Signs Temp 98.5 F 05/08/18 16:00 Pulse 61 05/08/18 18:05 Resp 20 05/08/18 16:00 BP 150/82 05/08/18 16:00 Pulse Ox 100 05/08/18 16:00 - Labs Result Diagrams: 05/08/18 06:38 05/08/18 06:38 Labs: Laboratory Results - last 24 hr 05/07/18 05/08/18 05/08/18 16:28 06:38 06:38 WBC 9.0 RBC 2.41 L Hgb 6.9 L Hct 20.5 L MCV 84.9 MCH 28.6 MCHC 33.7 RDW 18.7 H Plt Count 306 MPV 6.7 L PT INR APTT Sodium 132 Potassium 3.0 L Chloride 104 Carbon Dioxide 25 Anion Gap 6 L BUN 13 Creatinine 0.5 L Est GFR ( Amer) > 60 Est GFR (Non-Af Amer) > 60 POC Glucose (mg/dL) Random Glucose 87 Calcium 7.6 L Total Bilirubin 0.5 AST 10 L ALT 19 L D Alkaline Phosphatase 87 Total Protein 5.0 L Albumin 2.2 L D Globulin 2.8 Albumin/Globulin Ratio 0.8 L Blood Type O POSITIVE Antibody Screen Negative 05/08/18 05/08/18 06:38 16:48 WBC RBC Hgb Hct MCV MCH MCHC RDW Plt Count MPV PT 17.1 H INR 1.6 APTT 40 H Sodium Potassium Chloride Carbon Dioxide Anion Gap BUN Creatinine Est GFR ( Amer) Est GFR (Non-Af Amer) POC Glucose (mg/dL) 103 Random Glucose Calcium Total Bilirubin AST ALT Alkaline Phosphatase Total Protein Albumin Globulin Albumin/Globulin Ratio Blood Type Antibody Screen
[2018-05-09 08:28] LABS: MEAN CORPUSCULAR HEMOGLOBIN 28.7 pg (27.0-31.0); MEAN CORPUSCULAR HGB CONC 33.8 g/dL (33.0-37.0); RBC 3.69 Mil/uL (4.40-5.90); RED CELL DISTRIBUTION WIDTH 18.4 % (11.5-14.5); WHITE BLOOD COUNT 10.5 K/uL (4.8-10.8)
[2018-05-09 08:31] LABS: HEMOGLOBIN 10.6 g/dL (12.0-18.0)
[2018-05-09 08:49] LABS: ALB/GLOB RATIO 0.8 (1.0-2.1); ALBUMIN 2.7 g/dL (3.5-5.0); ALT/SGPT 17 U/L (21-72); AST/SGOT 13 U/L (17-59); BLOOD UREA NITROGEN 12 mg/dL (9-20); CALCIUM 8.2 mg/dl (8.6-10.4); GFR AFRICAN-AMERICAN > 60; GFR NON-AFRICAN AMERICAN > 60
--- NOTE | 2018-05-09 14:59 | CP.PCM.PN ---
Subjective - Date & Time of Evaluation Date of Evaluation: 05/09/18 Time of Evaluation: 10:00 - Subjective Subjective: clinically same Objective - Vital Signs/Intake and Output Vital Signs (last 24 hours): Temp Pulse Resp BP Pulse Ox 97.5 F L 74 20 152/84 H 95 05/09/18 08:00 05/09/18 08:00 05/09/18 08:00 05/09/18 08:00 05/09/18 08:00 Intake and Output: 05/09/18 05/09/18 06:59 18:59 Intake Total 600 700 Balance 600 700 - Medications Medications: Current Medications Acetaminophen (Tylenol 325mg Tab) 650 mg PO Q4 PRN PRN Reason: Pain, Mild (1-3) Al Hydrox/Mg Hydrox/Simethicone (Maalox Plus 30 Ml) 30 ml PO Q4 PRN PRN Reason: Dyspepsia Fentanyl (Duragesic) 1 patch TD Q72H [facility] Ferrous Sulfate (Feosol) 325 mg PO BID [facility] Last Admin: 05/09/18 09:46 Dose: 325 mg Potassium Chloride (Potassium Chloride 20 Meq/100 Ml) 20 meq in 100 mls @ 50 mls/hr IVPB Q2 [facility] Stop: 05/09/18 15:59 Last Admin: 05/09/18 12:50 Dose: 50 mls/hr Morphine Sulfate (Morphine Extended Release Tab) 15 mg PO Q8 PRN PRN Reason: Pain, severe (8-10) Last Admin: 05/08/18 06:31 Dose: 15 mg Ondansetron HCl (Zofran Odt) 4 mg PO Q6 PRN PRN Reason: Nausea/Vomiting Pantoprazole Sodium (Protonix Inj) 40 mg IVP DAILY [facility] Last Admin: 05/09/18 09:46 Dose: 40 mg - Labs Labs: 05/09/18 08:21 05/09/18 08:21 PT 17.1 SECONDS (9.7-12.2) H 05/08/18 06:38 INR 1.6 05/08/18 06:38 APTT 40 SECONDS (21-34) H 05/08/18 06:38 - Constitutional Appears: Well - Head Exam Head Exam: ATRAUMATIC, NORMAL INSPECTION, NORMOCEPHALIC - Eye Exam Eye Exam: EOMI, Normal appearance, PERRL Pupil Exam: NORMAL ACCOMODATION, PERRL - ENT Exam ENT Exam: Mucous Membranes Moist, Normal Exam - Neck Exam Neck Exam: Full ROM, Normal Inspection. absent: Lymphadenopathy - Respiratory Exam Respiratory Exam: Decreased Breath Sounds - Cardiovascular Exam Cardiovascular Exam: REGULAR RHYTHM, +S1, +S2 - GI/Abdominal Exam GI & Abdominal Exam: Soft, Diminished Bowel Sounds - Rectal Exam Rectal Exam: Deferred
--- NOTE | 2018-05-09 20:05 | CP.PCM.CON ---
Past Patient History - Past Medical History & Family History Past Medical History?: Yes - Past Social History Smoking Status: Never Smoked - CARDIAC Hx Hypertension: Yes - PULMONARY Hx Respiratory Disorders: No - NEUROLOGICAL Hx Neurological Disorder: No - HEENT Hx HEENT Problems: No - RENAL Hx Chronic Kidney Disease: No - ENDOCRINE/METABOLIC Hx Endocrine Disorders: No - HEMATOLOGICAL/ONCOLOGICAL Hx Blood Disorders: Yes Hx Cancer: Yes (COLON CA WITH METS) - INTEGUMENTARY Hx Dermatological Problems: No - MUSCULOSKELETAL/RHEUMATOLOGICAL Hx Arthritis: Yes (BACK) Hx Falls: No - GASTROINTESTINAL Hx Gastrointestinal Disorders: Yes (RECTAL CANCER WITH POLAPSE CONSTIPATION) Hx Bowel Surgery: Yes Hx Colostomy: Yes Other/Comment: COLON CANCER WITH CHEMOTHERAPY STARTED 2015 // PROLAPSE COLOSTOMY - GENITOURINARY/GYNECOLOGICAL Hx Genitourinary Disorders: Yes Hx Prostate Cancer: Yes - PSYCHIATRIC Hx Substance Use: No - SURGICAL HISTORY Hx Surgeries: Yes Hx Orthopedic Surgery: Yes (BACK SURGERY) Other/Comment: s/p transverse loop colostomy 02/11/18 - ANESTHESIA Hx Anesthesia: Yes Hx Anesthesia Reactions: No Hx Malignant Hyperthermia: No Meds Allergies/Adverse Reactions: Allergies Allergy/AdvReac Type Severity Reaction Status Date / Time No Known Allergies Allergy Verified 03/26/18 15:00 - Medications Medications: Current Medications Acetaminophen (Tylenol 325mg Tab) 650 mg PO Q4 PRN PRN Reason: Pain, Mild (1-3) Al Hydrox/Mg Hydrox/Simethicone (Maalox Plus 30 Ml) 30 ml PO Q4 PRN PRN Reason: Dyspepsia Fentanyl (Duragesic) 1 patch TD Q72H [facility] Ferrous Sulfate (Feosol) 325 mg PO BID [facility] Last Admin: 05/09/18 17:21 Dose: 325 mg Morphine Sulfate (Morphine Extended Release Tab) 15 mg PO Q8 PRN PRN Reason: Pain, severe (8-10) Last Admin: 05/08/18 06:31 Dose: 15 mg Ondansetron HCl (Zofran Odt) 4 mg PO Q6 PRN PRN Reason: Nausea/Vomiting Pantoprazole Sodium (Protonix Inj) 40 mg IVP DAILY [facility] Last Admin: 05/09/18 09:46 Dose: 40 mg Results - Vital Signs Recent Vital Signs: Last Vital Signs Temp 98.2 F 05/09/18 16:12 Pulse 62 05/09/18 16:38 Resp 20 05/09/18 16:12 BP 168/83 H 05/09/18 16:12 Pulse Ox 97 05/09/18 16:12 - Labs Result Diagrams: 05/09/18 08:21 05/09/18 08:21 Labs: Laboratory Results - last 24 hr 05/09/18 05/09/18 08:21 08:21 WBC 10.5 RBC 3.69 L Hgb 10.6 L D Hct 31.4 L MCV 85.0 MCH 28.7 MCHC 33.8 RDW 18.4 H Plt Count 389 MPV 7.0 L Sodium 135 Potassium 3.5 L Chloride 101 Carbon Dioxide 26 Anion Gap 12 BUN 12 Creatinine 0.6 L Est GFR ( Amer) > 60 Est GFR (Non-Af Amer) > 60 Random Glucose 101 Calcium 8.2 L Total Bilirubin 1.1 AST 13 L D ALT 17 L Alkaline Phosphatase 102 Total Protein 6.1 L Albumin 2.7 L D Globulin 3.3 Albumin/Globulin Ratio 0.8 L
[2018-05-10 08:27] LABS: HEMOGLOBIN 10.3 g/dL (12.0-18.0); MEAN CELL VOLUME 84.7 fL (80.0-94.0); MEAN CORPUSCULAR HEMOGLOBIN 29.2 pg (27.0-31.0); MEAN CORPUSCULAR HGB CONC 34.5 g/dL (33.0-37.0); MEAN PLATELET VOLUME 6.8 fL (7.2-11.7); RBC 3.52 Mil/uL (4.40-5.90); RED CELL DISTRIBUTION WIDTH 18.5 % (11.5-14.5)
[2018-05-10 09:02] LABS: ALB/GLOB RATIO 0.8 (1.0-2.1); ALBUMIN 2.6 g/dL (3.5-5.0); ALT/SGPT 22 U/L (21-72); AST/SGOT 14 U/L (17-59); BLOOD UREA NITROGEN 15 mg/dL (9-20); CALCIUM 8.3 mg/dl (8.6-10.4); GFR AFRICAN-AMERICAN > 60; GFR NON-AFRICAN AMERICAN > 60
--- NOTE | 2018-05-10 19:11 | CP.PCM.PN ---
Subjective - Date & Time of Evaluation Date of Evaluation: 05/10/18 Time of Evaluation: 19:08 - Subjective Subjective: CHART REVIEWED. PT SEEN AND EXAMINED., COVERING DR Vish JOY 'PT WEAK, NO ACUTE DISTRESS. ROS; OTHERWISE NEG. Objective - Vital Signs/Intake and Output Vital Signs (last 24 hours): Temp Pulse Resp BP Pulse Ox 98.2 F 59 L 18 160/82 H 98 05/10/18 15:03 05/10/18 16:08 05/10/18 15:03 05/10/18 15:03 05/10/18 15:03 Intake and Output: 05/10/18 05/11/18 18:59 06:59 Intake Total 240 Balance 240 - Medications Medications: Current Medications Acetaminophen (Tylenol 325mg Tab) 650 mg PO Q4 PRN PRN Reason: Pain, Mild (1-3) Al Hydrox/Mg Hydrox/Simethicone (Maalox Plus 30 Ml) 30 ml PO Q4 PRN PRN Reason: Dyspepsia Fentanyl (Duragesic) 1 patch TD Q72H [facility] Last Admin: 05/09/18 21:59 Dose: 1 patch Ferrous Sulfate (Feosol) 325 mg PO BID [facility] Last Admin: 05/10/18 17:19 Dose: 325 mg Morphine Sulfate (Morphine Extended Release Tab) 15 mg PO Q8 PRN PRN Reason: Pain, severe (8-10) Last Admin: 05/08/18 06:31 Dose: 15 mg Ondansetron HCl (Zofran Odt) 4 mg PO Q6 PRN PRN Reason: Nausea/Vomiting Pantoprazole Sodium (Protonix Inj) 40 mg IVP DAILY [facility] Last Admin: 05/10/18 09:22 Dose: 40 mg - Labs Labs: 05/10/18 08:11 05/10/18 08:11 PT 17.1 SECONDS (9.7-12.2) H 05/08/18 06:38 INR 1.6 05/08/18 06:38 APTT 40 SECONDS (21-34) H 05/08/18 06:38 - Constitutional Appears: No Acute Distress, Cachectic, Chronically Ill - Head Exam Head Exam: ATRAUMATIC, NORMOCEPHALIC - Eye Exam Eye Exam: EOMI, Normal appearance - ENT Exam ENT Exam: Mucous Membranes Dry - Neck Exam Neck Exam: Normal Inspection - Respiratory Exam Respiratory Exam: absent: Wheezes, Respiratory Distress - Cardiovascular Exam Cardiovascular Exam: RRR, +S1, +S2 - GI/Abdominal Exam GI & Abdominal Exam: Soft Additional comments: COLOSTOMY - Rectal Exam Rectal Exam: Deferred - Extremities Exam Extremities Exam: Pedal Edema - Back Exam Back Exam: absent: CVA tenderness (L), CVA tenderness (R) - Neurological Exam Neurological Exam: Awake, CN II-XII Intact - Psychiatric Exam Psychiatric exam: Normal Mood - Skin Skin Exam: absent: Rash Assessment and Plan (1) Anemia Status: Acute (2) Colon cancer metastasized to multiple sites Status: Acute (3) Colostomy care Status: Acute (4) Hypertension Status: Acute - Assessment and Plan (Free Text) Assessment: RESP STATUS UNLABORED., ADEQ OXYGENATION. AFEBRILE., MONITOR H/H, S/P HEMATURIA ? RECTAL BLEED. RADIOLOGY REVIEWED. FOR POSS REVISION COLOSTOMY PER SURG. PROG POOR. DISCUSSED WITH STAFF. DNR /DNI NOTED.
--- NOTE | 2018-05-10 19:42 | CP.PCM.PN ---
Subjective - Date & Time of Evaluation Date of Evaluation: 05/10/18 Time of Evaluation: 08:00 - Subjective Subjective: Patient seen and examined. No acute events over night. Hgb 10.3 from 6.9 s/p 1uPRBC. No complaints. Objective - Vital Signs/Intake and Output Vital Signs (last 24 hours): Temp Pulse Resp BP Pulse Ox 98.2 F 59 L 18 160/82 H 98 05/10/18 15:03 05/10/18 16:08 05/10/18 15:03 05/10/18 15:03 05/10/18 15:03 Intake and Output: 05/10/18 05/11/18 18:59 06:59 Intake Total 240 Balance 240 - Medications Medications: Current Medications Acetaminophen (Tylenol 325mg Tab) 650 mg PO Q4 PRN PRN Reason: Pain, Mild (1-3) Al Hydrox/Mg Hydrox/Simethicone (Maalox Plus 30 Ml) 30 ml PO Q4 PRN PRN Reason: Dyspepsia Fentanyl (Duragesic) 1 patch TD Q72H [facility] Last Admin: 05/09/18 21:59 Dose: 1 patch Ferrous Sulfate (Feosol) 325 mg PO BID [facility] Last Admin: 05/10/18 17:19 Dose: 325 mg Morphine Sulfate (Morphine Extended Release Tab) 15 mg PO Q8 PRN PRN Reason: Pain, severe (8-10) Last Admin: 05/08/18 06:31 Dose: 15 mg Ondansetron HCl (Zofran Odt) 4 mg PO Q6 PRN PRN Reason: Nausea/Vomiting Pantoprazole Sodium (Protonix Inj) 40 mg IVP DAILY [facility] Last Admin: 05/10/18 09:22 Dose: 40 mg - Labs Labs: 05/10/18 08:11 05/10/18 08:11 PT 17.1 SECONDS (9.7-12.2) H 05/08/18 06:38 INR 1.6 05/08/18 06:38 APTT 40 SECONDS (21-34) H 05/08/18 06:38 - Constitutional Appears: No Acute Distress - Eye Exam Eye Exam: Normal appearance - ENT Exam ENT Exam: Mucous Membranes Moist - Respiratory Exam Respiratory Exam: NORMAL BREATHING PATTERN - Cardiovascular Exam Cardiovascular Exam: +S1, +S2 - GI/Abdominal Exam GI & Abdominal Exam: Soft Additional comments: stoma prolapsed viable - Neurological Exam Neurological Exam: Alert, Oriented x3 - Skin Skin Exam: Dry, Intact, Warm Assessment and Plan - Assessment and Plan (Free Text) Assessment: 67 M w/ prolapse distal loop colostomy, viable Plan: c/w medical management per primary team Plan for revision of stoma on further recs per Dr. Silvio Jefferson PGY3
--- NOTE | 2018-05-10 20:01 | CT ---
Date of service: 05/10/2018 PROCEDURE: CT Abdomen and Pelvis without intravenous contrast HISTORY: gross hematuria COMPARISON: None. TECHNIQUE: Multiple contiguous axial images were performed through the abdomen and pelvis without the use of intravenous contrast. Subsequently, sagittal and coronal reformatted images were obtained. Radiation dose: Total exam DLP = 393 mGy-cm. This CT exam was performed using one or more of the following dose reduction techniques: Automated exposure control, adjustment of the mA and/or kV according to patient size, and/or use of iterative reconstruction technique. FINDINGS: LOWER THORAX: Small hiatal hernia. Progressive pulmonary metastatic disease with increase in size of the pulmonary parenchymal nodules. The largest mass is in the right lower lobe measuring 3.4 centimeters in diameter. Moderate-sized left pleural effusion and small right pleural effusion. Multifocal airspace disease at the lung bases. Right basilar bronchiectasis. LIVER: Multiple new space-occupying lesions within the liver worrisome for hepatic metastatic disease. GALLBLADDER AND BILE DUCTS: Unremarkable. PANCREAS: Heterogeneous appearance. SPLEEN: Heterogeneous attenuation. Splenic metastatic disease cannot be excluded. ADRENALS: Unremarkable. No mass. KIDNEYS AND URETERS: New severe left hydronephrosis. VASCULATURE: Unremarkable. No aortic aneurysm. BOWEL: Limited visualization. Status post transverse loop colostomy. Rectal prolapse. Diffuse mucosal thickening of the rectum. APPENDIX: Not visualized. PERITONEUM: Abundant ascites within the abdomen and pelvis. Diffuse omental caking worrisome for metastatic disease. LYMPH NODES: Progressive retroperitoneal lymphadenopathy. BLADDER: Distended urinary bladder. REPRODUCTIVE: Prominent prostate with calcification. BONES: No acute fracture. OTHER FINDINGS: S/p mucous fistula. IMPRESSION: Progressive pulmonary metastatic disease with increase in size of the pulmonary parenchymal nodules. Abundant ascites within the abdomen and pelvis likely due to metastatic disease. Multiple new space-occupying lesions within the liver worrisome for hepatic metastatic disease. New severe left hydronephrosis. Obstruction likely due to lymphadenopathy. Diffuse omental caking worrisome for metastatic disease. Progressive retroperitoneal lymphadenopathy. Additional findings as above. These findings were preliminarily reported by Dr Igor Mcnamara at 11:32 a.m. on 05/10/2018 from [facility].
[2018-05-11 07:28] LABS: HEMOGLOBIN 9.8 g/dL (12.0-18.0); MEAN CELL VOLUME 84.8 fL (80.0-94.0); MEAN CORPUSCULAR HEMOGLOBIN 28.9 pg (27.0-31.0); MEAN PLATELET VOLUME 6.5 fL (7.2-11.7); RBC 3.39 Mil/uL (4.40-5.90); RED CELL DISTRIBUTION WIDTH 17.8 % (11.5-14.5); WHITE BLOOD COUNT 10.9 K/uL (4.8-10.8)
[2018-05-11 07:38] LABS: BLOOD UREA NITROGEN 19 mg/dL (9-20); GFR AFRICAN-AMERICAN > 60; GFR NON-AFRICAN AMERICAN > 60
[2018-05-11 07:39] LABS: ALB/GLOB RATIO 0.8 (1.0-2.1); ALBUMIN 2.4 g/dL (3.5-5.0); ALT/SGPT 18 U/L (21-72); AST/SGOT 12 U/L (17-59); CALCIUM 7.8 mg/dl (8.6-10.4)
[2018-05-11] MEDS ORDERED: Potassium Chloride 20 mEq ER Tab PO ONE ×4 (10:00→17:30)
[2018-05-11] MEDS: Morphine 15 mg SR Tab PO PRN ×2 (10:23→21:10)
--- NOTE | 2018-05-11 14:19 | CP.PCM.PN ---
Subjective - Date & Time of Evaluation Date of Evaluation: 05/11/18 Time of Evaluation: 14:17 - Subjective Subjective: COVERING DR Vish JOY PT ALERT, EATING SMALL AMTS., ROS; OTHERWISE NEG. Objective - Vital Signs/Intake and Output Vital Signs (last 24 hours): Temp Pulse Resp BP Pulse Ox 98.1 F 93 H 20 153/79 H 100 05/11/18 08:00 05/11/18 08:00 05/11/18 08:00 05/11/18 08:00 05/11/18 08:00 Intake and Output: 05/11/18 05/11/18 06:59 18:59 Intake Total 540 Output Total 400 Balance 140 - Medications Medications: Current Medications Acetaminophen (Tylenol 325mg Tab) 650 mg PO Q4 PRN PRN Reason: Pain, Mild (1-3) Al Hydrox/Mg Hydrox/Simethicone (Maalox Plus 30 Ml) 30 ml PO Q4 PRN PRN Reason: Dyspepsia Fentanyl (Duragesic) 1 patch TD Q72H [facility] Last Admin: 05/09/18 21:59 Dose: 1 patch Ferrous Sulfate (Feosol) 325 mg PO BID [facility] Last Admin: 05/11/18 10:12 Dose: 325 mg Morphine Sulfate (Morphine Extended Release Tab) 15 mg PO Q8 PRN PRN Reason: Pain, severe (8-10) Last Admin: 05/11/18 10:23 Dose: 15 mg Ondansetron HCl (Zofran Odt) 4 mg PO Q6 PRN PRN Reason: Nausea/Vomiting Pantoprazole Sodium (Protonix Inj) 40 mg IVP DAILY [facility] Last Admin: 05/11/18 10:13 Dose: 40 mg - Labs Labs: 05/11/18 07:00 05/11/18 07:00 PT 17.1 SECONDS (9.7-12.2) H 05/08/18 06:38 INR 1.6 05/08/18 06:38 APTT 40 SECONDS (21-34) H 05/08/18 06:38 - Constitutional Appears: No Acute Distress, Cachectic, Chronically Ill - Head Exam Head Exam: ATRAUMATIC, NORMOCEPHALIC - Eye Exam Eye Exam: EOMI, Normal appearance - ENT Exam ENT Exam: Mucous Membranes Dry - Neck Exam Neck Exam: Normal Inspection - Respiratory Exam Respiratory Exam: absent: Wheezes, Respiratory Distress - Cardiovascular Exam Cardiovascular Exam: RRR, +S1, +S2 - GI/Abdominal Exam GI & Abdominal Exam: Soft Additional comments: COLOSTOMY - Rectal Exam Rectal Exam: Deferred - Extremities Exam Extremities Exam: Pedal Edema - Back Exam Back Exam: absent: CVA tenderness (L), CVA tenderness (R) - Neurological Exam Neurological Exam: Alert, Awake, CN II-XII Intact, Oriented x3 - Psychiatric Exam Psychiatric exam: Normal Mood - Skin Skin Exam: absent: Rash Assessment and Plan (1) Anemia Status: Acute (2) Colon cancer metastasized to multiple sites Status: Acute (3) Colostomy care Status: Acute (4) Hypertension Status: Acute - Assessment and Plan (Free Text) Assessment: RESP STATUS NO SIG CHANGE. CXR REVIEWED., CONT AB., SUPP K., FOR STOMA REVISION PER SURG. PROG POOR. DISCUSSED WITH STAFF AT LENGTH.
[2018-05-11 17:21] LABS: BLOOD UREA NITROGEN 20 mg/dL (9-20); CALCIUM 7.8 mg/dl (8.6-10.4); GFR AFRICAN-AMERICAN > 60; GFR NON-AFRICAN AMERICAN > 60
[2018-05-12 06:37] LABS: MEAN CELL VOLUME 83.8 fL (80.0-94.0); MEAN CORPUSCULAR HGB CONC 34.6 g/dL (33.0-37.0); MEAN PLATELET VOLUME 6.3 fL (7.2-11.7); RBC 3.1 Mil/uL (4.40-5.90); RED CELL DISTRIBUTION WIDTH 17.6 % (11.5-14.5); WHITE BLOOD COUNT 9.7 K/uL (4.8-10.8)
[2018-05-12 06:52] LABS: ALB/GLOB RATIO 0.8 (1.0-2.1); ALBUMIN 2.2 g/dL (3.5-5.0); ALT/SGPT 21 U/L (21-72); AST/SGOT 17 U/L (17-59); BLOOD UREA NITROGEN 18 mg/dL (9-20); CALCIUM 7.7 mg/dl (8.6-10.4); GFR AFRICAN-AMERICAN > 60; GFR NON-AFRICAN AMERICAN > 60
--- NOTE | 2018-05-12 10:45 | CP.PCM.PN ---
Subjective - Date & Time of Evaluation Date of Evaluation: 05/12/18 Time of Evaluation: 10:42 - Subjective Subjective: COVERING DR Vish JOY PT AWAKE., TAKING PO LIQ. ROS ; OTHERWISE NEG Objective - Vital Signs/Intake and Output Vital Signs (last 24 hours): Temp Pulse Resp BP Pulse Ox 98.2 F 65 20 133/73 98 05/12/18 07:32 05/12/18 07:32 05/12/18 07:32 05/12/18 07:32 05/12/18 07:32 Intake and Output: 05/12/18 05/12/18 06:59 18:59 Intake Total 500 Balance 500 - Medications Medications: Current Medications Acetaminophen (Tylenol 325mg Tab) 650 mg PO Q4 PRN PRN Reason: Pain, Mild (1-3) Last Admin: 05/12/18 09:38 Dose: 650 mg Al Hydrox/Mg Hydrox/Simethicone (Maalox Plus 30 Ml) 30 ml PO Q4 PRN PRN Reason: Dyspepsia Fentanyl (Duragesic) 1 patch TD Q72H [facility] Last Admin: 05/09/18 21:59 Dose: 1 patch Ferrous Sulfate (Feosol) 325 mg PO BID [facility] Last Admin: 05/12/18 09:36 Dose: 325 mg Ondansetron HCl (Zofran Odt) 4 mg PO Q6 PRN PRN Reason: Nausea/Vomiting Pantoprazole Sodium (Protonix Inj) 40 mg IVP DAILY [facility] Last Admin: 05/12/18 09:36 Dose: 40 mg - Labs Labs: 05/12/18 06:23 05/12/18 06:20 PT 17.1 SECONDS (9.7-12.2) H 05/08/18 06:38 INR 1.6 05/08/18 06:38 APTT 40 SECONDS (21-34) H 05/08/18 06:38 - Constitutional Appears: No Acute Distress, Cachectic, Chronically Ill - Head Exam Head Exam: ATRAUMATIC, NORMOCEPHALIC - Eye Exam Eye Exam: EOMI, Normal appearance - ENT Exam ENT Exam: Mucous Membranes Moist - Neck Exam Neck Exam: Normal Inspection - Respiratory Exam Respiratory Exam: Decreased Breath Sounds. absent: Respiratory Distress - Cardiovascular Exam Cardiovascular Exam: RRR, +S1, +S2 - GI/Abdominal Exam GI & Abdominal Exam: Soft Additional comments: COLOSTOMY - Rectal Exam Rectal Exam: Deferred - Extremities Exam Extremities Exam: Pedal Edema - Back Exam Back Exam: absent: CVA tenderness (L), CVA tenderness (R) - Neurological Exam Neurological Exam: Alert, Awake, CN II-XII Intact, Oriented x3 - Psychiatric Exam Psychiatric exam: Normal Mood - Skin Skin Exam: absent: Rash Assessment and Plan (1) Anemia Status: Acute (2) Colon cancer metastasized to multiple sites Status: Acute (3) Colostomy care Status: Acute (4) Hypertension Status: Acute - Assessment and Plan (Free Text) Assessment: RESP STATUS NO SIG. CHANGE. CONT PULM TOILET., MONITOR O2 SAT. CXR REVIEWED. FOR SURG F/U. PROG POOR. DISCUSSED WITH STAFF.
[2018-05-12] MEDS ORDERED: Potassium Chloride 20 mEq ER Tab PO ONE (13:00)
--- NOTE | 2018-05-13 11:21 | CARD ---
APPROVED REPORT Date of service: 05/07/2018 EKG Measurement Heart [id number] <Conclusion> Normal sinus rhythm Normal ECG
--- NOTE | 2018-05-13 12:34 | CP.PCM.PN ---
Subjective - Date & Time of Evaluation Date of Evaluation: 05/13/18 Time of Evaluation: 12:32 - Subjective Subjective: General Surgery Progress Note for Dr. Anguiano 67M seen and evaluated this morning at bedside. No acute events overnight. No complaints this morning. Denies f/c, n/v/d, SOB, CP, or urinary symptoms. Objective - Vital Signs/Intake and Output Vital Signs (last 24 hours): Temp Pulse Resp BP Pulse Ox 98 F 56 L 20 156/83 H 98 05/13/18 08:00 05/13/18 09:30 05/13/18 08:00 05/13/18 08:00 05/13/18 08:00 Intake and Output: 05/13/18 05/13/18 06:59 18:59 Intake Total 500 Output Total 100 Balance 400 - Medications Medications: Current Medications Acetaminophen (Tylenol 325mg Tab) 650 mg PO Q4 PRN PRN Reason: Pain, Mild (1-3) Last Admin: 05/13/18 05:38 Dose: 650 mg Al Hydrox/Mg Hydrox/Simethicone (Maalox Plus 30 Ml) 30 ml PO Q4 PRN PRN Reason: Dyspepsia Fentanyl (Duragesic) 1 patch TD Q[facility]H [facility] Last Admin: 05/12/18 21:02 Dose: 1 patch Ferrous Sulfate (Feosol) 325 mg PO BID [facility] Last Admin: 05/13/18 09:14 Dose: 325 mg Ondansetron HCl (Zofran Odt) 4 mg PO Q6 PRN PRN Reason: Nausea/Vomiting Pantoprazole Sodium (Protonix Inj) 40 mg IVP DAILY [facility] Last Admin: 05/13/18 09:14 Dose: 40 mg - Labs Labs: 05/12/18 06:23 05/12/18 06:20 PT 17.1 SECONDS (9.7-12.2) H 05/08/18 06:38 INR 1.6 05/08/18 06:38 APTT 40 SECONDS (21-34) H 05/08/18 06:38 - Constitutional Appears: Well, Non-toxic, No Acute Distress, Older Than Stated Age - Head Exam Head Exam: ATRAUMATIC, NORMAL INSPECTION, NORMOCEPHALIC - Eye Exam Eye Exam: EOMI, Normal appearance - Respiratory Exam Respiratory Exam: Clear to Ausculation Bilateral, NORMAL BREATHING PATTERN - Cardiovascular Exam Cardiovascular Exam: REGULAR RHYTHM, +S1, +S2. absent: Murmur - GI/Abdominal Exam GI & Abdominal Exam: Soft, Normal Bowel Sounds. absent: Tenderness Additional comments: stomal prolapse - Rectal Exam Rectal Exam: Deferred - Neurological Exam Neurological Exam: Alert, Awake, Oriented x3 - Psychiatric Exam Psychiatric exam: Normal Affect, Normal Mood - Skin Skin Exam: Dry, Intact, Normal Color, Warm Assessment and Plan - Assessment and Plan (Free Text) Assessment: 67M w/ stomal prolapse Plan: Stoma revision - OR tomorrow 05/14 AM labs Pre-op - NPO, IVF Consent pain management Anti-emetics I and Os further recs per Dr. Silvio Chavez PGY1
--- NOTE | 2018-05-13 12:39 | CP.PCM.PN ---
Subjective - Date & Time of Evaluation Date of Evaluation: 05/13/18 Time of Evaluation: 12:36 - Subjective Subjective: COVERING DR Vish JOY PT AWAKE, NO DISTRESS. LESS PAIN ROS; OTHERWISE NEG. Objective - Vital Signs/Intake and Output Vital Signs (last 24 hours): Temp Pulse Resp BP Pulse Ox 98 F 56 L 20 156/83 H 98 05/13/18 08:00 05/13/18 09:30 05/13/18 08:00 05/13/18 08:00 05/13/18 08:00 Intake and Output: 05/13/18 05/13/18 06:59 18:59 Intake Total 500 Output Total 100 Balance 400 - Medications Medications: Current Medications Acetaminophen (Tylenol 325mg Tab) 650 mg PO Q4 PRN PRN Reason: Pain, Mild (1-3) Last Admin: 05/13/18 05:38 Dose: 650 mg Al Hydrox/Mg Hydrox/Simethicone (Maalox Plus 30 Ml) 30 ml PO Q4 PRN PRN Reason: Dyspepsia Fentanyl (Duragesic) 1 patch TD Q72H [facility] Last Admin: 05/12/18 21:02 Dose: 1 patch Ferrous Sulfate (Feosol) 325 mg PO BID [facility] Last Admin: 05/13/18 09:14 Dose: 325 mg Ondansetron HCl (Zofran Odt) 4 mg PO Q6 PRN PRN Reason: Nausea/Vomiting Pantoprazole Sodium (Protonix Inj) 40 mg IVP DAILY [facility] Last Admin: 05/13/18 09:14 Dose: 40 mg - Labs Labs: 05/12/18 06:23 05/12/18 06:20 PT 17.1 SECONDS (9.7-12.2) H 05/08/18 06:38 INR 1.6 05/08/18 06:38 APTT 40 SECONDS (21-34) H 05/08/18 06:38 - Constitutional Appears: No Acute Distress, Cachectic, Chronically Ill - Head Exam Head Exam: ATRAUMATIC, NORMOCEPHALIC - Eye Exam Eye Exam: EOMI, Normal appearance - ENT Exam ENT Exam: Mucous Membranes Moist - Neck Exam Neck Exam: Normal Inspection - Respiratory Exam Respiratory Exam: Decreased Breath Sounds. absent: Respiratory Distress - Cardiovascular Exam Cardiovascular Exam: RRR, +S1, +S2 - GI/Abdominal Exam GI & Abdominal Exam: Soft Additional comments: COLOSTOMY - Rectal Exam Rectal Exam: Deferred - Extremities Exam Extremities Exam: Pedal Edema - Back Exam Back Exam: absent: rash noted - Neurological Exam Neurological Exam: Alert, Awake, CN II-XII Intact, Oriented x3 - Psychiatric Exam Psychiatric exam: Normal Mood - Skin Skin Exam: absent: Rash Assessment and Plan (1) Anemia Status: Acute (2) Colon cancer metastasized to multiple sites Status: Acute (3) Colostomy care Status: Acute (4) Hypertension Status: Acute - Assessment and Plan (Free Text) Assessment: RESP STATUS NO SIG CHANGE., CONT PULM TOILET., ADEQ OXYGENATION., CXR REVIEWED. SURG F/U. PROG POOR., DNR/ DNI. DISCUSSED WITH STAFF AT LENGTH.
[2018-05-13] MEDS: Lactated Ringer's 1,000 ML IV SCH (13:56)
[2018-05-13] MEDS ORDERED: Magnesium Citrate Oral SOL (300 ml) PO ONE (16:00)
--- NOTE | 2018-05-13 16:36 | RAD ---
Date of service: 05/13/2018 HISTORY: preop COMPARISON: 05/07/2018 TECHNIQUE: Chest PA and lateral FINDINGS: LUNGS: Ill-defined multifocal opacity in right lung. Several it to prior. There is new diffuse interstitial prominence with a reticular pattern. PLEURA: Possible small left pleural effusion. No right pleural effusion. No pneumothorax. CARDIOVASCULAR: Normal. OSSEOUS STRUCTURES: No significant abnormalities. VISUALIZED UPPER ABDOMEN: Normal. OTHER FINDINGS: None. IMPRESSION: Diffuse reticular interstitial infiltrate new since prior. Multifocal right-sided opacity, nonspecific, unchanged. Possible small left pleural effusion.
[2018-05-13 20:01] LABS: BASO % 0.1 % (0.0-2.0); EOS % 0.2 % (0.0-4.0); HEMOGLOBIN 10.1 g/dL (12.0-18.0); LYMPH # 0.6 K/uL (1.0-4.3); MEAN CELL VOLUME 85.7 fL (80.0-94.0); MEAN CORPUSCULAR HGB CONC 33.8 g/dL (33.0-37.0); MEAN PLATELET VOLUME 6.5 fL (7.2-11.7); MONO # 0.5 K/uL (0.0-0.8); MONO % 4.9 % (0.0-10.0); NEUT # 9.4 K/uL (1.8-7.0); NEUT % 88.8 % (50.0-75.0); PLATELET COUNT 339 K/uL (130-400); RED CELL DISTRIBUTION WIDTH 18.1 % (11.5-14.5); WHITE BLOOD COUNT 10.6 K/uL (4.8-10.8)
[2018-05-13 20:13] LABS: BLOOD UREA NITROGEN 15 mg/dL (9-20); CALCIUM 7.9 mg/dl (8.6-10.4); GFR AFRICAN-AMERICAN > 60; GFR NON-AFRICAN AMERICAN > 60
[2018-05-13 20:20] LABS: INR 1.3; PROTHROMBIN TIME 14.3 SECONDS (9.7-12.2)
[2018-05-13 20:52] LABS: LYMPHOCYTE 7 % (20-40); MONOCYTE 6 % (0-10); NEUTROPHIL 87 % (50-75); PLATELET ESTIMATE NORMAL (NORMAL); TOTAL CELLS COUNTED 100
[2018-05-13 20:53] LABS: ANISOCYTOSIS SLIGHT; POIKILOCYTOSIS SLIGHT
[2018-05-13] MEDS ORDERED: Potassium Chloride 20 mEq ER Tab PO ONE (21:00)
[2018-05-14 01:31] LABS: HEMOGLOBIN 9.3 g/dL (12.0-18.0); MEAN CELL VOLUME 84.7 fL (80.0-94.0); MEAN PLATELET VOLUME 6.1 fL (7.2-11.7); RBC 3.32 Mil/uL (4.40-5.90); RED CELL DISTRIBUTION WIDTH 17.9 % (11.5-14.5)
[2018-05-14 01:45] LABS: BLOOD UREA NITROGEN 13 mg/dL (9-20); CALCIUM 7.9 mg/dl (8.6-10.4); GFR AFRICAN-AMERICAN > 60; GFR NON-AFRICAN AMERICAN > 60
[2018-05-14 01:53] LABS: INR 1.2; PROTHROMBIN TIME 13.6 SECONDS (9.7-12.2)
[2018-05-14] MEDS: Lactated Ringer's 1,000 ML IV SCH ×3 (06:15→23:24)
[2018-05-14] MEDS ORDERED: ceFAZolin 1 gm in NS 1 GM/100 ML BAG IVPB ONE (07:18)
[2018-05-14] MEDS ORDERED: metroNIDAZOLE IV 500 mg/100 ml 500 MG/100 ML BAG ONE (07:19)
[2018-05-14] MEDS ORDERED: Etomidate 20 mg/10ml Inj IV ONE (07:35)
[2018-05-14] MEDS ORDERED: Propofol 10 mg/ml Inj (20 ML) ONE (07:36)
[2018-05-14] MEDS ORDERED: Rocuronium 10 mg/ml (10 ml) ONE (07:39)
[2018-05-14] MEDS ORDERED: Phenylephrine 10 mg/ml Inj ONE (07:43)
[2018-05-14] MEDS ORDERED: Lactated Ringer's 1,000 ML IV ONE (08:00)
--- NOTE | 2018-05-14 08:03 | CP.PCM.PCO ---
Physician Communication Note - Physician Communication Note Physician Communication Note: DNR/DNI rescinded for surgery. Patient consented and agreeable.
[2018-05-14] MEDS ORDERED: HYDROmorphone 0.5 mg/0.5 ml ISec IVP PRN (09:15)
--- NOTE | 2018-05-14 09:18 | PCM.SURG1 ---
Surgeon's Initial Post Op Note - Surgeon's Notes Surgeon: Dr. Anguiano Digital Marketing Apprentice: Dr. Harrison PGY4, Dr. Tejada PGY3 Type of Anesthesia: General LMA Pre-Operative Diagnosis: prolapse of distal end transvere loop colostomy Operative Findings: same Post-Operative Diagnosis: same Operation Performed: revision of prolapse of distal end of transverse loop colostomy Specimen/Specimens Removed: mucuous fistula remnant of transverse colon Estimated Blood Loss: EBL {In ML}: 5 Blood Products Given: N/A Drains Used: No Drains Post-Op Condition: Good Date of Surgery/Procedure: 05/14/18 Time of Surgery/Procedure: 08:46
--- NOTE | 2018-05-14 14:35 | CP.PCM.PN ---
Subjective - Date & Time of Evaluation Date of Evaluation: 05/14/18 Time of Evaluation: 08:00 - Subjective Subjective: clinically same Objective - Vital Signs/Intake and Output Vital Signs (last 24 hours): Temp Pulse Resp BP Pulse Ox 98.7 F 63 19 160/89 H 99 05/14/18 10:50 05/14/18 11:58 05/14/18 10:50 05/14/18 10:50 05/14/18 10:50 Intake and Output: 05/14/18 05/14/18 06:59 18:59 Intake Total 1360 Output Total 500 Balance 860 - Medications Medications: Current Medications Acetaminophen (Tylenol 325mg Tab) 650 mg PO Q4 PRN PRN Reason: Pain, Mild (1-3) Last Admin: 05/14/18 13:33 Dose: 650 mg Al Hydrox/Mg Hydrox/Simethicone (Maalox Plus 30 Ml) 30 ml PO Q4 PRN PRN Reason: Dyspepsia Ferrous Sulfate (Feosol) 325 mg PO BID ON LICENSE OF [facility] Last Admin: 05/14/18 10:05 Dose: Not Given Heparin Sodium (Porcine) (Heparin) 5,000 units SC Q8 ON LICENSE OF [facility] Lactated Ringer's (Lactated Ringer's) 1,000 mls @ 60 mls/hr IV .[id number] ON LICENSE OF [facility] Last Admin: 05/14/18 13:36 Dose: 60 mls/hr Ondansetron HCl (Zofran Odt) 4 mg PO Q6 PRN PRN Reason: Nausea/Vomiting Oxycodone/Acetaminophen (Percocet 5/325 Mg Tab) 1 tab PO Q4H PRN PRN Reason: Pain, moderate (4-7) Stop: 05/17/18 12:04 Pantoprazole Sodium (Protonix Inj) 40 mg IVP DAILY [facility] OF [facility] Last Admin: 05/14/18 10:05 Dose: Not Given - Labs Labs: 05/14/18 01:25 05/14/18 01:25 PT 13.6 SECONDS (9.7-12.2) H 05/14/18 01:25 INR 1.2 05/14/18 01:25 APTT 38 SECONDS (21-34) H 05/13/18 19:54 - Constitutional Appears: Well - Head Exam Head Exam: ATRAUMATIC, NORMAL INSPECTION, NORMOCEPHALIC - Eye Exam Eye Exam: EOMI, Normal appearance, PERRL Pupil Exam: NORMAL ACCOMODATION, PERRL - ENT Exam ENT Exam: Mucous Membranes Moist, Normal Exam - Neck Exam Neck Exam: Full ROM, Normal Inspection. absent: Lymphadenopathy - Respiratory Exam Respiratory Exam: Decreased Breath Sounds - Cardiovascular Exam Cardiovascular Exam: REGULAR RHYTHM, +S1, +S2 - GI/Abdominal Exam GI & Abdominal Exam: Soft, Diminished Bowel Sounds - Rectal Exam Rectal Exam: Deferred
[2018-05-14] MEDS: Oxycodone/Acetaminophen 5/325 mg Tab PO PRN (17:15)
[2018-05-14] MEDS ORDERED: Potassium Chloride 20 mEq ER Tab PO ONE ×2 (17:30→21:00)
--- NOTE | 2018-05-14 19:48 | OP ---
PROCEDURE DATE: 05/14/2018 PREOPERATIVE DIAGNOSES: Stoma prolapse, transverse loop colostomy. PROCEDURE CARRIED OUT: Revision of stoma with partial colectomy. SURGEON: Jez Anguiano Jr., MD ASSISTANTS: Dr. Harrison and Dr. Tejada. DESCRIPTION OF PROCEDURE: The patient is a 67-year-old man with advanced metastatic cancer, had a colostomy done for palliative purposes. This worked quite well; however, he developed a prolapse. Given his condition, there was much discussion with the patient and the family regarding the advisability of carrying out any revision procedures, but the patient opted to have this done. After an informed discussion, we proceeded with surgery. OPERATIVE FINDINGS: This was a prolapse of the distal or mucous fistula portion of the loop colostomy. This was resected and the stoma matured on the table. The proximal where the side that was connected to the proximal portion of the valve , but the distal portion was amputated. A small Crump catheter was placed in here to make sure we had a lumen, which was maintained and after this has been done and hemostasis was obtained, we terminated the procedure. Basically, we placed a TA 90 stapler with the Crump catheter and placed across it, placed the Crump to make sure that we had a lumen, the remnant of the Crump was then removed. We had a stoma or mucous fistula on the distal side and a wide open stoma on the proximal side. Blood loss is 20 mL. Operation carried out is revision of prolapsed loop colostomy with partial colectomy. Jez Anguiano Jr., MD cc: Brian Mckeon MD
[2018-05-15] MEDS: Lactated Ringer's 1,000 ML IV SCH ×2 (05:39→16:23)
[2018-05-15] MEDS: Oxycodone/Acetaminophen 5/325 mg Tab PO PRN ×2 (05:42→17:19)
--- NOTE | 2018-05-15 07:17 | CP.PCM.PN ---
Subjective - Date & Time of Evaluation Date of Evaluation: 05/15/18 Time of Evaluation: 07:00 - Subjective Subjective: Patient seen and examined. No acute events over night. Stoma site is pink with few blood clots. No complaints. Denies chest pain/SOB. Objective - Vital Signs/Intake and Output Vital Signs (last 24 hours): Temp Pulse Resp BP Pulse Ox 98.3 F 59 L 20 159/84 H 97 05/14/18 23:31 05/15/18 00:16 05/14/18 23:31 05/14/18 23:31 05/14/18 23:31 Intake and Output: 05/15/18 05/15/18 06:59 18:59 Intake Total 680 Output Total 100 Balance 580 - Medications Medications: Current Medications Acetaminophen (Tylenol 325mg Tab) 650 mg PO Q4 PRN PRN Reason: Pain, Mild (1-3) Last Admin: 05/14/18 13:33 Dose: 650 mg Al Hydrox/Mg Hydrox/Simethicone (Maalox Plus 30 Ml) 30 ml PO Q4 PRN PRN Reason: Dyspepsia Cyproheptadine HCl (Periactin) 4 mg PO DAILY [facility] Last Admin: 05/14/18 17:15 Dose: 4 mg Ferrous Sulfate (Feosol) 325 mg PO BID [facility] Last Admin: 05/14/18 17:15 Dose: 325 mg Heparin Sodium (Porcine) (Heparin) 5,000 units SC Q8 [facility] Lactated Ringer's (Lactated Ringer's) 1,000 mls @ 60 mls/hr IV .[id number] [facility] Last Admin: 05/15/18 05:39 Dose: 60 mls/hr Ondansetron HCl (Zofran Odt) 4 mg PO Q6 PRN PRN Reason: Nausea/Vomiting Oxycodone/Acetaminophen (Percocet 5/325 Mg Tab) 1 tab PO Q4H PRN PRN Reason: Pain, moderate (4-7) Stop: 05/17/18 12:04 Last Admin: 05/15/18 05:42 Dose: 1 tab Pantoprazole Sodium (Protonix Inj) 40 mg IVP DAILY [facility] Last Admin: 05/14/18 10:05 Dose: Not Given Potassium Chloride (K-Dur 20 Meq Er Tab) 20 meq PO DAILY [facility] - Labs Labs: 05/14/18 01:25 07/19/18 01:25 PT 13.6 SECONDS (9.7-12.2) H 05/14/18 01:25 INR 1.2 05/14/18 01:25 APTT 38 SECONDS (21-34) H 05/13/18 19:54 - Constitutional Appears: No Acute Distress - Head Exam Head Exam: NORMOCEPHALIC - Eye Exam Eye Exam: Normal appearance Pupil Exam: NORMAL ACCOMODATION - ENT Exam ENT Exam: Mucous Membranes Moist - Respiratory Exam Respiratory Exam: NORMAL BREATHING PATTERN - Cardiovascular Exam Cardiovascular Exam: +S1, +S2 - GI/Abdominal Exam GI & Abdominal Exam: Soft - Neurological Exam Neurological Exam: Alert, Awake, Oriented x3 - Psychiatric Exam Psychiatric exam: Normal Mood - Skin Skin Exam: Dry, Intact, Warm Assessment and Plan - Assessment and Plan (Free Text) Assessment: 67M with revision of stoma POD1 Plan: -F/u AM labs -No further surgical intervention needed at this time -transfuse prn -Will sign off, please reconsult as needed -D/w Dr. Silvio Jefferson PGY3
[2018-05-15 07:19] LABS: BASO % 0.2 % (0.0-2.0); EOS % 0.3 % (0.0-4.0); HEMOGLOBIN 9.6 g/dL (12.0-18.0); LYMPH # 0.5 K/uL (1.0-4.3); MEAN CELL VOLUME 85.3 fL (80.0-94.0); MEAN CORPUSCULAR HEMOGLOBIN 29.6 pg (27.0-31.0); MEAN CORPUSCULAR HGB CONC 34.7 g/dL (33.0-37.0); MEAN PLATELET VOLUME 6.7 fL (7.2-11.7); MONO # 0.6 K/uL (0.0-0.8); MONO % 5.6 % (0.0-10.0); NEUT # 8.9 K/uL (1.8-7.0); NEUT % 88.9 % (50.0-75.0); PLATELET COUNT 327 K/uL (130-400); RBC 3.25 Mil/uL (4.40-5.90); RED CELL DISTRIBUTION WIDTH 18.1 % (11.5-14.5)
[2018-05-15 07:43] LABS: ALB/GLOB RATIO 0.8 (1.0-2.1); ALBUMIN 2.3 g/dL (3.5-5.0); ALT/SGPT 22 U/L (21-72); AST/SGOT 10 U/L (17-59); BLOOD UREA NITROGEN 15 mg/dL (9-20); CALCIUM 7.8 mg/dl (8.6-10.4); GFR AFRICAN-AMERICAN > 60; GFR NON-AFRICAN AMERICAN > 60
[2018-05-15 08:47] LABS: LYMPHOCYTE 2 % (20-40); MONOCYTE 2 % (0-10); NEUTROPHIL 96 % (50-75); TOTAL CELLS COUNTED 100
[2018-05-15 08:48] LABS: ANISOCYTOSIS SLIGHT; HYPOCHROMIC SLIGHT; OVALOCYTES SLIGHT; PLATELET ESTIMATE NORMAL (NORMAL); POLYCHROMIC SLIGHT
[2018-05-15] MEDS: Potassium Chloride 20 mEq ER Tab PO SCH (10:01)
--- NOTE | 2018-05-15 15:30 | CON ---
DATE: 05/15/2018 ONCOLOGY CONSULTATION HISTORY OF PRESENT ILLNESS: This is a 67-year-old man who I know very well. 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 At that time, we did not operate on him. We gave him chemotherapy including FOLFOX and over the two years he received FOLFOX with Erbitux and Avastin. At one point, his liver metastasis had improved and after that we were able to do a diverting colostomy for him because he had so much pain and diarrhea from his rectum and we were then able to give him radiation therapy to the rectum and to the pelvic region; however, a couple of months ago, he was back in the hospital here with progressive care to his liver and his lungs. We offered hospice and we held chemotherapy for simply two weeks. PHYSICAL EXAMINATION: SKIN: No petechiae. No bruises. HEENT: Anicteric. NODES: Nonpalpable in the axillary, cervical, supraclavicular, or inguinal regions. LUNGS: Clear at present. No vertebral tenderness. The patient is able to lie flat. HEART: S1 and S2. ABDOMEN: The patient is just after the revision of colostomy, but some tumors in his omentum. EXTREMITIES: No edema. SEARCH MARKETING COORDINATOR: Plantars downgoing. NEUROLOGIC: He is alert. At this point, his all symptoms controlled. We have no plans of giving him chemotherapy at this point. He progressed on all the treatments and . Brian Mckeon MD
--- NOTE | 2018-05-15 20:40 | CP.PCM.PN ---
Subjective - Date & Time of Evaluation Date of Evaluation: 05/15/18 Time of Evaluation: 08:00 - Subjective Subjective: clinically same Objective - Vital Signs/Intake and Output Vital Signs (last 24 hours): Temp Pulse Resp BP Pulse Ox 98.5 F 61 18 167/86 H 98 05/15/18 16:00 05/15/18 20:00 05/15/18 16:00 05/15/18 16:00 05/15/18 16:00 Intake and Output: 05/15/18 05/16/18 18:59 06:59 Intake Total 730 Balance 730 - Medications Medications: Current Medications Acetaminophen (Tylenol 325mg Tab) 650 mg PO Q4 PRN PRN Reason: Pain, Mild (1-3) Last Admin: 05/14/18 13:33 Dose: 650 mg Al Hydrox/Mg Hydrox/Simethicone (Maalox Plus 30 Ml) 30 ml PO Q4 PRN PRN Reason: Dyspepsia Cyproheptadine HCl (Periactin) 4 mg PO DAILY [facility] Last Admin: 05/15/18 10:01 Dose: 4 mg Ferrous Sulfate (Feosol) 325 mg PO BID [facility] Last Admin: 05/15/18 17:19 Dose: 325 mg Heparin Sodium (Porcine) (Heparin) 5,000 units SC Q8 [facility] Last Admin: 05/15/18 13:12 Dose: Not Given Lactated Ringer's (Lactated Ringer's) 1,000 mls @ 60 mls/hr IV .[id number] [facility] Last Admin: 05/15/18 16:23 Dose: Not Given Ondansetron HCl (Zofran Odt) 4 mg PO Q6 PRN PRN Reason: Nausea/Vomiting Oxycodone/Acetaminophen (Percocet 5/325 Mg Tab) 1 tab PO Q4H PRN PRN Reason: Pain, moderate (4-7) Stop: 05/17/18 12:04 Last Admin: 05/15/18 17:19 Dose: 1 tab Pantoprazole Sodium (Protonix Inj) 40 mg IVP DAILY [facility] Last Admin: 05/15/18 10:01 Dose: 40 mg Potassium Chloride (K-Dur 20 Meq Er Tab) 20 meq PO DAILY [facility] Last Admin: 05/15/18 10:01 Dose: 20 meq - Labs Labs: 05/15/18 07:08 05/15/18 07:08 PT 13.6 SECONDS (9.7-12.2) H 05/14/18 01:25 INR 1.2 05/14/18 01:25 APTT 38 SECONDS (21-34) H 05/13/18 19:54 - Constitutional Appears: Well - Head Exam Head Exam: ATRAUMATIC, NORMAL INSPECTION, NORMOCEPHALIC - Eye Exam Eye Exam: EOMI, Normal appearance, PERRL Pupil Exam: NORMAL ACCOMODATION, PERRL - ENT Exam ENT Exam: Mucous Membranes Moist, Normal Exam - Neck Exam Neck Exam: Full ROM, Normal Inspection. absent: Lymphadenopathy - Respiratory Exam Respiratory Exam: Decreased Breath Sounds - Cardiovascular Exam Cardiovascular Exam: REGULAR RHYTHM, +S1, +S2 - GI/Abdominal Exam GI & Abdominal Exam: Soft, Diminished Bowel Sounds - Rectal Exam Rectal Exam: Deferred
[2018-05-16] MEDS: Lactated Ringer's 1,000 ML IV SCH ×2 (00:40→08:30)
[2018-05-16] MEDS: Oxycodone/Acetaminophen 5/325 mg Tab PO PRN (06:37)
[2018-05-16] MEDS: Potassium Chloride 20 mEq ER Tab PO SCH (09:18)
[2018-05-16 11:29] LABS: BASO % 0.2 % (0.0-2.0); EOS % 0.1 % (0.0-4.0); HEMOGLOBIN 9.2 g/dL (12.0-18.0); LYMPH # 0.7 K/uL (1.0-4.3); MEAN CELL VOLUME 85.5 fL (80.0-94.0); MEAN CORPUSCULAR HEMOGLOBIN 28.9 pg (27.0-31.0); MEAN CORPUSCULAR HGB CONC 33.8 g/dL (33.0-37.0); MEAN PLATELET VOLUME 6.2 fL (7.2-11.7); MONO # 0.6 K/uL (0.0-0.8); MONO % 6.2 % (0.0-10.0); NEUT # 7.8 K/uL (1.8-7.0); NEUT % 85.5 % (50.0-75.0); NRBC % 0.1 % (0.0-2.0); PLATELET COUNT 319 K/uL (130-400); RBC 3.17 Mil/uL (4.40-5.90); RED CELL DISTRIBUTION WIDTH 18.2 % (11.5-14.5); WHITE BLOOD COUNT 9.1 K/uL (4.8-10.8)
[2018-05-16 11:52] LABS: ANISOCYTOSIS SLIGHT; EOSINOPHIL 1 % (0-4); LYMPHOCYTE 4 % (20-40); MONOCYTE 2 % (0-10); NEUTROPHIL 93 % (50-75); PLATELET ESTIMATE NORMAL (NORMAL); TOTAL CELLS COUNTED 100
[2018-05-16 11:54] LABS: POIKILOCYTOSIS SLIGHT
[2018-05-16 12:05] LABS: ALB/GLOB RATIO 0.8 (1.0-2.1); ALBUMIN 2.2 g/dL (3.5-5.0); ALT/SGPT 17 U/L (21-72); AST/SGOT 10 U/L (17-59); BLOOD UREA NITROGEN 17 mg/dL (9-20); CALCIUM 7.8 mg/dl (8.6-10.4); GFR AFRICAN-AMERICAN > 60; GFR NON-AFRICAN AMERICAN > 60
--- NOTE | 2018-05-16 15:28 | CP.PCM.PN ---
Subjective - Date & Time of Evaluation Date of Evaluation: 05/16/18 Time of Evaluation: 08:15 - Subjective Subjective: clinically same Objective - Vital Signs/Intake and Output Vital Signs (last 24 hours): Temp Pulse Resp BP Pulse Ox 98.1 F 62 20 148/73 96 05/16/18 07:29 05/16/18 13:00 05/16/18 07:29 05/16/18 07:29 05/16/18 07:29 Intake and Output: 05/16/18 05/16/18 06:59 18:59 Intake Total 480 Output Total 250 600 Balance -250 -120 - Medications Medications: Current Medications Acetaminophen (Tylenol 325mg Tab) 650 mg PO Q4 PRN PRN Reason: Pain, Mild (1-3) Last Admin: 05/14/18 13:33 Dose: 650 mg Al Hydrox/Mg Hydrox/Simethicone (Maalox Plus 30 Ml) 30 ml PO Q4 PRN PRN Reason: Dyspepsia Cyproheptadine HCl (Periactin) 4 mg PO DAILY [facility] Last Admin: 05/16/18 09:19 Dose: 4 mg Ferrous Sulfate (Feosol) 325 mg PO BID [facility] Last Admin: 05/16/18 09:19 Dose: 325 mg Heparin Sodium (Porcine) (Heparin) 5,000 units SC Q8 [facility] Last Admin: 05/16/18 14:08 Dose: 5,000 units Ondansetron HCl (Zofran Odt) 4 mg PO Q6 PRN PRN Reason: Nausea/Vomiting Oxycodone/Acetaminophen (Percocet 5/325 Mg Tab) 1 tab PO Q4H PRN PRN Reason: Pain, moderate (4-7) Stop: 05/17/18 12:04 Last Admin: 05/16/18 06:37 Dose: 1 tab Pantoprazole Sodium (Protonix Inj) 40 mg IVP DAILY [facility] Last Admin: 05/16/18 09:19 Dose: 40 mg Potassium Chloride (K-Dur 20 Meq Er Tab) 20 meq PO DAILY [facility] Last Admin: 05/16/18 09:18 Dose: 20 meq - Labs Labs: 05/16/18 11:24 05/16/18 11:24 PT 13.6 SECONDS (9.7-12.2) H 05/14/18 01:25 INR 1.2 05/14/18 01:25 APTT 38 SECONDS (21-34) H 05/13/18 19:54 - Constitutional Appears: Well - Head Exam Head Exam: ATRAUMATIC, NORMAL INSPECTION, NORMOCEPHALIC - Eye Exam Eye Exam: EOMI, Normal appearance, PERRL Pupil Exam: NORMAL ACCOMODATION, PERRL - ENT Exam ENT Exam: Mucous Membranes Moist, Normal Exam - Neck Exam Neck Exam: Full ROM, Normal Inspection. absent: Lymphadenopathy - Respiratory Exam Respiratory Exam: Decreased Breath Sounds - Cardiovascular Exam Cardiovascular Exam: REGULAR RHYTHM, +S1, +S2 - GI/Abdominal Exam GI & Abdominal Exam: Soft, Diminished Bowel Sounds - Rectal Exam Rectal Exam: Deferred
[2018-05-16] MEDS ORDERED: Lactated Ringer's 1,000 ML IV ONE (18:02)
[2018-05-17] MEDS: Oxycodone/Acetaminophen 5/325 mg Tab PO PRN (04:23)
[2018-05-17] MEDS: Potassium Chloride 20 mEq ER Tab PO SCH (09:23)
--- NOTE | 2018-05-17 17:28 | CP.PCM.PN ---
Subjective - Date & Time of Evaluation Date of Evaluation: 05/17/18 Time of Evaluation: 07:45 - Subjective Subjective: clinically same Objective - Vital Signs/Intake and Output Vital Signs (last 24 hours): Temp Pulse Resp BP Pulse Ox 97.8 F 69 20 146/90 99 05/17/18 15:00 05/17/18 15:00 05/17/18 15:00 05/17/18 15:00 05/17/18 15:00 Intake and Output: 05/17/18 05/17/18 06:59 18:59 Intake Total 320 320 Output Total 600 300 Balance -280 20 - Medications Medications: Current Medications Acetaminophen (Tylenol 325mg Tab) 650 mg PO Q4 PRN PRN Reason: Pain, Mild (1-3) Last Admin: 05/14/18 13:33 Dose: 650 mg Al Hydrox/Mg Hydrox/Simethicone (Maalox Plus 30 Ml) 30 ml PO Q4 PRN PRN Reason: Dyspepsia Cyproheptadine HCl (Periactin) 4 mg PO DAILY [facility] Last Admin: 05/17/18 09:24 Dose: 4 mg Ferrous Sulfate (Feosol) 325 mg PO BID [facility] Last Admin: 05/17/18 17:14 Dose: 325 mg Heparin Sodium (Porcine) (Heparin) 5,000 units SC Q8 [facility] Last Admin: 05/17/18 14:31 Dose: 5,000 units Lactated Ringer's (Lactated Ringer's) 1,000 mls @ 40 mls/hr IV .Q24H ONE Stop: 05/17/18 18:01 Last Admin: 05/16/18 18:35 Dose: 40 mls/hr Ondansetron HCl (Zofran Odt) 4 mg PO Q6 PRN PRN Reason: Nausea/Vomiting Pantoprazole Sodium (Protonix Inj) 40 mg IVP DAILY [facility] Last Admin: 05/17/18 09:24 Dose: 40 mg Potassium Chloride (K-Dur 20 Meq Er Tab) 20 meq PO DAILY [facility] Last Admin: 05/17/18 09:23 Dose: 20 meq - Labs Labs: 05/16/18 11:24 05/16/18 11:24 PT 13.6 SECONDS (9.7-12.2) H 05/14/18 01:25 INR 1.2 05/14/18 01:25 APTT 38 SECONDS (21-34) H 05/13/18 19:54 - Constitutional Appears: Well - Head Exam Head Exam: ATRAUMATIC, NORMAL INSPECTION, NORMOCEPHALIC - Eye Exam Eye Exam: EOMI, Normal appearance, PERRL Pupil Exam: NORMAL ACCOMODATION, PERRL - ENT Exam ENT Exam: Mucous Membranes Moist, Normal Exam - Neck Exam Neck Exam: Full ROM, Normal Inspection. absent: Lymphadenopathy - Respiratory Exam Respiratory Exam: Decreased Breath Sounds - Cardiovascular Exam Cardiovascular Exam: REGULAR RHYTHM, +S1, +S2 - GI/Abdominal Exam GI & Abdominal Exam: Soft, Diminished Bowel Sounds - Rectal Exam Rectal Exam: Deferred
--- NOTE | 2018-05-18 08:58 | CP.PCM.PN ---
Subjective - Date & Time of Evaluation Date of Evaluation: 05/18/18 Time of Evaluation: 08:58 - Subjective Subjective: doing well may dc per pmd Objective - Vital Signs/Intake and Output Vital Signs (last 24 hours): Temp Pulse Resp BP Pulse Ox 97.8 F 63 20 157/83 H 99 05/18/18 07:00 05/18/18 07:44 05/18/18 07:00 05/18/18 07:00 05/18/18 07:00 Intake and Output: 05/18/18 05/18/18 06:59 18:59 Output Total 1100 Balance -1100 - Medications Medications: Current Medications Acetaminophen (Tylenol 325mg Tab) 650 mg PO Q4 PRN PRN Reason: Pain, Mild (1-3) Last Admin: 05/17/18 21:40 Dose: 650 mg Al Hydrox/Mg Hydrox/Simethicone (Maalox Plus 30 Ml) 30 ml PO Q4 PRN PRN Reason: Dyspepsia Cyproheptadine HCl (Periactin) 4 mg PO DAILY [facility] Last Admin: 05/17/18 09:24 Dose: 4 mg Ferrous Sulfate (Feosol) 325 mg PO BID [facility] Last Admin: 05/17/18 17:14 Dose: 325 mg Heparin Sodium (Porcine) (Heparin) 5,000 units SC Q8 [facility] Last Admin: 05/18/18 06:30 Dose: 5,000 units Ondansetron HCl (Zofran Odt) 4 mg PO Q6 PRN PRN Reason: Nausea/Vomiting Pantoprazole Sodium (Protonix Inj) 40 mg IVP DAILY [facility] Last Admin: 05/17/18 09:24 Dose: 40 mg Potassium Chloride (K-Dur 20 Meq Er Tab) 20 meq PO DAILY [facility] Last Admin: 05/17/18 09:23 Dose: 20 meq - Labs Labs: 05/16/18 11:24 05/16/18 11:24 PT 13.6 SECONDS (9.7-12.2) H 05/14/18 01:25 INR 1.2 05/14/18 01:25 APTT 38 SECONDS (21-34) H 05/13/18 19:54
[2018-05-18] MEDS: Potassium Chloride 20 mEq ER Tab PO SCH (09:45)
--- NOTE | 2018-05-18 18:58 | CP.PCM.PN ---
Subjective - Date & Time of Evaluation Date of Evaluation: 05/18/18 Time of Evaluation: 07:45 - Subjective Subjective: clinically same Objective - Vital Signs/Intake and Output Vital Signs (last 24 hours): Temp Pulse Resp BP Pulse Ox 98.3 F 71 20 152/90 H 99 05/18/18 15:00 05/18/18 18:49 05/18/18 15:00 05/18/18 15:00 05/18/18 15:00 Intake and Output: 05/18/18 05/18/18 06:59 18:59 Intake Total 120 Output Total 1100 280 Balance -1100 -160 - Medications Medications: Current Medications Acetaminophen (Tylenol 325mg Tab) 650 mg PO Q4 PRN PRN Reason: Pain, Mild (1-3) Last Admin: 05/17/18 21:40 Dose: 650 mg Al Hydrox/Mg Hydrox/Simethicone (Maalox Plus 30 Ml) 30 ml PO Q4 PRN PRN Reason: Dyspepsia Cyproheptadine HCl (Periactin) 4 mg PO DAILY [facility] Last Admin: 05/18/18 09:45 Dose: 4 mg Ferrous Sulfate (Feosol) 325 mg PO BID [facility] Last Admin: 05/18/18 17:23 Dose: 325 mg Ondansetron HCl (Zofran Odt) 4 mg PO Q6 PRN PRN Reason: Nausea/Vomiting Pantoprazole Sodium (Protonix Ec Tab) 40 mg PO DAILY [facility] Potassium Chloride (K-Dur 20 Meq Er Tab) 20 meq PO DAILY [facility] Last Admin: 05/18/18 09:45 Dose: 20 meq - Labs Labs: 05/16/18 11:24 05/16/18 11:24 PT 13.6 SECONDS (9.7-12.2) H 05/14/18 01:25 INR 1.2 05/14/18 01:25 APTT 38 SECONDS (21-34) H 05/13/18 19:54 - Constitutional Appears: Well - Head Exam Head Exam: ATRAUMATIC, NORMAL INSPECTION, NORMOCEPHALIC - Eye Exam Eye Exam: EOMI, Normal appearance, PERRL Pupil Exam: NORMAL ACCOMODATION, PERRL - ENT Exam ENT Exam: Mucous Membranes Moist, Normal Exam - Neck Exam Neck Exam: Full ROM, Normal Inspection. absent: Lymphadenopathy - Respiratory Exam Respiratory Exam: Decreased Breath Sounds - Cardiovascular Exam Cardiovascular Exam: REGULAR RHYTHM, +S1, +S2 - GI/Abdominal Exam GI & Abdominal Exam: Soft, Diminished Bowel Sounds - Rectal Exam Rectal Exam: Deferred
[2018-05-19] MEDS ORDERED: Oxycodone/Acetaminophen 5/325 mg Tab PO STA (01:19)
[2018-05-19] MEDS: Potassium Chloride 20 mEq ER Tab PO SCH (10:23)
[2018-05-19] MEDS: Pantoprazole 40 mg EC Tab PO SCH (10:23)
--- NOTE | 2018-05-19 17:56 | CP.PCM.PN ---
Subjective - Date & Time of Evaluation Date of Evaluation: 05/19/18 Time of Evaluation: 07:20 - Subjective Subjective: clinically same Objective - Vital Signs/Intake and Output Vital Signs (last 24 hours): Temp Pulse Resp BP Pulse Ox 98.1 F 63 20 151/84 H 97 05/19/18 15:08 05/19/18 15:08 05/19/18 15:08 05/19/18 15:08 05/19/18 15:08 Intake and Output: 05/19/18 05/19/18 06:59 18:59 Output Total 240 Balance -240 - Medications Medications: Current Medications Acetaminophen (Tylenol 325mg Tab) 650 mg PO Q4 PRN PRN Reason: Pain, Mild (1-3) Last Admin: 05/17/18 21:40 Dose: 650 mg Al Hydrox/Mg Hydrox/Simethicone (Maalox Plus 30 Ml) 30 ml PO Q4 PRN PRN Reason: Dyspepsia Cyproheptadine HCl (Periactin) 4 mg PO DAILY [facility] Last Admin: 05/19/18 10:23 Dose: 4 mg Ferrous Sulfate (Feosol) 325 mg PO BID [facility] Last Admin: 05/19/18 17:14 Dose: 325 mg Ondansetron HCl (Zofran Odt) 4 mg PO Q6 PRN PRN Reason: Nausea/Vomiting Pantoprazole Sodium (Protonix Ec Tab) 40 mg PO DAILY [facility] Last Admin: 05/19/18 10:23 Dose: 40 mg Potassium Chloride (K-Dur 20 Meq Er Tab) 20 meq PO DAILY [facility] Last Admin: 05/19/18 10:23 Dose: 20 meq - Labs Labs: 05/16/18 11:24 05/16/18 11:24 PT 13.6 SECONDS (9.7-12.2) H 05/14/18 01:25 INR 1.2 05/14/18 01:25 APTT 38 SECONDS (21-34) H 05/13/18 19:54 - Constitutional Appears: Well - Head Exam Head Exam: ATRAUMATIC, NORMAL INSPECTION, NORMOCEPHALIC - Eye Exam Eye Exam: EOMI, Normal appearance, PERRL Pupil Exam: NORMAL ACCOMODATION, PERRL - ENT Exam ENT Exam: Mucous Membranes Moist, Normal Exam - Neck Exam Neck Exam: Full ROM, Normal Inspection. absent: Lymphadenopathy - Respiratory Exam Respiratory Exam: Decreased Breath Sounds - Cardiovascular Exam Cardiovascular Exam: REGULAR RHYTHM, +S1, +S2 - GI/Abdominal Exam GI & Abdominal Exam: Soft, Diminished Bowel Sounds - Rectal Exam Rectal Exam: Deferred
[2018-05-20] MEDS: Potassium Chloride 20 mEq ER Tab PO SCH (09:40)
[2018-05-20] MEDS: Pantoprazole 40 mg EC Tab PO SCH (09:40)
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
[2018-05-21] MEDS: Pantoprazole 40 mg EC Tab PO SCH (09:54)
[2018-05-21] MEDS: Potassium Chloride 20 mEq ER Tab PO SCH (09:59)
--- NOTE | 2018-05-21 16:13 | CARD ---
APPROVED REPORT Date of service: 05/08/2018 EKG Measurement Heart [id number] CT [id number] <Conclusion> Sinus bradycardia Low voltage QRS Borderline ECG
--- NOTE | 2018-05-21 16:28 | CP.PCM.PN ---
Subjective - Date & Time of Evaluation Date of Evaluation: 05/21/18 Time of Evaluation: 07:00 - Subjective Subjective: clinically same Objective - Vital Signs/Intake and Output Vital Signs (last 24 hours): Temp Pulse Resp BP Pulse Ox 99.1 F 88 20 149/88 98 05/21/18 15:30 05/21/18 15:30 05/21/18 15:30 05/21/18 15:30 05/21/18 15:30 Intake and Output: 05/21/18 05/21/18 06:59 18:59 Intake Total 400 Output Total 700 Balance -300 - Medications Medications: Current Medications Acetaminophen (Tylenol 325mg Tab) 650 mg PO Q4 PRN PRN Reason: Pain, Mild (1-3) Last Admin: 05/20/18 13:52 Dose: 650 mg Al Hydrox/Mg Hydrox/Simethicone (Maalox Plus 30 Ml) 30 ml PO Q4 PRN PRN Reason: Dyspepsia Amlodipine Besylate (Norvasc) 10 mg PO DAILY [facility] Last Admin: 05/21/18 09:54 Dose: 10 mg Cyproheptadine HCl (Periactin) 4 mg PO DAILY [facility] Last Admin: 05/21/18 09:54 Dose: 4 mg Ferrous Sulfate (Feosol) 325 mg PO BID [facility] Last Admin: 05/21/18 09:54 Dose: 325 mg Ondansetron HCl (Zofran Odt) 4 mg PO Q6 PRN PRN Reason: Nausea/Vomiting Pantoprazole Sodium (Protonix Ec Tab) 40 mg PO DAILY [facility] Last Admin: 05/21/18 09:54 Dose: 40 mg Tramadol HCl (Ultram) 50 mg PO Q6 PRN PRN Reason: Pain, moderate (4-7) Last Admin: 05/21/18 09:55 Dose: 50 mg - Labs Labs: 05/16/18 11:24 05/16/18 11:24 PT 13.6 SECONDS (9.7-12.2) H 05/14/18 01:25 INR 1.2 05/14/18 01:25 APTT 38 SECONDS (21-34) H 05/13/18 19:54 - Constitutional Appears: Well - Head Exam Head Exam: ATRAUMATIC, NORMAL INSPECTION, NORMOCEPHALIC - Eye Exam Eye Exam: EOMI, Normal appearance, PERRL Pupil Exam: NORMAL ACCOMODATION, PERRL - ENT Exam ENT Exam: Mucous Membranes Moist, Normal Exam - Neck Exam Neck Exam: Full ROM, Normal Inspection. absent: Lymphadenopathy - Respiratory Exam Respiratory Exam: Decreased Breath Sounds - Cardiovascular Exam Cardiovascular Exam: REGULAR RHYTHM, +S1, +S2 - GI/Abdominal Exam GI & Abdominal Exam: Soft, Diminished Bowel Sounds - Rectal Exam Rectal Exam: Deferred
[2018-05-22] MEDS: Pantoprazole 40 mg EC Tab PO SCH (09:30)
--- NOTE | 2018-05-22 18:52 | CP.PCM.PN ---
Subjective - Date & Time of Evaluation Date of Evaluation: 05/22/18 Time of Evaluation: 07:00 - Subjective Subjective: clinically same Objective - Vital Signs/Intake and Output Vital Signs (last 24 hours): Temp Pulse Resp BP Pulse Ox 98.6 F 90 20 141/88 99 05/22/18 15:30 05/22/18 15:30 05/22/18 15:30 05/22/18 15:30 05/22/18 15:30 Intake and Output: 05/22/18 05/22/18 06:59 18:59 Intake Total 370 500 Output Total 600 400 Balance -230 100 - Medications Medications: Current Medications Acetaminophen (Tylenol 325mg Tab) 650 mg PO Q4 PRN PRN Reason: Pain, Mild (1-3) Last Admin: 05/20/18 13:52 Dose: 650 mg Al Hydrox/Mg Hydrox/Simethicone (Maalox Plus 30 Ml) 30 ml PO Q4 PRN PRN Reason: Dyspepsia Amlodipine Besylate (Norvasc) 10 mg PO DAILY [facility] Last Admin: 05/22/18 09:31 Dose: 10 mg Cyproheptadine HCl (Periactin) 4 mg PO DAILY [facility] Last Admin: 05/22/18 09:30 Dose: 4 mg Ferrous Sulfate (Feosol) 325 mg PO BID [facility] Last Admin: 05/22/18 17:04 Dose: 325 mg Ondansetron HCl (Zofran Odt) 4 mg PO Q6 PRN PRN Reason: Nausea/Vomiting Pantoprazole Sodium (Protonix Ec Tab) 40 mg PO DAILY [facility] Last Admin: 05/22/18 09:30 Dose: 40 mg Tramadol HCl (Ultram) 50 mg PO Q6 PRN PRN Reason: Pain, moderate (4-7) Last Admin: 05/22/18 17:13 Dose: 50 mg - Labs Labs: 05/16/18 11:24 05/16/18 11:24 PT 13.6 SECONDS (9.7-12.2) H 05/14/18 01:25 INR 1.2 05/14/18 01:25 APTT 38 SECONDS (21-34) H 05/13/18 19:54 - Constitutional Appears: Well - Head Exam Head Exam: ATRAUMATIC, NORMAL INSPECTION, NORMOCEPHALIC - Eye Exam Eye Exam: EOMI, Normal appearance, PERRL Pupil Exam: NORMAL ACCOMODATION, PERRL - ENT Exam ENT Exam: Mucous Membranes Moist, Normal Exam - Neck Exam Neck Exam: Full ROM, Normal Inspection. absent: Lymphadenopathy - Respiratory Exam Respiratory Exam: Decreased Breath Sounds - Cardiovascular Exam Cardiovascular Exam: REGULAR RHYTHM, +S1, +S2 - GI/Abdominal Exam GI & Abdominal Exam: Soft, Diminished Bowel Sounds - Rectal Exam Rectal Exam: Deferred
[2018-05-23] MEDS: Pantoprazole 40 mg EC Tab PO SCH (09:56)
--- NOTE | 2018-05-23 18:03 | CP.PCM.PN ---
Subjective - Date & Time of Evaluation Date of Evaluation: 05/23/18 Time of Evaluation: 07:20 - Subjective Subjective: clinically same Objective - Vital Signs/Intake and Output Vital Signs (last 24 hours): Temp Pulse Resp BP Pulse Ox 99.3 F 94 H 20 117/74 98 05/23/18 17:02 05/23/18 17:02 05/23/18 17:02 05/23/18 17:02 05/23/18 17:02 Intake and Output: 05/23/18 05/23/18 06:59 18:59 Intake Total 700 300 Output Total 100 Balance 600 300 - Medications Medications: Current Medications Acetaminophen (Tylenol 325mg Tab) 650 mg PO Q4 PRN PRN Reason: Pain, Mild (1-3) Last Admin: 05/20/18 13:52 Dose: 650 mg Al Hydrox/Mg Hydrox/Simethicone (Maalox Plus 30 Ml) 30 ml PO Q4 PRN PRN Reason: Dyspepsia Amlodipine Besylate (Norvasc) 10 mg PO DAILY [facility] Last Admin: 05/23/18 09:56 Dose: 10 mg Cyproheptadine HCl (Periactin) 4 mg PO DAILY [facility] Last Admin: 05/23/18 09:57 Dose: 4 mg Ferrous Sulfate (Feosol) 325 mg PO BID [facility] Last Admin: 05/23/18 17:57 Dose: 325 mg Ondansetron HCl (Zofran Odt) 4 mg PO Q6 PRN PRN Reason: Nausea/Vomiting Pantoprazole Sodium (Protonix Ec Tab) 40 mg PO DAILY [facility] Last Admin: 05/23/18 09:56 Dose: 40 mg Tramadol HCl (Ultram) 50 mg PO Q6 PRN PRN Reason: Pain, moderate (4-7) Last Admin: 05/22/18 17:13 Dose: 50 mg - Labs Labs: 05/16/18 11:24 05/16/18 11:24 PT 13.6 SECONDS (9.7-12.2) H 05/14/18 01:25 INR 1.2 05/14/18 01:25 APTT 38 SECONDS (21-34) H 05/13/18 19:54 - Constitutional Appears: Well - Head Exam Head Exam: ATRAUMATIC, NORMAL INSPECTION, NORMOCEPHALIC - Eye Exam Eye Exam: EOMI, Normal appearance, PERRL Pupil Exam: NORMAL ACCOMODATION, PERRL - ENT Exam ENT Exam: Mucous Membranes Moist, Normal Exam - Neck Exam Neck Exam: Full ROM, Normal Inspection. absent: Lymphadenopathy - Respiratory Exam Respiratory Exam: Decreased Breath Sounds - Cardiovascular Exam Cardiovascular Exam: REGULAR RHYTHM, +S1, +S2 - GI/Abdominal Exam GI & Abdominal Exam: Soft, Diminished Bowel Sounds - Rectal Exam Rectal Exam: Deferred
[2018-05-24] MEDS: Pantoprazole 40 mg EC Tab PO SCH (10:13)
--- NOTE | 2018-05-24 14:39 | CP.PCM.PN ---
Subjective - Date & Time of Evaluation Date of Evaluation: 05/24/18 Time of Evaluation: 07:20 - Subjective Subjective: clinically same Objective - Vital Signs/Intake and Output Vital Signs (last 24 hours): Temp Pulse Resp BP Pulse Ox 98.1 F 80 20 133/82 99 05/24/18 08:35 05/24/18 08:35 05/24/18 08:35 05/24/18 08:35 05/24/18 08:35 Intake and Output: 05/24/18 05/24/18 06:59 18:59 Intake Total 350 150 Output Total 450 350 Balance -100 -200 - Medications Medications: Current Medications Acetaminophen (Tylenol 325mg Tab) 650 mg PO Q4 PRN PRN Reason: Pain, Mild (1-3) Last Admin: 05/20/18 13:52 Dose: 650 mg Al Hydrox/Mg Hydrox/Simethicone (Maalox Plus 30 Ml) 30 ml PO Q4 PRN PRN Reason: Dyspepsia Amlodipine Besylate (Norvasc) 10 mg PO DAILY [facility] Last Admin: 05/24/18 10:13 Dose: 10 mg Cyproheptadine HCl (Periactin) 4 mg PO DAILY [facility] Last Admin: 05/24/18 10:13 Dose: 4 mg Ferrous Sulfate (Feosol) 325 mg PO BID [facility] Last Admin: 05/24/18 10:13 Dose: 325 mg Ondansetron HCl (Zofran Odt) 4 mg PO Q6 PRN PRN Reason: Nausea/Vomiting Pantoprazole Sodium (Protonix Ec Tab) 40 mg PO DAILY [facility] Last Admin: 05/24/18 10:13 Dose: 40 mg Tramadol HCl (Ultram) 50 mg PO Q6 PRN PRN Reason: Pain, moderate (4-7) Last Admin: 05/23/18 18:38 Dose: 50 mg - Labs Labs: 05/16/18 11:24 05/16/18 11:24 PT 13.6 SECONDS (9.7-12.2) H 05/14/18 01:25 INR 1.2 05/14/18 01:25 APTT 38 SECONDS (21-34) H 05/13/18 19:54 - Constitutional Appears: Well - Head Exam Head Exam: ATRAUMATIC, NORMAL INSPECTION, NORMOCEPHALIC - Eye Exam Eye Exam: EOMI, Normal appearance, PERRL Pupil Exam: NORMAL ACCOMODATION, PERRL - ENT Exam ENT Exam: Mucous Membranes Moist, Normal Exam - Neck Exam Neck Exam: Full ROM, Normal Inspection. absent: Lymphadenopathy - Respiratory Exam Respiratory Exam: Decreased Breath Sounds - Cardiovascular Exam Cardiovascular Exam: REGULAR RHYTHM, +S1, +S2 - GI/Abdominal Exam GI & Abdominal Exam: Soft, Diminished Bowel Sounds - Rectal Exam Rectal Exam: Deferred
[2018-05-25 06:54] LABS: ALB/GLOB RATIO 0.8 (1.0-2.1); ALT/SGPT 10 U/L (21-72); AST/SGOT 16 U/L (17-59); BLOOD UREA NITROGEN 41 mg/dL (9-20); CALCIUM 8.6 mg/dl (8.6-10.4); GFR AFRICAN-AMERICAN > 60; GFR NON-AFRICAN AMERICAN > 60
[2018-05-25 07:29] LABS: BASO % 0.1 % (0.0-2.0); HEMOGLOBIN 9.7 g/dL (12.0-18.0); LYMPH # 0.3 K/uL (1.0-4.3); LYMPH % 1.8 % (20.0-40.0); MEAN CELL VOLUME 85.4 fL (80.0-94.0); MEAN CORPUSCULAR HEMOGLOBIN 28.8 pg (27.0-31.0); MEAN CORPUSCULAR HGB CONC 33.7 g/dL (33.0-37.0); MONO # 0.5 K/uL (0.0-0.8); MONO % 2.7 % (0.0-10.0); NEUT # 16.5 K/uL (1.8-7.0); NEUT % 95.4 % (50.0-75.0); PLATELET COUNT 289 K/uL (130-400); RBC 3.38 Mil/uL (4.40-5.90); RED CELL DISTRIBUTION WIDTH 18.1 % (11.5-14.5)
[2018-05-25 07:31] LABS: WHITE BLOOD COUNT 17.3 K/uL (4.8-10.8)
[2018-05-25 08:50] LABS: BANDS 2 % (0-2); HYPOCHROMIC SLIGHT; LYMPHOCYTE 3 % (20-40); MONOCYTE 2 % (0-10); NEUTROPHIL 93 % (50-75); PLATELET ESTIMATE NORMAL (NORMAL); TOTAL CELLS COUNTED 100
[2018-05-25 08:51] LABS: BURR CELLS SLIGHT; POIKILOCYTOSIS SLIGHT
[2018-05-25] MEDS: Pantoprazole 40 mg EC Tab PO SCH (10:00)
--- NOTE | 2018-05-25 19:03 | CP.PCM.PN ---
Subjective - Date & Time of Evaluation Date of Evaluation: 05/25/18 Time of Evaluation: 07:20 - Subjective Subjective: clinically same Objective - Vital Signs/Intake and Output Vital Signs (last 24 hours): Temp Pulse Resp BP Pulse Ox 98.6 F 101 H 20 116/77 98 05/25/18 16:34 05/25/18 16:34 05/25/18 16:34 05/25/18 16:34 05/25/18 16:34 Intake and Output: 05/25/18 05/26/18 18:59 06:59 Intake Total 200 Output Total 50 Balance 150 - Medications Medications: Current Medications Acetaminophen (Tylenol 325mg Tab) 650 mg PO Q4 PRN PRN Reason: Pain, Mild (1-3) Last Admin: 05/20/18 13:52 Dose: 650 mg Al Hydrox/Mg Hydrox/Simethicone (Maalox Plus 30 Ml) 30 ml PO Q4 PRN PRN Reason: Dyspepsia Amlodipine Besylate (Norvasc) 10 mg PO DAILY [facility] Last Admin: 05/25/18 10:00 Dose: 10 mg Cyproheptadine HCl (Periactin) 4 mg PO DAILY [facility] Last Admin: 05/25/18 10:00 Dose: 4 mg Ferrous Sulfate (Feosol) 325 mg PO BID [facility] Last Admin: 05/25/18 17:23 Dose: 325 mg Potassium Chloride (Potassium Chloride 20 Meq/100 Ml) 20 meq in 100 mls @ 50 mls/hr IVPB ONCE ONE Stop: 05/25/18 20:55 Ondansetron HCl (Zofran Odt) 4 mg PO Q6 PRN PRN Reason: Nausea/Vomiting Pantoprazole Sodium (Protonix Ec Tab) 40 mg PO DAILY [facility] Last Admin: 05/25/18 10:00 Dose: 40 mg Tramadol HCl (Ultram) 50 mg PO Q6 PRN PRN Reason: Pain, moderate (4-7) Last Admin: 05/25/18 08:14 Dose: 50 mg - Labs Labs: 05/25/18 06:25 05/25/18 06:25 PT 13.6 SECONDS (9.7-12.2) H 05/14/18 01:25 INR 1.2 05/14/18 01:25 APTT 38 SECONDS (21-34) H 07/18/18 19:54 - Constitutional Appears: Well - Head Exam Head Exam: ATRAUMATIC, NORMAL INSPECTION, NORMOCEPHALIC - Eye Exam Eye Exam: EOMI, Normal appearance, PERRL - ENT Exam ENT Exam: Mucous Membranes Moist, Normal Exam - Neck Exam Neck Exam: Full ROM, Normal Inspection. absent: Lymphadenopathy - Respiratory Exam Respiratory Exam: Decreased Breath Sounds - Cardiovascular Exam Cardiovascular Exam: REGULAR RHYTHM, +S1, +S2 - GI/Abdominal Exam GI & Abdominal Exam: Soft, Diminished Bowel Sounds - Rectal Exam Rectal Exam: Deferred
[2018-05-26 07:02] LABS: HEMOGLOBIN 9.6 g/dL (12.0-18.0); LYMPH # 0.4 K/uL (1.0-4.3); LYMPH % 2.2 % (20.0-40.0); MEAN CELL VOLUME 86.5 fL (80.0-94.0); MEAN CORPUSCULAR HEMOGLOBIN 28.6 pg (27.0-31.0); MEAN CORPUSCULAR HGB CONC 33.1 g/dL (33.0-37.0); MEAN PLATELET VOLUME 6.6 fL (7.2-11.7); MONO # 0.7 K/uL (0.0-0.8); MONO % 4.4 % (0.0-10.0); NEUT # 15.7 K/uL (1.8-7.0); NEUT % 93.4 % (50.0-75.0); PLATELET COUNT 264 K/uL (130-400); RBC 3.37 Mil/uL (4.40-5.90); RED CELL DISTRIBUTION WIDTH 18.1 % (11.5-14.5); WHITE BLOOD COUNT 16.8 K/uL (4.8-10.8)
[2018-05-26 07:23] LABS: ALB/GLOB RATIO 0.8 (1.0-2.1); ALBUMIN 2.9 g/dL (3.5-5.0); ALT/SGPT 15 U/L (21-72); AST/SGOT 12 U/L (17-59); BLOOD UREA NITROGEN 48 mg/dL (9-20); CALCIUM 8.7 mg/dl (8.6-10.4); GFR AFRICAN-AMERICAN > 60; GFR NON-AFRICAN AMERICAN > 60
[2018-05-26 08:56] LABS: ANISOCYTOSIS SLIGHT; BURR CELLS SLIGHT; HYPOCHROMIC SLIGHT; LYMPHOCYTE 3 % (20-40); MONOCYTE 3 % (0-10); NEUTROPHIL 94 % (50-75); PLATELET ESTIMATE NORMAL (NORMAL); POIKILOCYTOSIS SLIGHT; TOTAL CELLS COUNTED 100
[2018-05-26] MEDS: Pantoprazole 40 mg EC Tab PO SCH (10:10)
[2018-05-26] MEDS ORDERED: Potassium Chloride 20 mEq ER Tab PO ONE (12:32)
--- NOTE | 2018-05-26 17:32 | CP.PCM.PN ---
Subjective - Date & Time of Evaluation Date of Evaluation: 05/26/18 Time of Evaluation: 07:20 - Subjective Subjective: clinically same Objective - Vital Signs/Intake and Output Vital Signs (last 24 hours): Temp Pulse Resp BP Pulse Ox 99.5 F 78 20 101/61 95 05/26/18 15:35 05/26/18 15:35 05/26/18 15:35 05/26/18 15:35 05/26/18 15:35 Intake and Output: 05/26/18 05/26/18 06:59 18:59 Intake Total 340 300 Output Total 550 50 Balance -210 250 - Medications Medications: Current Medications Acetaminophen (Tylenol 325mg Tab) 650 mg PO Q4 PRN PRN Reason: Pain, Mild (1-3) Last Admin: 05/20/18 13:52 Dose: 650 mg Al Hydrox/Mg Hydrox/Simethicone (Maalox Plus 30 Ml) 30 ml PO Q4 PRN PRN Reason: Dyspepsia Amlodipine Besylate (Norvasc) 10 mg PO DAILY [facility] Last Admin: 05/26/18 10:10 Dose: 10 mg Cyproheptadine HCl (Periactin) 4 mg PO DAILY [facility] Last Admin: 05/26/18 10:10 Dose: 4 mg Ferrous Sulfate (Feosol) 325 mg PO BID [facility] Last Admin: 05/26/18 10:10 Dose: 325 mg Ondansetron HCl (Zofran Odt) 4 mg PO Q6 PRN PRN Reason: Nausea/Vomiting Pantoprazole Sodium (Protonix Ec Tab) 40 mg PO DAILY [facility] Last Admin: 05/26/18 10:10 Dose: 40 mg Tramadol HCl (Ultram) 50 mg PO Q6 PRN PRN Reason: Pain, moderate (4-7) Last Admin: 05/25/18 22:09 Dose: 50 mg - Labs Labs: 05/26/18 06:55 05/26/18 06:55 PT 13.6 SECONDS (9.7-12.2) H 05/14/18 01:25 INR 1.2 05/14/18 01:25 APTT 38 SECONDS (21-34) H 05/13/18 19:54 - Constitutional Appears: Well - Head Exam Head Exam: ATRAUMATIC, NORMAL INSPECTION, NORMOCEPHALIC - Eye Exam Eye Exam: EOMI, Normal appearance, PERRL Pupil Exam: NORMAL ACCOMODATION, PERRL - ENT Exam ENT Exam: Mucous Membranes Moist, Normal Exam - Neck Exam Neck Exam: Full ROM, Normal Inspection. absent: Lymphadenopathy - Respiratory Exam Respiratory Exam: Decreased Breath Sounds - Cardiovascular Exam Cardiovascular Exam: REGULAR RHYTHM, +S1, +S2 - GI/Abdominal Exam GI & Abdominal Exam: Soft, Diminished Bowel Sounds - Rectal Exam Rectal Exam: Deferred
[2018-05-27] MEDS: Pantoprazole 40 mg EC Tab PO SCH (10:10)
--- NOTE | 2018-05-27 11:31 | CP.PCM.PN ---
Subjective - Date & Time of Evaluation Date of Evaluation: 05/27/18 Time of Evaluation: 11:26 - Subjective Subjective: PGY3 progress note for Dr. 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 Patient underwent revision of prolapse of distal end of transverse loop colostomy on 05/14/18. Pt seen and examined at bedside this am. No acute events overnight. Pt denies having any CP, SOB, abd pain, N/V/D/C, F/C. Pt tolerating diet. Objective - Vital Signs/Intake and Output Vital Signs (last 24 hours): Temp Pulse Resp BP Pulse Ox 98.6 F 88 20 118/77 98 05/27/18 07:42 05/27/18 07:42 05/27/18 07:42 05/27/18 07:42 05/27/18 07:42 - Medications Medications: Current Medications Acetaminophen (Tylenol 325mg Tab) 650 mg PO Q4 PRN PRN Reason: Pain, Mild (1-3) Last Admin: 05/20/18 13:52 Dose: 650 mg Al Hydrox/Mg Hydrox/Simethicone (Maalox Plus 30 Ml) 30 ml PO Q4 PRN PRN Reason: Dyspepsia Amlodipine Besylate (Norvasc) 10 mg PO DAILY [facility] Last Admin: 05/26/18 10:10 Dose: 10 mg Cyproheptadine HCl (Periactin) 4 mg PO DAILY [facility] Last Admin: 05/26/18 10:10 Dose: 4 mg Ferrous Sulfate (Feosol) 325 mg PO BID [facility] Last Admin: 05/26/18 17:43 Dose: 325 mg Ondansetron HCl (Zofran Odt) 4 mg PO Q6 PRN PRN Reason: Nausea/Vomiting Pantoprazole Sodium (Protonix Ec Tab) 40 mg PO DAILY [facility] Last Admin: 05/26/18 10:10 Dose: 40 mg Tramadol HCl (Ultram) 50 mg PO Q6 PRN PRN Reason: Pain, moderate (4-7) Last Admin: 05/25/18 22:09 Dose: 50 mg - Labs Labs: 05/26/18 06:55 05/26/18 06:55 PT 13.6 SECONDS (9.7-12.2) H 05/14/18 01:25 INR 1.2 05/14/18 01:25 APTT 38 SECONDS (21-34) H 05/13/18 19:54 - Constitutional Appears: Non-toxic, No Acute Distress - Head Exam Head Exam: ATRAUMATIC, NORMOCEPHALIC - ENT Exam ENT Exam: Mucous Membranes Moist - Respiratory Exam Respiratory Exam: Clear to Ausculation Bilateral. absent: Accessory Muscle Use , Rales, Rhonchi, Wheezes, Respiratory Distress - Cardiovascular Exam Cardiovascular Exam: REGULAR RHYTHM, +S1, +S2. absent: Gallop, Rubs, Murmur - GI/Abdominal Exam GI & Abdominal Exam: Soft, Normal Bowel Sounds. absent: Distended, Firm, Guarding, Rigid, Organomegaly - Extremities Exam Extremities Exam: absent: Pedal Edema, Tenderness - Neurological Exam Neurological Exam: Alert, Awake, Oriented x3 - Psychiatric Exam Psychiatric exam: Normal Affect, Normal Mood - Skin Skin Exam: Dry, Intact, Normal Color, Warm Assessment and Plan - Assessment and Plan (Free Text) Assessment: 67 year old male with PMHx of stage IV invasive adenoca. of colon s/p tranverse loop colostomy, chronic rectal/sacral pain, failure to thrive, HTN was admitted to hospital for symptomatic anemia likely 2/2 invasive disease to rectum. Anemia - Hgb/Hct stable this am - GI, Dr. Quiroz was consulted. There is no plan for endoscopic evaluation at this time. GI signed off Stage IV adenoca. of colon - Oncology, Dr. Mckeon is consulted - No plan for chemotherapy at this point - Palliative care will be offered - Pain management with tylenol prn, tramadol prn and periactin - Zofran prn HTN - Norvasc qd Prophylaxis - Protonix - Maalox - SCDs - oral AC contraindicated due to recent GI bleed All orders and management per Dr. Medina
[2018-05-27 14:04] LABS: BASO % 0.1 % (0.0-2.0); EOS % 0.1 % (0.0-4.0); HEMOGLOBIN 9.3 g/dL (12.0-18.0); LYMPH # 0.4 K/uL (1.0-4.3); LYMPH % 3.1 % (20.0-40.0); MEAN CELL VOLUME 85.1 fL (80.0-94.0); MEAN CORPUSCULAR HEMOGLOBIN 28.7 pg (27.0-31.0); MEAN CORPUSCULAR HGB CONC 33.8 g/dL (33.0-37.0); MEAN PLATELET VOLUME 7.1 fL (7.2-11.7); MONO # 0.5 K/uL (0.0-0.8); MONO % 3.3 % (0.0-10.0); NEUT # 12.8 K/uL (1.8-7.0); NEUT % 93.4 % (50.0-75.0); PLATELET COUNT 227 K/uL (130-400); RBC 3.23 Mil/uL (4.40-5.90); RED CELL DISTRIBUTION WIDTH 17.4 % (11.5-14.5); WHITE BLOOD COUNT 13.7 K/uL (4.8-10.8)
--- NOTE | 2018-05-27 14:31 | PCM.URO ---
Urology Progress Note - General General: Tolerating Diet - Subjective Abdominal Pain: Yes Flank Pain: No Nausea: No Vomiting: No Voiding Well: Yes Dysuria: Yes (mild, rare) Hematuria: No Good Stream: Yes Stone Passed: No Chest Pain: No Fever & Chills: No - Objective Lab Studies: Reviewed (creat=1.2) Lab Results Last 24 Hours: Laboratory Results - last 24 hr 05/27/18 13:55 WBC 13.7 H RBC 3.23 L Hgb 9.3 L Hct 27.5 L MCV 85.1 MCH 28.7 MCHC 33.8 RDW 17.4 H Plt Count 227 MPV 7.1 L Neut % (Auto) 93.4 H Lymph % (Auto) 3.1 L Bulloch % (Auto) 3.3 Eos % (Auto) 0.1 Baso % (Auto) 0.1 Neut # (Auto) 12.8 H Lymph # (Auto) 0.4 L Bulloch # (Auto) 0.5 Eos # (Auto) 0.0 Baso # (Auto) 0.0 Intake & Output: Intake & Output 05/26/18 05/27/18 05/27/18 18:59 06:59 18:59 Intake Total 300 Output Total 50 Balance 250 Intake: Oral 300 Output: Stool 50 Other: # Voids Urine, Voided 2 Vital Signs: Vital Signs - 24 hr 05/26/18 05/26/18 05/27/18 15:35 23:30 07:42 Temperature 99.5 F 98.9 F 98.6 F Pulse Rate 78 90 88 Respiratory 20 20 20 Rate Blood Pressure 101/61 116/73 118/77 O2 Sat by Pulse 95 97 98 Oximetry - Physical Exam Abdominal Exam: Soft, Non-Tender, Non-Distended Back: No CVA Tenderness Genitalia: Without Inflammation - Male Phallus: Normal Scrotum: Normal - Plan Additional Information: IMP: improved re retention. Metstatic colon ca - Date & Time of Note Date: 05/27/18 Time: 14:32
[2018-05-27 14:41] LABS: ANISOCYTOSIS SLIGHT; BANDS 5 % (0-2); LYMPHOCYTE 4 % (20-40); NEUTROPHIL 91 % (50-75); PLATELET ESTIMATE NORMAL (NORMAL); TOTAL CELLS COUNTED 100
[2018-05-27 14:42] LABS: HYPOCHROMIC SLIGHT; OVALOCYTES SLIGHT; POLYCHROMIC SLIGHT
[2018-05-27 14:44] LABS: BURR CELLS SLIGHT; SCHISTOCYTES SLIGHT
[2018-05-27 14:54] LABS: CALCIUM 8.2 mg/dl (8.6-10.4)
[2018-05-27 14:55] LABS: ALB/GLOB RATIO 0.7 (1.0-2.1); ALBUMIN 2.5 g/dL (3.5-5.0)
--- NOTE | 2018-05-27 19:21 | CP.PCM.PN ---
Subjective - Date & Time of Evaluation Date of Evaluation: 05/27/18 Time of Evaluation: 07:40 - Subjective Subjective: clinically same Objective - Vital Signs/Intake and Output Vital Signs (last 24 hours): Temp Pulse Resp BP Pulse Ox 99.1 F 102 H 20 116/71 99 05/27/18 15:30 05/27/18 15:30 05/27/18 15:30 05/27/18 15:30 05/27/18 15:30 Intake and Output: 05/27/18 05/28/18 18:59 06:59 Intake Total 200 Output Total 60 Balance 140 - Medications Medications: Current Medications Acetaminophen (Tylenol 325mg Tab) 650 mg PO Q4 PRN PRN Reason: Pain, Mild (1-3) Last Admin: 05/20/18 13:52 Dose: 650 mg Al Hydrox/Mg Hydrox/Simethicone (Maalox Plus 30 Ml) 30 ml PO Q4 PRN PRN Reason: Dyspepsia Amlodipine Besylate (Norvasc) 10 mg PO DAILY [facility] Last Admin: 05/27/18 10:10 Dose: 10 mg Cyproheptadine HCl (Periactin) 4 mg PO DAILY [facility] Last Admin: 05/27/18 10:10 Dose: 4 mg Ferrous Sulfate (Feosol) 325 mg PO BID [facility] Last Admin: 05/27/18 17:20 Dose: 325 mg Ondansetron HCl (Zofran Odt) 4 mg PO Q6 PRN PRN Reason: Nausea/Vomiting Pantoprazole Sodium (Protonix Ec Tab) 40 mg PO DAILY [facility] Last Admin: 05/27/18 10:10 Dose: 40 mg Tramadol HCl (Ultram) 50 mg PO Q6 PRN PRN Reason: Pain, moderate (4-7) Last Admin: 05/25/18 22:09 Dose: 50 mg - Labs Labs: 05/27/18 13:55 05/27/18 13:55 PT 13.6 SECONDS (9.7-12.2) H 05/14/18 01:25 INR 1.2 05/14/18 01:25 APTT 38 SECONDS (21-34) H 05/13/18 19:54 - Constitutional Appears: Non-toxic - Head Exam Head Exam: NORMAL INSPECTION - Eye Exam Eye Exam: Normal appearance - ENT Exam ENT Exam: Normal Exam - Neck Exam Neck Exam: Full ROM - Respiratory Exam Respiratory Exam: Decreased Breath Sounds - Cardiovascular Exam Cardiovascular Exam: REGULAR RHYTHM - GI/Abdominal Exam GI & Abdominal Exam: Diminished Bowel Sounds - Rectal Exam Rectal Exam: Deferred
--- NOTE | 2018-05-28 07:17 | CP.PCM.PN ---
Subjective - Date & Time of Evaluation Date of Evaluation: 05/28/18 Time of Evaluation: 07:15 - Subjective Subjective: PGY2- Progress note for Dr. Alessio Medina Patient was seen and examined at bedside in no acute distress. Patient reports having rectal pain today- the patient has a history of chronic rectal pain. Patient otherwise says "everything is good" and denies chest pain, palpitations , dyspnea, nausea, vomiting, fevers, headaches, abdominal pain, dysuria, leg pain and leg swelling. Objective - Vital Signs/Intake and Output Vital Signs (last 24 hours): Temp Pulse Resp BP Pulse Ox 98.7 F 89 20 124/77 99 05/28/18 00:00 05/28/18 00:00 05/28/18 00:00 05/28/18 00:00 05/28/18 00:00 - Medications Medications: Current Medications Acetaminophen (Tylenol 325mg Tab) 650 mg PO Q4 PRN PRN Reason: Pain, Mild (1-3) Last Admin: 05/20/18 13:52 Dose: 650 mg Al Hydrox/Mg Hydrox/Simethicone (Maalox Plus 30 Ml) 30 ml PO Q4 PRN PRN Reason: Dyspepsia Amlodipine Besylate (Norvasc) 10 mg PO DAILY [facility] Last Admin: 05/27/18 10:10 Dose: 10 mg Cyproheptadine HCl (Periactin) 4 mg PO DAILY [facility] Last Admin: 05/27/18 10:10 Dose: 4 mg Ferrous Sulfate (Feosol) 325 mg PO BID [facility] Last Admin: 05/27/18 17:20 Dose: 325 mg Ondansetron HCl (Zofran Odt) 4 mg PO Q6 PRN PRN Reason: Nausea/Vomiting Pantoprazole Sodium (Protonix Ec Tab) 40 mg PO DAILY [facility] Last Admin: 05/27/18 10:10 Dose: 40 mg Tramadol HCl (Ultram) 50 mg PO Q6 PRN PRN Reason: Pain, moderate (4-7) Last Admin: 05/27/18 22:10 Dose: 50 mg - Labs Labs: 05/27/18 13:55 05/27/18 13:55 PT 13.6 SECONDS (9.7-12.2) H 05/14/18 01:25 INR 1.2 05/14/18 01:25 APTT 38 SECONDS (21-34) H 05/13/18 19:54 - Constitutional Appears: No Acute Distress, Cachectic, Chronically Ill - Head Exam Head Exam: ATRAUMATIC, NORMAL INSPECTION - Eye Exam Eye Exam: EOMI, Normal appearance - ENT Exam ENT Exam: Mucous Membranes Moist - Respiratory Exam Respiratory Exam: Clear to Ausculation Bilateral, NORMAL BREATHING PATTERN. absent: Rales, Rhonchi, Wheezes - Cardiovascular Exam Cardiovascular Exam: REGULAR RHYTHM, +S1, +S2 - GI/Abdominal Exam GI & Abdominal Exam: Soft, Normal Bowel Sounds. absent: Tenderness Additional comments: Colostomy bag- right abdomen - Extremities Exam Extremities Exam: Pedal Edema (Left foot). 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 Anemia - Hgb/Hct stable this am - GI, Dr. Quiroz was consulted. There is no plan for endoscopic evaluation at this time. GI signed off Stage IV adenocarcinoma of colon - Oncology, Dr. Mckeon is consulted - No plan for chemotherapy at this point - Palliative care will be offered - Pain management with Tylenol prn, tramadol prn and periactin - Zofran prn ADAM - BUN/Cr trending down - Continue to monitor HTN - Norvasc qd Left foot swelling - Venous doppler: no DVT Abnormal electrolytes - Hypokalemia--> gave KDur - Continue to monitor Prophylaxis - Protonix - Maalox - SCDs - oral AC contraindicated due to recent GI bleed [facility] Dr. Vish Medina. Management per Dr. Vish Medina.
[2018-05-28 07:46] LABS: BASO % 0.1 % (0.0-2.0); HEMOGLOBIN 9.7 g/dL (12.0-18.0); LYMPH # 0.3 K/uL (1.0-4.3); LYMPH % 2.2 % (20.0-40.0); MEAN CORPUSCULAR HEMOGLOBIN 28.8 pg (27.0-31.0); MEAN CORPUSCULAR HGB CONC 33.9 g/dL (33.0-37.0); MEAN PLATELET VOLUME 7.2 fL (7.2-11.7); MONO # 0.5 K/uL (0.0-0.8); MONO % 3.3 % (0.0-10.0); NEUT # 12.8 K/uL (1.8-7.0); NEUT % 94.4 % (50.0-75.0); PLATELET COUNT 223 K/uL (130-400); RBC 3.36 Mil/uL (4.40-5.90); RED CELL DISTRIBUTION WIDTH 18.1 % (11.5-14.5); WHITE BLOOD COUNT 13.6 K/uL (4.8-10.8)
[2018-05-28 08:18] LABS: ALB/GLOB RATIO 0.8 (1.0-2.1); ALBUMIN 2.7 g/dL (3.5-5.0); CALCIUM 8.6 mg/dl (8.6-10.4)
[2018-05-28 09:25] LABS: ANISOCYTOSIS SLIGHT; HYPOCHROMIC SLIGHT; LYMPHOCYTE 3 % (20-40); MONOCYTE 2 % (0-10); NEUTROPHIL 95 % (50-75); PLATELET ESTIMATE NORMAL (NORMAL); POIKILOCYTOSIS SLIGHT; TOTAL CELLS COUNTED 100
[2018-05-28 09:26] LABS: LARGE PLATELETS PRESENT
[2018-05-28] MEDS ORDERED: Potassium Chloride 20 mEq ER Tab PO ONE (10:00)
[2018-05-28] MEDS: Pantoprazole 40 mg EC Tab PO SCH (11:04)
--- NOTE | 2018-05-28 13:35 | VASCLAB ---
Date of service: 05/28/2018 PROCEDURE: Left Lower Extremity Venous Duplex Exam. HISTORY: Left foot swelling PRIORS: None. TECHNIQUE: Left common femoral, femoral, popliteal and posterior tibial, peroneal and great saphenous veins were evaluated. Flow was assessed with color Doppler, compressibility, assessment of phasic flow and augmentation response. Report prepared by BRIEN Goodman FINDINGS: LEFT: 1. Common Femoral Vein: 1.1. Compressibility - Fully compressible: Thrombus - None : Flow - Phasic: Augmentation -Normal: Reflux - None. 2. Femoral Vein: 2.1. Compressibility - Fully compressible: Thrombus - None: Flow - Phasic: Augmentation -Normal: Reflux - None. 3. Popliteal Vein: 3.1. Compressibility - Fully compressible: Thrombus - None: Flow - Phasic: Augmentation -Normal: Reflux - None. 4. Posterior Tibial Vein: 4.1. Compressibility - Fully compressible: Thrombus - None: Flow - Phasic: Augmentation -Normal: Reflux - None. 5. Peroneal Vein: 5.1. Compressibility - Fully compressible: Thrombus - None: Flow - Phasic: Augmentation -Normal: Reflux - None. 6. Great Saphenous Vein: 6.1. Not visualized. OTHER FINDINGS: IMPRESSION: No evidence of deep vein thrombosis of the left lower extremity with excellent venous flow. Normal valve function noted of the left side. Normal venous flow noted in the right common femoral vein.
--- NOTE | 2018-05-28 20:10 | CP.PCM.PN ---
Subjective - Date & Time of Evaluation Date of Evaluation: 05/28/18 Time of Evaluation: 07:20 - Subjective Subjective: clinically same Objective - Vital Signs/Intake and Output Vital Signs (last 24 hours): Temp Pulse Resp BP Pulse Ox 98.4 F 87 20 126/79 99 05/28/18 17:18 05/28/18 17:18 05/28/18 17:18 05/28/18 17:18 05/28/18 17:18 Intake and Output: 05/28/18 05/29/18 18:59 06:59 Intake Total 380 Output Total 300 Balance 80 - Medications Medications: Current Medications Acetaminophen (Tylenol 325mg Tab) 650 mg PO Q4 PRN PRN Reason: Pain, Mild (1-3) Last Admin: 05/20/18 13:52 Dose: 650 mg Al Hydrox/Mg Hydrox/Simethicone (Maalox Plus 30 Ml) 30 ml PO Q4 PRN PRN Reason: Dyspepsia Amlodipine Besylate (Norvasc) 10 mg PO DAILY [facility] Last Admin: 05/28/18 11:03 Dose: 10 mg Cyproheptadine HCl (Periactin) 4 mg PO DAILY [facility] Last Admin: 05/28/18 11:10 Dose: 4 mg Ferrous Sulfate (Feosol) 325 mg PO BID [facility] Last Admin: 05/28/18 17:21 Dose: 325 mg Ondansetron HCl (Zofran Odt) 4 mg PO Q6 PRN PRN Reason: Nausea/Vomiting Pantoprazole Sodium (Protonix Ec Tab) 40 mg PO DAILY [facility] Last Admin: 05/28/18 11:04 Dose: 40 mg Potassium Chloride (K-Dur 20 Meq Er Tab) 20 meq PO DAILY [facility] Tramadol HCl (Ultram) 50 mg PO Q6 PRN PRN Reason: Pain, moderate (4-7) Last Admin: 05/28/18 11:03 Dose: 50 mg - Labs Labs: 05/28/18 07:34 05/28/18 07:34 PT 13.6 SECONDS (9.7-12.2) H 05/14/18 01:25 INR 1.2 05/14/18 01:25 APTT 38 SECONDS (21-34) H 05/13/18 19:54 - Constitutional Appears: Well - Head Exam Head Exam: ATRAUMATIC, NORMAL INSPECTION, NORMOCEPHALIC - Eye Exam Eye Exam: EOMI, Normal appearance, PERRL Pupil Exam: NORMAL ACCOMODATION, PERRL - ENT Exam ENT Exam: Mucous Membranes Moist, Normal Exam - Neck Exam Neck Exam: Full ROM, Normal Inspection. absent: Lymphadenopathy - Respiratory Exam Respiratory Exam: Decreased Breath Sounds - Cardiovascular Exam Cardiovascular Exam: REGULAR RHYTHM, +S1, +S2 - GI/Abdominal Exam GI & Abdominal Exam: Soft, Diminished Bowel Sounds - Rectal Exam Rectal Exam: Deferred
[2018-05-29 07:42] LABS: BASO % 0.1 % (0.0-2.0); EOS % 0.1 % (0.0-4.0); HEMOGLOBIN 8.9 g/dL (12.0-18.0); LYMPH # 0.4 K/uL (1.0-4.3); LYMPH % 3.7 % (20.0-40.0); MEAN CELL VOLUME 84.8 fL (80.0-94.0); MEAN CORPUSCULAR HEMOGLOBIN 28.5 pg (27.0-31.0); MEAN CORPUSCULAR HGB CONC 33.7 g/dL (33.0-37.0); MEAN PLATELET VOLUME 7.6 fL (7.2-11.7); MONO # 0.5 K/uL (0.0-0.8); MONO % 4.2 % (0.0-10.0); NEUT # 11.2 K/uL (1.8-7.0); NEUT % 91.9 % (50.0-75.0); PLATELET COUNT 224 K/uL (130-400); RBC 3.13 Mil/uL (4.40-5.90); RED CELL DISTRIBUTION WIDTH 17.7 % (11.5-14.5); WHITE BLOOD COUNT 12.2 K/uL (4.8-10.8)
[2018-05-29 07:56] LABS: ALB/GLOB RATIO 0.8 (1.0-2.1); ALBUMIN 2.7 g/dL (3.5-5.0); CALCIUM 8.8 mg/dl (8.6-10.4)
[2018-05-29] MEDS: Pantoprazole 40 mg EC Tab PO SCH (09:32)
[2018-05-29] MEDS: Potassium Chloride 20 mEq ER Tab PO SCH (09:32)
[2018-05-29 10:06] LABS: ANISOCYTOSIS SLIGHT; BANDS 7 % (0-2); LYMPHOCYTE 4 % (20-40); MONOCYTE 3 % (0-10); NEUTROPHIL 86 % (50-75); PLATELET ESTIMATE NORMAL (NORMAL); TOTAL CELLS COUNTED 100
[2018-05-29 10:07] LABS: HYPOCHROMIC SLIGHT; OVALOCYTES SLIGHT; POIKILOCYTOSIS SLIGHT
[2018-05-29 10:08] LABS: SCHISTOCYTES SLIGHT
--- NOTE | 2018-05-29 19:27 | CP.PCM.PN ---
Subjective - Date & Time of Evaluation Date of Evaluation: 05/29/18 Time of Evaluation: 07:00 - Subjective Subjective: clinically same Objective - Vital Signs/Intake and Output Vital Signs (last 24 hours): Temp Pulse Resp BP Pulse Ox 97.9 F 85 18 120/76 97 05/29/18 16:00 05/29/18 16:00 05/29/18 16:00 05/29/18 16:00 05/29/18 16:00 Intake and Output: 05/29/18 05/30/18 18:59 06:59 Intake Total 240 Output Total 150 Balance 90 - Medications Medications: Current Medications Acetaminophen (Tylenol 325mg Tab) 650 mg PO Q4 PRN PRN Reason: Pain, Mild (1-3) Last Admin: 05/20/18 13:52 Dose: 650 mg Al Hydrox/Mg Hydrox/Simethicone (Maalox Plus 30 Ml) 30 ml PO Q4 PRN PRN Reason: Dyspepsia Amlodipine Besylate (Norvasc) 10 mg PO DAILY [facility] Last Admin: 05/29/18 09:31 Dose: 10 mg Cyproheptadine HCl (Periactin) 4 mg PO DAILY [facility] Last Admin: 05/29/18 09:32 Dose: 4 mg Ferrous Sulfate (Feosol) 325 mg PO BID [facility] Last Admin: 05/29/18 17:14 Dose: 325 mg Ondansetron HCl (Zofran Odt) 4 mg PO Q6 PRN PRN Reason: Nausea/Vomiting Pantoprazole Sodium (Protonix Ec Tab) 40 mg PO DAILY [facility] Last Admin: 05/29/18 09:32 Dose: 40 mg Potassium Chloride (K-Dur 20 Meq Er Tab) 20 meq PO DAILY [facility] Last Admin: 05/29/18 09:32 Dose: 20 meq Tramadol HCl (Ultram) 50 mg PO Q6 PRN PRN Reason: Pain, moderate (4-7) Last Admin: 05/29/18 09:31 Dose: 50 mg - Labs Labs: 05/29/18 07:30 05/29/18 07:30 PT 13.6 SECONDS (9.7-12.2) H 05/14/18 01:25 INR 1.2 05/14/18 01:25 APTT 38 SECONDS (21-34) H 05/13/18 19:54 - Constitutional Appears: Well - Head Exam Head Exam: ATRAUMATIC, NORMAL INSPECTION, NORMOCEPHALIC - Eye Exam Eye Exam: EOMI, Normal appearance, PERRL Pupil Exam: NORMAL ACCOMODATION, PERRL - ENT Exam ENT Exam: Mucous Membranes Moist, Normal Exam - Neck Exam Neck Exam: Full ROM, Normal Inspection. absent: Lymphadenopathy - Respiratory Exam Respiratory Exam: Decreased Breath Sounds - Cardiovascular Exam Cardiovascular Exam: REGULAR RHYTHM, +S1, +S2 - GI/Abdominal Exam GI & Abdominal Exam: Soft, Diminished Bowel Sounds - Rectal Exam Rectal Exam: Deferred
[2018-05-30] MEDS: Potassium Chloride 20 mEq ER Tab PO SCH (10:21)
[2018-05-30] MEDS: Pantoprazole 40 mg EC Tab PO SCH (10:21)
--- NOTE | 2018-05-30 12:45 | CP.PCM.PN ---
Subjective - Date & Time of Evaluation Date of Evaluation: 05/30/18 Time of Evaluation: 07:00 - Subjective Subjective: clinically same Objective - Vital Signs/Intake and Output Vital Signs (last 24 hours): Temp Pulse Resp BP Pulse Ox 97.8 F 90 20 119/75 97 05/30/18 08:11 05/30/18 08:11 05/30/18 08:11 05/30/18 08:11 05/30/18 08:11 Intake and Output: 05/30/18 05/30/18 06:59 18:59 Intake Total 150 Output Total 100 Balance 50 - Medications Medications: Current Medications Acetaminophen (Tylenol 325mg Tab) 650 mg PO Q4 PRN PRN Reason: Pain, Mild (1-3) Last Admin: 05/20/18 13:52 Dose: 650 mg Al Hydrox/Mg Hydrox/Simethicone (Maalox Plus 30 Ml) 30 ml PO Q4 PRN PRN Reason: Dyspepsia Amlodipine Besylate (Norvasc) 10 mg PO DAILY [facility] Last Admin: 05/30/18 10:21 Dose: 10 mg Cyproheptadine HCl (Periactin) 4 mg PO DAILY [facility]S [facility] Last Admin: 05/30/18 10:21 Dose: 4 mg Ferrous Sulfate (Feosol) 325 mg PO BID [facility] 234 B[facility]S [facility] Last Admin: 05/30/18 10:21 Dose: 325 mg Ondansetron HCl (Zofran Odt) 4 mg PO Q6 PRN PRN Reason: Nausea/Vomiting Pantoprazole Sodium (Protonix Ec Tab) 40 mg PO DAILY [facility]S [facility] Last Admin: 05/30/18 10:21 Dose: 40 mg Potassium Chloride (K-Dur 20 Meq Er Tab) 20 meq PO DAILY [facility] 234 B[facility]S AT [facility] Last Admin: 05/30/18 10:21 Dose: 20 meq Tramadol HCl (Ultram) 50 mg PO Q6 PRN PRN Reason: Pain, moderate (4-7) Last Admin: 05/30/18 10:25 Dose: 50 mg - Labs Labs: 05/29/18 07:30 05/29/18 07:30 PT 13.6 SECONDS (9.7-12.2) H 05/14/18 01:25 INR 1.2 05/14/18 01:25 APTT 38 SECONDS (21-34) H 05/13/18 19:54 - Constitutional Appears: Well - Head Exam Head Exam: ATRAUMATIC, NORMAL INSPECTION, NORMOCEPHALIC - Eye Exam Eye Exam: EOMI, Normal appearance, PERRL Pupil Exam: NORMAL ACCOMODATION, PERRL - ENT Exam ENT Exam: Mucous Membranes Moist, Normal Exam - Neck Exam Neck Exam: Full ROM, Normal Inspection. absent: Lymphadenopathy - Respiratory Exam Respiratory Exam: Decreased Breath Sounds - Cardiovascular Exam Cardiovascular Exam: REGULAR RHYTHM, +S1, +S2 - GI/Abdominal Exam GI & Abdominal Exam: Soft, Diminished Bowel Sounds - Rectal Exam Rectal Exam: Deferred
[2018-05-31] MEDS: Potassium Chloride 20 mEq ER Tab PO SCH (09:34)
[2018-05-31] MEDS: Pantoprazole 40 mg EC Tab PO SCH (09:34)
[2018-05-31] MEDS: Dextrose 5%/0.45% NS 1,000 ML IV SCH (12:15)
--- NOTE | 2018-05-31 13:19 | CP.PCM.PN ---
Subjective - Date & Time of Evaluation Date of Evaluation: 05/31/18 Time of Evaluation: 07:00 - Subjective Subjective: clinically same Objective - Vital Signs/Intake and Output Vital Signs (last 24 hours): Temp Pulse Resp BP Pulse Ox 97.8 F 90 20 122/79 98 05/31/18 07:46 05/31/18 07:46 05/31/18 07:46 05/31/18 07:46 05/31/18 07:46 - Medications Medications: Current Medications Acetaminophen (Tylenol 325mg Tab) 650 mg PO Q4 PRN PRN Reason: Pain, Mild (1-3) Last Admin: 05/20/18 13:52 Dose: 650 mg Al Hydrox/Mg Hydrox/Simethicone (Maalox Plus 30 Ml) 30 ml PO Q4 PRN PRN Reason: Dyspepsia Amlodipine Besylate (Norvasc) 10 mg PO DAILY [facility] Last Admin: 05/31/18 09:34 Dose: 10 mg Cyproheptadine HCl (Periactin) 4 mg PO DAILY [facility] Last Admin: 05/31/18 09:34 Dose: 4 mg Ferrous Sulfate (Feosol) 325 mg PO BID [facility] Last Admin: 05/31/18 09:34 Dose: 325 mg Dextrose/Sodium Chloride (Dextrose 5%/0.45% Ns 1000 Ml) 1,000 mls @ 50 mls/hr IV .Q20H [facility] Ondansetron HCl (Zofran Odt) 4 mg PO Q6 PRN PRN Reason: Nausea/Vomiting Pantoprazole Sodium (Protonix Ec Tab) 40 mg PO DAILY [facility] Last Admin: 05/31/18 09:34 Dose: 40 mg Potassium Chloride (K-Dur 20 Meq Er Tab) 20 meq PO DAILY [facility] Last Admin: 05/31/18 09:34 Dose: 20 meq Tramadol HCl (Ultram) 50 mg PO Q6 PRN PRN Reason: Pain, moderate (4-7) Last Admin: 05/31/18 11:18 Dose: 50 mg - Labs Labs: 05/29/18 07:30 05/29/18 07:30 PT 13.6 SECONDS (9.7-12.2) H 05/14/18 01:25 INR 1.2 05/14/18 01:25 APTT 38 SECONDS (21-34) H 05/13/18 19:54 - Constitutional Appears: Well - Head Exam Head Exam: ATRAUMATIC, NORMAL INSPECTION, NORMOCEPHALIC - Eye Exam Eye Exam: EOMI, Normal appearance, PERRL Pupil Exam: NORMAL ACCOMODATION, PERRL - ENT Exam ENT Exam: Mucous Membranes Moist, Normal Exam - Neck Exam Neck Exam: Full ROM, Normal Inspection. absent: Lymphadenopathy - Respiratory Exam Respiratory Exam: Decreased Breath Sounds - Cardiovascular Exam Cardiovascular Exam: REGULAR RHYTHM, +S1, +S2 - GI/Abdominal Exam GI & Abdominal Exam: Soft, Diminished Bowel Sounds - Rectal Exam Rectal Exam: Deferred
[2018-06-01] MEDS: Dextrose 5%/0.45% NS 1,000 ML IV SCH ×2 (06:32→08:10)
[2018-06-01 08:26] LABS: ALB/GLOB RATIO 0.8 (1.0-2.1); ALBUMIN 2.9 g/dL (3.5-5.0); CALCIUM 8.2 mg/dl (8.6-10.4)
[2018-06-01] MEDS: Potassium Chloride 20 mEq ER Tab PO SCH (09:35)
[2018-06-01] MEDS: Pantoprazole 40 mg EC Tab PO SCH (09:35)
--- NOTE | 2018-06-01 11:31 | CP.PCM.PCO ---
Physician Communication Note - Physician Communication Note Physician Communication Note: Family meeting today with , at 1 pm.
--- NOTE | 2018-06-01 14:28 | CP.PCM.CON ---
History of Present Illness - History of Present Illness History of Present Illness: Palliative consult requested by Hank LEIGH for goals of care discussion Patient is a 67 yo male [facility] with rectal bleed accompanied by rectal pain . Patient has had intermittent rectal bleeding for months, secondary to metastatic colorectal cancer. Hb 6.9 on admission. Symptoms mproved after blood transfusion, on this admission. Pain managed by Tramadol. patient continues to be with poor appetite, TPN started. Patient seen by Doctor Richie GI and no further Endo procedures were recommended PMH: metastatic colon cancer, S/P transvere colostomy, sacral pressure sore,m rectal bleed, prolapse colostomy Soc. Hx: , has one daughter, NH resident Fam. Hx : denies hx of cancer Review of Systems - Review of Systems All systems: reviewed and no additional remarkable complaints except Review of Systems: ROS unobtainable from patient due to generalized weakness. Patient suggested he was too tired to talk. ROS obtained from nursing. Per nrsing, patient has extremely poor PO intake and moderate to severe rectal pain. Past Patient History - Past Medical History & Family History Past Medical History?: Yes - Past Social History Smoking Status: Never Smoked - CARDIAC Hx Hypertension: Yes - PULMONARY Hx Respiratory Disorders: No - NEUROLOGICAL Hx Neurological Disorder: No - HEENT Hx HEENT Problems: No - RENAL Hx Chronic Kidney Disease: No - ENDOCRINE/METABOLIC Hx Endocrine Disorders: No - HEMATOLOGICAL/ONCOLOGICAL Hx Blood Disorders: Yes Hx Cancer: Yes (COLON CA WITH METS) - INTEGUMENTARY Hx Dermatological Problems: No - MUSCULOSKELETAL/RHEUMATOLOGICAL Hx Arthritis: Yes (BACK) - GASTROINTESTINAL Hx Gastrointestinal Disorders: Yes (RECTAL CANCER WITH POLAPSE CONSTIPATION) Hx Bowel Surgery: Yes Hx Colostomy: Yes Other/Comment: COLON CANCER WITH CHEMOTHERAPY STARTED 2015 // PROLAPSE COLOSTOMY - GENITOURINARY/GYNECOLOGICAL Hx Genitourinary Disorders: Yes Hx Prostate Cancer: Yes - PSYCHIATRIC Hx Substance Use: No - SURGICAL HISTORY Hx Surgeries: Yes Hx Orthopedic Surgery: Yes (BACK SURGERY) Other/Comment: s/p transverse loop colostomy 02/11/18 - ANESTHESIA Hx Anesthesia: Yes Hx Anesthesia Reactions: No Hx Malignant Hyperthermia: No Meds Allergies/Adverse Reactions: Allergies Allergy/AdvReac Type Severity Reaction Status Date / Time No Known Allergies Allergy Verified 03/26/18 15:00 - Medications Medications: Current Medications Acetaminophen (Tylenol 325mg Tab) 650 mg PO Q4 PRN PRN Reason: Pain, Mild (1-3) Last Admin: 05/20/18 13:52 Dose: 650 mg Al Hydrox/Mg Hydrox/Simethicone (Maalox Plus 30 Ml) 30 ml PO Q4 PRN PRN Reason: Dyspepsia Amlodipine Besylate (Norvasc) 10 mg PO DAILY [facility] Last Admin: 06/01/18 09:35 Dose: 10 mg Cyproheptadine HCl (Periactin) 4 mg PO DAILY [facility] Last Admin: 06/01/18 09:36 Dose: 4 mg Ferrous Sulfate (Feosol) 325 mg PO BID [facility] Last Admin: 06/01/18 09:35 Dose: 325 mg Dextrose/Sodium Chloride (Dextrose 5%/0.45% Ns 1000 Ml) 1,000 mls @ 50 mls/hr IV .Q20H [facility] Last Admin: 06/01/18 08:10 Dose: Not Given Multivitamins/Vitamin C 10 ml/Chromium/Copper/Manganese/Zinc 1 ml/ Amino Acids 1,011 mls @ 42 mls/hr IV .Q24H ONE Stop: 06/02/18 17:59 Fat Emulsion Intravenous (Intralipid 20%) 500 mls @ 42 mls/hr IV MWF@1800 [facility] Stop: 06/06/18 05:55 Ondansetron HCl (Zofran Odt) 4 mg PO Q6 PRN PRN Reason: Nausea/Vomiting Pantoprazole Sodium (Protonix Ec Tab) 40 mg PO DAILY [facility] Last Admin: 06/01/18 09:35 Dose: 40 mg Tramadol HCl (Ultram) 50 mg PO Q6 PRN PRN Reason: Pain, moderate (4-7) Last Admin: 06/01/18 01:53 Dose: 50 mg Physical Exam - Constitutional Appears: Chronically Ill - Head Exam Head Exam: ATRAUMATIC, NORMAL INSPECTION, NORMOCEPHALIC - Eye Exam Eye Exam: EOMI, Normal appearance, PERRL Pupil Exam: NORMAL ACCOMODATION, PERRL - ENT Exam ENT Exam: Mucous Membranes Dry - Neck Exam Neck exam: Positive for: Normal Inspection - Respiratory Exam Respiratory Exam: Decreased Breath Sounds, NORMAL BREATHING PATTERN - Cardiovascular Exam Cardiovascular Exam: Tachycardia, REGULAR RHYTHM - GI/Abdominal Exam GI & Abdominal Exam: Guarding, Hypoactive Bowel Sounds, Tenderness - Rectal Exam Rectal Exam: Deferred - Exam Exam: NORMAL INSPECTION - Extremities Exam Extremities exam: Positive for: normal inspection - Back Exam Back exam: NORMAL INSPECTION - Neurological Exam Neurological exam: Alert, Oriented x3 - Psychiatric Exam Psychiatric exam: Depressed, Flat Affect - Skin Skin Exam: Dry, Pallor Additional comments: sacral stage 2 Results - Vital Signs Recent Vital Signs: Last Vital Signs Temp 97.4 F L 06/01/18 08:04 Pulse 88 06/01/18 08:04 Resp 20 06/01/18 08:04 BP 115/73 06/01/18 08:04 Pulse Ox 100 06/01/18 08:04 - Labs Result Diagrams: 05/29/18 07:30 06/01/18 07:42 Labs: Laboratory Results - last 24 hr 06/01/18 07:42 Sodium 136 Potassium 5.2 Chloride 103 Carbon Dioxide 15 L Anion Gap 23 H BUN 135 H* D Creatinine 3.8 H Est GFR ( Amer) 19 Est GFR (Non-Af Amer) 16 Random Glucose 84 Calcium 8.2 L Phosphorus 4.5 Magnesium 2.3 Total Bilirubin 0.4 AST 11 L ALT 16 L Alkaline Phosphatase 160 H D Total Protein 6.6 Albumin 2.9 L Globulin 3.7 Albumin/Globulin Ratio 0.8 L Assessment & Plan - Assessment and Plan (Free Text) Assessment: Palliative consult DNR/DNI, copy of POLST on chart, PPS 20% I reviewed medical records, all diagnostic studies, examined patient in the bed and met with is for family meeting. Patient is alert, looking chronically ill, cachectic, Vietnamese and Scottish speaking. Primary language Vietnamese. Patient appears very uncomfortable, suggesting is tired and asking to be allowed to rest. Breath sounds shallow, denies chest pain, there is no cough. Abdomen flat and skinny. TPN for nutrition/hydration. Colostomy functioning, stool brown. No rectal bleeding noted. There is small , stage 2 pressure sore. Urine output 100 cc to 200 cc a day. Patient is on bed rest due to weakness. Reports deep, burning rectal and abdominal pain. Pain is partially relieved by Tramadol. Patient wishes was more comfortable. BP 115/73, HR 88, O2Sat 100 5 RA. WBC 12.2, Hb 8.9, BUN 135, Print Cutter 3.8 Goals of care discussed with patient's Yael, away from bed side. In Demand translation used. She stated being made aware about diagnosis and poor prognosis. Yael said she was told " by the Doctor" that her " needs some tube" to make him feel better. She was not sure what kind of tube it was, but agreed to it any way as it " will make her feel better". PEG discussed and Yael said most likely it was the tube Doctor referred to. I offered my concerns regarding patient's poor condition and risks involved with surgery and PEG its self. Further I elicited Yael's expectations of care. She only wanted her to be comfortable and peacefully when " God calls him".I discussed comfort care at [facility] especially pain control . Yael said it was what she wanted for her . Impression 1. This is a terminally ill male with advanced metastatic cancer 2. Unwanted weight loss 3. Anemia 2 nd to rectal bleeding 3. Severe pain , cancer related 4. Pressure sore due to malnutrition and prolonged bed rest 5. Limited mobility due to overall condition 6. Family advocates for comfort care and peaceful 7. lacks complete insight of disease process and relies on health care providers to assist her through decision making process Suggestions 1. Offer pleasure food as tolerated 2. Would limit time of TPN for up to 7 days 3. Monitor for rectal bleeding, check H&H 3. Consider long acting pain meds for better control of this cancer pain such as MS Contin 20 mg Po Q 12 hr or fentanyl 25 mcg patch Q 72 hr 4. Air mattress and repositioning in bed Q 2 hr 5. Would consider comfort care at the setting of jail 6. I do not agree with PEG , if is considered, as life expectancy for this man and is very short . Patient is also very weak for any aggressive interventions Palliative care will continu to fallow up with this patient until discharge and support through this very difficult time. Advance care planing 35 min
[2018-06-01] MEDS: Fat Emulsion 20% IV 500 ML IV SCH (17:45)
[2018-06-01] MEDS ORDERED: PPN #1 IV ONE (18:00)
--- NOTE | 2018-06-01 19:02 | CP.PCM.PN ---
Subjective - Date & Time of Evaluation Date of Evaluation: 06/01/18 Time of Evaluation: 07:00 - Subjective Subjective: clinically same Objective - Vital Signs/Intake and Output Vital Signs (last 24 hours): Temp Pulse Resp BP Pulse Ox 97.2 F L 89 20 122/79 99 06/01/18 15:00 06/01/18 15:00 06/01/18 15:00 06/01/18 15:00 06/01/18 15:00 Intake and Output: 06/01/18 06/02/18 18:59 06:59 Intake Total 1020 Output Total 100 Balance 920 - Medications Medications: Current Medications Acetaminophen (Tylenol 325mg Tab) 650 mg PO Q4 PRN PRN Reason: Pain, Mild (1-3) Last Admin: 05/20/18 13:52 Dose: 650 mg Al Hydrox/Mg Hydrox/Simethicone (Maalox Plus 30 Ml) 30 ml PO Q4 PRN PRN Reason: Dyspepsia Amlodipine Besylate (Norvasc) 10 mg PO DAILY [facility] Last Admin: 06/01/18 09:35 Dose: 10 mg Cyproheptadine HCl (Periactin) 4 mg PO DAILY [facility] Last Admin: 06/01/18 09:36 Dose: 4 mg Ferrous Sulfate (Feosol) 325 mg PO BID [facility] Last Admin: 06/01/18 17:50 Dose: 325 mg Dextrose/Sodium Chloride (Dextrose 5%/0.45% Ns 1000 Ml) 1,000 mls @ 50 mls/hr IV .Q20H [facility] Last Admin: 06/01/18 08:10 Dose: Not Given Multivitamins/Vitamin C 10 ml/Chromium/Copper/Manganese/Zinc 1 ml/ Amino Acids 1,011 mls @ 42 mls/hr IV .Q24H ONE Stop: 06/02/18 17:59 Last Admin: 06/01/18 17:46 Dose: 42 mls/hr Fat Emulsion Intravenous (Intralipid 20%) 500 mls @ 42 mls/hr IV MWF@1800 [facility] Stop: 06/06/18 05:55 Last Admin: 06/01/18 17:45 Dose: 42 mls/hr Ondansetron HCl (Zofran Odt) 4 mg PO Q6 PRN PRN Reason: Nausea/Vomiting Pantoprazole Sodium (Protonix Ec Tab) 40 mg PO DAILY [facility] Last Admin: 06/01/18 09:35 Dose: 40 mg Tramadol HCl (Ultram) 50 mg PO Q6 PRN PRN Reason: Pain, moderate (4-7) Last Admin: 06/01/18 17:48 Dose: 50 mg - Labs Labs: 05/29/18 07:30 06/01/18 07:42 PT 13.6 SECONDS (9.7-12.2) H 05/14/18 01:25 INR 1.2 05/14/18 01:25 APTT 38 SECONDS (21-34) H 05/13/18 19:54 - Constitutional Appears: Well - Head Exam Head Exam: ATRAUMATIC, NORMAL INSPECTION, NORMOCEPHALIC - Eye Exam Eye Exam: EOMI, Normal appearance, PERRL Pupil Exam: NORMAL ACCOMODATION, PERRL - ENT Exam ENT Exam: Mucous Membranes Moist, Normal Exam - Neck Exam Neck Exam: Full ROM, Normal Inspection. absent: Lymphadenopathy - Respiratory Exam Respiratory Exam: Decreased Breath Sounds - Cardiovascular Exam Cardiovascular Exam: REGULAR RHYTHM, +S1, +S2 - GI/Abdominal Exam GI & Abdominal Exam: Soft, Diminished Bowel Sounds - Rectal Exam Rectal Exam: Deferred
[2018-06-02] MEDS: Pantoprazole 40 mg EC Tab PO SCH (09:52)
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
[2018-06-02] MEDS: metroNIDAZOLE IV 500 mg/100 ml 500 MG/100 ML BAG IVPB SCH (17:01)
[2018-06-02] MEDS ORDERED: PPN #2 IV ONE (18:00)
--- NOTE | 2018-06-02 20:30 | CP.PCM.PN ---
Subjective - Date & Time of Evaluation Date of Evaluation: 06/02/18 Time of Evaluation: 07:00 - Subjective Subjective: clinically same Objective - Vital Signs/Intake and Output Vital Signs (last 24 hours): Temp Pulse Resp BP Pulse Ox 98.3 F 94 H 20 123/79 97 06/02/18 15:00 06/02/18 15:00 06/02/18 15:00 06/02/18 15:00 06/02/18 15:00 Intake and Output: 06/02/18 06/03/18 18:59 06:59 Intake Total 336 Output Total 100 Balance 236 - Medications Medications: Current Medications Acetaminophen (Tylenol 325mg Tab) 650 mg PO Q4 PRN PRN Reason: Pain, Mild (1-3) Last Admin: 05/20/18 13:52 Dose: 650 mg Al Hydrox/Mg Hydrox/Simethicone (Maalox Plus 30 Ml) 30 ml PO Q4 PRN PRN Reason: Dyspepsia Amlodipine Besylate (Norvasc) 10 mg PO DAILY [facility] Last Admin: 06/02/18 09:51 Dose: 10 mg Cyproheptadine HCl (Periactin) 4 mg PO DAILY [facility] Last Admin: 06/02/18 09:52 Dose: 4 mg Ferrous Sulfate (Feosol) 325 mg PO BID [facility] Last Admin: 06/02/18 09:51 Dose: 325 mg Dextrose/Sodium Chloride (Dextrose 5%/0.45% Ns 1000 Ml) 1,000 mls @ 50 mls/hr IV .Q20H [facility] Last Admin: 06/01/18 08:10 Dose: Not Given Fat Emulsion Intravenous (Intralipid 20%) 500 mls @ 42 mls/hr IV MWF@1800 [facility] Stop: 06/06/18 05:55 Last Admin: 06/01/18 17:45 Dose: 42 mls/hr Multivitamins/Vitamin C 10 ml/Chromium/Copper/Manganese/Zinc 1 ml/ Amino Acids 1,011 mls @ 42 mls/hr IV .Q24H ONE Stop: 06/03/18 17:59 Last Admin: 06/02/18 17:46 Dose: 42 mls/hr Metronidazole (Flagyl) 500 mg in 100 mls @ 100 mls/hr IVPB Q8H [facility] PRN Reason: Protocol Last Admin: 08/07/18 17:01 Dose: 100 mls/hr Ondansetron HCl (Zofran Odt) 4 mg PO Q6 PRN PRN Reason: Nausea/Vomiting Pantoprazole Sodium (Protonix Ec Tab) 40 mg PO DAILY [facility] Last Admin: 06/02/18 09:52 Dose: 40 mg Tramadol HCl (Ultram) 50 mg PO Q6 PRN PRN Reason: Pain, moderate (4-7) Last Admin: 06/01/18 17:48 Dose: 50 mg - Labs Labs: 05/29/18 07:30 06/01/18 07:42 PT 13.6 SECONDS (9.7-12.2) H 05/14/18 01:25 INR 1.2 05/14/18 01:25 APTT 38 SECONDS (21-34) H 05/13/18 19:54 - Constitutional Appears: Well - Head Exam Head Exam: ATRAUMATIC, NORMAL INSPECTION, NORMOCEPHALIC - Eye Exam Eye Exam: EOMI, Normal appearance, PERRL Pupil Exam: NORMAL ACCOMODATION, PERRL - ENT Exam ENT Exam: Mucous Membranes Moist, Normal Exam - Neck Exam Neck Exam: Full ROM, Normal Inspection. absent: Lymphadenopathy - Respiratory Exam Respiratory Exam: Decreased Breath Sounds - Cardiovascular Exam Cardiovascular Exam: REGULAR RHYTHM, +S1, +S2 - GI/Abdominal Exam GI & Abdominal Exam: Soft, Diminished Bowel Sounds - Rectal Exam Rectal Exam: Deferred
[2018-06-03] MEDS: Dextrose 5%/0.45% NS 1,000 ML IV SCH
[2018-06-03] MEDS: metroNIDAZOLE IV 500 mg/100 ml 500 MG/100 ML BAG IVPB SCH ×3 (00:02→18:35)
[2018-06-03 07:20] LABS: BASO % 0.1 % (0.0-2.0); LYMPH # 0.4 K/uL (1.0-4.3); LYMPH % 2.1 % (20.0-40.0); MEAN CELL VOLUME 84.8 fL (80.0-94.0); MEAN CORPUSCULAR HEMOGLOBIN 28.6 pg (27.0-31.0); MEAN CORPUSCULAR HGB CONC 33.7 g/dL (33.0-37.0); MONO # 0.4 K/uL (0.0-0.8); MONO % 2.3 % (0.0-10.0); NEUT # 17.8 K/uL (1.8-7.0); NEUT % 95.5 % (50.0-75.0); PLATELET COUNT 193 K/uL (130-400); RBC 3.15 Mil/uL (4.40-5.90); RED CELL DISTRIBUTION WIDTH 17.6 % (11.5-14.5)
[2018-06-03 07:21] LABS: WHITE BLOOD COUNT 18.6 K/uL (4.8-10.8)
[2018-06-03 08:34] LABS: BANDS 10 % (0-2); MONOCYTE 2 % (0-10); NEUTROPHIL 88 % (50-75); PLATELET ESTIMATE NORMAL (NORMAL); TOTAL CELLS COUNTED 100
[2018-06-03 08:35] LABS: ANISOCYTOSIS SLIGHT; BURR CELLS SLIGHT; OVALOCYTES SLIGHT; POIKILOCYTOSIS SLIGHT
[2018-06-03] MEDS: Pantoprazole 40 mg EC Tab PO SCH (09:33)
[2018-06-03] MEDS ORDERED: Propofol 10 mg/ml Inj (20 ML) ONE (11:28)
[2018-06-03] MEDS ORDERED: Etomidate 20 mg/10ml Inj IV ONE (11:28)
[2018-06-03 11:37] LABS: INR 1.4; PROTHROMBIN TIME 15.8 SECONDS (9.7-12.2)
[2018-06-03 12:16] LABS: ALB/GLOB RATIO 0.7 (1.0-2.1); ALBUMIN 2.5 g/dL (3.5-5.0); CALCIUM 7.7 mg/dl (8.6-10.4)
--- NOTE | 2018-06-03 12:29 | CP.PCM.PN ---
Subjective - Date & Time of Evaluation Date of Evaluation: 06/03/18 Time of Evaluation: 07:00 - Subjective Subjective: clinically same Objective - Vital Signs/Intake and Output Vital Signs (last 24 hours): Temp Pulse Resp BP Pulse Ox 98.5 F 92 H 20 117/78 97 06/03/18 11:23 06/03/18 11:23 06/03/18 11:23 06/03/18 11:23 06/03/18 11:23 Intake and Output: 06/03/18 06/03/18 06:59 18:59 Intake Total 872 100 Output Total 300 Balance 572 100 - Medications Medications: Current Medications Acetaminophen (Tylenol 325mg Tab) 650 mg PO Q4 PRN PRN Reason: Pain, Mild (1-3) Last Admin: 05/20/18 13:52 Dose: 650 mg Al Hydrox/Mg Hydrox/Simethicone (Maalox Plus 30 Ml) 30 ml PO Q4 PRN PRN Reason: Dyspepsia Amlodipine Besylate (Norvasc) 10 mg PO DAILY [facility] Last Admin: 06/03/18 09:33 Dose: Not Given Cyproheptadine HCl (Periactin) 4 mg PO DAILY [facility] Last Admin: 06/03/18 09:33 Dose: Not Given Ferrous Sulfate (Feosol) 325 mg PO BID [facility] Last Admin: 06/03/18 09:32 Dose: Not Given Dextrose/Sodium Chloride (Dextrose 5%/0.45% Ns 1000 Ml) 1,000 mls @ 50 mls/hr IV .Q20H [facility] Last Admin: 06/03/18 00:00 Dose: Not Given Fat Emulsion Intravenous (Intralipid 20%) 500 mls @ 42 mls/hr IV MWF@1800 [facility] Stop: 06/06/18 05:55 Last Admin: 06/01/18 17:45 Dose: 42 mls/hr Multivitamins/Vitamin C 10 ml/Chromium/Copper/Manganese/Zinc 1 ml/ Amino Acids 1,011 mls @ 42 mls/hr IV .Q24H [facility] Stop: 06/03/18 17:59 Last Admin: 06/02/18 17:46 Dose: 42 mls/hr Metronidazole (Flagyl) 500 mg in 100 mls @ 100 mls/hr IVPB Q8H [facility] PRN Reason: Protocol Last Admin: 06/03/18 08:28 Dose: 100 mls/hr Multivitamins/Vitamin C 10 ml/Chromium/Copper/Manganese/Zinc 1 ml/ Amino Acids 1,011 mls @ 42 mls/hr IV .Q24H [facility] Stop: 06/04/18 17:59 Ondansetron HCl (Zofran Odt) 4 mg PO Q6 PRN PRN Reason: Nausea/Vomiting Tramadol HCl (Ultram) 50 mg PO Q6 PRN PRN Reason: Pain, moderate (4-7) Last Admin: 06/01/18 17:48 Dose: 50 mg - Labs Labs: 06/03/18 06:51 06/03/18 11:24 PT 15.8 SECONDS (9.7-12.2) H 06/03/18 11:24 INR 1.4 06/03/18 11:24 APTT 38 SECONDS (21-34) H 05/13/18 19:54
--- NOTE | 2018-06-03 15:41 | CP.PCM.CON ---
History of Present Illness - History of Present Illness History of Present Illness: 67M w/ PMH of metastatic rectal cancer and chronic rectal/sacral pain S/P revision of prolapse of distal end of transverse loop colostomy 05/14/2018 presents with anorexia and failure to thrive. Patient's describes patient' s complete loss of appetite started 2 weeks due to no apparent pathological or psychological cause. Patient denies any N/V, fever, chills, or trouble swallowing throughout this time. Patient denies pain with swallowing and continues to describe sensations of thirst. PMH: see above PSH: tranverse loop colostomy Allergies: NKDA Review of Systems - Constitutional Constitutional: Anorexia. absent: Chills, Fever, Night Sweats - EENT Nose/Mouth/Throat: absent: Epistaxis, Nasal Discharge, Dry Mouth - Cardiovascular Cardiovascular: absent: Chest Pain at Rest, Chest Pain with Activity - Respiratory Respiratory: absent: Hemoptysis, Wheezing - Gastrointestinal Gastrointestinal: absent: Dyspepsia, Dysphagia Additional comments: Notes pain solely at colostomy site - Musculoskeletal Musculoskeletal: Muscle Weakness - Psychiatric Psychiatric: Change in Appetite. absent: Auditory Hallucinations, Depression Past Patient History - Past Medical History & Family History Past Medical History?: Yes - Past Social History Smoking Status: Never Smoked - CARDIAC Hx Hypertension: Yes - PULMONARY Hx Respiratory Disorders: No - NEUROLOGICAL Hx Neurological Disorder: No - HEENT Hx HEENT Problems: No - RENAL Hx Chronic Kidney Disease: No - ENDOCRINE/METABOLIC Hx Endocrine Disorders: No - HEMATOLOGICAL/ONCOLOGICAL Hx Blood Disorders: Yes Hx Cancer: Yes (COLON CA WITH METS) - INTEGUMENTARY Hx Dermatological Problems: No - MUSCULOSKELETAL/RHEUMATOLOGICAL Hx Arthritis: Yes (BACK) - GASTROINTESTINAL Hx Gastrointestinal Disorders: Yes (RECTAL CANCER WITH POLAPSE CONSTIPATION) Hx Bowel Surgery: Yes Hx Colostomy: Yes Other/Comment: COLON CANCER WITH CHEMOTHERAPY STARTED 2015 // PROLAPSE COLOSTOMY - GENITOURINARY/GYNECOLOGICAL Hx Genitourinary Disorders: Yes Hx Prostate Cancer: Yes - PSYCHIATRIC Hx Substance Use: No - SURGICAL HISTORY Hx Surgeries: Yes Hx Orthopedic Surgery: Yes (BACK SURGERY) Other/Comment: s/p transverse loop colostomy 02/11/18 - ANESTHESIA Hx Anesthesia: Yes Hx Anesthesia Reactions: No Hx Malignant Hyperthermia: No Meds Allergies/Adverse Reactions: Allergies Allergy/AdvReac Type Severity Reaction Status Date / Time No Known Allergies Allergy Verified 03/26/18 15:00 - Medications Medications: Current Medications Acetaminophen (Tylenol 325mg Tab) 650 mg PO Q4 PRN PRN Reason: Pain, Mild (1-3) Last Admin: 05/20/18 13:52 Dose: 650 mg Al Hydrox/Mg Hydrox/Simethicone (Maalox Plus 30 Ml) 30 ml PO Q4 PRN PRN Reason: Dyspepsia Amlodipine Besylate (Norvasc) 10 mg PO DAILY [facility] Last Admin: 06/03/18 09:33 Dose: Not Given Cyproheptadine HCl (Periactin) 4 mg PO DAILY [facility] Last Admin: 06/03/18 09:33 Dose: Not Given Ferrous Sulfate (Feosol) 325 mg PO BID [facility] Last Admin: 06/03/18 09:32 Dose: Not Given Fat Emulsion Intravenous (Intralipid 20%) 500 mls @ 42 mls/hr IV MWF@1800 [facility] Stop: 06/06/18 05:55 Last Admin: 06/01/18 17:45 Dose: 42 mls/hr Multivitamins/Vitamin C 10 ml/Chromium/Copper/Manganese/Zinc 1 ml/ Amino Acids 1,011 mls @ 42 mls/hr IV .Q24H [facility] Stop: 06/03/18 17:59 Last Admin: 06/02/18 17:46 Dose: 42 mls/hr Metronidazole (Flagyl) 500 mg in 100 mls @ 100 mls/hr IVPB Q8H [facility] PRN Reason: Protocol Last Admin: 06/03/18 08:28 Dose: 100 mls/hr Multivitamins/Vitamin C 10 ml/Chromium/Copper/Manganese/Zinc 1 ml/ Amino Acids 1,011 mls @ 42 mls/hr IV .Q24H [facility] Stop: 06/04/18 17:59 Ondansetron HCl (Zofran Odt) 4 mg PO Q6 PRN PRN Reason: Nausea/Vomiting Tramadol HCl (Ultram) 50 mg PO Q6 PRN PRN Reason: Pain, moderate (4-7) Last Admin: 06/01/18 17:48 Dose: 50 mg Physical Exam - Constitutional Appears: No Acute Distress, Cachectic - Head Exam Head Exam: ATRAUMATIC, NORMAL INSPECTION, NORMOCEPHALIC - Eye Exam Eye Exam: EOMI - ENT Exam ENT Exam: Mucous Membranes Moist, Normal Exam - Respiratory Exam Respiratory Exam: NORMAL BREATHING PATTERN - Cardiovascular Exam Cardiovascular Exam: REGULAR RHYTHM, +S1, +S2. absent: Irregular Rhythm - GI/Abdominal Exam GI & Abdominal Exam: Normal Bowel Sounds, Soft. absent: Distended, Guarding, Hypoactive Bowel Sounds, Tenderness - Extremities Exam Extremities exam: Positive for: normal inspection - Neurological Exam Neurological exam: Alert - Psychiatric Exam Psychiatric exam: Flat Affect, Normal Mood - Skin Skin Exam: Dry, Intact, Normal Color, Warm Results - Vital Signs Recent Vital Signs: Last Vital Signs Temp 98.5 F 06/03/18 11:23 Pulse 75 06/03/18 12:20 Resp 12 06/03/18 12:20 BP 106/74 06/03/18 12:20 Pulse Ox 100 06/03/18 12:20 - Labs Result Diagrams: 06/03/18 06:51 06/03/18 11:24 Labs: Laboratory Results - last 24 hr 06/03/18 06/03/18 06/03/18 06:51 11:24 11:24 WBC 18.6 H D RBC 3.15 L Hgb 9.0 L Hct 26.7 L MCV 84.8 MCH 28.6 MCHC 33.7 RDW 17.6 H Plt Count 193 MPV 8.0 Neut % (Auto) 95.5 H Lymph % (Auto) 2.1 L [place] % (Auto) 2.3 Eos % (Auto) 0.0 Baso % (Auto) 0.1 Neut # (Auto) 17.8 H Lymph # (Auto) 0.4 L [place] # (Auto) 0.4 Eos # (Auto) 0.0 Baso # (Auto) 0.0 Neutrophils % (Manual) 88 H Band Neutrophils % 10 H Lymphocytes % (Manual) TEST NOT PERFORMED Monocytes % (Manual) 2 Platelet Estimate Normal Poikilocytosis (manual Slight Anisocytosis (manual) Slight Ovalocytes Slight [place] Cells Slight PT 15.8 H INR 1.4 Sodium 132 Potassium 5.6 H Chloride 104 Carbon Dioxide 11 L* D Anion Gap 23 H BUN 162 H* Creatinine 4.5 H Est GFR ( Amer) 16 Est GFR (Non-Af Amer) 13 Random Glucose 86 Calcium 7.7 L Total Bilirubin 0.5 AST 15 L D ALT 24 Alkaline Phosphatase 170 H Total Protein 5.8 L Albumin 2.5 L Globulin 3.4 Albumin/Globulin Ratio 0.7 L Assessment & Plan - Assessment and Plan (Free Text) Assessment: 67M w/ carcinomatosis presents with failure to thrive Plan: Patient with known carcinomatosis Prefer not to do open gastrostomy tube Recommend IR placement of G-tube Discussed with Dr. Anguiano, signing off Sidra Norris PGY1 - Date & Time Date: 06/03/18 Time: 15:45
[2018-06-03] MEDS ORDERED: PPN #3 IV ONE (18:00)
[2018-06-03] MEDS: Fat Emulsion 20% IV 500 ML IV SCH (22:05)
--- NOTE | 2018-06-04 17:18 | CP.PCM.PN ---
Subjective - Date & Time of Evaluation Date of Evaluation: 06/04/18 Time of Evaluation: 07:00 - Subjective Subjective: clinically same Objective - Vital Signs/Intake and Output Vital Signs (last 24 hours): Temp Pulse Resp BP Pulse Ox 97.5 F L 98 H 20 116/77 98 06/04/18 16:22 06/04/18 16:22 06/04/18 16:22 06/04/18 16:22 06/04/18 16:22 Intake and Output: 06/04/18 06/04/18 06:59 18:59 Intake Total 672 336 Output Total 600 1000 Balance 72 -664 - Medications Medications: Current Medications Acetaminophen (Tylenol 325mg Tab) 650 mg PO Q4 PRN PRN Reason: Pain, Mild (1-3) Last Admin: 05/20/18 13:52 Dose: 650 mg Al Hydrox/Mg Hydrox/Simethicone (Maalox Plus 30 Ml) 30 ml PO Q4 PRN PRN Reason: Dyspepsia Amlodipine Besylate (Norvasc) 10 mg PO DAILY [facility] Last Admin: 06/04/18 09:54 Dose: 10 mg Cyproheptadine HCl (Periactin) 4 mg PO DAILY [facility] Last Admin: 06/04/18 09:54 Dose: 4 mg Ferrous Sulfate (Feosol) 325 mg PO BID [facility] Last Admin: 06/04/18 09:54 Dose: 325 mg Multivitamins/Vitamin C 10 ml/Chromium/Copper/Manganese/Zinc 1 ml/ Amino Acids 1,011 mls @ 42 mls/hr IV .Q24H [facility] Stop: 06/04/18 17:59 Last Admin: 06/03/18 18:39 Dose: 42 mls/hr Multivitamins/Vitamin C 10 ml/Chromium/Copper/Manganese/Zinc 1 ml/ Amino Acids 1,011 mls @ 42 mls/hr IV .Q24H [facility] Stop: 06/05/18 17:59 Ondansetron HCl (Zofran Odt) 4 mg PO Q6 PRN PRN Reason: Nausea/Vomiting Tramadol HCl (Ultram) 50 mg PO Q6 PRN PRN Reason: Pain, moderate (4-7) Last Admin: 06/04/18 16:51 Dose: 50 mg - Labs Labs: 06/03/18 06:51 06/03/18 11:24 PT 15.8 SECONDS (9.7-12.2) H 06/03/18 11:24 INR 1.4 06/03/18 11:24 APTT 38 SECONDS (21-34) H 05/13/18 19:54 - Constitutional Appears: Well - Head Exam Head Exam: ATRAUMATIC, NORMAL INSPECTION, NORMOCEPHALIC - Eye Exam Eye Exam: EOMI, Normal appearance, PERRL Pupil Exam: NORMAL ACCOMODATION, PERRL - ENT Exam ENT Exam: Mucous Membranes Moist, Normal Exam - Neck Exam Neck Exam: Full ROM, Normal Inspection. absent: Lymphadenopathy - Respiratory Exam Respiratory Exam: Decreased Breath Sounds - Cardiovascular Exam Cardiovascular Exam: REGULAR RHYTHM, +S1, +S2 - GI/Abdominal Exam GI & Abdominal Exam: Soft, Diminished Bowel Sounds - Rectal Exam Rectal Exam: Deferred
[2018-06-04] MEDS ORDERED: PPN #4 IV ONE (18:00)
[2018-06-05 16:42] VITALS: TEMP 98.7
[2018-06-05] MEDS ORDERED: PPN #5 IV ONE (18:00)
--- NOTE | 2018-06-05 19:31 | CP.PCM.PN ---
Subjective - Date & Time of Evaluation Date of Evaluation: 06/05/18 Time of Evaluation: 07:00 - Subjective Subjective: clinically same Objective - Vital Signs/Intake and Output Vital Signs (last 24 hours): Temp Pulse Resp BP Pulse Ox 98.7 F 48 L 18 79/49 L 96 06/05/18 16:40 06/05/18 16:40 06/05/18 16:40 06/05/18 16:40 06/05/18 16:40 Intake and Output: 06/05/18 06/06/18 18:59 06:59 Intake Total 200 Output Total 600 Balance -400 - Medications Medications: Current Medications Acetaminophen (Tylenol 325mg Tab) 650 mg PO Q4 PRN PRN Reason: Pain, Mild (1-3) Last Admin: 05/20/18 13:52 Dose: 650 mg Al Hydrox/Mg Hydrox/Simethicone (Maalox Plus 30 Ml) 30 ml PO Q4 PRN PRN Reason: Dyspepsia Amlodipine Besylate (Norvasc) 10 mg PO DAILY [facility] Last Admin: 06/05/18 09:42 Dose: Not Given Cyproheptadine HCl (Periactin) 4 mg PO DAILY [facility] Last Admin: 06/05/18 09:41 Dose: 4 mg Fentanyl (Duragesic) 1 patch TD Q72H [facility] Last Admin: 06/05/18 10:30 Dose: 1 patch Ferrous Sulfate (Feosol) 325 mg PO BID [facility] Last Admin: 06/05/18 09:41 Dose: 325 mg Multivitamins/Vitamin C 10 ml/Chromium/Copper/Manganese/Zinc 1 ml/ Amino Acids 1,011 mls @ 42 mls/hr IV .Q24H [facility] Stop: 06/06/18 17:59 Last Admin: 06/05/18 18:39 Dose: 42 mls/hr Ondansetron HCl (Zofran Odt) 4 mg PO Q6 PRN PRN Reason: Nausea/Vomiting Sodium Bicarbonate (Sodium Bicarbonate Tab) 650 mg PO Q6 [facility] Last Admin: 06/05/18 12:00 Dose: 650 mg Tramadol HCl (Ultram) 50 mg PO Q6 PRN PRN Reason: Pain, moderate (4-7) Last Admin: 06/05/18 08:21 Dose: 50 mg - Labs Labs: 06/03/18 06:51 06/03/18 11:24 PT 15.8 SECONDS (9.7-12.2) H 06/03/18 11:24 INR 1.4 06/03/18 11:24 APTT 38 SECONDS (21-34) H 05/13/18 19:54 - Constitutional Appears: Well - Head Exam Head Exam: ATRAUMATIC, NORMAL INSPECTION, NORMOCEPHALIC - Eye Exam Eye Exam: EOMI, Normal appearance, PERRL Pupil Exam: NORMAL ACCOMODATION, PERRL - ENT Exam ENT Exam: Mucous Membranes Moist, Normal Exam - Neck Exam Neck Exam: Full ROM, Normal Inspection. absent: Lymphadenopathy - Respiratory Exam Respiratory Exam: Decreased Breath Sounds - Cardiovascular Exam Cardiovascular Exam: REGULAR RHYTHM, +S1, +S2 - GI/Abdominal Exam GI & Abdominal Exam: Soft, Diminished Bowel Sounds - Rectal Exam Rectal Exam: Deferred
[2018-06-06 08:22] VITALS: BP 94/58; PULSE 59; RESP 19; O2SAT 95
--- NOTE | 2018-06-06 11:52 | CP.PCM.PRO ---
Pronouncement of Note - Clinical Findings Physical Exam: No Response Verbal/Painful Stimuli, Absent Peripheral Pulses{ Carotid & Femoral}, Absent Heart & Breath Sounds, No Pupillary Light Reflex, No Corneal Reflex, Absence of Vital Signs - Pronouncement Time Time of Pronouncement of : 11:41 - Notifications Pronouncement Notifications: Family Notified, Atending Notified Historian Research Assistant Notified: No - Autopsy Autopsy Requested: No - [place] [id number]
--- NOTE | 2018-06-06 13:29 | PN ---
Copied To: Berlin Pride MD Attending MD: Berlin Pride MD DATE: 06/06/2018 LOCATION: 357, bed A. SUBJECTIVE: This is a 67-year-old male, seen and examined early in rounds. Appeared to be pale with generalized weakness and malaise with very poor oral intake. The patient is in a status of DNR and DNI with PEG tube in place with some liquid fecal material. Most recent lab result showed leukocytosis with low hemoglobin and hematocrit with electrolyte imbalance with low CO2 content indicative of metabolic acidosis with hypoalbuminemia and hypoproteinemia with calcium of 7.7. IMPRESSION: 1. Malnutrition. 2. Hypoalbuminemia and hypoproteinemia. 3. Known history of carcinomatosis with metastatic lesion. 4. Severe metabolic acidosis. 5. No further aggressive gastrointestinal workup and central hyperalimentation to be considered. Berlin Pride MD
--- NOTE | 2018-06-06 13:39 | CP.PCM.DIS ---
Provider - Provider Date of Admission: 05/07/18 17:47 Attending physician: Efra Medina MD Time Spent in preparation of Discharge (in minutes): 30 Hospital Course - Lab Results Lab Results: Most Recent Lab Values WBC 18.6 K/uL (4.8-10.8) H D 06/03/18 06:51 RBC 3.15 Mil/uL (4.40-5.90) L 06/03/18 06:51 Hgb 9.0 g/dL (12.0-18.0) L 06/03/18 06:51 Hct 26.7 % (35.0-51.0) L 06/03/18 06:51 MCV 84.8 fL (80.0-94.0) 06/03/18 06:51 MCH 28.6 pg (27.0-31.0) 06/03/18 06:51 MCHC 33.7 g/dL (33.0-37.0) 06/03/18 06:51 RDW 17.6 % (11.5-14.5) H 06/03/18 06:51 Plt Count 193 K/uL (130-400) 06/03/18 06:51 MPV 8.0 fL (7.2-11.7) 06/03/18 06:51 Neut % (Auto) 95.5 % (50.0-75.0) H 06/03/18 06:51 Lymph % (Auto) 2.1 % (20.0-40.0) L 06/03/18 06:51 [place] % (Auto) 2.3 % (0.0-10.0) 06/03/18 06:51 Eos % (Auto) 0.0 % (0.0-4.0) 06/03/18 06:51 Baso % (Auto) 0.1 % (0.0-2.0) 06/03/18 06:51 Neut # (Auto) 17.8 K/uL (1.8-7.0) H 06/03/18 06:51 Lymph # (Auto) 0.4 K/uL (1.0-4.3) L 06/03/18 06:51 [place] # (Auto) 0.4 K/uL (0.0-0.8) 06/03/18 06:51 Eos # (Auto) 0.0 K/uL (0.0-0.7) 06/03/18 06:51 Baso # (Auto) 0.0 K/uL (0.0-0.2) 06/03/18 06:51 Neutrophils % (Manual) 88 % (50-75) H 06/03/18 06:51 Band Neutrophils % 10 % (0-2) H 06/03/18 06:51 Lymphocytes % (Manual) TEST NOT PERFORMED 06/03/18 06:51 Monocytes % (Manual) 2 % (0-10) 06/03/18 06:51 Eosinophils % (Manual) 1 % (0-4) 05/16/18 11:24 Platelet Estimate Normal (NORMAL) 06/03/18 06:51 Large Platelets Present 05/28/18 07:34 Polychromasia Slight 05/27/18 13:55 Hypochromasia (manual) Slight 05/29/18 07:30 Poikilocytosis (manual Slight 06/03/18 06:51 Anisocytosis (manual) Slight 06/03/18 06:51 Microcytosis (manual) Slight 05/07/18 16:28 Ovalocytes Slight 06/03/18 06:51 [place] Cells Slight 06/03/18 06:51 Schistocytes Slight 05/29/18 07:30 PT 15.8 SECONDS (9.7-12.2) H 06/03/18 11:24 INR 1.4 06/03/18 11:24 APTT 38 SECONDS (21-34) H 05/13/18 19:54 Sodium 132 mmol/L (132-148) 06/03/18 11:24 Potassium 5.6 mmol/L (3.6-5.2) H 06/03/18 11:24 Chloride 104 mmol/L (98-107) 06/03/18 11:24 Carbon Dioxide 11 mmol/L (22-30) L* D 06/03/18 11:24 Anion Gap 23 (10-20) H 06/03/18 11:24 BUN 162 mg/dL (9-20) H* 06/03/18 11:24 Creatinine 4.5 mg/dL (0.8-1.5) H 06/03/18 11:24 Est GFR ( Amer) 16 06/03/18 11:24 Est GFR (Non-Af Amer) 13 06/03/18 11:24 POC Glucose (mg/dL) 103 mg/dL (65-110) 05/08/18 16:48 Random Glucose 86 mg/dL (75-110) 06/03/18 11:24 Calcium 7.7 mg/dl (8.6-10.4) L 06/03/18 11:24 Phosphorus 4.5 mg/dL (2.5-4.5) 06/01/18 07:42 Magnesium 2.3 mg/dL (1.6-2.3) 06/01/18 07:42 Total Bilirubin 0.5 mg/dL (0.2-1.3) 06/03/18 11:24 AST 15 U/L (17-59) L D 06/03/18 11:24 ALT 24 U/L (21-72) 06/03/18 11:24 Alkaline Phosphatase 170 U/L (38-126) H 06/03/18 11:24 Troponin I 0.0120 ng/mL (0.00-0.120) 05/07/18 16:28 NT-Pro-B Natriuret Pep 1840 pg/mL (0-900) H 05/07/18 16:28 Total Protein 5.8 g/dL (6.3-8.3) L 06/03/18 11:24 Albumin 2.5 g/dL (3.5-5.0) L 06/03/18 11:24 Globulin 3.4 gm/dL (2.2-3.9) 06/03/18 11:24 Albumin/Globulin Ratio 0.7 (1.0-2.1) L 06/03/18 11:24 Blood Type O POSITIVE 05/13/18 19:54 Antibody Screen Negative 05/13/18 19:54 - Hospital Course Hospital Course: seen b y multiple consultatns pt was dnr dni had a family meeting also spoke to daughter pt aware pronounded today Discharge Exam - Head Exam Head Exam: ATRAUMATIC, NORMAL INSPECTION, NORMOCEPHALIC Discharge Plan - Follow Up Plan Condition: STABLE Disposition: HOME/ ROUTINE Instructions: Colon and Rectal Cancer (DC) Referrals: Jez Anguiano Jr., MD [Staff Provider] - Lynette Medina MD [Staff Provider] -
[2018-06-06] MEDS ORDERED: PPN #6 IV ONE (18:00)
== END 2018-06-06 15:45 | DRG 329 ==
LOC: C.ER 15:16 → C.9E 17:47 → C.6T 19:39 → C.9E 19:54 → C.5S 20:48 → C.3T 05-21 11:20
PROVIDERS: ADMIT Internal Medicine Nephrology; ATTEND Internal Medicine Nephrology
PROC: 30233N1 Transfusion of Nonautologous Red Blood Cells into Peripheral Vein, Percutaneous Approach (ICD-10-PCS; 2018-05-14)
PROC: 0DBE0ZZ Excision of Large Intestine, Open Approach (ICD-10-PCS; principal; 2018-05-14 07:45)
PROC: 3E0436Z Introduction of Nutritional Substance into Central Vein, Percutaneous Approach (ICD-10-PCS; 2018-06-01)
PROC: 0DB98ZX Excision of Duodenum, Via Natural or Artificial Opening Endoscopic, Diagnostic (ICD-10-PCS; 2018-06-03)
PROC: 02HV33Z Insertion of Infusion Device into Superior Vena Cava, Percutaneous Approach (ICD-10-PCS; 2018-06-05)
DX: C20 Malignant neoplasm of rectum (principal); E43 Unspecified severe protein-calorie malnutrition; C78.7 Secondary malignant neoplasm of liver and intrahepatic bile duct; C78.00 Secondary malignant neoplasm of unspecified lung; E87.2 Acidosis; K94.09 Other complications of colostomy; R64 Cachexia; B37.81 Candidal esophagitis; D68.9 Coagulation defect, unspecified; K94.01 Colostomy hemorrhage; D50.0 Iron deficiency anemia secondary to blood loss (chronic); I10 Essential (primary) hypertension; R62.7 Adult failure to thrive; Z51.5 Encounter for palliative care; Z66 Do not resuscitate; K44.9 Diaphragmatic hernia without obstruction or gangrene; E87.6 Hypokalemia; R33.9 Retention of urine, unspecified; D63.0 Anemia in neoplastic disease; Y83.3 Surgical operation with formation of external stoma as the cause of abnormal reaction of the patient, or of later complication, without mention of misadventure at the time of the procedure